=== PATIENT | male | born 1950 | race Caucasian/White ===

== ENCOUNTER → 2016-03-29 | Day surgery (SDC) | payer OTHER ==
[2016-03-24 12:11] VITALS: Ht 175.3 cm; Wt 102.3 kg
[~2016-03-29] VITALS: Ht 175.3 cm; Wt 102.3 kg
[~2016-03-29] MED LIST: 500ML BSS 0.3ML EPI 1:1000PF IRRIG ONE; ACETAMINOPHEN 325 MG TAB PO PRN; ALBU18002 PO; AMLO-114 PO; AMR2 PO; AMVISC PLUS 0.8ML SYRINGE INT OCU ONE; APIX1TAB3 PO; ASPCH81X PO; ATEN-175 PO; ATROPINE SULFATE 0.1 MG/ML 5ML SYR IV PRN; BSS FLUSH ONE; DXY100 PO; ENDOCOAT 0.85ML SYRINGE INT OCU ONE; EpHEDrine SULFATE INJ 50 MG/ML AMP IV PRN; EpINEphrine INJ 1MG/ML AMP 1 MG/ML AMP ONE; FURO-85 PO; HYDR-5688 PO; LACTATED RINGER'S 1000ML 500 ML IV SCH; LIDOCAINE 4% OP SOLN DROP CHARGE ONE; LIDOCAINE 4% OP SOLN DROP CHARGE OPL SCH; LIDOCAINE HCL 1% MPF 2 ML VIAL ONE; LISI40TA PO; LRS10 PO; MENTOIN EXT; METO25TA3 PO; MIDAZOLAM HCL 1 MG/ML 2ML VIAL ONE; MIX: 4ML BSS 1ML EPI 1:1000 PF TOP ONE; MOXIFLOXACIN OPH SOLN PER DROP CHARGE ONE; NRN300 PO; POTA10CA28 PO; POVIDONE-IODINE OP SOLN 30 ML BTL ONE; PRED20TA PO; PROPARACAINE 0.5% OP SOLN PER DROP CHARGE OPL SCH; TOBRAMYCIN/DEXAMETHASONE OPH OINT PER APPLN CHARGE ONE
--- NOTE | 2016-03-29 07:38 | History & Physical Bridge - [place] ---
H&P Re-Evaluation Bridge Note: I have examined the patient, reviewed the History & Physical and in the interval since the performance of the History & Physical I have noted the following changes of clinical significance: No changes noted
[2016-03-29] MEDS: PHENYLEPHRINE HCL 2.5% OP SOLN PER DROP CHARGE OPL SCH ×3 (07:39→07:49)
[2016-03-29] MEDS: TROPICAMIDE 1% OP SOLN PER DROP CHARGE OPL SCH ×3 (07:40→07:50)
[2016-03-29] MEDS: CYCLOPENTOLATE HCL 1% OP SOLN PER DROP CHARGE OPL SCH ×3 (07:41→07:51)
[2016-03-29] MEDS: MOXIFLOXACIN OPH SOLN PER DROP CHARGE OPL SCH ×3 (07:42→07:52)
[2016-03-29 08:57] VITALS: TEMP 37.3
--- NOTE | 2016-03-29 08:57 | [facility] Post Operative Brief Note ---
Immediate Operative Summary Operative Date Mar 29, 2016. Pre-Operative Diagnosis Left Eye Cataract Post-Operative Diagnosis same Procedure(s) Performed Left Cataract Phacoemulsification With Intraocular Lens Implant Surgeon Dr. Cristy Park Plate Gauger Surgeon(s) 0 Estimated Blood Loss 0 Findings left cataract Specimens none Complication(s) None Disposition
--- NOTE | 2016-03-29 08:57 | [facility] Operative Report ---
Operative Report Phaco with monofocal IOL DATE OF OPERATION: 03/29/16 PREOPERATIVE DIAGNOSIS: Senile nuclear cataract, left eye POSTOPERATIVE DIAGNOSIS: Senile nuclear cataract, left eye PROCEDURE PERFORMED: Phacoemulsification with intraocular lens implantation, left eye SURGEON: Dr. Larry Park ANESTHESIA: Topical with 1% intracameral lidocaine and monitored anesthesia care COMPLICATIONS: None DESCRIPTION OF PROCEDURE: After positively identifying the patient both verbally and by wristband in the preoperative area, the left eye was marked as the operative eye. The patient was then brought back to the operating room by the anesthesia and nursing staff where they were given a drop of Lidocaine and betadine into the operative eye. They were then sterilely prepped and draped in the standard fashion typical for ophthalmic surgery. Steri-strips were placed along the upper eyelids to keep the lashes back, and a lid speculum was placed into the operative eye. At this point, a documented time out was performed with members of the ophthalmology, nursing, and anesthesia staffs all agreeing upon the correct patient, correct location for surgery, correct procedure, and correct type and power of intraocular lens to be implanted. The microscope was then swung into position. First, a paracentesis wound was made using a sideport blade. Then, in sequence, 1% preservative-free lidocaine followed by Endocoat viscoelastic was injected into the anterior chamber. Next , the main incision was made with a keratome blade in triplanar fashion. A sharp cystotome was introduced into the eye and used to create a tear in the anterior capsule, which was directed into a continuous curvilinear capsulorrhexis using Utrata forceps. Hydrodissection was then performed with BSS on a flat-tip cannula. Next, the phacoemulsification handpiece was introduced into the eye and used to remove the nucleus in a texeub-dku-zyeyjpo fashion. This was done without complication and then the irrigation-aspiration handpiece was introduced into the eye and used to remove all remaining cortical and epinuclear material. Amvisc was then injected into the anterior chamber as well as into the capsular bag and using the lens injector system, an MX60 14.0 D lens, serial number [id number], and expiration date 02/2018 was injected into the capsular bag and rotated into the correct position. Next, the irrigation- aspiration handpiece was used to remove all remaining Amvisc. BSS was used to hydrate the main wound, and then BSS was injected into the paracentesis site to reach physiologic pressure and then the main wound was checked and found to be watertight. The patient was given drops of Vigamox and Tobradex ointment into the operative eye, and then the surrounding area was cleaned and dried. A clear plastic shield was placed over the eye and the patient was then sat up and taken from the operating room by the anesthesia staff having tolerated the procedure well and suffering no complications. DISPOSITION: The patient was returned to the recovery room in stable condition. I attest to the content of the Intraoperative Record and any orders documented therein. Any exceptions are noted below.
--- NOTE | 2016-03-29 08:58 | Discharge Instructions-SurgCtr ---
Discharge Instructions Visit Reason for Visit: Cataract Left Eye Discharge Discharge Diagnosis / Problem: left cataract Discharge Goals Goal(s): Decrease discomfort, Improve function Medications Stopped Medications Name(s): Told not to take Glimepiride this a.m.. Activity Recommendations Activity Limitations: as noted below Anesthesia . Post Anesthesia Instructions: If you have had General Anesthesia or IV Sedation: * Do not drive today. * Resume driving when surgeon permits. * Do not make important decisions or sign legal documents today. * Call surgeon for: 1. Temperature elevations greater than 101 degrees F. 2. Uncontrollable pain. 3. Excessive bleeding. 4. Persistent nausea and vomiting. 5. Medication intolerance (nausea, vomiting or rash). * For nausea and vomiting use only clear liquids such as: tea, soda, bouillon until nausea subsides, then gradually increase diet as tolerated. * If you have any concerns or questions, call your surgeon's office. If physician is unavailable and it is an emergency, call 911 or go to the nearest emergency room. . Instructions / Follow-Up Instructions / Follow-Up ACTIVITY RECOMMENDATIONS: * Light activities. * You may walk outside, read, watch television. * You may notice redness on the white part of the eye and some blurry vision - this is normal. MEDICATIONS: Resume previous medications unless instructed otherwise by your surgeon. Start all eye drops at 11 am today: * Eye drops (today): Prednisone - one drop in operative eye every 2 hours while awake Ofloxacin - one drop in operative eye every 2 hours while awake Bromfenac - one drop in operative eye daily SPECIAL CARE INSTRUCTIONS: * Tape plastic shield over eye to sleep at night. Call your doctor at with any concerns or problems. FOLLOW UP VISIT: Follow-up with Dr Park at [place] office as scheduled. Diet Recommendations Home Diet: no limitations Procedures Procedures Performed: Left Cataract Phacoemulsification With Intraocular Lens Implant Pending Studies Studies pending at discharge: no Medical Emergencies . Who to Call and When: Medical Emergencies: If at any time you feel your situation is an emergency, please call 911 immediately. . Non-Emergent Contact Non-Emergency issues call your: Surgeon . . "Provider Documentation" section prepared by Larry Park.
--- NOTE | 2016-03-29 09:11 | Anesthesia Progress Nt - [facility] ---
Anesthesia Post Op Note Date & Time Mar 29, 2016 at 09:11 Vital Signs Pain Intensity: 0 Vital Signs Past 12 Hours Date Time Temp Pulse Resp B/P Pulse Ox O2 Delivery O2 Flow Rate FiO2 03/29/16 07:32 36.6 72 20 136/90 96 Room Air Notes Mental Status: alert / awake / arousable, participated in evaluation Pt Amnestic to Procedure: Yes Nausea / Vomiting: adequately controlled Pain: adequately controlled Airway Patency, RR, SpO2: stable & adequate BP & HR: stable & adequate Hydration State: stable & adequate Anesthetic Complications: no major complications apparent
[2016-03-29 09:45] VITALS: BP 128/81; PULSE 72; O2SAT 97
== END | disposition home or self-care (01) ==
LOC: X.SURG 07:09
PROVIDERS: ATTEND Ophthalmology
DX: H25.12 Age-related nuclear cataract, left eye (principal); Z98.49 Cataract extraction status, unspecified eye; I10 Essential (primary) hypertension; J44.9 Chronic obstructive pulmonary disease, unspecified; E11.9 Type 2 diabetes mellitus without complications; Z88.1 Allergy status to other antibiotic agents; Z88.7 Allergy status to serum and vaccine

== ENCOUNTER → 2016-04-05 | Day surgery (SDC) | payer OTHER ==
[2016-04-04 07:51] VITALS: Ht 175.3 cm; Wt 102.3 kg
[~2016-04-05] VITALS: Ht 175.3 cm; Wt 102.3 kg
[~2016-04-05] MED LIST changes: -LIDOCAINE 4% OP SOLN DROP CHARGE OPL SCH; +LIDOCAINE 4% OP SOLN DROP CHARGE OPR SCH; -PROPARACAINE 0.5% OP SOLN PER DROP CHARGE OPL SCH; +PROPARACAINE 0.5% OP SOLN PER DROP CHARGE OPR SCH
[2016-04-05] MEDS: PHENYLEPHRINE HCL 2.5% OP SOLN PER DROP CHARGE OPR SCH ×3 (08:04→08:14)
[2016-04-05] MEDS: TROPICAMIDE 1% OP SOLN PER DROP CHARGE OPR SCH ×3 (08:05→08:15)
[2016-04-05] MEDS: CYCLOPENTOLATE HCL 1% OP SOLN PER DROP CHARGE OPR SCH ×3 (08:06→08:16)
[2016-04-05] MEDS: MOXIFLOXACIN OPH SOLN PER DROP CHARGE OPR SCH ×3 (08:07→08:17)
--- NOTE | 2016-04-05 09:27 | [facility] Post Operative Brief Note ---
Immediate Operative Summary Operative Date Apr 05, 2016. Pre-Operative Diagnosis Right Eye Cataract Post-Operative Diagnosis same Procedure(s) Performed Right Eye Cataract Phcoemulsification with Intra-Ocular Lens Implant Surgeon Dr. Cristy Park Braided Rug Maker Surgeon(s) 0 Estimated Blood Loss 0 Findings right cataract Specimens none Complication(s) None Disposition
--- NOTE | 2016-04-05 09:28 | [facility] Operative Report ---
Operative Report Phaco with monofocal IOL DATE OF OPERATION: 04/05/16 PREOPERATIVE DIAGNOSIS: Senile nuclear cataract, right eye POSTOPERATIVE DIAGNOSIS: Senile nuclear cataract, right eye PROCEDURE PERFORMED: Phacoemulsification with intraocular lens implantation, right eye SURGEON: Dr. Larry Park ANESTHESIA: Topical with 1% intracameral lidocaine and monitored anesthesia care COMPLICATIONS: None DESCRIPTION OF PROCEDURE: After positively identifying the patient both verbally and by wristband in the preoperative area, the right eye was marked as the operative eye. The patient was then brought back to the operating room by the anesthesia and nursing staff where they were given a drop of Lidocaine and betadine into the operative eye. They were then sterilely prepped and draped in the standard fashion typical for ophthalmic surgery. Steri-strips were placed along the upper eyelids to keep the lashes back, and a lid speculum was placed into the operative eye. At this point, a documented time out was performed with members of the ophthalmology, nursing, and anesthesia staffs all agreeing upon the correct patient, correct location for surgery, correct procedure, and correct type and power of intraocular lens to be implanted. The microscope was then swung into position. First, a paracentesis wound was made using a sideport blade. Then, in sequence, 1% preservative-free lidocaine followed by Endocoat viscoelastic was injected into the anterior chamber. Next , the main incision was made with a keratome blade in triplanar fashion. A sharp cystotome was introduced into the eye and used to create a tear in the anterior capsule, which was directed into a continuous curvilinear capsulorrhexis using Utrata forceps. Hydrodissection was then performed with BSS on a flat-tip cannula. Next, the phacoemulsification handpiece was introduced into the eye and used to remove the nucleus in a gztpee-cos-gdbkikh fashion. This was done without complication and then the irrigation-aspiration handpiece was introduced into the eye and used to remove all remaining cortical and epinuclear material. Amvisc was then injected into the anterior chamber as well as into the capsular bag and using the lens injector system, an MX60 14.5 D lens, serial number [id number], and expiration date 10/2016 was injected into the capsular bag and rotated into the correct position. Next, the irrigation- aspiration handpiece was used to remove all remaining Amvisc. BSS was used to hydrate the main wound, and then BSS was injected into the paracentesis site to reach physiologic pressure and then the main wound was checked and found to be watertight. The patient was given drops of Vigamox and Tobradex ointment into the operative eye, and then the surrounding area was cleaned and dried. A clear plastic shield was placed over the eye and the patient was then sat up and taken from the operating room by the anesthesia staff having tolerated the procedure well and suffering no complications. DISPOSITION: The patient was returned to the recovery room in stable condition. I attest to the content of the Intraoperative Record and any orders documented therein. Any exceptions are noted below.
--- NOTE | 2016-04-05 09:29 | Discharge Instructions-SurgCtr ---
Discharge Instructions Visit Reason for Visit: Cataract Right Eye Discharge Discharge Diagnosis / Problem: right cataract Discharge Goals Goal(s): Decrease discomfort, Improve function Medications Stopped Medications Name(s): Amaryl Activity Recommendations Activity Limitations: as noted below Anesthesia . Post Anesthesia Instructions: If you have had General Anesthesia or IV Sedation: * Do not drive today. * Resume driving when surgeon permits. * Do not make important decisions or sign legal documents today. * Call surgeon for: 1. Temperature elevations greater than 101 degrees F. 2. Uncontrollable pain. 3. Excessive bleeding. 4. Persistent nausea and vomiting. 5. Medication intolerance (nausea, vomiting or rash). * For nausea and vomiting use only clear liquids such as: tea, soda, bouillon until nausea subsides, then gradually increase diet as tolerated. * If you have any concerns or questions, call your surgeon's office. If physician is unavailable and it is an emergency, call 911 or go to the nearest emergency room. . Instructions / Follow-Up Instructions / Follow-Up ACTIVITY RECOMMENDATIONS: * Light activities. * You may walk outside, read, watch television. * You may notice redness on the white part of the eye and some blurry vision - this is normal. MEDICATIONS: Resume previous medications unless instructed otherwise by your surgeon. Start all eye drops at 11:30 am today: * Eye drops (today): Prednisone - one drop in operative eye every 2 hours while awake Ofloxacin - one drop in operative eye every 2 hours while awake Bromfenac - one drop in operative eye daily SPECIAL CARE INSTRUCTIONS: * Tape plastic shield over eye to sleep at night. Call your doctor at with any concerns or problems. FOLLOW UP VISIT: Follow-up with Dr Park at [facility] as scheduled. Diet Recommendations Home Diet: no limitations Procedures Procedures Performed: Right Eye Cataract Phcoemulsification with Intra-Ocular Lens Implant Pending Studies Studies pending at discharge: no Medical Emergencies . Who to Call and When: Medical Emergencies: If at any time you feel your situation is an emergency, please call 911 immediately. . Non-Emergent Contact Non-Emergency issues call your: Surgeon . . "Provider Documentation" section prepared by Larry Park.
[2016-04-05 09:30] VITALS: TEMP 36.8
--- NOTE | 2016-04-05 09:30 | [facility] Operative Report ---
Operative Report Addendum: A Malyugin ring was inserted due to poor pupil dilation. This step was done after making the main incision. The Malyugin ring was subsequently removed prior to final Amvisc aspiration. I attest to the content of the Intraoperative Record and any orders documented therein. Any exceptions are noted below.
--- NOTE | 2016-04-05 09:47 | Anesthesia Progress Nt - [facility] ---
Anesthesia Post Op Note Date & Time Apr 05, 2016 at 09:47 Vital Signs Pain Intensity: 0 Vital Signs Past 12 Hours Date Time Temp Pulse Resp B/P Pulse Ox O2 Delivery O2 Flow Rate FiO2 04/05/16 09:30 36.8 80 16 119/77 96 Room Air 04/05/16 07:56 36.2 95 16 127/83 95 Room Air Notes Mental Status: alert / awake / arousable, participated in evaluation Pt Amnestic to Procedure: Yes Nausea / Vomiting: adequately controlled Pain: adequately controlled Airway Patency, RR, SpO2: stable & adequate BP & HR: stable & adequate Hydration State: stable & adequate Anesthetic Complications: no major complications apparent
[2016-04-05 09:48] VITALS: BP 123/79; PULSE 69; O2SAT 98
== END | disposition home or self-care (01) ==
LOC: X.SURG 07:44
PROVIDERS: ATTEND Ophthalmology
DX: H25.11 Age-related nuclear cataract, right eye (principal); H57.8 Other specified disorders of eye and adnexa; Z98.42 Cataract extraction status, left eye; I10 Essential (primary) hypertension; J45.909 Unspecified asthma, uncomplicated; E11.9 Type 2 diabetes mellitus without complications; Z83.518 Family history of other specified eye disorder; Z88.1 Allergy status to other antibiotic agents; Z82.49 Family history of ischemic heart disease and other diseases of the circulatory system; Z79.82 Long term (current) use of aspirin

== ENCOUNTER 2016-11-03 06:52 | Inpatient (IN) | payer OTHER ==
[~2016-11-03] VITALS: Ht 172.7 cm; Wt 104.3 kg
[~2016-11-03 06:52] MED LIST changes: -500ML BSS 0.3ML EPI 1:1000PF IRRIG ONE; -ACETAMINOPHEN 325 MG TAB PO PRN; -ALBU18002 PO; -AMVISC PLUS 0.8ML SYRINGE INT OCU ONE; -APIX1TAB3 PO; -ATEN-175 PO; -ATROPINE SULFATE 0.1 MG/ML 5ML SYR IV PRN; -BSS FLUSH ONE; -DXY100 PO; -ENDOCOAT 0.85ML SYRINGE INT OCU ONE; -EpHEDrine SULFATE INJ 50 MG/ML AMP IV PRN; -EpINEphrine INJ 1MG/ML AMP 1 MG/ML AMP ONE; -HYDR-5688 PO; -LACTATED RINGER'S 1000ML 500 ML IV SCH; -LIDOCAINE 4% OP SOLN DROP CHARGE ONE; -LIDOCAINE 4% OP SOLN DROP CHARGE OPR SCH; -LIDOCAINE HCL 1% MPF 2 ML VIAL ONE; -LRS10 PO; -MENTOIN EXT; -METO25TA3 PO; -MIDAZOLAM HCL 1 MG/ML 2ML VIAL ONE; -MIX: 4ML BSS 1ML EPI 1:1000 PF TOP ONE; -MOXIFLOXACIN OPH SOLN PER DROP CHARGE ONE; -NRN300 PO; -POTA10CA28 PO; -POVIDONE-IODINE OP SOLN 30 ML BTL ONE; -PROPARACAINE 0.5% OP SOLN PER DROP CHARGE OPR SCH; -TOBRAMYCIN/DEXAMETHASONE OPH OINT PER APPLN CHARGE ONE
[2016-11-03] MEDS ORDERED: ONDANSETRON INJ 2 MG/ML 2 ML VIAL IV STA (07:01)
[2016-11-03] MEDS ORDERED: HYDROmorphone INJ 0.5 MG/0.5 ML SYR IV STA ×3 (07:01→12:01)
[2016-11-03] MEDS ORDERED: ALBUT/IPRATROP 3MG/0.5MG NEB 3 ML VIAL INH STA (07:30)
[2016-11-03 07:34] LABS: URINE APPEARANCE CLEAR (CLEAR); URINE BILIRUBIN NEG (NEG); URINE COLOR YELLOW; URINE NITRITE NEG (NEG); URINE SPECIFIC GRAVITY 1.028 (1.000-1.030); UROBILINOGEN NEG (NEG)
[2016-11-03 07:39] LABS: MANUAL MICROSCOPIC REQUIRED? NO; REVIEW REQ? NO
[2016-11-03] MEDS ORDERED: SODIUM CHLORIDE 0.9% 500ML 500 ML IV STA (07:43)
[2016-11-03 07:52] LABS: BASO % 0.3 %; BASO ABS # 0.03 K/uL (0-0.2); COMPLETE YES; EOS % 0.3 %; HEMATOCRIT 42.9 % (42-52); IG% 1.3 %; LYMPH % 4.5 %; MEAN CELL VOLUME 82.5 fL (80-100); MEAN CORPUSCULAR HEMOGLOBIN 29.4 pg (25-34); MEAN CORPUSCULAR HGB CONC 35.7 g/dl (32-36); MEAN PLATELET VOLUME 9.8 fL (7.4-10.4); MONO % 4.2 %; NEUT % 89.4 %; PLATELET COUNT 135 K/uL (130-400); WHITE BLOOD COUNT 11.21 K/uL (4.8-10.8)
[2016-11-03 08:10] VITALS: PULSE 92; O2SAT 96
[2016-11-03 08:22] LABS: BUN/CREATININE RATIO 19.7 (10-20); CALCIUM 9.6 mg/dl (8.5-10.1); CREATININE 1.2 mg/dl (0.60-1.40)
--- NOTE | 2016-11-03 08:24 | DIAGNOSTIC IMAGING REPORT ---
LUMBAR SPINE WITHOUT CT DOSE: 673.11 mGycm HISTORY: Pain Pt c/o severe low back pain TECHNIQUE: Multiaxial CT images of the lumbar spine were performed and reformatted in the sagittal and coronal plane without the use of contrast. A dose lowering technique was utilized adhering to the principles of ALARA. COMPARISON: None. FINDINGS: No evidence for acute compression deformity. Mild degenerative disc change throughout. Right pleural effusion. Moderate degenerative osteophytic change throughout the entire lumbar region. No major bony compromise of the spinal canal. Degenerative change of the posterior elements throughout. IMPRESSION: 1. Right pleural effusion. 2. Moderate degenerative change of the lumbar spine including posterior facets. 3. Osteopenia. 4. No acute bony abnormality. The above report was generated using voice recognition software. It may contain grammatical, syntax or spelling errors. Electronically signed by: Ray Villafuerte M.D. 11/03/2016 8:22 AM Dictated Date/Time: 11/03/2016 8:20 AM
--- NOTE | 2016-11-03 08:29 | DIAGNOSTIC IMAGING REPORT ---
CHEST ONE VIEW PORTABLE CLINICAL HISTORY: Pt c/o SOB dyspnea COMPARISON STUDY: 01/05/2016 FINDINGS: Moderate cardiomegaly. Areas of congestive failure. Diaphragms are smooth. Costophrenic angles are sharp. IMPRESSION: Congestive heart failure The above report was generated using voice recognition software. It may contain grammatical, syntax or spelling errors. Electronically signed by: Ray Villafuerte M.D. 11/03/2016 8:27 AM Dictated Date/Time: 11/03/2016 8:27 AM
[2016-11-03 08:32] LABS: BETA-HYDROXYBUTYRATE 7.72 mg/dL (0.2-2.81)
[2016-11-03] MEDS ORDERED: FUROSEMIDE 40 MG/4 ML VIAL IV STA (08:37)
[2016-11-03] MEDS ORDERED: INSULIN HUMAN REGULAR SC STA (08:39)
[2016-11-03] MEDS ORDERED: POTASSIUM CHLORIDE 10 MEQ TABCR PO STA (08:39)
[2016-11-03] MEDS ORDERED: ATEN-175 PO (08:41)
[2016-11-03] MEDS ORDERED: NovoLIN-R INSULIN PER UNIT CHARGE SQ ONE (09:00)
--- NOTE | 2016-11-03 11:36 | DIAGNOSTIC IMAGING REPORT ---
LUMBAR SPINE MRI HISTORY: Pt c/o severe back pain TECHNIQUE: Multiplanar multisequence MRI of the lumbar spine was performed without the use of contrast. COMPARISON: Lumbar spine CT 11/03/2016. FINDINGS: For the purpose of the report the L5-S1 disc space will be located on axial image 23 of 25. Subcutaneous edema within the lumbar region. There is also mild edema within the bilateral lumbar erector spinae muscles. No fracture or subluxation within the lumbar spine. Mild disc space narrowing at L5-S1. The conus terminates at the L2 level. Mild facet degenerative changes within the lumbar spine. The visualized retroperitoneal soft tissues are unremarkable. L1-L2: No significant central canal or neural foraminal narrowing. L2-L3: No significant central canal or neural foraminal narrowing. L3-L4: No disc herniations. No significant central canal narrowing. Mild bilateral neural foraminal narrowing due to the facet hypertrophy. L4-L5: No disc herniations. No central canal or neural foraminal narrowing. L5-S1: No central canal narrowing. Tiny broad-based posterior disc bulge with a small focal central annular tear. No disc herniations. Mild left neural foraminal narrowing due to the facet hypertrophy. IMPRESSION: 1. Mild degenerative disease at L5-S1. No significant central canal narrowing. No disc herniations. 2. Mild edema within the bilateral lumbar erector spinae muscles. This raises the possibility of a muscular strain. 3. No fracture or subluxation within the lumbar spine. Electronically signed by: Aman Sullivan M.D. 11/03/2016 11:35 AM Dictated Date/Time: 11/03/2016 11:24 AM
[2016-11-03] MEDS ORDERED: KETOROLAC TROMETHAMINE 30 MG/ML VIAL IV STA (12:01)
[2016-11-03] MEDS ORDERED: LIDODERM (LIDOCAINE) PATCH 5% TD STA (12:13)
--- NOTE | 2016-11-03 12:34 | EMERGENCY ROOM VISIT NOTE ---
History Report prepared by Fay: Clari Goode Under the Supervision of: Dr. Mendoza Cali M.D. First contact with patient: 06:55 Chief Complaint: BACK PAIN Stated Complaint: BACK PAIN History of Present Illness The patient is a 66 year old male who presents to the Emergency Room with complaints of persistent back pain starting last night. The patient presents to the ED by EMS. He was given fentanyl in route. He currently rates his discomfort as a 5/10 in severity. The back pain is located in his lower back. He was doing heavy lifting, twisting, and bending yesterday as he was moving furniture into his home. He sat down and was unable to get up because of the pain prompting him to call EMS. He is having spasms of back pain. He denies any numbness. He is on aspirin. He has a history of COPD. He is normally not on oxygen, but was placed on oxygen by EMS. He has had back pain in the past with jogging, but has not had severe pain in a while. He has not seen ortho for his back pain before. Source of History: patient, EMS Onset: last night Position: back (lower) Symptom Intensity: 5/10 Quality: other (pain) Timing: other (persistent) Associated Symptoms: No numbness Note: Pt reports spasms. Review of Systems See HPI for pertinent positives & negatives. A total of 10 systems reviewed and were otherwise negative. Past Medical & Surgical Medical Problems: (1) Atrial fibrillation (2) Coronary artery disease (3) Diabetes mellitus type II, uncontrolled (4) Essential hypertension (5) Gout (6) s/p cardiac cath Family History Diabetes mellitus Heart disease Hypertension Social History Smoking Status: Never Smoker Alcohol Use: none Marital Status: Occupation Status: employed Current/Historical Medications Scheduled Aspirin (Aspirin Chewable), 81 MG PO QAM Atenolol (Tenormin), 100 MG PO DAILY Furosemide (Lasix), 20 MG PO DIRECTED Glimepiride (Amaryl *), 4 MG PO QAM Lisinopril (Zestril), 40 MG PO QAM Scheduled PRN Albuterol Sulfate (Proair Respiclick), 2 PUFFS PO QID PRN for Shortness of Breath Prednisone (Prednisone), 1 TAB PO DIRECTED PRN for Shortness of Breath Allergies Coded Allergies: Cefazolin (Verified Allergy, Unknown, UNKNOWN, 11/03/16) INFORMATION FROM [employer]. Cephalexin (Verified Allergy, Unknown, HIVES, 11/03/16) Influenza Virus Vaccine H5N1 (Verified Allergy, Unknown, LABELED A CHILD, UNSURE, 11/03/16) Uncoded Allergies: GUT SUTURE (Allergy, Intermediate, Swelling, 03/29/16) Physical Exam Vital Signs Date Time Temp Pulse Resp B/P (MAP) Pulse Ox O2 Delivery O2 Flow Rate FiO2 11/03/16 13:00 91 17 102/70 96 Nasal Cannula 2.0 11/03/16 12:21 93 11/03/16 12:00 99 17 105/68 96 Nasal Cannula 2.0 11/03/16 11:27 90 11/03/16 11:19 90 16 98/68 90 Room Air 11/03/16 09:45 99 18 94/69 93 Room Air 11/03/16 08:25 89 20 110/67 100 Nebulizer 11/03/16 08:10 92 16 96 Room Air 11/03/16 07:24 95 Room Air 11/03/16 07:24 95 Room Air 11/03/16 06:59 36.6 98 22 118/79 95 Room Air 11/03/16 06:57 97 Physical Exam GENERAL: Patient is a healthy-appearing well-nourished male HEAD: Normocephalic atraumatic EYES: Ocular movements intact pupils equal and react to light OROPHARYNX mucous membranes are moist no exudates present no erythema or edema present NECK: Supple no nuchal rigidity CHEST: Good equal expansion LUNGS: Clear and equal to auscultation CARDIAC: Normal S1 and S2 ABDOMEN: Soft nontender no guarding BACK: Tender in the L3 L4 area on the left. EXTREMITIES: No pain upon palpation normal muscle strength in all groups no clubbing cyanosis or edema, arms have chronic ulcer changes. NEURO: Patient is following commands and answering questions appropriately. Alert and oriented x3 Cranial Nerves 2-12 grossly intact Medical Decision & Procedures ER Provider Diagnostic Interpretation: X-ray results as stated below per interpretation by me and the radiologist. Radiology results as stated below per my review and radiologist interpretation: CHEST ONE VIEW PORTABLE CLINICAL HISTORY: Pt c/o SOB dyspnea COMPARISON STUDY: 01/05/2016 FINDINGS: Moderate cardiomegaly. Areas of congestive failure. Diaphragms are smooth. Costophrenic angles are sharp. IMPRESSION: Congestive heart failure The above report was generated using voice recognition software. It may contain grammatical, syntax or spelling errors. Electronically signed by: Ray Villafuerte M.D. 11/03/2016 8:27 AM Dictated Date/Time: 11/03/2016 8:27 AM LUMBAR SPINE WITHOUT CT DOSE: 673.11 mGycm HISTORY: Pain Pt c/o severe low back pain TECHNIQUE: Multiaxial CT images of the lumbar spine were performed and reformatted in the sagittal and coronal plane without the use of contrast. A dose lowering technique was utilized adhering to the principles of ALARA. COMPARISON: None. FINDINGS: No evidence for acute compression deformity. Mild degenerative disc change throughout. Right pleural effusion. Moderate degenerative osteophytic change throughout the entire lumbar region. No major bony compromise of the spinal canal. Degenerative change of the posterior elements throughout. IMPRESSION: 1. Right pleural effusion. 2. Moderate degenerative change of the lumbar spine including posterior facets. 3. Osteopenia. 4. No acute bony abnormality. The above report was generated using voice recognition software. It may contain grammatical, syntax or spelling errors. Electronically signed by: Ray Villafuerte M.D. 11/03/2016 8:22 AM Dictated Date/Time: 11/03/2016 8:20 AM LUMBAR SPINE MRI HISTORY: Pt c/o severe back pain TECHNIQUE: Multiplanar multisequence MRI of the lumbar spine was performed without the use of contrast. COMPARISON: Lumbar spine CT 11/03/2016. FINDINGS: For the purpose of the report the L5-S1 disc space will be located on axial image 23 of 25. Subcutaneous edema within the lumbar region. There is also mild edema within the bilateral lumbar erector spinae muscles. No fracture or subluxation within the lumbar spine. Mild disc space narrowing at L5-S1. The conus terminates at the L2 level. Mild facet degenerative changes within the lumbar spine. The visualized retroperitoneal soft tissues are unremarkable. L1-L2: No significant central canal or neural foraminal narrowing. L2-L3: No significant central canal or neural foraminal narrowing. L3-L4: No disc herniations. No significant central canal narrowing. Mild bilateral neural foraminal narrowing due to the facet hypertrophy. L4-L5: No disc herniations. No central canal or neural foraminal narrowing. L5-S1: No central canal narrowing. Tiny broad-based posterior disc bulge with a small focal central annular tear. No disc herniations. Mild left neural foraminal narrowing due to the facet hypertrophy. IMPRESSION: 1. Mild degenerative disease at L5-S1. No significant central canal narrowing. No disc herniations. 2. Mild edema within the bilateral lumbar erector spinae muscles. This raises the possibility of a muscular strain. 3. No fracture or subluxation within the lumbar spine. Electronically signed by: Aman Sullivan M.D. 11/03/2016 11:35 AM Dictated Date/Time: 11/03/2016 11:24 AM Laboratory Results Test 11/03/16 07:40 Total Bilirubin 2.1 mg/dl (0.2-1) Aspartate Amino Transf (AST/SGOT) 24 U/L (15-37) Alanine Aminotransferase (ALT/SGPT) 59 U/L (12-78) Alkaline Phosphatase 172 U/L (45-117) Total Protein 7.3 gm/dl (6.4-8.2) Albumin 3.7 gm/dl (3.4-5.0) Globulin 3.6 gm/dl (2.5-4.0) Albumin/Globulin Ratio 1.0 (0.9-2) Beta-Hydroxybutyric Acid 7.72 mg/dL (0.2-2.81) Labs reviewed by ED physician. Medications Administered Medications (Trade) Dose Ordered Sig/Van Route Start Time Stop Time Status Last Admin Dose Admin Hydromorphone HCl (Dilaudid Inj) 0.5 mg NOW STAT IV 11/03/16 07:01 11/03/16 07:03 DC 11/03/16 07:43 0.5 MG Ondansetron HCl (Zofran Inj) 4 mg NOW STAT IV 11/03/16 07:01 11/03/16 07:03 DC 11/03/16 07:42 4 MG Albuterol/ Ipratropium (Duoneb) 12 ml ONE STAT INH 11/03/16 07:30 11/03/16 07:32 DC 11/03/16 07:30 12 ML Sodium Chloride 500 ml @ 999 mls/hr Q31M STAT IV 11/03/16 07:43 11/03/16 08:13 DC 11/03/16 08:18 999 MLS/HR Furosemide (Lasix Inj) 40 mg NOW STAT IV 11/03/16 08:37 11/03/16 08:38 DC 11/03/16 08:51 40 MG Hydromorphone HCl (Dilaudid Inj) 0.5 mg NOW STAT IV 11/03/16 08:39 11/03/16 08:42 DC 11/03/16 08:52 0.5 MG Potassium Chloride (Klor-Con M10) 80 meq NOW STAT PO 11/03/16 08:39 11/03/16 08:42 DC 11/03/16 08:52 80 MEQ Insulin Human Regular (novoLIN-R U-100 PER UNIT) 10 units NOW ONCE SQ 11/03/16 09:00 11/03/16 09:01 DC 11/03/16 09:02 10 UNITS Ketorolac Tromethamine (Toradol Inj) 30 mg NOW STAT IV 11/03/16 12:01 11/03/16 12:03 DC 11/03/16 12:10 30 MG Hydromorphone HCl (Dilaudid Inj) 0.5 mg NOW STAT IV 11/03/16 12:01 11/03/16 12:03 DC 11/03/16 12:11 0.5 MG Lidocaine (Lidoderm Patch 5%) 1 patch NOW STAT TD 11/03/16 12:13 11/03/16 12:14 DC 11/03/16 13:30 1 PATCH ECG Indication: back/shoulder pain Rate (beats per minute): 101 Rhythm: atrial fibrillation (with RVR) Findings: RBBB, T-wave inversion (Lateral) Comparison ECG Date: 18-Jun-2013 Change: no significant change ED Course 0657: Past medical records reviewed. The patient was evaluated in room A3. A complete history and physical examination was performed. 0701: Zofran Inj 4 mg IV, Dilaudid Inj 0.5 mg IV. 0730: Duoneb 12 ml INH. 0743: NSS 500 ml @ 999 mls/hr IV. 0837: Furosemide 40 mg IV. 0839: Potassium Chloride 80 meq PO, Dilaudid Inj 0.5 mg IV. 0900: Insulin Human Regular 10 units SQ. 1201: Dilaudid Inj 0.5 mg IV, Toradol Inj 30 mg IV. 1210: Upon reexamination the patient is stable. I discussed results and treatment plan with the patient. He verbalizes agreement and understanding. The patient will be evaluated for further management. 1212: I discussed the patient's case with BEATRIZ Petersen hospitalist service, she has agreed to evaluate the patient for further management and care. 1213: Lidocaine 1 patch TD. Medical Decision Differential diagnosis: Etiologies such as musculoskeletal, disc herniation, fracture, aortic disease, metastatic disease, cord compression, discitis, infection, renal colic, gastrointestinal, acute exacerbation of chronic back pain, sciatica, cauda equina, as well as others were entertained. This is a 66-year-old male who presents emergency department with acute back pain. His been incredibly difficult to get the patient's pain under control. He has been given Dilaudid in the emergency department but is still moaning and writhing around the bed in pain. Because of the nature the patient's complaint he was sent for CT of the spine. The patient was still complaining of pain and is hypoxic requiring oxygen. He was sent for an MRI the back which did not show any acute process. I did discuss the case with the hospitalist service who agreed to admit the patient. Patient family were in agreement with the treatment plan. Medication Reconcilliation Current Medication List: was personally reviewed by me Blood Pressure Screening Patient's blood pressure: Normal blood pressure Blood pressure disposition: Did not require urgent referral Consults Time Called: 1205 Consulting Physician[facility] Returned Call: 1212 I discussed the patient's case with [facility], she has agreed to evaluate the patient for further management and care. Impression Primary Impression: Hypoxia Additional Impressions: CHF exacerbation Back pain Scribe Attestation The scribe's documentation has been prepared under my direction and personally reviewed by me in its entirety. I confirm that the note above accurately reflects all work, treatment, procedures, and medical decision making performed by me. Departure Information Dispostion Being Evaluated By Hospitalist Prescriptions Albuterol Sulfate (Proair Respiclick) 108 Mcg/Act Aer 2 PUFFS PO QID Y for Shortness of Breath, #1 Prov: Theresa Lay .Connor 11/03/16 Referrals Ga Ferreira M.D.([facility]) (PCP) Patient Instructions My [facility] Problem Qualifiers Additional Impressions: CHF exacerbation Congestive heart failure type: unspecified congestive heart failure type Qualified Codes: I50.9 - Heart failure, unspecified Back pain Back pain location: low back pain Chronicity: unspecified Back pain laterality: unspecified Sciatica presence: unspecified whether sciatica present Qualified Codes: M54.5 - Low back pain
[2016-11-03] MEDS ORDERED: GLUCAGON FOR INJ 1 MG VIAL SQ PRN (13:15)
[2016-11-03] MEDS ORDERED: GLUCOSE 10 TABS/TUBE PO PRN (13:15)
[2016-11-03] MEDS ORDERED: GLUCOSE 40% GEL 15 GM TUBE PO PRN (13:15)
[2016-11-03] MEDS ORDERED: ONDANSETRON INJ 2 MG/ML 2 ML VIAL IV PRN (13:15)
[2016-11-03] MEDS ORDERED: DEXTROSE 50% 50 ML SYR IV PRN (13:15)
[2016-11-03] MEDS ORDERED: DC ALL PREVIOUSLY ORDERED DIABETES MEDS ONE (14:30)
[2016-11-03] MEDS ORDERED: INSULIN PROTOCOL GOAL RANGE ONE (14:30)
[2016-11-03] MEDS ORDERED: MODERATE STRESS LEVEL ONE (14:30)
[2016-11-03 14:35] VITALS: BP 120/79; PULSE 96; TEMP 36.6; Ht 172.7 cm; Wt 104.3 kg
[2016-11-03] MEDS ORDERED: INSULIN IV INFUSION PROTOCOL SCH (14:41)
[2016-11-03] MEDS ORDERED: NURSING VERBAL MED ORDER ONE (15:00)
[2016-11-03] MEDS ORDERED: ALBU18002 PO ×2 (15:13→15:16)
[2016-11-03 15:27] VITALS: BP 128/79; PULSE 94; TEMP 36.8; O2SAT 94
[2016-11-03] MEDS ORDERED: ALBUTEROL HFA 8 GM INHALER INH PRN (15:30)
[2016-11-03 15:57] LABS: INR 1.2 (0.9-1.1); PROTHROMBIN TIME (PATIENT) 12.9 SECONDS (9.0-12.0)
[2016-11-03] MEDS ORDERED: INSULIN ASPART 100 UNITS/ML 3 ML PEN SC SCH ×2 (16:00→17:30)
--- NOTE | 2016-11-03 16:40 | DIAGNOSTIC IMAGING REPORT ---
THORACIC SPINE 3 VIEWS CLINICAL HISTORY: Midthoracic back pain. FINDINGS: AP, lateral, and swimmer's views of the thoracic spine are correlated with chest CT dated 04/18/2013. The skeletal structures are osteopenic. There is no radiographic evidence of fracture or malalignment. Vertebral body height and alignment are maintained throughout the thoracic spine. Anterior osteophytes are seen throughout. The transverse processes and pedicles are grossly intact as seen on the frontal view. Mild multilevel degenerative disc space narrowing is noted. The partially imaged lung parenchyma is grossly clear. IMPRESSION: Osteopenia and degenerative change as above. No acute bony abnormality is seen in the thoracic spine. Electronically signed by: Hans Chaudhary M.D. 11/03/2016 4:39 PM Dictated Date/Time: 11/03/2016 4:38 PM
[2016-11-03] MEDS ORDERED: LANTUS PER UNIT CHARGE SQ ONE (17:00)
[2016-11-03] MEDS ORDERED: VANCOMYCIN CONSULT ACTIVE PRN (17:00)
[2016-11-03] MEDS ORDERED: POTASSIUM CHLORIDE 10 MEQ TABCR PO ONE (17:00)
[2016-11-03] MEDS: INSULIN ASPART 100 UNITS/ML 3 ML PEN SC SCH ×2 (17:01→20:33)
--- NOTE | 2016-11-03 17:01 | Pharmacy Progress Note ---
Pharmacy Antibiotic Consult Date of Service: Nov 03, 2016. Pharmacy Dosing Scope Pharmacy is consulted to initiate vancomycin IV dosing therapy, order appropriate labs and adjust drug dose/frequency. Subjective The patient is a 66 year old male admitted on Nov 03, 2016 at 13:03. Objective Height (Feet): 5 Height (Inches): 8.00 Weight (Kilograms): 100.000 Lab Results (24hrs): Test 11/03/16 07:25 11/03/16 07:40 11/03/16 15:30 Urine Color YELLOW Urine Appearance CLEAR (CLEAR) Urine pH 5.0 (4.5-7.5) Urine Specific [place] 1.028 (1.000-1.030) Urine Protein NEG (NEG) Urine Glucose (UA) 3+ (NEG) Urine Ketones TRACE (NEG) Urine Occult Blood NEG (NEG) Urine Nitrite NEG (NEG) Urine Bilirubin NEG (NEG) Urine Urobilinogen NEG (NEG) Urine Leukocyte Esterase NEG (NEG) White Blood Count 11.21 K/uL (4.8-10.8) Red Blood Count 5.20 M/uL (4.7-6.1) Hemoglobin 15.3 g/dL (14.0-18.0) Hematocrit 42.9 % (42-52) Mean Corpuscular Volume 82.5 fL (80-100) Mean Corpuscular Hemoglobin 29.4 pg (25-34) Mean Corpuscular Hemoglobin Concent 35.7 g/dl (32-36) Platelet Count 135 K/uL (130-400) Mean Platelet Volume 9.8 fL (7.4-10.4) Neutrophils (%) (Auto) 89.4 % Lymphocytes (%) (Auto) 4.5 % Monocytes (%) (Auto) 4.2 % Eosinophils (%) (Auto) 0.3 % Basophils (%) (Auto) 0.3 % Neutrophils # (Auto) 10.03 K/uL (1.4-6.5) Lymphocytes # (Auto) 0.50 K/uL (1.2-3.4) Monocytes # (Auto) 0.47 K/uL (0.11-0.59) Eosinophils # (Auto) 0.03 K/uL (0-0.5) Basophils # (Auto) 0.03 K/uL (0-0.2) RDW Standard Deviation 47.5 fL (36.4-46.3) RDW Coefficient of Variation 15.7 % (11.5-14.5) Immature Granulocyte % (Auto) 1.3 % Immature Granulocyte # (Auto) 0.15 K/uL (0.00-0.02) Sodium Level 140 mmol/L (136-145) Potassium Level 3.0 mmol/L (3.5-5.1) Chloride Level 106 mmol/L (98-107) Carbon Dioxide Level 24 mmol/L (21-32) Anion Gap 10.0 mmol/L (3-11) Blood Urea Nitrogen 24 mg/dl (7-18) Creatinine 1.20 mg/dl (0.60-1.40) Est Creatinine Clear Calc Drug Dose 70.1 ml/min Estimated GFR () 72.6 Estimated GFR (Non- 62.6 BUN/Creatinine Ratio 19.7 (10-20) Random Glucose 336 mg/dl (70-99) Calcium Level 9.6 mg/dl (8.5-10.1) Total Bilirubin 2.1 mg/dl (0.2-1) Aspartate Amino Transf (AST/SGOT) 24 U/L (15-37) Alanine Aminotransferase (ALT/SGPT) 59 U/L (12-78) Alkaline Phosphatase 172 U/L (45-117) Troponin I 0.039 ng/ml (0-0.045) Total Protein 7.3 gm/dl (6.4-8.2) Albumin 3.7 gm/dl (3.4-5.0) Globulin 3.6 gm/dl (2.5-4.0) Albumin/Globulin Ratio 1.0 (0.9-2) Beta-Hydroxybutyric Acid 7.72 mg/dL (0.2-2.81) Prothrombin Time 12.9 SECONDS (9.0-12.0) Prothromb Time International Ratio 1.2 (0.9-1.1) Assessment & Plan Assessment * 66 yo M admitted for back pain, now ordered vancomycin for skin/skin structure infection * SCr is at/near baseline with eCrCL ~ 70 mL/min equating to an estimated vancomycin t1/2 of 11 hr * Will start with 25 mg/kg x1 load then continue with 15 mg/kg IV q12h (dose was ordered specifically by provider, KAT to continue per pharmacy consult) * Trough prior to 4th overall dose Plan * Vancomycin 2500 mg IV x1 now then 1500 mg IV q12h * Trough 11/05 @ 0330 Pharmacy will continue to follow and will adjust dose/frequency as necessary. Thank you
--- NOTE | 2016-11-03 17:02 | History and Physical ---
History & Physical Date & Time of Service: Nov 03, 2016 at 16:50 Chief Complaint: Back Pain, Chf Exacerbation Primary Care Physician: Ga Ferreira M.D.([place]) History of Present Illness This is a 66yo male with a PMH of DM II, A fib, HTN, non-occlusive CAD, diastolic CHF, COPD who presents with complaints of persistent back pain that started a few days ago. In the past, patient has experienced muscle spasms in the lumbar spine region but they have resolved with rest. Pain started a few days ago after doing heavy lifting in the house and twisting/bending while mowing the lawn. Pain worsened last evening and by this morning, patient was unable to get up from a seated position. EMS was called and patient was brought to the ED. Currently, patient rates pain as a 9/10 in his mid-spine along the thoracic and lumbar regions. Denies ever having back pain of this severity in the past. Denies any loss of bladder/bowel control or numbness or tingling in lower extremities. Denies any lightheadedness, palpitations, CP, dyspnea, SOB, or weakness in extremities. Endorses swelling in bilateral lower extremities and "leaking sores" from both lower legs. Past Medical/Surgical History Medical Problems: (1) Atrial fibrillation Status: Chronic (2) Coronary artery disease Permanent Comment: nonocclusive disease by cath [facility] [place] Status: Chronic (3) Diabetes mellitus type II, uncontrolled Status: Chronic (4) Essential hypertension Status: Chronic (5) Gout Status: Chronic (6) s/p cardiac cath Permanent Comment: [facility] [place] very mild nonocclusive disease Status: Resolved Family History Diabetes mellitus Heart disease Hypertension Social History Smoking Status: Never Smoker Alcohol Use: socially Marital Status: Housing status: lives with family Occupational Status: employed Immunizations History of Influenza Vaccine: No History of Tetanus Vaccine?: Yes Tetanus Immunization Date: Dec 12, 2002 History of Pneumococcal: No History of Hepatitis B Vaccine: Unknown Multi-Drug Resistant Organisms History of MDRO: No Allergies Coded Allergies: Cefazolin (Verified Allergy, Unknown, UNKNOWN, 11/03/16) INFORMATION FROM [employer] [facility]. Cephalexin (Verified Allergy, Unknown, HIVES, 11/03/16) Influenza Virus Vaccine H5N1 (Verified Allergy, Unknown, LABELED A CHILD, UNSURE, 11/03/16) Uncoded Allergies: GUT SUTURE (Allergy, Intermediate, Swelling, 03/29/16) Home Medications Scheduled Aspirin (Aspirin Chewable), 81 MG PO QAM Atenolol (Tenormin), 100 MG PO DAILY Furosemide (Lasix), 20 MG PO DIRECTED Glimepiride (Amaryl *), 4 MG PO QAM Lisinopril (Zestril), 40 MG PO QAM Scheduled PRN Albuterol Sulfate (Proair Respiclick), 2 PUFFS PO QID PRN for Shortness of Breath Prednisone (Prednisone), 1 TAB PO DIRECTED PRN for Shortness of Breath Review of Systems Ten systems reviewed and negative except as noted in the HPI. Physical Exam Vital Signs Date Time Temp Pulse Resp B/P (MAP) Pulse Ox O2 Delivery O2 Flow Rate FiO2 11/03/16 15:27 36.8 94 20 128/79 (95) 94 Nasal Cannula 2.0 11/03/16 14:35 36.6 96 16 120/79 11/03/16 14:03 104 20 102/71 95 11/03/16 13:00 91 17 102/70 96 Nasal Cannula 2.0 11/03/16 12:21 93 11/03/16 12:00 99 17 105/68 96 Nasal Cannula 2.0 11/03/16 11:27 90 11/03/16 11:19 90 16 98/68 90 Room Air 11/03/16 09:45 99 18 94/69 93 Room Air 11/03/16 08:25 89 20 110/67 100 Nebulizer 11/03/16 08:10 92 16 96 Room Air 11/03/16 07:24 95 Room Air 11/03/16 07:24 95 Room Air 11/03/16 06:59 36.6 98 22 118/79 95 Room Air 11/03/16 06:57 97 General Appearance: WD/WN, + moderate distress (Grunting intermittently in pain when answering questions ) Head: normocephalic, atraumatic Eyes: normal inspection, sclerae normal ENT: hearing grossly normal Neck: supple, no adenopathy, trachea midline Respiratory/Chest: chest non-tender, lungs clear, normal breath sounds, no respiratory distress, no accessory muscle use Cardiovascular: regular rate, rhythm, no murmur Abdomen/GI: normal bowel sounds, non tender, soft, no organomegaly Back: normal inspection, + muscle spasm, + pertinent finding (TTP of midspine from thoracic to lumbar region. Increased pain with lateral movement. No paraspinal tenderness. ) Extremities/Musculoskelatal: no calf tenderness, + swelling (In BLE below knees ) Neurologic/Psych: no motor/sensory deficits, alert, normal mood/affect, oriented x 3 Skin: + pertinent finding (Bilateral lower legs with erythema, scaling and weeping from open wounds. Multiple wounds with macerated edges and sloughing. ) Diagnostics Laboratory Results Results Past 24 Hours Test 11/03/16 07:25 11/03/16 07:40 11/03/16 15:30 Range/Units Urine Color YELLOW Urine Appearance CLEAR CLEAR Urine pH 5.0 4.5-7.5 Urine Specific [place] 1.028 1.000-1.030 Urine Protein NEG NEG Urine Glucose (UA) 3+ NEG Urine Ketones TRACE NEG Urine Occult Blood NEG NEG Urine Nitrite NEG NEG Urine Bilirubin NEG NEG Urine Urobilinogen NEG NEG Urine Leukocyte Esterase NEG NEG White Blood Count 11.21 4.8-10.8 K/uL Red Blood Count 5.20 4.7-6.1 M/uL Hemoglobin 15.3 14.0-18.0 g/dL Hematocrit 42.9 42-52 % Mean Corpuscular Volume 82.5 80-100 fL Mean Corpuscular Hemoglobin 29.4 25-34 pg Mean Corpuscular Hemoglobin Concent 35.7 32-36 g/dl Platelet Count 135 130-400 K/uL Mean Platelet Volume 9.8 7.4-10.4 fL Neutrophils (%) (Auto) 89.4 % Lymphocytes (%) (Auto) 4.5 % Monocytes (%) (Auto) 4.2 % Eosinophils (%) (Auto) 0.3 % Basophils (%) (Auto) 0.3 % Neutrophils # (Auto) 10.03 1.4-6.5 K/uL Lymphocytes # (Auto) 0.50 1.2-3.4 K/uL Monocytes # (Auto) 0.47 0.11-0.59 K/uL Eosinophils # (Auto) 0.03 0-0.5 K/uL Basophils # (Auto) 0.03 0-0.2 K/uL RDW Standard Deviation 47.5 36.4-46.3 fL RDW Coefficient of Variation 15.7 11.5-14.5 % Immature Granulocyte % (Auto) 1.3 % Immature Granulocyte # (Auto) 0.15 0.00-0.02 K/uL Sodium Level 140 136-145 mmol/L Potassium Level 3.0 3.5-5.1 mmol/L Chloride Level 106 98-107 mmol/L Carbon Dioxide Level 24 21-32 mmol/L Anion Gap 10.0 3-11 mmol/L Blood Urea Nitrogen 24 7-18 mg/dl Creatinine 1.20 0.60-1.40 mg/dl Est Creatinine Clear Calc Drug Dose 70.1 ml/min Estimated GFR () 72.6 Estimated GFR (Non- 62.6 BUN/Creatinine Ratio 19.7 10-20 Random Glucose 336 70-99 mg/dl Calcium Level 9.6 8.5-10.1 mg/dl Total Bilirubin 2.1 0.2-1 mg/dl Aspartate Amino Transf (AST/SGOT) 24 15-37 U/L Alanine Aminotransferase (ALT/SGPT) 59 12-78 U/L Alkaline Phosphatase 172 45-117 U/L Troponin I 0.039 0-0.045 ng/ml Total Protein 7.3 6.4-8.2 gm/dl Albumin 3.7 3.4-5.0 gm/dl Globulin 3.6 2.5-4.0 gm/dl Albumin/Globulin Ratio 1.0 0.9-2 Beta-Hydroxybutyric Acid 7.72 0.2-2.81 mg/dL Prothrombin Time 12.9 9.0-12.0 SECONDS Prothromb Time International Ratio 1.2 0.9-1.1 Diagnostic Radiology Thoracic Spine XR: IMPRESSION: Osteopenia and degenerative change as above. No acute bony abnormality is seen in the thoracic spine. Lumbar spine MRI: IMPRESSION: 1. Mild degenerative disease at L5-S1. No significant central canal narrowing. No disc herniations. 2. Mild edema within the bilateral lumbar erector spinae muscles. This raises the possibility of a muscular strain. 3. No fracture or subluxation within the lumbar spine. Lumbar spine CT: IMPRESSION: 1. Right pleural effusion. 2. Moderate degenerative change of the lumbar spine including posterior facets. 3. Osteopenia. 4. No acute bony abnormality. CXR: FINDINGS: Moderate cardiomegaly. Areas of congestive failure. Diaphragms are smooth. Costophrenic angles are sharp. IMPRESSION: Congestive heart failure EKG Atrial fibrillation with rapid ventricular response Incomplete right bundle branch block Left posterior fascicular block T wave abnormality, consider lateral ischemia Impression Assessment and Plan This is a 66yo male with a PMH of DM II, A fib, HTN, CAD, diastolic CHF, COPD who presents with complaints of persistent back pain that started a few days ago. Thoracolumbar back pain: -Worsening pain in past few days, unable to stand this AM -Thoracic spine XR, Lumbar spine CT and MRI Lumbar spine all show some mild degenerative changes and possible muscle strain -Pain regimen includes Dilaudid, Toradol, Lidocaine patch -On home dose of baclofen for muscle spasm. Added diltiazem 5mg BID. Acute on chronic diastolic CHF: -Mild exacerbation with LE swelling and orthopnea -Denies CP, dyspnea, SOB -Last saw Dr. Cornelius in 2013 in cardio clinic -Last echo in 2012 with EF of 70% -On lasix 20mg daily at home. Currently holding d/t to SBP in 100s -Daily weights -Repeat Echo -Continue atenolol and lisinopril Bilateral LE Cellulitis: -Diagnosed by PCP on 11/01 -Has completed 2 days of PO Bactrim -BLE with multiple wounds with drainage. +odor -Started IV vanc for broad coverage -Wound care consulted DM II; uncontrolled: -BG of 336 on admission -+ ketones in serum and urine -Takes glimepiride at home -Does not check BG regularly -Ordered hgb a1c -BG down in 150s after 10U regular insulin in ED -Started on Lantus 15U x 1, SSI, per pharm Paroxysmal Atrial Fibrillation: -Follows with Dr. Cornelius in clinic. Last appt in 2013 -Not anticoagulated due to h/o hemoptysis -Admission ECG shows A fib with RVR. Rate controlled -Continue atenolol -Repeat ECG in AM CAD: -H/o non-occlusive ischemic heart disease on 2010 cath -EKG with new incomplete RBBB, old L posterior fascicular block -Denies CP, SOB -Echo ordered to assess for wall motion abnormalities -Trending cardiac enzymes -Repeat EKG in AM HTN: -Systolic BP in 100s-120s -Holding lasix -Continue atenolol and lisinopril in AM COPD: -Stable -Continue home inhalers DVT Ppx: Lovenox Code status: FULL PCP: Hanna Dispo: Plan to return home once medically stable ADDENDUM: Saw/examined the patient in room 231 +pain in the thoracic/lumbar region - began after mowing the lawn States his back tightened up and it became worse one day prior to arrival Imagining performed, no significant or acute findings Dilaudid PRN, Toradol PRN, Lidocaine patch for now, Valium 5mg BID and Baclofen for muscle relaxation He has significant lower extremity swelling and peripheral vascular disease lower extremities with weeping ulcerations wound care consulted Vancomycin initiated Possible diastolic CHF exacerbation? CXR noted to have congestion; patient denies shortness of breath, may actually be intravascularly depleted Will hold off on further diuresis and monitor fluid status Hx. of A. Fib - no anticoagulation due to significant hemoptysis in the past - continue b-selvin, rates in the 100s, monitor in tele trend enzymes and check echo, repeat EKG in AM Level of Care Telemetry Advanced Directives Existing Living Will: No Existing Power of Erp Project Manager: No Resuscitation Status FULL RESUSCITATION VTE Prophylaxis VTE Risk Assessment Done? Y/N: Yes Risk Level: Moderate Given or contraindicated: Enoxaparin (Lovenox)SQ
[2016-11-03] MEDS ORDERED: VANCOMYCIN INJ 2,500 MG in SODIUM CHLORIDE 0.9% 500ML 500 ML IV ONE (17:15)
[2016-11-03] MEDS: ENOXAPARIN 40 MG/0.4 ML SYR SC SCH (17:46)
[2016-11-03 20:05] VITALS: BP 113/72; PULSE 90; TEMP 37.3; O2SAT 97
[2016-11-03] MEDS: KETOROLAC TROMETHAMINE 15 MG/ML VIAL IV. PRN (20:05)
[2016-11-03] MEDS: BACLOFEN TAB 20 MG TAB PO SCH (20:09)
[2016-11-03] MEDS: MENTHOL-ZINC OXIDE 360 APPLN/120 GM TUBE EXT SCH ×2 (20:31→21:00)
[2016-11-03] MEDS ORDERED: VANCOMYCIN INJ 1,500 MG in SODIUM CHLORIDE 0.9% 250ML 250 ML IV SCH (21:00)
[2016-11-03] MEDS: DIAZEPAM 5MG TAB PO SCH (22:11)
[2016-11-03 23:47] VITALS: BP 130/85; PULSE 118; TEMP 37.4; O2SAT 97
[2016-11-04 00:28] LABS: CKMB/CK RATIO 5.1 (0-3.0)
[2016-11-04 03:20] LABS: HEMATOCRIT 37.2 % (42-52); MEAN CELL VOLUME 84.2 fL (80-100); MEAN CORPUSCULAR HEMOGLOBIN 28.7 pg (25-34); MEAN CORPUSCULAR HGB CONC 34.1 g/dl (32-36); RED BLOOD COUNT 4.42 M/uL (4.7-6.1)
[2016-11-04 03:43] VITALS: BP 109/77; PULSE 99; TEMP 37.1; O2SAT 97
[2016-11-04 03:44] LABS: BASO % 0.1 %; BASO ABS # 0.01 K/uL (0-0.2); COMPLETE YES; EOS % 1.9 %; IG% 0.7 %; LYMPH % 7.7 %; LYMPH ABS # 0.54 K/uL (1.2-3.4); MEAN PLATELET VOLUME 9.3 fL (7.4-10.4); MONO % 6.3 %; NEUT % 83.3 %; OVALOCYTES 1+; PLATELET COUNT 92 K/uL (130-400); PLT ESTIMATE DECREASED
[2016-11-04 03:54] LABS: BUN/CREATININE RATIO 23.3 (10-20); CALCIUM 8.3 mg/dl (8.5-10.1); CREATININE 0.94 mg/dl (0.60-1.40); MAGNESIUM 1.9 mg/dl (1.8-2.4)
[2016-11-04] MEDS: VANCOMYCIN INJ 1,500 MG in SODIUM CHLORIDE 0.9% 500ML 500 ML IV SCH ×2 (03:54→16:04)
[2016-11-04 06:45] LABS: ESTIMATED AVERAGE GLUCOSE 226 mg/dl; HA1C FLAG Normal (Normal)
[2016-11-04 07:35] VITALS: BP 121/81; TEMP 36.5; O2SAT 96
[2016-11-04] MEDS: INSULIN ASPART 100 UNITS/ML 3 ML PEN SC SCH ×4 (08:03→21:00)
[2016-11-04] MEDS: MENTHOL-ZINC OXIDE 360 APPLN/120 GM TUBE EXT SCH ×2 (08:05→19:59)
[2016-11-04] MEDS: BACLOFEN TAB 20 MG TAB PO SCH ×3 (08:06→19:55)
[2016-11-04] MEDS: LISINOPRIL 40 MG TAB PO SCH (08:06)
[2016-11-04] MEDS: ASPIRIN 81 MG ECTAB PO SCH (08:06)
[2016-11-04] MEDS: LIDODERM (LIDOCAINE) PATCH 5% TD SCH (08:06)
[2016-11-04] MEDS: DIAZEPAM 5MG TAB PO SCH ×2 (08:08→19:59)
[2016-11-04] MEDS: KETOROLAC TROMETHAMINE 15 MG/ML VIAL IV. PRN ×3 (08:13→23:45)
[2016-11-04] MEDS ORDERED: FUROSEMIDE 20 MG TAB PO SCH (09:00)
[2016-11-04] MEDS ORDERED: FUROSEMIDE INJ 40 MG in SYRINGE 0 ML IV SCH (09:00)
--- NOTE | 2016-11-04 11:12 | Progress Note ---
Subjective Date of Service: Nov 04, 2016. Subjective Pt evaluation today including: conversation w/ patient, conversation w/ family , physical exam, lab review, review of studies, review of inpatient medication list Saw/examined the patient in room 231 States his back pain is slightly improving Eager to try to ambulate to see how it feels No chest pain/shortness of breath Problem List Medical Problems: (1) Back pain Status: Acute (2) CHF exacerbation Status: Acute (3) Hypoxia Status: Acute Review of Systems Constitutional: No fever, No chills Respiratory: No cough, No sputum, No wheezing, No shortness of breath, No dyspnea on exertion, No dyspnea at rest, No hemoptysis Cardiac: + edema, No chest pain, No palpitations Abdomen: No pain, No nausea, No vomiting, No diarrhea Musculoskeletal: + joint pain (mid-back pain) Heme: No abnormal bleeding/bruising Medications Current Inpatient Medications Medications (Trade) Dose Ordered Sig/Van Route Start Time Stop Time Status Last Admin Dose Admin Enoxaparin Sodium (Lovenox Inj) 40 mg DAILY@1800 SC 11/03/16 18:00 12/03/16 17:59 11/03/16 17:46 40 MG Acetaminophen (Tylenol Tab) 650 mg Q4H PRN PO 11/03/16 13:15 12/03/16 13:14 Ondansetron HCl (Zofran Inj) 4 mg Q6H PRN IV 11/03/16 13:15 12/03/16 13:14 Glucose (Glucose 40% Gel) 15-30 GRAMS 15 GRAMS... UD PRN PO 11/03/16 13:15 12/03/16 13:14 Glucose (Glucose Chew Tab) 4-8 Tablets 4 Tabl... UD PRN PO 11/03/16 13:15 12/03/16 13:14 Dextrose (Dextrose 50% 50ML Syringe) 25-50ML OF 50% DW IV FOR... UD PRN IV 11/03/16 13:15 12/03/16 13:14 Glucagon (Glucagon Inj) 1 mg UD PRN SQ 11/03/16 13:15 12/03/16 13:14 Ketorolac Tromethamine (Toradol Inj) 15 mg Q6H PRN IV. 11/03/16 14:30 11/08/16 14:29 11/04/16 08:13 15 MG Lidocaine (Lidoderm Patch 5%) 1 patch QAM TD 11/04/16 09:00 12/04/16 08:59 11/04/16 08:06 1 PATCH Miscellaneous (Remove Lidoderm Patch) 1 ea DAILY@21 N/A 11/04/16 21:00 12/04/16 20:59 Aspirin (Ecotrin Tab) 81 mg QAM PO 11/04/16 09:00 12/04/16 08:59 11/04/16 08:06 81 MG Lisinopril (Zestril Tab) 40 mg QAM PO 11/04/16 09:00 12/04/16 08:59 11/04/16 08:06 40 MG Baclofen (Lioresal Tab) 20 mg TID PO 11/03/16 21:00 12/03/16 20:59 11/04/16 08:06 20 MG Hydromorphone HCl (Dilaudid Inj) 0.5 mg Q4 PRN IV 11/03/16 14:30 11/17/16 14:29 Menthol/Zinc Oxide (Calmoseptine Oint) 1 appln BID EXT 11/03/16 21:00 12/03/16 20:59 11/04/16 08:05 1 APPLN Albuterol (Ventolin Hfa Inhaler) 2 puffs QID PRN INH 11/03/16 15:30 12/03/16 15:29 Insulin Aspart (novoLOG ASPART) SLIDING SCALE ACHS SC 11/03/16 17:00 12/03/16 16:59 11/04/16 08:03 4 UNITS Vancomycin HCl (Consult) 1 ea UD PRN N/A 11/03/16 17:00 12/03/16 16:59 Vancomycin HCl 1500 mg/Sodium Chloride 530 ml @ 200 mls/hr Q12@0400,1600 IV 11/04/16 04:00 11/14/16 03:59 11/04/16 03:54 200 MLS/HR Diazepam (Valium Tab) 5 mg BID PO 11/03/16 21:00 12/03/16 20:59 11/04/16 08:08 5 MG Atenolol (Tenormin Tab) 100 mg DAILY PO 11/05/16 09:00 12/04/16 08:59 Objective Vital Signs Date Time Temp Pulse Resp B/P (MAP) Pulse Ox O2 Delivery O2 Flow Rate FiO2 11/04/16 08:00 Nasal Cannula 2.0 11/04/16 07:35 36.5 18 121/81 (94) 96 11/04/16 04:00 Nasal Cannula 2.0 11/04/16 03:43 37.1 99 20 109/77 (88) 97 Nasal Cannula 2.0 11/03/16 23:59 Nasal Cannula 2.0 11/03/16 23:47 37.4 118 20 130/85 (100) 97 Nasal Cannula 2.0 11/03/16 20:05 37.3 90 20 113/72 (86) 97 Nasal Cannula 1.5 11/03/16 20:00 Nasal Cannula 2.0 11/03/16 16:00 Nasal Cannula 2.0 11/03/16 15:27 36.8 94 20 128/79 (95) 94 Nasal Cannula 2.0 11/03/16 14:35 36.6 96 16 120/79 11/03/16 14:03 104 20 102/71 95 11/03/16 13:00 91 17 102/70 96 Nasal Cannula 2.0 11/03/16 12:21 93 11/03/16 12:00 99 17 105/68 96 Nasal Cannula 2.0 11/03/16 11:27 90 11/03/16 11:19 90 16 98/68 90 Room Air Physical Exam General Appearance: no apparent distress Respiratory/Chest: lungs clear, normal breath sounds, no respiratory distress, no accessory muscle use Cardiovascular: + irregularly irregular Abdomen: normal bowel sounds, non tender, soft Extremities: + pertinent finding (+edematous, venous stasis dermatitis, wounds ; draining) Laboratory Results Last 24 Hours Test 11/03/16 15:30 11/03/16 15:50 11/03/16 20:24 11/03/16 23:33 Prothrombin Time 12.9 SECONDS Prothromb Time International Ratio 1.2 Bedside Glucose 151 mg/dl 120 mg/dl Total Creatine Kinase 35 U/L Creatine Kinase MB 1.8 ng/ml Creatine Kinase MB Ratio 5.1 Troponin I 0.063 ng/ml Test 11/04/16 03:04 11/04/16 04:10 11/04/16 04:30 11/04/16 04:45 White Blood Count 7.00 K/uL Red Blood Count 4.42 M/uL Hemoglobin 12.7 g/dL Hematocrit 37.2 % Mean Corpuscular Volume 84.2 fL Mean Corpuscular Hemoglobin 28.7 pg Mean Corpuscular Hemoglobin Concent 34.1 g/dl Platelet Count 92 K/uL Mean Platelet Volume 9.3 fL Neutrophils (%) (Auto) 83.3 % Lymphocytes (%) (Auto) 7.7 % Monocytes (%) (Auto) 6.3 % Eosinophils (%) (Auto) 1.9 % Basophils (%) (Auto) 0.1 % Neutrophils # (Auto) 5.83 K/uL Lymphocytes # (Auto) 0.54 K/uL Monocytes # (Auto) 0.44 K/uL Eosinophils # (Auto) 0.13 K/uL Basophils # (Auto) 0.01 K/uL RDW Standard Deviation 49.3 fL RDW Coefficient of Variation 16.1 % Immature Granulocyte % (Auto) 0.7 % Immature Granulocyte # (Auto) 0.05 K/uL Platelet Estimate DECREASED Ovalocytes 1+ Activated Partial Thromboplast Time 26.2 SECONDS Partial Thromboplastin Ratio 1.0 Sodium Level 144 mmol/L Potassium Level 4.0 mmol/L Chloride Level 114 mmol/L Carbon Dioxide Level 24 mmol/L Anion Gap 6.0 mmol/L Blood Urea Nitrogen 22 mg/dl Creatinine 0.94 mg/dl Est Creatinine Clear Calc Drug Dose 88.6 ml/min Estimated GFR () 97.5 Estimated GFR (Non- 84.2 BUN/Creatinine Ratio 23.3 Random Glucose 65 mg/dl Estimated Average Glucose 226 mg/dl Hemoglobin A1c 9.5 % Calcium Level 8.3 mg/dl Magnesium Level 1.9 mg/dl Troponin I 0.059 ng/ml Bedside Glucose 56 mg/dl 59 mg/dl 62 mg/dl Test 11/04/16 04:59 11/04/16 06:18 Bedside Glucose 80 mg/dl 101 mg/dl Assessment and Plan This is a 66yo male with a PMH of DM II, A fib, HTN, CAD, diastolic CHF, COPD who presents with complaints of persistent back pain that started a few days ago. Thoracolumbar back pain 11/04 pain is likely related to muscle spasms continue baclofen and Valium Dilaudid, Toradol PRN, lidocaine patch PT/OT ordered Paroxysmal Atrial Fibrillation 11/04 no anticoagulation due to significant hemoptysis in the past continue Atenolol HRs improved to the 80s, monitor in tele continue aspirin Bilateral LE Cellulitis 11/04 significant peripheral vascular disease, venous stasis cellulitic changes with ulcerations, pus wound care consult ordered and pending Vancomycin started Acute on chronic diastolic CHF 11/04 echo pending hold Lasix, hold IVFs monitor; patient may be intravascularly depleted, though has some edema in the LE DM2, uncontrolled 11/04 Ha1c = 9.5% takes glimepiride at home BSGs on admission >300 started on sliding scale; hypoglycemic overnight and this AM loosened the sliding scale CAD 11/04 minimal bump on cardiac enzymes, likely due to tachycardia echo pending, EKG similar to previous continue current medications HTN hold Lasix continue b-selvin and Lisinopril COPD continue home inhalers DVT ppx Lovenox FULL CODE
[2016-11-04 11:38] VITALS: BP 132/64; PULSE 76; TEMP 36.8; O2SAT 99
[2016-11-04] MEDS ORDERED: PHARMACY GLYCEMIC MGMT CONSULT PRN (13:04)
--- NOTE | 2016-11-04 13:25 | Pharmacy Progress Note ---
Glycemic Control Intl Consult Date of Service Nov 04, 2016. Scope Glycemic Pharmacist consulted by Dr Mccord on 10/25/16 for glycemic control and to write orders per [facility] inpatient glycemic control protocol Objective Weight (Kilograms): 100.300 Accuchecks BSG (last 24hrs): Test 11/03/16 15:50 11/03/16 20:24 11/04/16 03:04 11/04/16 04:10 Bedside Glucose 151 mg/dl (70-99) 120 mg/dl (70-99) 56 mg/dl (70-99) Random Glucose 65 mg/dl (70-99) Test 11/04/16 04:30 11/04/16 04:45 11/04/16 04:59 11/04/16 06:18 Bedside Glucose 59 mg/dl (70-99) 62 mg/dl (70-99) 80 mg/dl (70-99) 101 mg/dl (70-99) Test 11/04/16 11:18 11/04/16 11:36 11/04/16 11:53 11/04/16 12:14 Bedside Glucose 55 mg/dl (70-99) 53 mg/dl (70-99) 60 mg/dl (70-99) 49 mg/dl (70-99) Test 11/04/16 12:42 Laboratory Data (last 24hrs) Test 11/04/16 03:04 Anion Gap 6.0 mmol/L BUN/Creatinine Ratio 23.3 Blood Urea Nitrogen 22 mg/dl Creatinine 0.94 mg/dl Hemoglobin A1c 9.5 % Potassium Level 4.0 mmol/L Sodium Level 144 mmol/L White Blood Count 7.00 K/uL Red Blood Count 4.42 M/uL Hemoglobin 12.7 g/dL Hematocrit 37.2 % Mean Corpuscular Volume 84.2 fL Mean Corpuscular Hemoglobin 28.7 pg Mean Corpuscular Hemoglobin Concent 34.1 g/dl Platelet Count 92 K/uL Mean Platelet Volume 9.3 fL Neutrophils (%) (Auto) 83.3 % Lymphocytes (%) (Auto) 7.7 % Monocytes (%) (Auto) 6.3 % Eosinophils (%) (Auto) 1.9 % Basophils (%) (Auto) 0.1 % Neutrophils # (Auto) 5.83 K/uL Lymphocytes # (Auto) 0.54 K/uL Monocytes # (Auto) 0.44 K/uL Eosinophils # (Auto) 0.13 K/uL Basophils # (Auto) 0.01 K/uL HbA1c Test 11/04/16 03:04 Hemoglobin A1c 9.5 % (4.5-5.6) H Recent Pertinent Medications Outpatient Anti-diabetic Regimen: * Amaryl 4 mg PO daily The patient is currently receiving: * Basal insulin: Lantus 15 units x 1 dose yesterday around 1500 * Correctional Insulin: Novolog Correction per scale ACHS Goal Range: Low 110 mg/dL - High 140 mg/dL Correction Factor: 30 mg/dL/unit * Prandial insulin: Per carb ratio of 1 unit per 10 grams CHO consumed Risk Factors for Insulin Resistance: * Infection: vancomycin for cellulitis * Diet: type 2 diabetic diet Assessment & Plan ASSESSMENT: * ADA & AACE recommend a goal blood sugar range 140-180 mg/dl for the majority of critically ill & non-critically ill patients. However, more stringent targets may be selected in individual cases. * Mr Ugarte is a 66 y/o M admitted with back pain and cellulitis on 11/03/16. His blood sugar was initially elevated at 336 mg/dL on admission. He was given 10 units of Regular insulin and later 15 units of Lantus. He was also started on less than weight based stress of 2 correctional insulin. The patient's blood sugars fell throughout the night until fasting was 101 mg/dL. Before lunch patient was hypoglycemic but not symptomatic. * The falling blood sugars most likely represent the patient's sensitivity to insulin and the dose of Lantus. It is difficult to tell if the correctional insulin was too aggressive at this point. * Changed goal range to 140-180 mg/dL - this will insure that correctional insulin works to elevate patient's blood sugar. Changed correctional insulin to weight-based stress of 1. * In order to prevent rebound hyperglycemia, Lantus 5 units was added tonight if blood sugar greater than 180 mg/dL. * Pt is maintained on oral antidiabetic agents as an outpatient * Oral agents are not recommended for inpatient use d/t drug interactions, changing PO intake, and difficulty titrating for acute hyper/hypoglycemia. ADA recommends re-initiating outpatient oral agents 1-2 days prior to discharge if/ when appropriate if they were held on admission. * Will hold oral agents for admission and utilize SQ basal bolus insulin regimen which is the recommended regimen for inpatient glycemic control. * Will initiate weight based insulin dosing for insulin chuyita patient and titrate based on BSG trends. PLAN FOR INPATIENT GLYCEMIC CONTROL: * Holding outpatient oral diabetes medications * Basal insulin with LANTUS 5 units SQ x 1 tonight if blood sugar greater than 180 mg/dL * Correctional Insulin with NOVOLOG / REGULAR per scale ACHS * Goal Range: Low 140 mg/dL - High 180 mg/dL * Correction Factor: 45 mg/dL/unit * Nutritional / Prandial insulin per carb ratio of 1 unit per 15 grams CHO consumed * Please note that the plan above was derived based on current level of insulin resistance and hospital stress. These recommendations are appropriate for inpatient admission only. Plan of care upon discharge will need to be reassessed to avoid potential outpatient hypo/hyperglycemia. Thank you.
[2016-11-04 15:28] VITALS: BP 105/69; PULSE 91; TEMP 37; O2SAT 97
[2016-11-04] MEDS: ENOXAPARIN 40 MG/0.4 ML SYR SC SCH (17:14)
--- NOTE | 2016-11-04 17:15 | ECHOCARDIOGRAM REPORT ---
*NOTICE TO RECEIVING LIBERTARIAN AGENCY This information is strictly Confidential and protected under [place] law. [place] law prohibits you from making any further disclosure of this information unless further disclosure is expressly permitted by the written consent of the person to whom it pertains or is authorized by law. A general authorization for the release of medical or other information is not sufficient for this purpose. Hospital accepts no responsibility if the information is made available to any other person, INCLUDING THE PATIENT. Interpretation Summary * Name: TINY SHAH Study Date: 11/04/2016 06:37 AM BP: 109/77 mmHg * Patient Location: .2T\S\S231\S\1 HR: 99 * : 1950 (M/d/yyyy) Gender: Male Height: 68 in * Age: 66 yrs Ethnicity: [place] Weight: 220 lb * Ordering Physician: Theresa Lay * Performed By: Catalina Chow * * Reason For Study: CHF * BSA: 2.1 m2 * The study was technically limited. * -- Conclusions -- * Ejection Fraction = 60-65%. * There is moderate concentric left ventricular hypertrophy. * Mild valvular aortic stenosis. * There is mild mitral regurgitation. Procedure Details * A complete two-dimensional transthoracic echocardiogram was performed (2D, M-mode, Doppler and color flow Doppler). * A contrast injection of Definity was performed to improve assessment of LV function. * Contrast was injected into an intravenous site in the right arm. * One vial of Definity ultrasound contrast was diluted in normal saline to a total volume of 10 ml. A total of '2' ml of solution was administered during imaging. * Lot # [id number] of Definity utilized for procedure. * Expiration date 11/03. * The attending nurse who injected the contrast agent was ANTHONY VILLALPANDO RN. Left Ventricle * The left ventricle is normal in size. * There is no thrombus. * There is moderate concentric left ventricular hypertrophy. * Ejection Fraction = 60-65%. * Left ventricular systolic function is normal. * The left ventricular wall motion is normal. Right Ventricle * The right ventricle is normal size. * The right ventricular systolic function is normal as assessed by tricuspid annular plane systolic excursion (TAPSE) (normal >1.5 cm). Atria * The left atrial size is normal. * Right atrial size is normal. * There is no evidence of atrial septal defect, but resolution does not allow assessment for a patent foramen ovale. Mitral Valve * There is mild mitral annular calcification. * There is no mitral valve stenosis. * There is mild mitral regurgitation. Tricuspid Valve * The tricuspid valve is normal. * There is no tricuspid stenosis. * Significant tricuspid regurgitation is absent. Aortic Valve * The aortic valve is not well visualized. * Mild valvular aortic stenosis. * There is no significant aortic regurgitation. Pulmonic Valve * The pulmonary valve is not well seen, but the Doppler examination is normal without significant regurgitation or stenosis. Great Vessels * The aortic root is normal size. Pericardium/Pleural * There is no pericardial effusion. Great Vessels * Normal inferior vena cava diameter and respiratory variation suggests normal central venous pressure. Left Ventricular Diastolic Function * Pulse wave TDI of the anterior and posterior mitral annulas demonstrates abnormal LV relaxation MMode 2D Measurements and Calculations IVSd 1.5 cm IVSs 2.1 cm LVIDd 4.3 cm LVIDs 2.7 cm LVPWd 1.4 cm LVPWs 2.0 cm IVS/LVPW 1.1 FS 37.4 % EDV(Teich) 81.9 ml ESV(Teich) 26.4 ml EF(Teich) 67.8 % EDV(cubed) 78.0 ml ESV(cubed) 19.1 ml EF(cubed) 75.5 % % IVS thick 39.1 % % LVPW thick 45.1 % LV mass(C)d 242.3 grams LV mass(C)dI 113.9 grams/m\S\2 LV mass(C)s 244.5 grams LV mass(C)sI 114.9 grams/m\S\2 SV(Teich) 55.5 ml SI(Teich) 26.1 ml/m\S\2 SV(cubed) 58.9 ml SI(cubed) 27.7 ml/m\S\2 asc Aorta Diam 2.6 cm LVOT diam 1.9 cm LVOT area 2.9 cm\S\2 LVAd ap4 23.5 cm\S\2 LVLd ap4 8.4 cm EDV(MOD-sp4) 54.8 ml EDV(sp4-el) 56.0 ml LVAs ap4 13.1 cm\S\2 LVLs ap4 7.0 cm ESV(MOD-sp4) 20.1 ml ESV(sp4-el) 20.8 ml EF(MOD-sp4) 63.3 % EF(sp4-el) 62.9 % LVAd ap2 26.8 cm\S\2 LVLd ap2 8.4 cm EDV(MOD-sp2) 70.2 ml EDV(sp2-el) 72.3 ml LVAs ap2 15.0 cm\S\2 LVLs ap2 7.4 cm ESV(MOD-sp2) 26.3 ml ESV(sp2-el) 25.9 ml EF(MOD-sp2) 62.5 % EF(sp2-el) 64.1 % LVLd %diff 0.44 % EDV(MOD-bp) 62.1 ml LVLs %diff 5.6 % ESV(MOD-bp) 22.8 ml EF(MOD-bp) 63.2 % SV(MOD-sp4) 34.7 ml SI(MOD-sp4) 16.3 ml/m\S\2 SV(MOD-sp2) 43.8 ml SI(MOD-sp2) 20.6 ml/m\S\2 SV(MOD-bp) 39.3 ml SI(MOD-bp) 18.5 ml/m\S\2 SV(sp4-el) 35.2 ml SI(sp4-el) 16.5 ml/m\S\2 SV(sp2-el) 46.4 ml SI(sp2-el) 21.8 ml/m\S\2 Doppler Measurements and Calculations MV E max juhi 88.2 cm/sec MV dec time 0.22 sec Ao V2 max 244.8 cm/sec Ao max PG 24.0 mmHg Ao max PG (full) 18.3 mmHg Ao V2 mean 173.0 cm/sec Ao mean PG 13.3 mmHg Ao V2 VTI 38.4 cm MAMI(V,A) 1.4 cm\S\2 MAMI(V,D) 1.4 cm\S\2 LV V1 max PG 5.6 mmHg LV V1 max 118.8 cm/sec MR max juhi 316.6 cm/sec MR max PG 40.1 mmHg PA V2 max 86.8 cm/sec PA max PG 3.0 mmHg
[2016-11-04 19:22] VITALS: BP 103/67; PULSE 84; TEMP 36.8; O2SAT 92
[2016-11-04] MEDS ORDERED: LANTUS PER UNIT CHARGE SQ PRN (21:00)
[2016-11-04 23:49] VITALS: BP 108/73; PULSE 91; TEMP 37.1; O2SAT 93
[2016-11-05] MEDS ORDERED: INSULIN ASPART 100 UNITS/ML 3 ML PEN SC SCH (02:00)
[2016-11-05] MEDS ORDERED: VANCOMYCIN TROUGH ONE (03:30)
[2016-11-05 03:55] LABS: HEMATOCRIT 36.8 % (42-52); MEAN CELL VOLUME 85.8 fL (80-100); MEAN CORPUSCULAR HEMOGLOBIN 28.9 pg (25-34); MEAN CORPUSCULAR HGB CONC 33.7 g/dl (32-36); RED BLOOD COUNT 4.29 M/uL (4.7-6.1); WHITE BLOOD COUNT 5.81 K/uL (4.8-10.8)
[2016-11-05 03:57] LABS: PLATELET COUNT 79 K/uL (130-400)
[2016-11-05 04:00] VITALS: BP 111/71; PULSE 100; TEMP 36.8; O2SAT 95
[2016-11-05] MEDS: HYDROmorphone INJ 0.5 MG/0.5 ML SYR IV PRN ×2 (04:00→11:22)
[2016-11-05] MEDS: VANCOMYCIN INJ 1,500 MG in SODIUM CHLORIDE 0.9% 500ML 500 ML IV SCH (04:03)
[2016-11-05 04:13] LABS: BUN/CREATININE RATIO 29.4 (10-20); CALCIUM 8.4 mg/dl (8.5-10.1); CREATININE 0.86 mg/dl (0.60-1.40); POTASSIUM 4.1 mmol/L (3.5-5.1)
[2016-11-05] MEDS: KETOROLAC TROMETHAMINE 15 MG/ML VIAL IV. PRN ×2 (07:45→15:38)
[2016-11-05] MEDS: ASPIRIN 81 MG ECTAB PO SCH (07:48)
[2016-11-05] MEDS: MENTHOL-ZINC OXIDE 360 APPLN/120 GM TUBE EXT SCH ×2 (07:48→19:59)
[2016-11-05] MEDS: DIAZEPAM 5MG TAB PO SCH (07:48)
[2016-11-05] MEDS: BACLOFEN TAB 20 MG TAB PO SCH ×3 (07:48→19:59)
[2016-11-05] MEDS: LISINOPRIL 40 MG TAB PO SCH (07:49)
[2016-11-05] MEDS: LIDODERM (LIDOCAINE) PATCH 5% TD SCH (07:49)
[2016-11-05] MEDS: INSULIN ASPART 100 UNITS/ML 3 ML PEN SC SCH ×4 (07:53→20:02)
[2016-11-05 08:00] VITALS: BP 102/63; PULSE 96; TEMP 36.7; O2SAT 92
--- NOTE | 2016-11-05 10:27 | Pharmacy Progress Note ---
Pharmacy Antibiotic Prog Note Date of Service Nov 05, 2016. Subjective The patient is currently receiving vancomycin 1500 mg IV every 12 hours. The patient is currently on day # 3 of vancomycin IV therapy. Objective Height (Feet): 5 Height (Inches): 8.00 Weight (Kilograms): 105.500 Lab Results (24hrs): Test 11/04/16 12:42 11/05/16 02:00 11/05/16 03:45 11/05/16 06:46 Random Glucose 67 mg/dl (70-99) 74 mg/dl (70-99) Bedside Glucose 72 mg/dl (70-99) 86 mg/dl (70-99) White Blood Count 5.81 K/uL (4.8-10.8) Red Blood Count 4.29 M/uL (4.7-6.1) Hemoglobin 12.4 g/dL (14.0-18.0) Hematocrit 36.8 % (42-52) Mean Corpuscular Volume 85.8 fL (80-100) Mean Corpuscular Hemoglobin 28.9 pg (25-34) Mean Corpuscular Hemoglobin Concent 33.7 g/dl (32-36) RDW Standard Deviation 50.5 fL (36.4-46.3) RDW Coefficient of Variation 16.1 % (11.5-14.5) Platelet Count 79 K/uL (130-400) Mean Platelet Volume 9.0 fL (7.4-10.4) Sodium Level 141 mmol/L (136-145) Potassium Level 4.1 mmol/L (3.5-5.1) Chloride Level 114 mmol/L (98-107) Carbon Dioxide Level 23 mmol/L (21-32) Anion Gap 4.0 mmol/L (3-11) Blood Urea Nitrogen 25 mg/dl (7-18) Creatinine 0.86 mg/dl (0.60-1.40) Est Creatinine Clear Calc Drug Dose 97.0 ml/min Estimated GFR () 104.7 Estimated GFR (Non- 90.4 BUN/Creatinine Ratio 29.4 (10-20) Calcium Level 8.4 mg/dl (8.5-10.1) Vancomycin Level Trough 19.1 mcg/ml (SEE COMMENT) Assessment & Plan Assessment * 66 yo M admitted for back pain, now ordered vancomycin for b/l LE cellulitis with ulcerations/pus. No cultures. Patient is afebrile with normal WBC * SCr stable and at/near baseline * Goal vancomycin trough 15-20 mcg/mL. * Would normally decrease to 10-15 mcg/mL for cellulitis but as the patient has significant peripheral vascular disease and venous stasis, penetration of vancomycin to target tissue may be impaired * Trough of 19.1 mcg/mL is therapeutic, but is at the upper end of the goal range. Patient may accumulate a little more 2nd BMI of 34 kg/m2. Will therefore decrease dose slightly * Repeat trough in 72 hours Plan * Decrease vancomycin 1250 mg IV q12h * Trough 11/08 @ 0330 Pharmacy will continue to follow and will adjust dose/frequency as necessary. Thank you
[2016-11-05 12:00] VITALS: BP 99/66; PULSE 75; TEMP 36.8; O2SAT 93
--- NOTE | 2016-11-05 12:14 | Progress Note ---
Subjective Date of Service: Nov 05, 2016. Subjective Pt evaluation today including: conversation w/ patient, physical exam, lab review, review of studies, review of inpatient medication list Saw/examined the patient in room 231 +pain in the mid to lower back - worked with PT/OT earlier today denies chest pain/palpitations/shortness of breath lower extremities are wrapped Problem List Medical Problems: (1) Back pain Status: Acute (2) CHF exacerbation Status: Acute (3) Hypoxia Status: Acute Review of Systems Constitutional: No fever, No chills Respiratory: No shortness of breath Cardiac: No chest pain Abdomen: No pain, No nausea, No vomiting, No diarrhea Musculoskeletal: + joint pain (mid-low back pain) Medications Current Inpatient Medications Medications (Trade) Dose Ordered Sig/Van Route Start Time Stop Time Status Last Admin Dose Admin Enoxaparin Sodium (Lovenox Inj) 40 mg DAILY@1800 SC 11/03/16 18:00 12/03/16 17:59 11/04/16 17:14 40 MG Acetaminophen (Tylenol Tab) 650 mg Q4H PRN PO 11/03/16 13:15 12/03/16 13:14 Ondansetron HCl (Zofran Inj) 4 mg Q6H PRN IV 11/03/16 13:15 12/03/16 13:14 Glucose (Glucose 40% Gel) 15-30 GRAMS 15 GRAMS... UD PRN PO 11/03/16 13:15 12/03/16 13:14 Glucose (Glucose Chew Tab) 4-8 Tablets 4 Tabl... UD PRN PO 11/03/16 13:15 12/03/16 13:14 Dextrose (Dextrose 50% 50ML Syringe) 25-50ML OF 50% DW IV FOR... UD PRN IV 11/03/16 13:15 12/03/16 13:14 Glucagon (Glucagon Inj) 1 mg UD PRN SQ 11/03/16 13:15 12/03/16 13:14 Ketorolac Tromethamine (Toradol Inj) 15 mg Q6H PRN IV. 11/03/16 14:30 11/08/16 14:29 11/05/16 07:45 15 MG Lidocaine (Lidoderm Patch 5%) 1 patch QAM TD 11/04/16 09:00 12/04/16 08:59 11/05/16 07:49 1 PATCH Miscellaneous (Remove Lidoderm Patch) 1 ea DAILY@21 N/A 11/04/16 21:00 12/04/16 20:59 11/04/16 19:59 1 EA Aspirin (Ecotrin Tab) 81 mg QAM PO 11/04/16 09:00 12/04/16 08:59 11/05/16 07:48 81 MG Lisinopril (Zestril Tab) 40 mg QAM PO 11/04/16 09:00 12/04/16 08:59 11/05/16 07:49 40 MG Baclofen (Lioresal Tab) 20 mg TID PO 11/03/16 21:00 12/03/16 20:59 11/05/16 07:48 20 MG Hydromorphone HCl (Dilaudid Inj) 0.5 mg Q4 PRN IV 11/03/16 14:30 11/17/16 14:29 11/05/16 11:22 0.5 MG Menthol/Zinc Oxide (Calmoseptine Oint) 1 appln BID EXT 11/03/16 21:00 12/03/16 20:59 11/05/16 07:48 1 APPLN Albuterol (Ventolin Hfa Inhaler) 2 puffs QID PRN INH 11/03/16 15:30 12/03/16 15:29 Vancomycin HCl (Consult) 1 ea UD PRN N/A 11/03/16 17:00 12/03/16 16:59 Diazepam (Valium Tab) 5 mg BID PO 11/03/16 21:00 12/03/16 20:59 11/05/16 07:48 5 MG Atenolol (Tenormin Tab) 100 mg DAILY PO 11/05/16 09:00 12/04/16 08:59 11/05/16 07:49 100 MG Miscellaneous Information (Consult Glycemic Management Pharmacy) 1 ea UD PRN N/A 11/04/16 13:04 12/04/16 13:03 Insulin Aspart (novoLOG ASPART) SLIDING SCALE ACHS SC 11/04/16 16:15 12/04/16 16:14 11/05/16 07:53 3 UNITS Vancomycin HCl 1250 mg/Sodium Chloride 275 ml @ 125 mls/hr Q12@0400,1600 IV 11/05/16 16:00 11/13/16 15:59 Miscellaneous Information (Pending Order) 1 ea TODAY@2100 N/A 11/05/16 21:00 11/05/16 21:01 Insulin Glargine (Lantus Per Unit) 5 units HS PRN SQ 11/05/16 21:00 11/05/16 23:59 Objective Vital Signs Date Time Temp Pulse Resp B/P (MAP) Pulse Ox O2 Delivery O2 Flow Rate FiO2 11/05/16 08:00 Room Air 11/05/16 08:00 36.7 96 18 102/63 (76) 92 Room Air 11/05/16 04:00 36.8 100 20 111/71 (84) 95 Room Air 11/05/16 04:00 Room Air 11/04/16 23:59 Room Air 11/04/16 23:49 37.1 91 18 108/73 (85) 93 Room Air 11/04/16 20:00 Room Air 11/04/16 19:22 36.8 84 20 103/67 (79) 92 Room Air 11/04/16 16:00 Room Air 11/04/16 15:28 37.0 91 20 105/69 (81) 97 Room Air 11/04/16 12:00 Room Air Physical Exam General Appearance: + mild distress (secondary to pain), + obese Respiratory/Chest: chest non-tender, lungs clear, normal breath sounds, no respiratory distress, no accessory muscle use Cardiovascular: no murmur, + irregularly irregular Extremities: + pertinent finding (edema; b/l LE are dressed and wrapped) Neurologic/Psychiatric: no motor/sensory deficits, alert, normal mood/affect Laboratory Results Last 24 Hours Test 11/04/16 11:53 11/04/16 12:14 11/04/16 12:42 11/04/16 13:09 Bedside Glucose 60 mg/dl 49 mg/dl 123 mg/dl Random Glucose 67 mg/dl Test 11/04/16 16:27 11/04/16 20:59 11/05/16 02:00 11/05/16 03:45 Bedside Glucose 132 mg/dl 86 mg/dl 72 mg/dl White Blood Count 5.81 K/uL Red Blood Count 4.29 M/uL Hemoglobin 12.4 g/dL Hematocrit 36.8 % Mean Corpuscular Volume 85.8 fL Mean Corpuscular Hemoglobin 28.9 pg Mean Corpuscular Hemoglobin Concent 33.7 g/dl RDW Standard Deviation 50.5 fL RDW Coefficient of Variation 16.1 % Platelet Count 79 K/uL Mean Platelet Volume 9.0 fL Sodium Level 141 mmol/L Potassium Level 4.1 mmol/L Chloride Level 114 mmol/L Carbon Dioxide Level 23 mmol/L Anion Gap 4.0 mmol/L Blood Urea Nitrogen 25 mg/dl Creatinine 0.86 mg/dl Est Creatinine Clear Calc Drug Dose 97.0 ml/min Estimated GFR () 104.7 Estimated GFR (Non- 90.4 BUN/Creatinine Ratio 29.4 Random Glucose 74 mg/dl Calcium Level 8.4 mg/dl Vancomycin Level Trough 19.1 mcg/ml Test 11/05/16 06:46 11/05/16 11:12 Bedside Glucose 86 mg/dl 193 mg/dl Assessment and Plan This is a 66yo male with a PMH of DM II, A fib, HTN, CAD, diastolic CHF, COPD who presents with complaints of persistent back pain that started a few days ago. Thoracolumbar back pain 11/05 Valium increased to 10mg BID continue Baclofen 20mg TID for muscle spasms continue PT/OT Lidocaine patch Toradol and Dilaudid PRN 11/04 pain is likely related to muscle spasms continue baclofen and Valium Dilaudid, Toradol PRN, lidocaine patch PT/OT ordered Paroxysmal Atrial Fibrillation 11/05 HRs are fluctuating, mostly controlled, though pain and activity increase this rate for now, keep Atenolol at current dose, monitor in tele 11/04 no anticoagulation due to significant hemoptysis in the past continue Atenolol HRs improved to the 80s, monitor in tele continue aspirin Bilateral LE Cellulitis 11/05 continue Vancomycin for now wound care for further input 11/04 significant peripheral vascular disease, venous stasis cellulitic changes with ulcerations, pus wound care consult ordered and pending Vancomycin started Acute on chronic diastolic CHF - resolved 11/05 echo - normal LVEF, no valvular pathology holding Lasix for now, can restart if there is any shortness of breath 11/04 echo pending hold Lasix, hold IVFs monitor; patient may be intravascularly depleted, though has some edema in the LE DM2, uncontrolled 11/04 Ha1c = 9.5% takes glimepiride at home BSGs on admission >300 started on sliding scale; hypoglycemic overnight and this AM loosened the sliding scale CAD 11/04 minimal bump on cardiac enzymes, likely due to tachycardia echo pending, EKG similar to previous continue current medications HTN hold Lasix continue b-selvin and Lisinopril COPD continue home inhalers DVT ppx Lovenox FULL CODE
[2016-11-05 15:12] VITALS: BP 122/83; PULSE 84; TEMP 36.8; O2SAT 94
[2016-11-05] MEDS: VANCOMYCIN INJ 1,250 MG in SODIUM CHLORIDE 0.9% 250ML 250 ML IV SCH (15:39)
[2016-11-05] MEDS: ENOXAPARIN 40 MG/0.4 ML SYR SC SCH (17:07)
[2016-11-05 18:50] VITALS: BP 112/74; PULSE 74; TEMP 36.9; O2SAT 91
[2016-11-05] MEDS ORDERED: DIAZEPAM 5MG TAB PO SCH (21:00)
[2016-11-05] MEDS ORDERED: LANTUS PER UNIT CHARGE SQ PRN (21:00)
[2016-11-06] VITALS (11 sets, daily range): BP systolic 107–140; BP diastolic 62–81; PULSE 84–113; TEMP 36.8–37.7; O2SAT 91–98
[2016-11-06] MEDS: VANCOMYCIN INJ 1,250 MG in SODIUM CHLORIDE 0.9% 250ML 250 ML IV SCH ×2 (03:57→15:51)
--- NOTE | 2016-11-06 04:17 | Progress Note ---
Internal Med Progress Note Date of Service: Nov 06, 2016. Provider Documentation: Made aware by RN of increased disorientation. Episodes of incontinence as per RN. AP Delirium ? Medication related Rule out UTI Hold diazepam for now Hold baclofen for sedation confusion Haldol when necessary agitation Check UA Vital Signs: Date Time Temp Pulse Resp B/P (MAP) Pulse Ox O2 Delivery O2 Flow Rate FiO2 11/06/16 04:00 Room Air 11/06/16 03:53 37.4 113 22 128/81 (97) 94 Room Air 11/06/16 00:00 36.9 104 20 140/79 (99) 94 Room Air 11/05/16 23:59 Room Air 11/05/16 20:00 Room Air 11/05/16 18:50 36.9 74 20 112/74 (87) 91 Room Air 11/05/16 16:00 Room Air 11/05/16 15:12 36.8 84 20 122/83 (96) 94 Room Air 11/05/16 12:00 Room Air 11/05/16 12:00 36.8 75 18 99/66 (77) 93 Room Air 11/05/16 08:00 Room Air 11/05/16 08:00 36.7 96 18 102/63 (76) 92 Room Air Lab Results: Results Past 24 Hours Test 11/05/16 11:12 11/05/16 16:02 11/05/16 20:01 11/06/16 04:00 Range/Units Bedside Glucose 193 110 83 70-99 mg/dl Urine Color YELLOW Urine Appearance CLEAR CLEAR Urine pH 5.0 4.5-7.5 Urine Specific [place] 1.020 1.000-1.030 Urine Protein NEG NEG Urine Glucose (UA) NEG NEG Urine Ketones 1+ NEG Urine Occult Blood NEG NEG Urine Nitrite NEG NEG Urine Bilirubin NEG NEG Urine Urobilinogen NEG NEG Urine Leukocyte Esterase NEG NEG Test 11/06/16 04:06 11/06/16 05:03 Range/Units Bedside Glucose 92 70-99 mg/dl White Blood Count 7.33 4.8-10.8 K/uL Red Blood Count 4.50 4.7-6.1 M/uL Hemoglobin 12.4 14.0-18.0 g/dL Hematocrit 38.5 42-52 % Mean Corpuscular Volume 85.6 80-100 fL Mean Corpuscular Hemoglobin 27.6 25-34 pg Mean Corpuscular Hemoglobin Concent 32.2 32-36 g/dl Platelet Count 87 130-400 K/uL Mean Platelet Volume 9.8 7.4-10.4 fL Neutrophils (%) (Auto) 82.4 % Lymphocytes (%) (Auto) 11.7 % Monocytes (%) (Auto) 4.6 % Eosinophils (%) (Auto) 0.8 % Basophils (%) (Auto) 0.1 % Neutrophils # (Auto) 6.03 1.4-6.5 K/uL Lymphocytes # (Auto) 0.86 1.2-3.4 K/uL Monocytes # (Auto) 0.34 0.11-0.59 K/uL Eosinophils # (Auto) 0.06 0-0.5 K/uL Basophils # (Auto) 0.01 0-0.2 K/uL RDW Standard Deviation 49.6 36.4-46.3 fL RDW Coefficient of Variation 15.8 11.5-14.5 % Immature Granulocyte % (Auto) 0.4 % Immature Granulocyte # (Auto) 0.03 0.00-0.02 K/uL Ovalocytes 1+ Echinocytes 1+ Sodium Level 140 136-145 mmol/L Potassium Level 3.8 3.5-5.1 mmol/L Chloride Level 111 98-107 mmol/L Carbon Dioxide Level 21 21-32 mmol/L Anion Gap 8.0 3-11 mmol/L Blood Urea Nitrogen 21 7-18 mg/dl Creatinine 0.70 0.60-1.40 mg/dl Est Creatinine Clear Calc Drug Dose 122.2 ml/min Estimated GFR () 114.0 Estimated GFR (Non- 98.3 BUN/Creatinine Ratio 30.0 10-20 Random Glucose 94 70-99 mg/dl Calcium Level 8.3 8.5-10.1 mg/dl Magnesium Level 1.9 1.8-2.4 mg/dl Thyroid Stimulating Hormone (TSH) 1.460 0.300-4.500 uIu/ml
[2016-11-06] MEDS ORDERED: HALOPERIDOL LACTATE 5 MG/ML 1 ML VIAL IM PRN (04:30)
[2016-11-06] MEDS ORDERED: HALOPERIDOL 1 MG TAB PO PRN (04:30)
[2016-11-06 04:56] LABS: URINE APPEARANCE CLEAR (CLEAR); URINE BILIRUBIN NEG (NEG); URINE COLOR YELLOW; URINE NITRITE NEG (NEG); UROBILINOGEN NEG (NEG); ZZUR CULT IF INDIC CLEAN CATCH NO
[2016-11-06] MEDS: ACETAMINOPHEN 325 MG TAB PO PRN ×2 (05:01→20:09)
[2016-11-06 05:02] LABS: MANUAL MICROSCOPIC REQUIRED? NO; REVIEW REQ? NO
[2016-11-06 05:24] LABS: HEMATOCRIT 38.5 % (42-52); MEAN CELL VOLUME 85.6 fL (80-100); MEAN CORPUSCULAR HEMOGLOBIN 27.6 pg (25-34); MEAN CORPUSCULAR HGB CONC 32.2 g/dl (32-36); WHITE BLOOD COUNT 7.33 K/uL (4.8-10.8)
[2016-11-06 05:27] LABS: MEAN PLATELET VOLUME 9.8 fL (7.4-10.4); PLATELET COUNT 87 K/uL (130-400)
[2016-11-06 05:51] LABS: CALCIUM 8.3 mg/dl (8.5-10.1); CREATININE 0.7 mg/dl (0.60-1.40); MAGNESIUM 1.9 mg/dl (1.8-2.4); POTASSIUM 3.8 mmol/L (3.5-5.1)
[2016-11-06] MEDS ORDERED: POTASSIUM CHLORIDE 10 MEQ TABCR PO STA (05:55)
[2016-11-06 06:02] LABS: THYROID STIMULATING HORMONE 1.46 uIu/ml (0.300-4.500)
[2016-11-06] MEDS ORDERED: MAGNESIUM SULFATE 1GM / D5W 1 GM in PREMIXED IN D5W 100 ML IV STA (06:02)
[2016-11-06 06:19] LABS: BASO % 0.1 %; BASO ABS # 0.01 K/uL (0-0.2); COMPLETE YES; ECHINOCYTES 1+; EOS % 0.8 %; IG% 0.4 %; LYMPH % 11.7 %; LYMPH ABS # 0.86 K/uL (1.2-3.4); MONO % 4.6 %; NEUT % 82.4 %; OVALOCYTES 1+
[2016-11-06] MEDS: INSULIN ASPART 100 UNITS/ML 3 ML PEN SC SCH ×4 (07:00→21:00)
[2016-11-06] MEDS: BACLOFEN TAB 20 MG TAB PO SCH ×3 (08:30→20:15)
[2016-11-06] MEDS: LIDODERM (LIDOCAINE) PATCH 5% TD SCH (08:31)
[2016-11-06] MEDS: ASPIRIN 81 MG ECTAB PO SCH (08:31)
[2016-11-06] MEDS: LISINOPRIL 40 MG TAB PO SCH (08:31)
[2016-11-06] MEDS: MENTHOL-ZINC OXIDE 360 APPLN/120 GM TUBE EXT SCH ×2 (08:32→20:14)
--- NOTE | 2016-11-06 10:36 | Pharmacy Progress Note ---
Glycemic Control Progress Note Date of Service Nov 06, 2016. Scope Glycemic Pharmacist consulted for glycemic control to write orders per [facility] inpatient glycemic control protocol. Objective Accuchecks BSG (last 24hrs): Test 11/05/16 11:12 11/05/16 16:02 11/05/16 20:01 11/06/16 04:06 Bedside Glucose 193 mg/dl (70-99) 110 mg/dl (70-99) 83 mg/dl (70-99) 92 mg/dl (70-99) Test 11/06/16 05:03 11/06/16 06:54 Random Glucose 94 mg/dl (70-99) Bedside Glucose 99 mg/dl (70-99) HbA1c: Test 11/04/16 03:04 Hemoglobin A1c 9.5 % (4.5-5.6) H Recent Pertinent Medications The patient is currently receiving: * Correctional Insulin: Novolog Correction per scale ACHS Goal Range: Low 110 mg/dL - High 140 mg/dL Correction Factor: 30 mg/dL/unit * Prandial insulin: Per carb ratio of 1 unit per 10 grams CHO consumed Outpatient Anti-Diabetic Meds Oral Agents Assessment & Plan ASSESSMENT: * See progress note from 11/04/16 for more background info, in short: 66 yo M with uncontrolled diabetes as outpatient as evidence by A1c of 9.5%, admitted with back pain requiring bolus insulin only for BSG management * BSGs elevated due to baseline DM, stress of infection/pain * Patient is currently receiving an average of 15 units of insulin per day * 0 units of basal insulin * 15 units of prandial/correctional insulin * BSGs ranging 72 -193 mg/dl over the past 24hrs * Changes needed to insulin regimen: * AM Fasting BSG = 99 mg/dl. Continue to hold basal insulin. * Post-prandial BSGs are in range therefore no changes needed to CF/CR. PLAN FOR INPATIENT GLYCEMIC CONTROL: * Oral Agents * Continue to hold outpatient oral diabetes medications. * Bolus insulin * NovoLog per scale ACHS or Q6hrs while NPO * Goal Range: Low 140 mg/dL - High 180 mg/dL * Correction Factor: 30 mg/dL/unit * Nutritional / Prandial insulin per carb ratio of 1 unit per 10 grams CHO consumed RECOMMENDATIONS FOR DISCHARGE: * Amaryl alone is not providing adequate coverage as outpatient * Will require change that needs to be discussed with patient/provider closer to discharge * Recommend CDE to see patient * Please note that the plan above was derived based on current level of insulin resistance and hospital stress. These recommendations are appropriate for inpatient admission only. Plan of care upon discharge will need to be reassessed to avoid potential outpatient hypo/hyperglycemia. Thank you.
[2016-11-06] MEDS: HYDROmorphone INJ 0.5 MG/0.5 ML SYR IV PRN (10:40)
--- NOTE | 2016-11-06 11:33 | Progress Note ---
Subjective Date of Service: Nov 06, 2016. Subjective Pt evaluation today including: conversation w/ patient, physical exam, lab review, review of studies, review of inpatient medication list Saw/examined the patient in room 233 +lethargic, tired back pain persists, around 710 today no chest pain/palpitations Problem List Medical Problems: (1) Back pain Status: Acute (2) CHF exacerbation Status: Acute (3) Hypoxia Status: Acute Review of Systems Constitutional: No fever, No chills Respiratory: No shortness of breath Cardiac: No chest pain, No palpitations Musculoskeletal: + joint pain (mid to low back pain persists) Medications Current Inpatient Medications Medications (Trade) Dose Ordered Sig/Van Route Start Time Stop Time Status Last Admin Dose Admin Enoxaparin Sodium (Lovenox Inj) 40 mg DAILY@1800 SC 11/03/16 18:00 12/03/16 17:59 11/05/16 17:07 40 MG Acetaminophen (Tylenol Tab) 650 mg Q4H PRN PO 11/03/16 13:15 12/03/16 13:14 11/06/16 05:01 650 MG Ondansetron HCl (Zofran Inj) 4 mg Q6H PRN IV 11/03/16 13:15 12/03/16 13:14 Glucose (Glucose 40% Gel) 15-30 GRAMS 15 GRAMS... UD PRN PO 11/03/16 13:15 12/03/16 13:14 Glucose (Glucose Chew Tab) 4-8 Tablets 4 Tabl... UD PRN PO 11/03/16 13:15 12/03/16 13:14 Dextrose (Dextrose 50% 50ML Syringe) 25-50ML OF 50% DW IV FOR... UD PRN IV 11/03/16 13:15 12/03/16 13:14 Glucagon (Glucagon Inj) 1 mg UD PRN SQ 11/03/16 13:15 12/03/16 13:14 Ketorolac Tromethamine (Toradol Inj) 15 mg Q6H PRN IV. 11/03/16 14:30 11/08/16 14:29 11/05/16 15:38 15 MG Lidocaine (Lidoderm Patch 5%) 1 patch QAM TD 11/04/16 09:00 12/04/16 08:59 11/06/16 08:31 1 PATCH Miscellaneous (Remove Lidoderm Patch) 1 ea DAILY@21 N/A 11/04/16 21:00 12/04/16 20:59 11/05/16 21:00 1 EA Aspirin (Ecotrin Tab) 81 mg QAM PO 11/04/16 09:00 12/04/16 08:59 11/06/16 08:31 81 MG Lisinopril (Zestril Tab) 40 mg QAM PO 11/04/16 09:00 12/04/16 08:59 11/06/16 08:31 40 MG Baclofen (Lioresal Tab) 20 mg TID PO 11/03/16 21:00 12/03/16 20:59 11/06/16 08:30 20 MG Hydromorphone HCl (Dilaudid Inj) 0.5 mg Q4 PRN IV 11/03/16 14:30 11/17/16 14:29 11/06/16 10:40 0.5 MG Menthol/Zinc Oxide (Calmoseptine Oint) 1 appln BID EXT 11/03/16 21:00 12/03/16 20:59 11/05/16 19:59 1 APPLN Albuterol (Ventolin Hfa Inhaler) 2 puffs QID PRN INH 11/03/16 15:30 12/03/16 15:29 Vancomycin HCl (Consult) 1 ea UD PRN N/A 11/03/16 17:00 12/03/16 16:59 Miscellaneous Information (Consult Glycemic Management Pharmacy) 1 ea UD PRN N/A 11/04/16 13:04 12/04/16 13:03 Insulin Aspart (novoLOG ASPART) SLIDING SCALE ACHS SC 11/04/16 16:15 12/04/16 16:14 11/05/16 17:06 7 UNITS Vancomycin HCl 1250 mg/Sodium Chloride 275 ml @ 125 mls/hr Q12@0400,1600 IV 11/05/16 16:00 11/13/16 15:59 11/06/16 03:57 125 MLS/HR Diazepam (Valium Tab) 10 mg BID PO 11/05/16 21:00 12/03/16 20:59 Future Hold 11/05/16 20:01 10 MG Atenolol (Tenormin Tab) 100 mg DAILY PO 11/07/16 09:00 12/04/16 08:59 Haloperidol Lactate (Haldol Inj) 2 mg Q2H PRN IM 11/06/16 04:30 12/06/16 04:29 Haloperidol (Haldol Tab) 2 mg Q4H PRN PO 11/06/16 04:30 12/06/16 04:29 Objective Vital Signs Date Time Temp Pulse Resp B/P (MAP) Pulse Ox O2 Delivery O2 Flow Rate FiO2 11/06/16 08:03 36.8 90 18 107/69 (82) 96 11/06/16 08:00 96 Room Air 11/06/16 04:00 Room Air 11/06/16 03:53 37.4 113 22 128/81 (97) 94 Room Air 11/06/16 00:00 36.9 104 20 140/79 (99) 94 Room Air 11/05/16 23:59 Room Air 11/05/16 20:00 Room Air 11/05/16 18:50 36.9 74 20 112/74 (87) 91 Room Air 11/05/16 16:00 Room Air 11/05/16 15:12 36.8 84 20 122/83 (96) 94 Room Air 11/05/16 12:00 Room Air 11/05/16 12:00 36.8 75 18 99/66 (77) 93 Room Air Physical Exam General Appearance: + mild distress (secondary to back pain), + pertinent finding (+lethargic, tired) Respiratory/Chest: lungs clear, normal breath sounds, no respiratory distress, no accessory muscle use Cardiovascular: + irregularly irregular Abdomen: normal bowel sounds, non tender, soft Extremities: normal inspection, no pedal edema Laboratory Results Last 24 Hours Test 11/05/16 16:02 11/05/16 20:01 11/06/16 04:00 11/06/16 04:06 Bedside Glucose 110 mg/dl 83 mg/dl 92 mg/dl Urine Color YELLOW Urine Appearance CLEAR Urine pH 5.0 Urine Specific [place] 1.020 Urine Protein NEG Urine Glucose (UA) NEG Urine Ketones 1+ Urine Occult Blood NEG Urine Nitrite NEG Urine Bilirubin NEG Urine Urobilinogen NEG Urine Leukocyte Esterase NEG Test 11/06/16 05:03 11/06/16 06:54 White Blood Count 7.33 K/uL Red Blood Count 4.50 M/uL Hemoglobin 12.4 g/dL Hematocrit 38.5 % Mean Corpuscular Volume 85.6 fL Mean Corpuscular Hemoglobin 27.6 pg Mean Corpuscular Hemoglobin Concent 32.2 g/dl Platelet Count 87 K/uL Mean Platelet Volume 9.8 fL Neutrophils (%) (Auto) 82.4 % Lymphocytes (%) (Auto) 11.7 % Monocytes (%) (Auto) 4.6 % Eosinophils (%) (Auto) 0.8 % Basophils (%) (Auto) 0.1 % Neutrophils # (Auto) 6.03 K/uL Lymphocytes # (Auto) 0.86 K/uL Monocytes # (Auto) 0.34 K/uL Eosinophils # (Auto) 0.06 K/uL Basophils # (Auto) 0.01 K/uL RDW Standard Deviation 49.6 fL RDW Coefficient of Variation 15.8 % Immature Granulocyte % (Auto) 0.4 % Immature Granulocyte # (Auto) 0.03 K/uL Ovalocytes 1+ Echinocytes 1+ Sodium Level 140 mmol/L Potassium Level 3.8 mmol/L Chloride Level 111 mmol/L Carbon Dioxide Level 21 mmol/L Anion Gap 8.0 mmol/L Blood Urea Nitrogen 21 mg/dl Creatinine 0.70 mg/dl Est Creatinine Clear Calc Drug Dose 122.2 ml/min Estimated GFR () 114.0 Estimated GFR (Non- 98.3 BUN/Creatinine Ratio 30.0 Random Glucose 94 mg/dl Calcium Level 8.3 mg/dl Magnesium Level 1.9 mg/dl Thyroid Stimulating Hormone (TSH) 1.460 uIu/ml Bedside Glucose 99 mg/dl Assessment and Plan This is a 66yo male with a PMH of DM II, A fib, HTN, CAD, diastolic CHF, COPD who presents with complaints of persistent back pain that started a few days ago. Thoracolumbar back pain 11/06 Valium causing lethargy, altered mental status we will d/c Valium continue baclofen PT/OT Lidoderm patch Toradol PRN consult spine ortho for further evaluation 11/05 Valium increased to 10mg BID continue Baclofen 20mg TID for muscle spasms continue PT/OT Lidocaine patch Toradol and Dilaudid PRN 11/04 pain is likely related to muscle spasms continue baclofen and Valium Dilaudid, Toradol PRN, lidocaine patch PT/OT ordered Paroxysmal Atrial Fibrillation 11/06 no anticoagulation due to hemoptysis Atenolol for rate control 11/05 HRs are fluctuating, mostly controlled, though pain and activity increase this rate for now, keep Atenolol at current dose, monitor in tele 11/04 no anticoagulation due to significant hemoptysis in the past continue Atenolol HRs improved to the 80s, monitor in tele continue aspirin Bilateral LE Cellulitis 11/06 will need to continue Vanco wound care consultation for further input 11/05 continue Vancomycin for now wound care for further input 11/04 significant peripheral vascular disease, venous stasis cellulitic changes with ulcerations, pus wound care consult ordered and pending Vancomycin started Acute on chronic diastolic CHF - resolved 11/05 echo - normal LVEF, no valvular pathology holding Lasix for now, can restart if there is any shortness of breath 11/04 echo pending hold Lasix, hold IVFs monitor; patient may be intravascularly depleted, though has some edema in the LE DM2, uncontrolled 11/06 appreciate glycemic control consultation sliding scale insulin for now will need a change in his outpatient regimen 11/04 Ha1c = 9.5% takes glimepiride at home BSGs on admission >300 started on sliding scale; hypoglycemic overnight and this AM loosened the sliding scale CAD 11/04 minimal bump on cardiac enzymes, likely due to tachycardia echo pending, EKG similar to previous continue current medications HTN hold Lasix continue b-selvin and Lisinopril COPD continue home inhalers DVT ppx Lovenox FULL CODE
[2016-11-06] MEDS: ENOXAPARIN 40 MG/0.4 ML SYR SC SCH (17:00)
[2016-11-06] MEDS: KETOROLAC TROMETHAMINE 15 MG/ML VIAL IV. PRN (20:10)
[2016-11-07] VITALS (10 sets, daily range): BP systolic 102–134; BP diastolic 69–87; PULSE 75–115; TEMP 36.5–36.9; O2SAT 92–98
[2016-11-07] MEDS: VANCOMYCIN INJ 1,250 MG in SODIUM CHLORIDE 0.9% 250ML 250 ML IV SCH ×2 (04:06→16:28)
[2016-11-07] MEDS: ACETAMINOPHEN 325 MG TAB PO PRN (04:08)
[2016-11-07] MEDS: KETOROLAC TROMETHAMINE 15 MG/ML VIAL IV. PRN ×3 (04:08→19:15)
[2016-11-07] MEDS: HYDROmorphone INJ 0.5 MG/0.5 ML SYR IV PRN ×3 (06:07→23:44)
[2016-11-07 06:10] LABS: HEMATOCRIT 36.4 % (42-52); MEAN CELL VOLUME 85.2 fL (80-100); MEAN CORPUSCULAR HEMOGLOBIN 28.3 pg (25-34); MEAN CORPUSCULAR HGB CONC 33.2 g/dl (32-36); RED BLOOD COUNT 4.27 M/uL (4.7-6.1)
[2016-11-07 06:34] LABS: MEAN PLATELET VOLUME 9.5 fL (7.4-10.4); PLATELET COUNT 74 K/uL (130-400)
[2016-11-07] MEDS: INSULIN ASPART 100 UNITS/ML 3 ML PEN SC SCH ×4 (07:00→20:24)
[2016-11-07 07:07] LABS: BUN/CREATININE RATIO 24.4 (10-20); CALCIUM 8.1 mg/dl (8.5-10.1); CREATININE 0.63 mg/dl (0.60-1.40); POTASSIUM 3.9 mmol/L (3.5-5.1)
--- NOTE | 2016-11-07 07:24 | Orthopedic Consultation ---
Orthopedic Consultation Date of Consultation: Nov 07, 2016. Attending Physician: Martin Mccord DO Reason for Consultation: THORACOLUMBAR PAIN S/P FALL History of Present Illness Michael is a pleasant 66-year-old gentleman seen in consultation for his thoracolumbar pain. Patient states this pain started on , 11/02/2016. He reports he is sitting on a bucket when he fell backwards landing on his back. Denies hitting his head or loss of consciousness. He had difficulty getting up on his own and did require the assistance of his . He then reports he spent several hours on the toilet in the restroom due to his back pain. He then came to [facility] emergency room for further treatment. Over the past several days he states his back pain is slowly improving. Any type of movement reproduces his pain. Pain medicine alleviated. He has no radicular leg pain, paresthesia, numbness or weakness. He reports he is up and mandatory to the restroom in the hospital. He denies any prior history of lower back issues. He does describe his pain is on the midline thoracolumbar spine. Past Medical/Surgical History Medical Problems: (1) Back pain Status: Acute (2) CHF exacerbation Status: Acute (3) Hypoxia Status: Acute Family History Diabetes mellitus Heart disease Hypertension Social History Smoking Status: Never Smoker Alcohol Use: socially Marital Status: Occupation Status: employed Allergies Coded Allergies: Cefazolin (Verified Allergy, Unknown, UNKNOWN, 11/03/16) INFORMATION FROM [employer]. Cephalexin (Verified Allergy, Unknown, HIVES, 11/03/16) Influenza Virus Vaccine H5N1 (Verified Allergy, Unknown, LABELED A CHILD, UNSURE, 11/03/16) Uncoded Allergies: GUT SUTURE (Allergy, Intermediate, Swelling, 03/29/16) Home Medications Scheduled Aspirin (Aspirin Chewable), 81 MG PO QAM Atenolol (Tenormin), 100 MG PO DAILY Furosemide (Lasix), 20 MG PO DIRECTED Glimepiride (Amaryl *), 4 MG PO QAM Lisinopril (Zestril), 40 MG PO QAM Scheduled PRN Albuterol Sulfate (Proair Respiclick), 2 PUFFS PO QID PRN for Shortness of Breath Prednisone (Prednisone), 1 TAB PO DIRECTED PRN for Shortness of Breath Current Inpatient Medications Current Inpatient Medications Medications (Trade) Dose Ordered Sig/Van Route Start Time Stop Time Status Last Admin Dose Admin Enoxaparin Sodium (Lovenox Inj) 40 mg DAILY@1800 SC 11/03/16 18:00 12/03/16 17:59 11/06/16 17:00 40 MG Acetaminophen (Tylenol Tab) 650 mg Q4H PRN PO 11/03/16 13:15 12/03/16 13:14 11/07/16 04:08 650 MG Ondansetron HCl (Zofran Inj) 4 mg Q6H PRN IV 11/03/16 13:15 12/03/16 13:14 Glucose (Glucose 40% Gel) 15-30 GRAMS 15 GRAMS... UD PRN PO 11/03/16 13:15 12/03/16 13:14 Glucose (Glucose Chew Tab) 4-8 Tablets 4 Tabl... UD PRN PO 11/03/16 13:15 12/03/16 13:14 Dextrose (Dextrose 50% 50ML Syringe) 25-50ML OF 50% DW IV FOR... UD PRN IV 11/03/16 13:15 12/03/16 13:14 Glucagon (Glucagon Inj) 1 mg UD PRN SQ 11/03/16 13:15 12/03/16 13:14 Ketorolac Tromethamine (Toradol Inj) 15 mg Q6H PRN IV. 11/03/16 14:30 11/08/16 14:29 11/07/16 04:08 15 MG Lidocaine (Lidoderm Patch 5%) 1 patch QAM TD 11/04/16 09:00 12/04/16 08:59 11/06/16 08:31 1 PATCH Miscellaneous (Remove Lidoderm Patch) 1 ea DAILY@21 N/A 11/04/16 21:00 12/04/16 20:59 11/06/16 20:15 1 EA Aspirin (Ecotrin Tab) 81 mg QAM PO 11/04/16 09:00 12/04/16 08:59 11/06/16 08:31 81 MG Lisinopril (Zestril Tab) 40 mg QAM PO 11/04/16 09:00 12/04/16 08:59 11/06/16 08:31 40 MG Baclofen (Lioresal Tab) 20 mg TID PO 11/03/16 21:00 12/03/16 20:59 11/06/16 20:15 20 MG Hydromorphone HCl (Dilaudid Inj) 0.5 mg Q4 PRN IV 11/03/16 14:30 11/17/16 14:29 11/07/16 06:07 0.5 MG Menthol/Zinc Oxide (Calmoseptine Oint) 1 appln BID EXT 11/03/16 21:00 12/03/16 20:59 11/06/16 20:14 1 APPLN Albuterol (Ventolin Hfa Inhaler) 2 puffs QID PRN INH 11/03/16 15:30 12/03/16 15:29 Vancomycin HCl (Consult) 1 ea UD PRN N/A 11/03/16 17:00 12/03/16 16:59 Miscellaneous Information (Consult Glycemic Management Pharmacy) 1 ea UD PRN N/A 11/04/16 13:04 12/04/16 13:03 Insulin Aspart (novoLOG ASPART) SLIDING SCALE ACHS SC 11/04/16 16:15 12/04/16 16:14 11/05/16 17:06 7 UNITS Vancomycin HCl 1250 mg/Sodium Chloride 275 ml @ 125 mls/hr Q12@0400,1600 IV 11/05/16 16:00 11/13/16 15:59 11/07/16 04:06 125 MLS/HR Diazepam (Valium Tab) 10 mg BID PO 11/05/16 21:00 12/03/16 20:59 Future Hold 11/05/16 20:01 10 MG Atenolol (Tenormin Tab) 100 mg DAILY PO 11/07/16 09:00 12/04/16 08:59 Haloperidol Lactate (Haldol Inj) 2 mg Q2H PRN IM 11/06/16 04:30 12/06/16 04:29 Haloperidol (Haldol Tab) 2 mg Q4H PRN PO 11/06/16 04:30 12/06/16 04:29 Review of Systems BACK PAIN Physical Exam Date Time Temp Pulse Resp B/P (MAP) Pulse Ox O2 Delivery O2 Flow Rate FiO2 11/07/16 04:03 36.9 75 24 122/87 (99) 94 Room Air 11/07/16 04:00 94 Room Air 11/07/16 00:01 94 Room Air 11/06/16 23:55 36.9 93 20 107/72 (84) 94 Room Air 11/06/16 21:40 37.2 11/06/16 20:00 91 Room Air 11/06/16 19:23 37.7 103 22 111/73 (86) 91 Room Air 11/06/16 16:00 Room Air 11/06/16 15:55 37.0 86 22 114/79 (91) 98 Room Air 11/06/16 12:14 37.0 84 16 129/62 (84) 96 11/06/16 12:00 96 Room Air 11/06/16 08:03 36.8 90 18 107/69 (82) 96 11/06/16 08:00 96 Room Air Patient's lower extremities are neurovascularly intact. He is 55/5 strength bilateral EHL, dorsiflexion, plantar flexion, inversion eversion, quadriceps, hamstrings. He has +1 dorsalis space pulse bilaterally. Negative tension signs. Negative Harshal bilaterally. No evidence of ankle clonus. He is able to sit up in bed out with my assistance so I may examine his lumbar spine. This is with a great deal of pain. There is no abnormal skin markings. He is tender to lesion over the thoracolumbar spine midline as well as paravertebral musculature. 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, no motor/sensory deficits Skin: no rash Lymphatic: no adenopathy Laboratory Results Last 24 Hours Test 11/06/16 11:30 11/06/16 16:17 11/06/16 20:28 11/07/16 05:55 Bedside Glucose 94 mg/dl 80 mg/dl 80 mg/dl White Blood Count 7.30 K/uL Red Blood Count 4.27 M/uL Hemoglobin 12.1 g/dL Hematocrit 36.4 % Mean Corpuscular Volume 85.2 fL Mean Corpuscular Hemoglobin 28.3 pg Mean Corpuscular Hemoglobin Concent 33.2 g/dl RDW Standard Deviation 49.3 fL RDW Coefficient of Variation 15.8 % Platelet Count 74 K/uL Mean Platelet Volume 9.5 fL Sodium Level 145 mmol/L Potassium Level 3.9 mmol/L Chloride Level 113 mmol/L Carbon Dioxide Level 22 mmol/L Anion Gap 10.0 mmol/L Blood Urea Nitrogen 15 mg/dl Creatinine 0.63 mg/dl Est Creatinine Clear Calc Drug Dose 136.7 ml/min Estimated GFR () 119.0 Estimated GFR (Non- 102.7 BUN/Creatinine Ratio 24.4 Random Glucose 76 mg/dl Calcium Level 8.1 mg/dl Patient Name: MICHAEL SHAH Unit Number: [id number] Dictated: 11/03/161637 Transcribed: 11/03/161637 EV Printed Date/Time: [~ rep prt dt]/[~ rep prt tm] [~ rep ct labl] - [~ rep ct ivnm] [facility] [place] [address] Dictated: 11/03/161637 Transcribed: 11/03/161637 EV Printed Date/Time: [~ rep prt dt]/[~ rep prt tm] [~ rep ct labl] - [~ rep ct ivnm] Patient: MICHAEL SHAH Address1: [address] [place] [address] Rec: [id number] Address2: Acct ID: [id number] [facility] Zip: [place] [address] Date: 1950 Sex: M Room/Bed: [facility] Ref Phy: Ga Ferreira M.D.(HUGH) SC: [place]2T Att Phy: Martin Mccord DO Report #: [id number] Marina Phy: Ga Ferreira M.D.(KILEY) Test: TS3 Admit Phy: Martin Mccord DO Facilities Maintenance Engineer: BIANKA Interpreting Phy: Hans Chaudhary M.D. Diagnosis: BACK PAIN, CHF EXACERBATION Ordering Phy: Martin Mccord DO Service Date: 11/03/16 Admit Date: 11/04/1707/18/17 MNE: [id number] CONF: DICTATED BY: Hans Chaudhary M.D.]] CC: Martin Mccord DO Taylor, William F.JR, M.D.(KILEY) Endcc: [~ rep ct add3]] THORACIC SPINE 3 VIEWS CLINICAL HISTORY: Midthoracic back pain. FINDINGS: AP, lateral, and swimmer's views of the thoracic spine are correlated with chest CT dated 04/18/2013. The skeletal structures are osteopenic. There is no radiographic evidence of fracture or malalignment. Vertebral body height and alignment are maintained throughout the thoracic spine. Anterior osteophytes are seen throughout. The transverse processes and pedicles are grossly intact as seen on the frontal view. Mild multilevel degenerative disc space narrowing is noted. The partially imaged lung parenchyma is grossly clear. IMPRESSION: Osteopenia and degenerative change as above. No acute bony abnormality is seen in the thoracic spine. Electronically signed by: Hans Chaudhary M.D. 11/03/2016 4:39 PM Dictated Date/Time: 11/03/2016 4:38 PM The status of this report is Signed. Draft = Not yet reviewed or approved by Radiologist. Signed = Reviewed and approved by Radiologist. <AttendingPhy>Martin Mccord, </AttendingPhy> <FamilyPhy>Ga Ferreira M.D.(KILEY)</FamilyPhy> <PrimaryPhy>Ga Ferreira M.D.(KILEY)</ PrimaryPhy> <UnitNumber>[id number]</UnitNumber> <VisitNumber>[id number]</ VisitNumber> <PatientName>MICHAEL SHAH</PatientName> <DateOfBirth>1950</ DateOfBirth> <Location>C.2T</Location> <ServiceDate>11/03/16</ServiceDate> <MNE> ESINDI</MNE> <OrderingPhy>Martin Mccord DO</OrderingPhy> <OrderingPhyMNE>f rep ord mne</OrderingPhyMNE> <DictatingPhyMNE>f rep dict mne</ DictatingPhyMNE> <CCListMNE>f rep ct mne</CCListMNE> <AdmittingPhyMNE>f pt admit dr osei</AdmittingPhyMNE> <AttendingPhyMNE>f pt attend dr osei</ AttendingPhyMNE> <ConsultingPhyMNE>f pt consult dr osei</ConsultingPhyMNE> <FamilyPhyMNE>f pt fam dr osei</FamilyPhyMNE> <OtherPhyMNE>f pt other dr osei</OtherPhyMNE> < PrimaryPhyMNE>f pt prim care dr osei</PrimaryPhyMNE> <ReferringPhyMNE>f pt referring dr osei</ReferringPhyMNE> Patient Name: MICHAEL SHAH Unit Number: [id number] Dictated: 11/03/161123 Transcribed: 11/03/161123 [facility] Printed Date/Time: [~ rep prt dt]/[~ rep prt tm] [~ rep ct labl] - [~ rep ct ivnm] [facility] [place] [address] Dictated: 11/03/161123 Transcribed: 11/03/161123 PA Printed Date/Time: [~ rep prt dt]/[~ rep prt tm] [~ rep ct labl] - [~ rep ct ivnm] Patient: MICHAEL SHAH Address1: [address] [place] [address] Rec: [id number] Address2: Acct ID: [id number] [facility] Zip: [place] [address] Date: 1950 Sex: M Room/Bed: Ref Phy: Ga Ferreira M.D.(KILEY) SC: MARIA T Att Phy: Report #: [id number] Marina Phy: Michael Stevenson PA-C Test: LSWOC Admit Phy: Facilities Maintenance Engineer: MARION Interpreting Phy: Aman Sullivan MD Diagnosis: BACK PAIN Ordering Phy: Mendoza Cali MD Service Date: 11/03/16 Admit Date: 11/03/16 MNE: [id number] CONF: DICTATED BY: Aman Sullivan M.D.]] CC: VirajMendoza cagle MD Smith, Steve M., Ga Li M.D.(KILEY) Endcc: [~ rep ct add3]] LUMBAR SPINE MRI HISTORY: Pt c/o severe back pain TECHNIQUE: Multiplanar multisequence MRI of the lumbar spine was performed without the use of contrast. COMPARISON: Lumbar spine CT 11/03/2016. FINDINGS: For the purpose of the report the L5-S1 disc space will be located on axial image 23 of 25. Subcutaneous edema within the lumbar region. There is also mild edema within the bilateral lumbar erector spinae muscles. No fracture or subluxation within the lumbar spine. Mild disc space narrowing at L5-S1. The conus terminates at the L2 level. Mild facet degenerative changes within the lumbar spine. The visualized retroperitoneal soft tissues are unremarkable. L1-L2: No significant central canal or neural foraminal narrowing. L2-L3: No significant central canal or neural foraminal narrowing. L3-L4: No disc herniations. No significant central canal narrowing. Mild bilateral neural foraminal narrowing due to the facet hypertrophy. L4-L5: No disc herniations. No central canal or neural foraminal narrowing. L5-S1: No central canal narrowing. Tiny broad-based posterior disc bulge with a small focal central annular tear. No disc herniations. Mild left neural foraminal narrowing due to the facet hypertrophy. IMPRESSION: 1. Mild degenerative disease at L5-S1. No significant central canal narrowing. No disc herniations. 2. Mild edema within the bilateral lumbar erector spinae muscles. This raises the possibility of a muscular strain. 3. No fracture or subluxation within the lumbar spine. Electronically signed by: Aman Sullivan M.D. 11/03/2016 11:35 AM Dictated Date/Time: 11/03/2016 11:24 AM The status of this report is Signed. Draft = Not yet reviewed or approved by Radiologist. Signed = Reviewed and approved by Radiologist. <AttendingPhy></AttendingPhy> <FamilyPhy>Ga Ferreira M.D.(KILEY)</ FamilyPhy> <PrimaryPhy>Michael Stevenson, BEATRIZ</PrimaryPhy> <UnitNumber>[id number] </UnitNumber> <VisitNumber>[id number]</VisitNumber> <PatientName>MICHAEL SHAH< /PatientName> <DateOfBirth>1950</DateOfBirth> <Location>MARIA T</Location> < ServiceDate>11/03/16</ServiceDate> <MNE>ESINDI</MNE> <OrderingPhy>Mendoza Cali MD</OrderingPhy> <OrderingPhyMNE>f rep ord dr osei</OrderingPhyMNE> < DictatingPhyMNE>f rep dict dr osei</DictatingPhyMNE> <CCListMNE>f rep ct mne</ CCListMNE> <AdmittingPhyMNE>f pt admit dr osei</AdmittingPhyMNE> <AttendingPhyMNE >f pt attend dr osei</AttendingPhyMNE> <ConsultingPhyMNE>f pt consult dr osei</ConsultingPhyMNE> <FamilyPhyMNE>f pt fam dr osei</FamilyPhyMNE> <OtherPhyMNE>f pt other dr osei</OtherPhyMNE> < PrimaryPhyMNE>f pt prim care dr osei</PrimaryPhyMNE> <ReferringPhyMNE>f pt referring dr osei</ReferringPhyMNE> Patient: MICHAEL SHAH Address1: [address] [facility] Rec: [id number] Address2: Acct ID: [id number] [facility] Zip: [place] [address] Date: 1950 Sex: M Room/Bed: Ref Phy: Ga Ferreira M.D.(KILEY) SC: MARIA T Att Phy: Report #: [id number] Marina Phy: Michael Stevenson PA-C Test: LSWO Admit Phy: Facilities Maintenance Engineer: JORGE LUIS Interpreting Phy: Ray Villafuerte M.D. Diagnosis: BACK PAIN Ordering Phy: Mendoza Cali MD Service Date: 11/03/16 Admit Date: 11/03/16 MNE: PWRSCRIBE CONF: DICTATED BY: Ray Villafuerte M.D.]] CC: Viraj, Mendoza M.MD Graham Steve M., PA-C Taylor, William F.JR, M.D.(KILEY) Endcc: [~ rep ct add3]] LUMBAR SPINE WITHOUT CT DOSE: 673.11 mGycm HISTORY: Pain Pt c/o severe low back pain TECHNIQUE: Multiaxial CT images of the lumbar spine were performed and reformatted in the sagittal and coronal plane without the use of contrast. A dose lowering technique was utilized adhering to the principles of ALARA. COMPARISON: None. FINDINGS: No evidence for acute compression deformity. Mild degenerative disc change throughout. Right pleural effusion. Moderate degenerative osteophytic change throughout the entire lumbar region. No major bony compromise of the spinal canal. Degenerative change of the posterior elements throughout. IMPRESSION: 1. Right pleural effusion. 2. Moderate degenerative change of the lumbar spine including posterior facets. 3. Osteopenia. 4. No acute bony abnormality. The above report was generated using voice recognition software. It may contain grammatical, syntax or spelling errors. Electronically signed by: Ray Villafuerte M.D. 11/03/2016 8:22 AM Dictated Date/Time: 11/03/2016 8:20 AM The status of this report is Signed. Draft = Not yet reviewed or approved by Radiologist. Signed = Reviewed and approved by Radiologist. <AttendingPhy></AttendingPhy> <FamilyPhy>Ga Ferreira M.D.(KILEY)</ FamilyPhy> <PrimaryPhy>Michael Stevenson PA-C</PrimaryPhy> <UnitNumber>[id number] </UnitNumber> <VisitNumber>[id number]</VisitNumber> <PatientName>MICHAEL SHAH< /PatientName> <DateOfBirth>1950</DateOfBirth> <Location>C.HERMAN</Location> < ServiceDate>11/03/16</ServiceDate> <MNE>ESINDI</MNE> <OrderingPhy>Mendoza Cali MD</OrderingPhy> <OrderingPhyMNE>f rep ord dr osei</OrderingPhyMNE> < DictatingPhyMNE>f rep dict mne</DictatingPhyMNE> <CCListMNE>f rep ct mne</ CCListMNE> <AdmittingPhyMNE>f pt admit dr osei</AdmittingPhyMNE> <AttendingPhyMNE >f pt attend dr osei</AttendingPhyMNE> <ConsultingPhyMNE>f pt consult dr osei</ConsultingPhyMNE> <FamilyPhyMNE>f pt fam dr osei</FamilyPhyMNE> <OtherPhyMNE>f pt other dr osei</OtherPhyMNE> < PrimaryPhyMNE>f pt prim care dr osei</PrimaryPhyMNE> <ReferringPhyMNE>f pt referring dr osei</ReferringPhyMNE> Assessment & Plan Assessment is lumbar sprain strain with spasms. Diffuse spondylosis. No acute fractures noted. Plan at this point in time is conservative measures to control his pain. Continue with PT/OT. Continuous pain control measures. There are no acute surgical indications at this point in time. I do suspect over the next week and half to 2 weeks pain will greatly be improved. May use ice or heat as needed. If pain is still uncontrolled may ultimately consider pain management consultation in regards to medication recommendations.
[2016-11-07] MEDS: BACLOFEN TAB 20 MG TAB PO SCH (08:12)
[2016-11-07] MEDS: ASPIRIN 81 MG ECTAB PO SCH (08:12)
[2016-11-07] MEDS: LISINOPRIL 40 MG TAB PO SCH (08:12)
[2016-11-07] MEDS: LIDODERM (LIDOCAINE) PATCH 5% TD SCH (08:13)
[2016-11-07] MEDS: MENTHOL-ZINC OXIDE 360 APPLN/120 GM TUBE EXT SCH ×2 (08:14→21:06)
[2016-11-07] MEDS: FUROSEMIDE 20 MG TAB PO SCH (11:29)
--- NOTE | 2016-11-07 12:40 | Progress Note ---
Subjective Date of Service: Nov 07, 2016. Subjective Pt evaluation today including: conversation w/ patient, physical exam, lab review, review of studies, review of inpatient medication list Saw/examined the patient in room 233 Back pain persists/spasms, in moderate distress due to pain denies chest pain/shortness of breath still tired/lethargic Problem List Medical Problems: (1) Back pain Status: Acute (2) CHF exacerbation Status: Acute (3) Hypoxia Status: Acute Review of Systems Respiratory: No shortness of breath Cardiac: No chest pain, No palpitations Abdomen: No pain, No nausea, No vomiting, No diarrhea Musculoskeletal: + joint pain (mid-low back pain) Medications Current Inpatient Medications Medications (Trade) Dose Ordered Sig/Van Route Start Time Stop Time Status Last Admin Dose Admin Enoxaparin Sodium (Lovenox Inj) 40 mg DAILY@1800 SC 11/03/16 18:00 12/03/16 17:59 11/06/16 17:00 40 MG Acetaminophen (Tylenol Tab) 650 mg Q4H PRN PO 11/03/16 13:15 12/03/16 13:14 11/07/16 04:08 650 MG Ondansetron HCl (Zofran Inj) 4 mg Q6H PRN IV 11/03/16 13:15 12/03/16 13:14 Glucose (Glucose 40% Gel) 15-30 GRAMS 15 GRAMS... UD PRN PO 11/03/16 13:15 12/03/16 13:14 Glucose (Glucose Chew Tab) 4-8 Tablets 4 Tabl... UD PRN PO 11/03/16 13:15 12/03/16 13:14 Dextrose (Dextrose 50% 50ML Syringe) 25-50ML OF 50% DW IV FOR... UD PRN IV 11/03/16 13:15 12/03/16 13:14 Glucagon (Glucagon Inj) 1 mg UD PRN SQ 11/03/16 13:15 12/03/16 13:14 Ketorolac Tromethamine (Toradol Inj) 15 mg Q6H PRN IV. 11/03/16 14:30 11/08/16 14:29 11/07/16 10:29 15 MG Lidocaine (Lidoderm Patch 5%) 1 patch QAM TD 11/04/16 09:00 12/04/16 08:59 11/07/16 08:13 1 PATCH Miscellaneous (Remove Lidoderm Patch) 1 ea DAILY@21 N/A 11/04/16 21:00 12/04/16 20:59 11/06/16 20:15 1 EA Aspirin (Ecotrin Tab) 81 mg QAM PO 11/04/16 09:00 12/04/16 08:59 11/07/16 08:12 81 MG Lisinopril (Zestril Tab) 40 mg QAM PO 11/04/16 09:00 12/04/16 08:59 11/07/16 08:12 40 MG Baclofen (Lioresal Tab) 20 mg TID PO 11/03/16 21:00 12/03/16 20:59 11/07/16 08:12 20 MG Hydromorphone HCl (Dilaudid Inj) 0.5 mg Q4 PRN IV 11/03/16 14:30 11/17/16 14:29 11/07/16 06:07 0.5 MG Menthol/Zinc Oxide (Calmoseptine Oint) 1 appln BID EXT 11/03/16 21:00 12/03/16 20:59 11/07/16 08:14 1 APPLN Albuterol (Ventolin Hfa Inhaler) 2 puffs QID PRN INH 11/03/16 15:30 12/03/16 15:29 Vancomycin HCl (Consult) 1 ea UD PRN N/A 11/03/16 17:00 12/03/16 16:59 Miscellaneous Information (Consult Glycemic Management Pharmacy) 1 ea UD PRN N/A 11/04/16 13:04 12/04/16 13:03 Insulin Aspart (novoLOG ASPART) SLIDING SCALE ACHS SC 11/04/16 16:15 12/04/16 16:14 11/05/16 17:06 7 UNITS Vancomycin HCl 1250 mg/Sodium Chloride 275 ml @ 125 mls/hr Q12@0400,1600 IV 11/05/16 16:00 11/13/16 15:59 11/07/16 04:06 125 MLS/HR Diazepam (Valium Tab) 10 mg BID PO 11/05/16 21:00 12/03/16 20:59 Future Hold 11/05/16 20:01 10 MG Atenolol (Tenormin Tab) 100 mg DAILY PO 11/07/16 09:00 12/04/16 08:59 11/07/16 08:12 100 MG Haloperidol Lactate (Haldol Inj) 2 mg Q2H PRN IM 11/06/16 04:30 12/06/16 04:29 Haloperidol (Haldol Tab) 2 mg Q4H PRN PO 11/06/16 04:30 12/06/16 04:29 Furosemide (Lasix Tab) 20 mg QAM PO 11/07/16 09:00 12/07/16 08:59 11/07/16 11:29 20 MG Objective Vital Signs Date Time Temp Pulse Resp B/P (MAP) Pulse Ox O2 Delivery O2 Flow Rate FiO2 11/07/16 11:45 36.5 88 18 118/69 (85) 96 11/07/16 07:45 36.8 99 18 102/72 (82) 98 11/07/16 04:03 36.9 75 24 122/87 (99) 94 Room Air 11/07/16 04:00 94 Room Air 11/07/16 00:01 94 Room Air 11/06/16 23:55 36.9 93 20 107/72 (84) 94 Room Air 11/06/16 21:40 37.2 11/06/16 20:00 91 Room Air 11/06/16 19:23 37.7 103 22 111/73 (86) 91 Room Air 11/06/16 16:00 Room Air 11/06/16 15:55 37.0 86 22 114/79 (91) 98 Room Air Physical Exam General Appearance: + moderate distress (secondary to pain), + pertinent finding (lethargic and weak) Respiratory/Chest: lungs clear, normal breath sounds, no respiratory distress, no accessory muscle use Cardiovascular: no murmur, + irregularly irregular Extremities: + pertinent finding (muscle spasm of the mid back on R paravertebral region; b/l LE and dressed) Laboratory Results Last 24 Hours Test 11/06/16 16:17 11/06/16 20:28 11/07/16 05:55 11/07/16 06:42 Bedside Glucose 80 mg/dl 80 mg/dl 73 mg/dl White Blood Count 7.30 K/uL Red Blood Count 4.27 M/uL Hemoglobin 12.1 g/dL Hematocrit 36.4 % Mean Corpuscular Volume 85.2 fL Mean Corpuscular Hemoglobin 28.3 pg Mean Corpuscular Hemoglobin Concent 33.2 g/dl RDW Standard Deviation 49.3 fL RDW Coefficient of Variation 15.8 % Platelet Count 74 K/uL Mean Platelet Volume 9.5 fL Sodium Level 145 mmol/L Potassium Level 3.9 mmol/L Chloride Level 113 mmol/L Carbon Dioxide Level 22 mmol/L Anion Gap 10.0 mmol/L Blood Urea Nitrogen 15 mg/dl Creatinine 0.63 mg/dl Est Creatinine Clear Calc Drug Dose 136.7 ml/min Estimated GFR () 119.0 Estimated GFR (Non- 102.7 BUN/Creatinine Ratio 24.4 Random Glucose 76 mg/dl Calcium Level 8.1 mg/dl Test 11/07/16 11:19 Bedside Glucose 157 mg/dl Assessment and Plan This is a 66yo male with a PMH of DM II, A fib, HTN, CAD, diastolic CHF, COPD who presents with complaints of persistent back pain that started a few days ago. Thoracolumbar back pain 11/07 stopped Valium yesterday continued Baclofen, Dilaudid and Toradol PRN Lidoderm patch appreciate ortho input will consult pain management transfer out of tele to med/surg 11/06 Valium causing lethargy, altered mental status we will d/c Valium continue baclofen PT/OT Lidoderm patch Toradol PRN consult spine ortho for further evaluation 11/05 Valium increased to 10mg BID continue Baclofen 20mg TID for muscle spasms continue PT/OT Lidocaine patch Toradol and Dilaudid PRN 11/04 pain is likely related to muscle spasms continue baclofen and Valium Dilaudid, Toradol PRN, lidocaine patch PT/OT ordered Paroxysmal Atrial Fibrillation 11/07 A. fib, rate controlled no anticoagulation, continue Atenolol 11/06 no anticoagulation due to hemoptysis Atenolol for rate control 11/05 HRs are fluctuating, mostly controlled, though pain and activity increase this rate for now, keep Atenolol at current dose, monitor in tele 11/04 no anticoagulation due to significant hemoptysis in the past continue Atenolol HRs improved to the 80s, monitor in tele continue aspirin Bilateral LE Cellulitis 11/06 will need to continue Vanco wound care consultation for further input 11/05 continue Vancomycin for now wound care for further input 11/04 significant peripheral vascular disease, venous stasis cellulitic changes with ulcerations, pus wound care consult ordered and pending Vancomycin started Acute on chronic diastolic CHF - resolved 11/05 echo - normal LVEF, no valvular pathology holding Lasix for now, can restart if there is any shortness of breath 11/04 echo pending hold Lasix, hold IVFs monitor; patient may be intravascularly depleted, though has some edema in the LE DM2, uncontrolled 11/06 appreciate glycemic control consultation sliding scale insulin for now will need a change in his outpatient regimen 11/04 Ha1c = 9.5% takes glimepiride at home BSGs on admission >300 started on sliding scale; hypoglycemic overnight and this AM loosened the sliding scale CAD 11/04 minimal bump on cardiac enzymes, likely due to tachycardia echo pending, EKG similar to previous continue current medications HTN hold Lasix continue b-selvin and Lisinopril COPD continue home inhalers DVT ppx Lovenox FULL CODE
[2016-11-07] MEDS: BACLOFEN 10 MG TAB PO SCH ×2 (15:00→21:00)
[2016-11-07] MEDS: ENOXAPARIN 40 MG/0.4 ML SYR SC SCH (17:54)
[2016-11-08] MEDS ORDERED: VANCOMYCIN TROUGH ONE (03:30)
[2016-11-08 04:22] LABS: BUN/CREATININE RATIO 19.7 (10-20); CALCIUM 8.1 mg/dl (8.5-10.1); CREATININE 0.78 mg/dl (0.60-1.40)
[2016-11-08] MEDS: VANCOMYCIN INJ 1,250 MG in SODIUM CHLORIDE 0.9% 250ML 250 ML IV SCH ×2 (04:36→16:18)
[2016-11-08 06:58] LABS: RED BLOOD COUNT 3.99 M/uL (4.7-6.1); WHITE BLOOD COUNT 7.43 K/uL (4.8-10.8)
[2016-11-08 06:59] LABS: HEMATOCRIT 34.5 % (42-52); MEAN CELL VOLUME 86.5 fL (80-100); MEAN CORPUSCULAR HEMOGLOBIN 29.6 pg (25-34); MEAN CORPUSCULAR HGB CONC 34.2 g/dl (32-36); MEAN PLATELET VOLUME 10.3 fL (7.4-10.4); PLATELET COUNT 90 K/uL (130-400)
[2016-11-08 07:14] VITALS: BP 128/81; PULSE 102; TEMP 37.2; O2SAT 91
[2016-11-08] MEDS: MENTHOL-ZINC OXIDE 360 APPLN/120 GM TUBE EXT SCH ×2 (07:53→20:36)
[2016-11-08] MEDS: FUROSEMIDE 20 MG TAB PO SCH (07:54)
[2016-11-08] MEDS: BACLOFEN 10 MG TAB PO SCH (07:55)
[2016-11-08] MEDS: KETOROLAC TROMETHAMINE 15 MG/ML VIAL IV. PRN (07:58)
[2016-11-08 08:00] VITALS: O2SAT 92
[2016-11-08] MEDS: INSULIN ASPART 100 UNITS/ML 3 ML PEN SC SCH ×4 (08:01→20:54)
[2016-11-08] MEDS: ASPIRIN 81 MG ECTAB PO SCH (08:47)
[2016-11-08] MEDS: LISINOPRIL 40 MG TAB PO SCH (08:48)
[2016-11-08] MEDS: LIDODERM (LIDOCAINE) PATCH 5% TD SCH (08:48)
--- NOTE | 2016-11-08 09:54 | DIAGNOSTIC IMAGING REPORT ---
HEAD WITHOUT CONTRAST (CT) CLINICAL HISTORY: 66 years-old Male with r/o cva; confusion. Acute confusion. TECHNIQUE: Multiple axial CT images of the head were obtained without contrast. A dose lowering technique was utilized adhering to the principles of ALARA. CT DOSE: 712.55 mGy.cm COMPARISON: None. FINDINGS: No acute intracranial hemorrhage, midline shift, mass, large territorial ischemia or abnormal extra-axial collection. There is mild cerebral atrophy. There is mild atherosclerotic plaquing of the cerebral vasculature at the level of the skull base. Minimal low attenuation within the periventricular white matter is noted. The calvarium is intact. The mastoid air cells, and middle ear cavities are clear. Minimal polypoid mucosal thickening involves left maxillary sinus. There is evidence of prior bilateral cataract repair. IMPRESSION: 1. No acute intracranial abnormality. 2. Mild atrophy with chronic microvascular ischemic changes. 3. Minimal left maxillary sinus disease. The above report was generated using voice recognition software. It may contain grammatical, syntax or spelling errors. Electronically signed by: Aldo Salinas M.D. 11/08/2016 9:53 AM Dictated Date/Time: 11/08/2016 9:49 AM
--- NOTE | 2016-11-08 10:13 | Pain Management Consultation ---
Pain Management Consultation Date of Consultation Nov 08, 2016. Reason for Consultation Low back pain Pain Location 1 - 2 - 3 - History Mr. Ugarte is a 66 year old white male that has been seen in consultation for back pain after the patient fell several days ago. Patient states that the pain is located in the low back but has been improving over the last several days. The low back pain is described as an aching sensation which is worsened with positional changes. He states that his predominant pain complaint is his bilateral legs. He has developed cellulitis of the legs and receiving IV Vancomycin. The pain is described as a sharp and burning sensation. He states that movement is making the pain worse. He was reportedly confused and lethargic yesterday, Valium was discontinued and baclofen dose was decreased. As per family, he is acting like himself again today. Patient states that Lidocaine patch, Toradol, and Dilaudid is helping to control the low back pain but not controlling the leg pain. Patient denies nay radicular symptoms, leg weakness, foot drop, saddle anesthesia, bowel/bladder incontinence. Case discussed with Dr. Madison Past Medical/Surgical History (1) s/p cardiac cath (2) Coronary artery disease (3) Gout (4) Atrial fibrillation (5) Essential hypertension (6) Diabetes mellitus type II, uncontrolled Family History Diabetes mellitus Heart disease Hypertension Social / Work History Smoking Status: Unknown if ever smoked Smokeless Tobacco Use: No Alcohol Use: socially (Son states that he does drink heavily on most days) Marital Status: Housing Status: lives with family Occupation: employed Allergies Coded Allergies: Cefazolin (Verified Allergy, Unknown, UNKNOWN, 11/03/16) INFORMATION FROM [employer]. Cephalexin (Verified Allergy, Unknown, HIVES, 11/03/16) Influenza Virus Vaccine H5N1 (Verified Allergy, Unknown, LABELED A CHILD, UNSURE, 11/03/16) Uncoded Allergies: GUT SUTURE (Allergy, Intermediate, Swelling, 03/29/16) Medications Current Inpatient Medications Medications (Trade) Dose Ordered Sig/Van Route Start Time Stop Time Status Last Admin Dose Admin Enoxaparin Sodium (Lovenox Inj) 40 mg DAILY@1800 SC 11/03/16 18:00 12/03/16 17:59 11/07/16 17:54 40 MG Acetaminophen (Tylenol Tab) 650 mg Q4H PRN PO 11/03/16 13:15 9/17/17 13:14 11/07/16 04:08 650 MG Ondansetron HCl (Zofran Inj) 4 mg Q6H PRN IV 11/03/16 13:15 12/03/16 13:14 Glucose (Glucose 40% Gel) 15-30 GRAMS 15 GRAMS... UD PRN PO 11/03/16 13:15 12/03/16 13:14 Glucose (Glucose Chew Tab) 4-8 Tablets 4 Tabl... UD PRN PO 11/03/16 13:15 12/03/16 13:14 Dextrose (Dextrose 50% 50ML Syringe) 25-50ML OF 50% DW IV FOR... UD PRN IV 11/03/16 13:15 12/03/16 13:14 Glucagon (Glucagon Inj) 1 mg UD PRN SQ 11/03/16 13:15 12/03/16 13:14 Ketorolac Tromethamine (Toradol Inj) 15 mg Q6H PRN IV. 11/03/16 14:30 11/08/16 14:29 11/08/16 07:58 15 MG Lidocaine (Lidoderm Patch 5%) 1 patch QAM TD 11/04/16 09:00 12/04/16 08:59 11/08/16 08:48 1 PATCH Miscellaneous (Remove Lidoderm Patch) 1 ea DAILY@21 N/A 11/04/16 21:00 12/04/16 20:59 11/07/16 21:06 1 EA Aspirin (Ecotrin Tab) 81 mg QAM PO 11/04/16 09:00 12/04/16 08:59 11/08/16 08:47 81 MG Lisinopril (Zestril Tab) 40 mg QAM PO 11/04/16 09:00 12/04/16 08:59 11/08/16 08:48 40 MG Hydromorphone HCl (Dilaudid Inj) 0.5 mg Q4 PRN IV 11/03/16 14:30 11/17/16 14:29 11/07/16 23:44 0.5 MG Menthol/Zinc Oxide (Calmoseptine Oint) 1 appln BID EXT 11/03/16 21:00 12/03/16 20:59 11/08/16 07:53 1 APPLN Albuterol (Ventolin Hfa Inhaler) 2 puffs QID PRN INH 11/03/16 15:30 12/03/16 15:29 Vancomycin HCl (Consult) 1 ea UD PRN N/A 11/03/16 17:00 12/03/16 16:59 Miscellaneous Information (Consult Glycemic Management Pharmacy) 1 ea UD PRN N/A 11/04/16 13:04 12/04/16 13:03 Insulin Aspart (novoLOG ASPART) SLIDING SCALE ACHS SC 11/04/16 16:15 12/04/16 16:14 11/05/16 17:06 7 UNITS Vancomycin HCl 1250 mg/Sodium Chloride 275 ml @ 125 mls/hr Q12@0400,1600 IV 11/05/16 16:00 11/13/16 15:59 11/08/16 04:36 125 MLS/HR Atenolol (Tenormin Tab) 100 mg DAILY PO 11/07/16 09:00 12/04/16 08:59 11/08/16 07:54 100 MG Furosemide (Lasix Tab) 20 mg QAM PO 11/07/16 09:00 12/07/16 08:59 11/08/16 07:54 20 MG Gabapentin (Neurontin Cap) 300 mg HS PO 11/08/16 21:00 12/08/16 20:59 UNV Review of Systems Denies any constitutional, cardiac, pulmonary, neurological, GI, , extremity, endocrine, neuro, ENT, dermatological, or musculoskeletal complaints other than stated in HPI Physical Exam Height & Weight: Height 5 feet, 8.00 inches. Weight 99.400 (Kilograms) 219 (Pounds) Last Vital Signs Documentation Date Time Temp Pulse Resp B/P (MAP) Pulse Ox O2 Delivery O2 Flow Rate FiO2 11/08/16 07:14 37.2 102 18 128/81 (97) 91 Room Air 11/07/16 14:20 2.0 Exam: GENERAL: Mr. Nguyen is a 66 y/o white male that appears his stated age. Speech and cognition is intact. Patient is moaning in the room, appears moderately uncomfortable. HEAD: Normocephalic; atraumatic. EYES: Pupils are round, equal, and reactive to light; EOM intact. ENT: No external ear discharge or lesions. No rhinorrhea or epistaxis. No mucosal lesions. + dry buccal mucosa. CHEST: Regular chest respiration and excursion. EXTREMITIES: There is 5/5 strength of the bilateral lower legs. There is allodynia of the lower extremities. +3 pitting edema of the lower legs with several wounds. Wounds are draining serous fluid. There is marked erythema and mild warmth to the touch. There is bilateral olecranon bursitis noted. BACK: Normal lumbar lordosis. Full ROM. Mild diffuse lumbosacral tenderness. No paravertebral, quadratus lumborum spasm or trigger points noted. NEURO: CN II-XII grossly intact with no focal deficits noted. AAO x 3. SKIN: There are areas of erythema and abrasions on the upper arms. Laboratory Laboratory Results (Last CBC): 11/08/16 03:31 Imaging MRI Findings Lumbar spine MRI 11/03/16: IMPRESSION: 1. Mild degenerative disease at L5-S1. No significant central canal narrowing. No disc herniations. 2. Mild edema within the bilateral lumbar erector spinae muscles. This raises the possibility of a muscular strain. 3. No fracture or subluxation within the lumbar spine. Radiology Findings Thoracic spine x-ray 11/03/16: IMPRESSION: Osteopenia and degenerative change as above. No acute bony abnormality is seen in the thoracic spine. Assessment 1. Acute low back strain secondary to fall 2. Pain of the bilateral lower extremities 3. Bilateral lower extremity cellulitis 4. Diabetes mellitus 5. Olecranon bursitis Recommendations 1. Baclofen was discontinued. 2. Continue lidocaine patch, IV Toradol, IV Dilaudid. 3. Will initiate the patient on gabapentin 300 mg at bedtime to help decrease pain in the bilateral lower extremities. 4. Patient is not able to tell me oral pain medications that he has previously tolerated, consider initiating an oral pain medication in a day or two such as Oxycodone. Would not initiate today given the patient's recent confusion.
--- NOTE | 2016-11-08 10:13 | Pharmacy Progress Note ---
Pharmacy Antibiotic Prog Note Date of Service Nov 08, 2016. Subjective The patient is currently receiving Vancomycin 1250 mg IV every 12 hours. The patient is currently on day # 6 of IV therapy. Objective Height (Feet): 5 Height (Inches): 8.00 Weight (Kilograms): 99.400 Levels: Item Value Date Time Vancomycin Level Trough 17.5 mcg/ml 11/08/16 0331 Lab Results (24hrs): Test 11/07/16 20:17 11/08/16 03:31 11/08/16 07:24 Bedside Glucose 141 mg/dl (70-99) 106 mg/dl (70-99) White Blood Count 7.43 K/uL (4.8-10.8) Red Blood Count 3.99 M/uL (4.7-6.1) Hemoglobin 11.8 g/dL (14.0-18.0) Hematocrit 34.5 % (42-52) Mean Corpuscular Volume 86.5 fL (80-100) Mean Corpuscular Hemoglobin 29.6 pg (25-34) Mean Corpuscular Hemoglobin Concent 34.2 g/dl (32-36) RDW Standard Deviation 50.3 fL (36.4-46.3) RDW Coefficient of Variation 15.8 % (11.5-14.5) Platelet Count 90 K/uL (130-400) Mean Platelet Volume 10.3 fL (7.4-10.4) Nucleated RBC Absolute Count (auto) K/uL (0-0) Platelet Estimate Sodium Level 142 mmol/L (136-145) Potassium Level 4.0 mmol/L (3.5-5.1) Chloride Level 113 mmol/L (98-107) Carbon Dioxide Level 22 mmol/L (21-32) Anion Gap 7.0 mmol/L (3-11) Blood Urea Nitrogen 15 mg/dl (7-18) Creatinine 0.78 mg/dl (0.60-1.40) Est Creatinine Clear Calc Drug Dose 110.4 ml/min Estimated GFR () 109.0 Estimated GFR (Non- 94.1 BUN/Creatinine Ratio 19.7 (10-20) Random Glucose 123 mg/dl (70-99) Calcium Level 8.1 mg/dl (8.5-10.1) Chemistry Specimen Hemolysis Vancomycin Level Trough 17.5 mcg/ml (SEE COMMENT) Micro Results: See EMR Assessment & Plan 66 year old male with LE cellulitis. This drug level(s) are: Therapeutic Continue 1250 mg IV every 12 hours. Goal trough level estimate: between 10 - 15 mcg/mL. Peak and trough or random level has been ordered for: As clinically indicated. Pharmacy will continue to follow and will adjust dose/frequency as necessary. Thank you
--- NOTE | 2016-11-08 11:03 | Pharmacy Progress Note ---
Pharmacy Glycemic Sign Off Nt Date of Service Nov 08, 2016. Assessment & Plan ASSESSMENT: * Pharmacy was consulted by Dr Mccord on 11/04/16 for glycemic control and to write orders per [facility] inpatient glycemic control protocol. * Patient has been receiving/requiring 0 units of insulin per day for adequate glycemic control * BSGs ranging 73 - 141 mg/dl * Patient has had poor oral intake X 48 hours PLAN FOR INPATIENT GLYCEMIC CONTROL: No changes needed to current regimen. * Continue NovoLog per scale ACHS/Q6hrs while NPO * Goal range = 140 - 180 mg/dl * CF = 30 mg/dl/unit * CR = 1 unit for ever 10 g CHO consumed * A1c added to discharge instructions to be communicated to PCP. * Pharmacy is signing off of glycemic consult and will no longer be making adjustments to inpatient regimen. Please feel free to re-consult if needed. Thank you.
[2016-11-08] MEDS ORDERED: SODIUM CHLORIDE 0.9% 1000ML 1,000 ML IV SCH (12:30)
[2016-11-08] MEDS ORDERED: MAGIC MOUTHWASH PO SCH (13:00)
[2016-11-08] MEDS: DEXAMETHASONE CONC SOLN 3.75 MG, NYSTATIN SUSP 30 ML, DiphenhydrAMINE HCL SYRUP 300 MG,... PO SCH ×15 (13:00→20:43)
[2016-11-08 15:29] VITALS: BP 102/70; PULSE 97; TEMP 37; O2SAT 92
[2016-11-08 16:00] VITALS: O2SAT 92
--- NOTE | 2016-11-08 16:45 | Progress Note ---
Subjective Date of Service: Nov 08, 2016. Subjective Pt evaluation today including: conversation w/ patient, physical exam, lab review, review of studies, review of inpatient medication list Saw/examined the patient in room 260 Confused this morning, but later in the afternoon was more awake/alert Back pain persists No chest pain or shortness of breath b/l LE are dressed Problem List Medical Problems: (1) Back pain Status: Acute (2) CHF exacerbation Status: Acute (3) Hypoxia Status: Acute Review of Systems Constitutional: No fever, No chills Respiratory: No shortness of breath Cardiac: No chest pain Abdomen: No pain, No nausea, No vomiting, No diarrhea Heme: No abnormal bleeding/bruising Medications Current Inpatient Medications Medications (Trade) Dose Ordered Sig/Van Route Start Time Stop Time Status Last Admin Dose Admin Enoxaparin Sodium (Lovenox Inj) 40 mg DAILY@1800 SC 11/03/16 18:00 12/03/16 17:59 11/07/16 17:54 40 MG Acetaminophen (Tylenol Tab) 650 mg Q4H PRN PO 11/03/16 13:15 12/03/16 13:14 11/07/16 04:08 650 MG Ondansetron HCl (Zofran Inj) 4 mg Q6H PRN IV 11/03/16 13:15 12/03/16 13:14 Glucose (Glucose 40% Gel) 15-30 GRAMS 15 GRAMS... UD PRN PO 11/03/16 13:15 12/03/16 13:14 Glucose (Glucose Chew Tab) 4-8 Tablets 4 Tabl... UD PRN PO 11/03/16 13:15 12/03/16 13:14 Dextrose (Dextrose 50% 50ML Syringe) 25-50ML OF 50% DW IV FOR... UD PRN IV 11/03/16 13:15 12/03/16 13:14 Glucagon (Glucagon Inj) 1 mg UD PRN SQ 11/03/16 13:15 12/03/16 13:14 Lidocaine (Lidoderm Patch 5%) 1 patch QAM TD 11/04/16 09:00 12/04/16 08:59 11/08/16 08:48 1 PATCH Miscellaneous (Remove Lidoderm Patch) 1 ea DAILY@21 N/A 11/04/16 21:00 12/04/16 20:59 11/07/16 21:06 1 EA Aspirin (Ecotrin Tab) 81 mg QAM PO 11/04/16 09:00 12/04/16 08:59 11/08/16 08:47 81 MG Lisinopril (Zestril Tab) 40 mg QAM PO 11/04/16 09:00 12/04/16 08:59 11/08/16 08:48 40 MG Hydromorphone HCl (Dilaudid Inj) 0.5 mg Q4 PRN IV 11/03/16 14:30 11/17/16 14:29 11/07/16 23:44 0.5 MG Menthol/Zinc Oxide (Calmoseptine Oint) 1 appln BID EXT 11/03/16 21:00 12/03/16 20:59 11/08/16 07:53 1 APPLN Albuterol (Ventolin Hfa Inhaler) 2 puffs QID PRN INH 11/03/16 15:30 12/03/16 15:29 Vancomycin HCl (Consult) 1 ea UD PRN N/A 11/03/16 17:00 12/03/16 16:59 Insulin Aspart (novoLOG ASPART) SLIDING SCALE ACHS SC 11/04/16 16:15 12/04/16 16:14 11/08/16 12:18 2 UNITS Vancomycin HCl 1250 mg/Sodium Chloride 275 ml @ 125 mls/hr Q12@0400,1600 IV 11/05/16 16:00 11/13/16 15:59 11/08/16 04:36 125 MLS/HR Atenolol (Tenormin Tab) 100 mg DAILY PO 11/07/16 09:00 12/04/16 08:59 11/08/16 07:54 100 MG Furosemide (Lasix Tab) 20 mg QAM PO 11/07/16 09:00 12/07/16 08:59 Future Hold 11/08/16 07:54 20 MG Gabapentin (Neurontin Cap) 300 mg HS PO 11/08/16 21:00 12/08/16 20:59 Dexamethasone/ Nystatin/ Diphenhydramine HCl/Sucrose/ Microcrystalline Cellulose/Barcode QID PO 11/08/16 13:00 12/08/16 12:59 11/08/16 13:00 5 ML Sodium Chloride 1,000 ml @ 75 mls/hr [id number] IV 11/08/16 12:30 11/09/16 01:49 11/08/16 12:35 75 MLS/HR Objective Vital Signs Date Time Temp Pulse Resp B/P (MAP) Pulse Ox O2 Delivery O2 Flow Rate FiO2 11/08/16 15:29 37.0 97 20 102/70 (81) 92 11/08/16 08:00 92 Room Air 11/08/16 07:14 37.2 102 18 128/81 (97) 91 Room Air 11/08/16 00:00 Room Air 11/07/16 23:35 36.9 115 16 134/79 (97) 92 Room Air Physical Exam General Appearance: no apparent distress, + pertinent finding (slightly disoriented, slowed motor function) Respiratory/Chest: lungs clear, normal breath sounds, no respiratory distress, no accessory muscle use Cardiovascular: no edema, no murmur, + irregularly irregular Abdomen: normal bowel sounds, non tender, soft Extremities: + pertinent finding (b/l LE ) Laboratory Results Last 24 Hours Test 11/07/16 16:34 11/07/16 20:17 11/08/16 03:31 11/08/16 07:24 Bedside Glucose 127 mg/dl 141 mg/dl 106 mg/dl White Blood Count 7.43 K/uL Red Blood Count 3.99 M/uL Hemoglobin 11.8 g/dL Hematocrit 34.5 % Mean Corpuscular Volume 86.5 fL Mean Corpuscular Hemoglobin 29.6 pg Mean Corpuscular Hemoglobin Concent 34.2 g/dl RDW Standard Deviation 50.3 fL RDW Coefficient of Variation 15.8 % Platelet Count 90 K/uL Mean Platelet Volume 10.3 fL Nucleated RBC Absolute Count (auto) K/uL Platelet Estimate Sodium Level 142 mmol/L Potassium Level 4.0 mmol/L Chloride Level 113 mmol/L Carbon Dioxide Level 22 mmol/L Anion Gap 7.0 mmol/L Blood Urea Nitrogen 15 mg/dl Creatinine 0.78 mg/dl Est Creatinine Clear Calc Drug Dose 110.4 ml/min Estimated GFR () 109.0 Estimated GFR (Non- 94.1 BUN/Creatinine Ratio 19.7 Random Glucose 123 mg/dl Calcium Level 8.1 mg/dl Chemistry Specimen Hemolysis Vancomycin Level Trough 17.5 mcg/ml Test 11/08/16 10:44 8/23/17 11:27 11/08/16 16:06 Lactic Acid Level 2.1 mmol/L Bedside Glucose 116 mg/dl Assessment and Plan This is a 66yo male with a PMH of DM II, A fib, HTN, CAD, diastolic CHF, COPD who presents with complaints of persistent back pain that started a few days ago. Thoracolumbar back pain 11/08 appreciate pain management input Baclofen stopped - patient had altered mental status with this Lidocaine patch, Toradol/Dilaudid PRN Gabapentin added PT/OT if able mild elevation in lactic acid, possibly wound ulceration related? held Lasix, added fluids, recheck lactic 11/07 stopped Valium yesterday continued Baclofen, Dilaudid and Toradol PRN Lidoderm patch appreciate ortho input will consult pain management transfer out of tele to med/surg 11/06 Valium causing lethargy, altered mental status we will d/c Valium continue baclofen PT/OT Lidoderm patch Toradol PRN consult spine ortho for further evaluation 11/05 Valium increased to 10mg BID continue Baclofen 20mg TID for muscle spasms continue PT/OT Lidocaine patch Toradol and Dilaudid PRN 11/04 pain is likely related to muscle spasms continue baclofen and Valium Dilaudid, Toradol PRN, lidocaine patch PT/OT ordered Paroxysmal Atrial Fibrillation 11/07 A. fib, rate controlled no anticoagulation, continue Atenolol 11/06 no anticoagulation due to hemoptysis Atenolol for rate control 11/05 HRs are fluctuating, mostly controlled, though pain and activity increase this rate for now, keep Atenolol at current dose, monitor in tele 11/04 no anticoagulation due to significant hemoptysis in the past continue Atenolol HRs improved to the 80s, monitor in tele continue aspirin Bilateral LE Cellulitis 11/06 will need to continue Vanco wound care consultation for further input 11/05 continue Vancomycin for now wound care for further input 11/04 significant peripheral vascular disease, venous stasis cellulitic changes with ulcerations, pus wound care consult ordered and pending Vancomycin started Acute on chronic diastolic CHF - resolved 11/05 echo - normal LVEF, no valvular pathology holding Lasix for now, can restart if there is any shortness of breath 11/04 echo pending hold Lasix, hold IVFs monitor; patient may be intravascularly depleted, though has some edema in the LE DM2, uncontrolled 11/06 appreciate glycemic control consultation sliding scale insulin for now will need a change in his outpatient regimen 11/04 Ha1c = 9.5% takes glimepiride at home BSGs on admission >300 started on sliding scale; hypoglycemic overnight and this AM loosened the sliding scale CAD 11/04 minimal bump on cardiac enzymes, likely due to tachycardia echo pending, EKG similar to previous continue current medications HTN hold Lasix continue b-selvin and Lisinopril COPD continue home inhalers DVT ppx Lovenox FULL CODE
[2016-11-08] MEDS: ENOXAPARIN 40 MG/0.4 ML SYR SC SCH (18:07)
[2016-11-08] MEDS: HYDROmorphone INJ 0.5 MG/0.5 ML SYR IV PRN (18:30)
[2016-11-08] MEDS: GABAPENTIN 300 MG CAP PO SCH (20:35)
[2016-11-09 00:30] VITALS: BP 108/63; PULSE 117; TEMP 37.4; O2SAT 92
[2016-11-09] MEDS: VANCOMYCIN INJ 1,250 MG in SODIUM CHLORIDE 0.9% 250ML 250 ML IV SCH ×2 (03:29→15:42)
[2016-11-09 07:20] LABS: HEMATOCRIT 34.7 % (42-52); MEAN CELL VOLUME 86.8 fL (80-100); MEAN CORPUSCULAR HEMOGLOBIN 27.5 pg (25-34); MEAN CORPUSCULAR HGB CONC 31.7 g/dl (32-36); WHITE BLOOD COUNT 6.69 K/uL (4.8-10.8)
[2016-11-09 07:39] LABS: MEAN PLATELET VOLUME 9.9 fL (7.4-10.4); PLATELET COUNT 80 K/uL (130-400)
[2016-11-09 07:45] VITALS: BP 111/68; PULSE 115; TEMP 37; O2SAT 94
[2016-11-09 07:55] LABS: BUN/CREATININE RATIO 21.3 (10-20); CALCIUM 7.9 mg/dl (8.5-10.1); CREATININE 0.77 mg/dl (0.60-1.40); POTASSIUM 3.9 mmol/L (3.5-5.1)
[2016-11-09 08:00] VITALS: O2SAT 94
[2016-11-09] MEDS: ASPIRIN 81 MG ECTAB PO SCH (09:01)
[2016-11-09] MEDS: LISINOPRIL 40 MG TAB PO SCH (09:02)
[2016-11-09] MEDS: LIDODERM (LIDOCAINE) PATCH 5% TD SCH (09:03)
--- NOTE | 2016-11-09 09:03 | Pain Management Progress Note ---
Pain Management Progress Note Date of Service Nov 09, 2016. Subjective Patient continues to complain of axial back pain which has improved over the past 24-48 hours. He is reported onset of pain after falling backwards off of a stool while at home prior to this admission. He reports the pain is constant at a low level and aching and occasionally episodic and spasming with movement. Diazepam and baclofen were discontinued due to confusion and lethargy which has improved. Patient is reporting less paresthetic/dysesthetic-type discomfort in his extremities. Patient was initiated on gabapentin 300 mg at bedtime last evening which she appears to be tolerating at this time without notable side effects. Patient was out of bed 3 times yesterday with moderate discomfort with positional change. He indicated that once he was standing his symptoms were less significant. Patient rates his pain at a 0-6/10. He continues to deny radicular component to her symptoms, weaknesses in his lower extremities or bowel/bladder incontinence. Patient has used IV hydromorphone 1 time in the past 24 hours only. Patient has no further constitutional complaints at this time. Objective Vital Signs: Last Vital Signs Documentation Date Time Temp Pulse Resp B/P (MAP) Pulse Ox O2 Delivery O2 Flow Rate FiO2 11/09/16 07:45 37.0 115 18 111/68 (82) 94 Room Air 11/09/16 00:30 2.0 Physical Exam: Gen.: Patient sitting up upon in the room in no acute distress. Speech and thought process was appropriate. Mood and affect was appropriate. Cognition was intact. Alert and oriented to time, person and place. Back/spine: Loss of lumbar lordosis. Patient nontender over the midline. No focal facet joint tenderness to provocative testing. Nontender over the left paravertebral musculature. Patient is tender over the right paravertebral musculature to mid and lower lumbar spine with spasm appreciated. Range of motion is limited in all planes. Lower extremities: Compression dressings in place of the bilateral lower extremities from the ankle to the knees which were not removed for visual inspection. Neurologic: Cranial nerves grossly intact. Ambulatory function not witnessed. Laboratory Laboratory Findings 11/09/16 07:10 Assessment 1. Acute low back pain-likely musculoskeletal etiology with spasm 2. Bilateral lower extremity pain with history of cellulitis 3. Diabetes mellitus-poorly controlled Recommendations 1. Will attempt to resume baclofen at 10 mg twice a day due to persisting low back pain complaint with muscular spasm which is predominantly right-sided. Assess response with dosing. 2. Will DC IV hydromorphone and initiate a trial of hydrocodone for when necessary breakthrough pain 3. Encouraged PT/OT participation as able 4. Continue with gabapentin 300 mg daily at bedtime consider dose progression in the outpatient setting
[2016-11-09] MEDS: INSULIN ASPART 100 UNITS/ML 3 ML PEN SC SCH ×4 (09:10→21:15)
[2016-11-09] MEDS: DEXAMETHASONE CONC SOLN 3.75 MG, NYSTATIN SUSP 30 ML, DiphenhydrAMINE HCL SYRUP 300 MG,... PO SCH ×20 (09:11→21:15)
[2016-11-09] MEDS: MENTHOL-ZINC OXIDE 360 APPLN/120 GM TUBE EXT SCH ×2 (09:11→21:16)
[2016-11-09] MEDS ORDERED: HYDROCODONE/ACETAMOPHEN 5/325MG TAB PO PRN (09:15)
[2016-11-09] MEDS: BACLOFEN 10 MG TAB PO SCH ×2 (13:09→21:05)
[2016-11-09 15:55] VITALS: BP 109/75; PULSE 88; TEMP 36.7; O2SAT 97
[2016-11-09 16:00] VITALS: O2SAT 97
[2016-11-09] MEDS: ENOXAPARIN 40 MG/0.4 ML SYR SC SCH (17:52)
[2016-11-09] MEDS: GABAPENTIN 300 MG CAP PO SCH (21:05)
[2016-11-09 23:07] VITALS: BP 127/81; PULSE 103; TEMP 36.7; O2SAT 91
[2016-11-10] MEDS: VANCOMYCIN INJ 1,250 MG in SODIUM CHLORIDE 0.9% 250ML 250 ML IV SCH ×2 (03:49→16:54)
[2016-11-10 07:18] VITALS: BP 123/84; PULSE 103; TEMP 36.7; O2SAT 91
[2016-11-10 08:00] VITALS: O2SAT 91
[2016-11-10] MEDS: INSULIN ASPART 100 UNITS/ML 3 ML PEN SC SCH ×4 (08:43→21:48)
[2016-11-10] MEDS: ASPIRIN 81 MG ECTAB PO SCH (08:44)
[2016-11-10] MEDS: LISINOPRIL 40 MG TAB PO SCH (08:45)
[2016-11-10] MEDS: DEXAMETHASONE CONC SOLN 3.75 MG, NYSTATIN SUSP 30 ML, DiphenhydrAMINE HCL SYRUP 300 MG,... PO SCH ×20 (08:45→21:00)
[2016-11-10] MEDS: LIDODERM (LIDOCAINE) PATCH 5% TD SCH (08:45)
[2016-11-10] MEDS: BACLOFEN 10 MG TAB PO SCH ×2 (08:45→21:45)
[2016-11-10] MEDS: MENTHOL-ZINC OXIDE 360 APPLN/120 GM TUBE EXT SCH ×2 (08:45→21:00)
--- NOTE | 2016-11-10 08:45 | Pain Management Progress Note ---
Pain Management Progress Note Date of Service Nov 10, 2016. Subjective Mr. Ugarte is a 66 year old white male with low back pain and bilateral leg pain. Patient states that his pain is well controlled. He was pulling himself up in bed and felt a sudden pop and the low back pain resolved. Patient states that he has not had any spasms in the back for several hours now. He states that the bilateral leg burning is improving since he was started on Gabapentin. IV Dilaudid was discontinued and he was ordered Hydrocodone for PRN pain which he has not used. Patient denies any constitutional complaints, neurological symptoms, radiculopathy. Case discussed with Dr. Madison Objective Vital Signs: Last Vital Signs Documentation Date Time Temp Pulse Resp B/P (MAP) Pulse Ox O2 Delivery O2 Flow Rate FiO2 11/10/16 07:18 36.7 103 18 123/84 (97) 91 Room Air 11/09/16 15:55 1.0 Physical Exam: GENERAL: Mr. Nguyen is a 66 y/o white male that appears his stated age. Speech and cognition is intact. He is sitting in the hospital bed, in no acute distress. EXTREMITIES: There is 5/5 strength of the bilateral lower legs. There is mild allodynia of the lower extremities. +3 pitting edema of the lower legs with several wounds. Wounds are draining serous fluid. There is marked erythema and mild warmth to the touch. BACK: Normal lumbar lordosis. Full ROM. No tenderness of the thoracic or lumbar region. No paravertebral, quadratus lumborum spasm or trigger points noted. NEURO: CN II-XII grossly intact with no focal deficits noted. AAO x 3. Laboratory Laboratory Findings 11/09/16 07:10 Assessment 1. Acute low back pain - resolving 2. Bilateral lower extremity pain secondary to cellulitis 3. Diabetes mellitus-poorly controlled Recommendations 1. Continue Baclofen 10mg BID PRN 2. Continue Gabapentin 300mg QHS 3. Continue Hydrocodone 5/325mg PRN pain 4. Continue PT/OT 5. Patient's pain is controlled, will sign off on the patient.
[2016-11-10] MEDS ORDERED: LEVALBUTEROL 0.63MG/3 ML NEB INH STA (10:59)
[2016-11-10] MEDS ORDERED: LEVALBUTEROL 0.63MG/3 ML NEB INH PRN (11:00)
[2016-11-10 11:18] VITALS: PULSE 92; O2SAT 94
[2016-11-10 16:00] VITALS: O2SAT 94
[2016-11-10 16:22] VITALS: BP 120/77; PULSE 79; TEMP 36.6; O2SAT 97
--- NOTE | 2016-11-10 16:23 | Progress Note ---
Subjective Date of Service: Nov 10, 2016. Subjective Pt evaluation today including: conversation w/ patient, physical exam, lab review, review of studies, review of inpatient medication list Saw/examined the patient in room 260 states he "popped" something on his back earlier today and he has felt much better since has been ambulating the hallways Pain is at a 2/10 No fevers/chills, no other issues to note currently Problem List Medical Problems: (1) Back pain Status: Acute (2) CHF exacerbation Status: Acute (3) Hypoxia Status: Acute Review of Systems Constitutional: No fever, No chills, No weakness Respiratory: No cough, No sputum, No shortness of breath Cardiac: No chest pain Abdomen: No pain, No nausea, No vomiting, No diarrhea Medications Current Inpatient Medications Medications (Trade) Dose Ordered Sig/Van Route Start Time Stop Time Status Last Admin Dose Admin Enoxaparin Sodium (Lovenox Inj) 40 mg DAILY@1800 SC 11/03/16 18:00 12/03/16 17:59 11/09/16 17:52 40 MG Acetaminophen (Tylenol Tab) 650 mg Q4H PRN PO 11/03/16 13:15 12/03/16 13:14 11/07/16 04:08 650 MG Ondansetron HCl (Zofran Inj) 4 mg Q6H PRN IV 11/03/16 13:15 12/03/16 13:14 Glucose (Glucose 40% Gel) 15-30 GRAMS 15 GRAMS... UD PRN PO 11/03/16 13:15 12/03/16 13:14 Glucose (Glucose Chew Tab) 4-8 Tablets 4 Tabl... UD PRN PO 11/03/16 13:15 12/03/16 13:14 Dextrose (Dextrose 50% 50ML Syringe) 25-50ML OF 50% DW IV FOR... UD PRN IV 11/03/16 13:15 12/03/16 13:14 Glucagon (Glucagon Inj) 1 mg UD PRN SQ 11/03/16 13:15 12/03/16 13:14 Lidocaine (Lidoderm Patch 5%) 1 patch QAM TD 11/04/16 09:00 12/04/16 08:59 11/10/16 08:45 1 PATCH Miscellaneous (Remove Lidoderm Patch) 1 ea DAILY@21 N/A 11/04/16 21:00 12/04/16 20:59 11/09/16 21:04 1 EA Aspirin (Ecotrin Tab) 81 mg QAM PO 11/04/16 09:00 12/04/16 08:59 11/10/16 08:44 81 MG Lisinopril (Zestril Tab) 40 mg QAM PO 11/04/16 09:00 12/04/16 08:59 11/10/16 08:45 40 MG Menthol/Zinc Oxide (Calmoseptine Oint) 1 appln BID EXT 11/03/16 21:00 12/03/16 20:59 11/09/16 21:16 1 APPLN Albuterol (Ventolin Hfa Inhaler) 2 puffs QID PRN INH 11/03/16 15:30 12/03/16 15:29 Vancomycin HCl (Consult) 1 ea UD PRN N/A 11/03/16 17:00 12/03/16 16:59 Insulin Aspart (novoLOG ASPART) SLIDING SCALE ACHS SC 11/04/16 16:15 12/04/16 16:14 11/10/16 13:49 6 UNITS Vancomycin HCl 1250 mg/Sodium Chloride 275 ml @ 125 mls/hr Q12@0400,1600 IV 11/05/16 16:00 11/13/16 15:59 11/10/16 03:49 125 MLS/HR Atenolol (Tenormin Tab) 100 mg DAILY PO 11/07/16 09:00 12/04/16 08:59 11/10/16 08:44 100 MG Furosemide (Lasix Tab) 20 mg QAM PO 11/07/16 09:00 12/07/16 08:59 Future Hold 11/08/16 07:54 20 MG Gabapentin (Neurontin Cap) 300 mg HS PO 11/08/16 21:00 12/08/16 20:59 11/09/16 21:05 300 MG Dexamethasone/ Nystatin/ Diphenhydramine HCl/Sucrose/ Microcrystalline Cellulose/Barcode QID PO 11/08/16 13:00 12/08/16 12:59 11/09/16 21:15 5 ML Baclofen (Lioresal Tab) 10 mg BID PO 11/09/16 09:00 12/09/16 08:59 11/10/16 08:45 10 MG Acetaminophen/ Hydrocodone Bitart (Spencer 5/325 Tab) 1 tab Q6H PRN PO 11/09/16 09:15 11/23/16 09:14 Levalbuterol (Xopenex 0.63 Mg/ 3 Ml Neb) 0.63 mg Q6R PRN INH 11/10/16 11:00 12/10/16 10:59 Objective Vital Signs Date Time Temp Pulse Resp B/P (MAP) Pulse Ox O2 Delivery O2 Flow Rate FiO2 11/10/16 11:18 92 17 94 Room Air 11/10/16 08:00 91 Room Air 11/10/16 07:18 36.7 103 18 123/84 (97) 91 Room Air 11/10/16 00:00 Room Air 11/09/16 23:07 36.7 103 18 127/81 (96) 91 Room Air Physical Exam General Appearance: no apparent distress Respiratory/Chest: chest non-tender, lungs clear, normal breath sounds, no respiratory distress, no accessory muscle use Cardiovascular: no murmur, + irregularly irregular Abdomen: normal bowel sounds, non tender, soft Extremities: + pertinent finding (weeping wounds on b/l LE, currently dressed) Laboratory Results Last 24 Hours Test 11/09/16 19:52 11/10/16 07:46 11/10/16 11:30 Bedside Glucose 204 mg/dl 188 mg/dl 202 mg/dl Assessment and Plan This is a 66yo male with a PMH of DM II, A fib, HTN, CAD, diastolic CHF, COPD who presents with complaints of persistent back pain that started a few days ago. Thoracolumbar back pain 11/10 patient is doing much better continue current regimen continue PT/OT will d/c home with home health on 11/11 11/08 appreciate pain management input Baclofen stopped - patient had altered mental status with this Lidocaine patch, Toradol/Dilaudid PRN Gabapentin added PT/OT if able mild elevation in lactic acid, possibly wound ulceration related? held Lasix, added fluids, recheck lactic 11/07 stopped Valium yesterday continued Baclofen, Dilaudid and Toradol PRN Lidoderm patch appreciate ortho input will consult pain management transfer out of tele to med/surg 11/06 Valium causing lethargy, altered mental status we will d/c Valium continue baclofen PT/OT Lidoderm patch Toradol PRN consult spine ortho for further evaluation 11/05 Valium increased to 10mg BID continue Baclofen 20mg TID for muscle spasms continue PT/OT Lidocaine patch Toradol and Dilaudid PRN 11/04 pain is likely related to muscle spasms continue baclofen and Valium Dilaudid, Toradol PRN, lidocaine patch PT/OT ordered Paroxysmal Atrial Fibrillation 11/07 A. fib, rate controlled no anticoagulation, continue Atenolol 11/06 no anticoagulation due to hemoptysis Atenolol for rate control 11/05 HRs are fluctuating, mostly controlled, though pain and activity increase this rate for now, keep Atenolol at current dose, monitor in tele 11/04 no anticoagulation due to significant hemoptysis in the past continue Atenolol HRs improved to the 80s, monitor in tele continue aspirin Bilateral LE Cellulitis 11/06 will need to continue Vanco wound care consultation for further input 11/05 continue Vancomycin for now wound care for further input 11/04 significant peripheral vascular disease, venous stasis cellulitic changes with ulcerations, pus wound care consult ordered and pending Vancomycin started Acute on chronic diastolic CHF - resolved 11/05 echo - normal LVEF, no valvular pathology holding Lasix for now, can restart if there is any shortness of breath 11/04 echo pending hold Lasix, hold IVFs monitor; patient may be intravascularly depleted, though has some edema in the LE DM2, uncontrolled 11/06 appreciate glycemic control consultation sliding scale insulin for now will need a change in his outpatient regimen 11/04 Ha1c = 9.5% takes glimepiride at home BSGs on admission >300 started on sliding scale; hypoglycemic overnight and this AM loosened the sliding scale CAD 11/04 minimal bump on cardiac enzymes, likely due to tachycardia echo pending, EKG similar to previous continue current medications HTN hold Lasix continue b-selvin and Lisinopril COPD continue home inhalers DVT ppx Lovenox FULL CODE
--- NOTE | 2016-11-10 16:25 | Progress Note ---
Progress Note Date of Service Nov 09, 2016. Progress Note 11/09 I saw the patient today; exam reveals an irregularly irregular HR; weeping wounds on b/l LE, [id number] distress secondary to back pain Plan is to continue pain medications as per pain management Continue Vancomycin continue PT/OT This is a 66yo male with a PMH of DM II, A fib, HTN, CAD, diastolic CHF, COPD who presents with complaints of persistent back pain that started a few days ago. Thoracolumbar back pain 11/08 appreciate pain management input Baclofen stopped - patient had altered mental status with this Lidocaine patch, Toradol/Dilaudid PRN Gabapentin added PT/OT if able mild elevation in lactic acid, possibly wound ulceration related? held Lasix, added fluids, recheck lactic 11/07 stopped Valium yesterday continued Baclofen, Dilaudid and Toradol PRN Lidoderm patch appreciate ortho input will consult pain management transfer out of tele to med/surg 11/06 Valium causing lethargy, altered mental status we will d/c Valium continue baclofen PT/OT Lidoderm patch Toradol PRN consult spine ortho for further evaluation 11/05 Valium increased to 10mg BID continue Baclofen 20mg TID for muscle spasms continue PT/OT Lidocaine patch Toradol and Dilaudid PRN 11/04 pain is likely related to muscle spasms continue baclofen and Valium Dilaudid, Toradol PRN, lidocaine patch PT/OT ordered Paroxysmal Atrial Fibrillation 11/07 A. fib, rate controlled no anticoagulation, continue Atenolol 11/06 no anticoagulation due to hemoptysis Atenolol for rate control 11/05 HRs are fluctuating, mostly controlled, though pain and activity increase this rate for now, keep Atenolol at current dose, monitor in tele 11/04 no anticoagulation due to significant hemoptysis in the past continue Atenolol HRs improved to the 80s, monitor in tele continue aspirin Bilateral LE Cellulitis 11/06 will need to continue Vanco wound care consultation for further input 11/05 continue Vancomycin for now wound care for further input 11/04 significant peripheral vascular disease, venous stasis cellulitic changes with ulcerations, pus wound care consult ordered and pending Vancomycin started Acute on chronic diastolic CHF - resolved 11/05 echo - normal LVEF, no valvular pathology holding Lasix for now, can restart if there is any shortness of breath 11/04 echo pending hold Lasix, hold IVFs monitor; patient may be intravascularly depleted, though has some edema in the LE DM2, uncontrolled 11/06 appreciate glycemic control consultation sliding scale insulin for now will need a change in his outpatient regimen 11/04 Ha1c = 9.5% takes glimepiride at home BSGs on admission >300 started on sliding scale; hypoglycemic overnight and this AM loosened the sliding scale CAD 11/04 minimal bump on cardiac enzymes, likely due to tachycardia echo pending, EKG similar to previous continue current medications HTN hold Lasix continue b-selvin and Lisinopril COPD continue home inhalers DVT ppx Lovenox FULL CODE
[2016-11-10] MEDS: ENOXAPARIN 40 MG/0.4 ML SYR SC SCH (17:58)
[2016-11-10] MEDS: GABAPENTIN 300 MG CAP PO SCH (21:45)
[2016-11-10 23:36] VITALS: BP 125/85; PULSE 101; TEMP 36.6; O2SAT 94
[2016-11-11] MEDS: VANCOMYCIN INJ 1,250 MG in SODIUM CHLORIDE 0.9% 250ML 250 ML IV SCH (04:00)
[2016-11-11 07:06] VITALS: BP 111/71; PULSE 88; TEMP 36.5; O2SAT 92
[2016-11-11 07:38] LABS: HEMATOCRIT 35.7 % (42-52); MEAN CELL VOLUME 86.2 fL (80-100); MEAN CORPUSCULAR HGB CONC 32.5 g/dl (32-36); MEAN PLATELET VOLUME 9.6 fL (7.4-10.4); PLATELET COUNT 102 K/uL (130-400); RED BLOOD COUNT 4.14 M/uL (4.7-6.1); WHITE BLOOD COUNT 5.04 K/uL (4.8-10.8)
[2016-11-11 08:21] LABS: BUN/CREATININE RATIO 21.2 (10-20); CALCIUM 8.1 mg/dl (8.5-10.1); CREATININE 0.81 mg/dl (0.60-1.40); MAGNESIUM 1.7 mg/dl (1.8-2.4); POTASSIUM 3.7 mmol/L (3.5-5.1)
[2016-11-11] MEDS: MENTHOL-ZINC OXIDE 360 APPLN/120 GM TUBE EXT SCH (08:58)
[2016-11-11] MEDS: BACLOFEN 10 MG TAB PO SCH (09:00)
[2016-11-11] MEDS: LIDODERM (LIDOCAINE) PATCH 5% TD SCH (09:00)
[2016-11-11] MEDS: ASPIRIN 81 MG ECTAB PO SCH (09:00)
[2016-11-11] MEDS: LISINOPRIL 40 MG TAB PO SCH (09:00)
[2016-11-11] MEDS: DEXAMETHASONE CONC SOLN 3.75 MG, NYSTATIN SUSP 30 ML, DiphenhydrAMINE HCL SYRUP 300 MG,... PO SCH ×5 (09:00)
[2016-11-11] MEDS: INSULIN ASPART 100 UNITS/ML 3 ML PEN SC SCH ×2 (09:03→11:00)
[2016-11-11] MEDS ORDERED: MAGNESIUM SULFATE 1GM / D5W 1 GM in PREMIXED IN D5W 100 ML IV ONE (10:30)
--- NOTE | 2016-11-11 11:24 | Progress Note ---
Subjective Date of Service: Nov 11, 2016. Subjective Pt evaluation today including: conversation w/ patient, physical exam, lab review, review of studies, review of inpatient medication list Saw/examined the patient in room 260 He's doing much better, pain much better controlled No chest pain/shortness of breath Lower extremity wounds are dressed Problem List Medical Problems: (1) Back pain Status: Acute (2) CHF exacerbation Status: Acute (3) Hypoxia Status: Acute Review of Systems Constitutional: No fever, No chills, No weakness Respiratory: No cough, No sputum, No shortness of breath Cardiac: No chest pain Abdomen: No pain, No nausea, No vomiting, No diarrhea Musculoskeletal: + joint pain (improved back pain) Heme: No abnormal bleeding/bruising Medications Current Inpatient Medications Medications (Trade) Dose Ordered Sig/Van Route Start Time Stop Time Status Last Admin Dose Admin Enoxaparin Sodium (Lovenox Inj) 40 mg DAILY@1800 SC 11/03/16 18:00 12/03/16 17:59 11/10/16 17:58 40 MG Acetaminophen (Tylenol Tab) 650 mg Q4H PRN PO 11/03/16 13:15 12/03/16 13:14 11/07/16 04:08 650 MG Ondansetron HCl (Zofran Inj) 4 mg Q6H PRN IV 11/03/16 13:15 12/03/16 13:14 Glucose (Glucose 40% Gel) 15-30 GRAMS 15 GRAMS... UD PRN PO 11/03/16 13:15 12/03/16 13:14 Glucose (Glucose Chew Tab) 4-8 Tablets 4 Tabl... UD PRN PO 11/03/16 13:15 12/03/16 13:14 Dextrose (Dextrose 50% 50ML Syringe) 25-50ML OF 50% DW IV FOR... UD PRN IV 11/03/16 13:15 12/03/16 13:14 Glucagon (Glucagon Inj) 1 mg UD PRN SQ 11/03/16 13:15 12/03/16 13:14 Lidocaine (Lidoderm Patch 5%) 1 patch QAM TD 11/04/16 09:00 12/04/16 08:59 11/11/16 09:00 1 PATCH Miscellaneous (Remove Lidoderm Patch) 1 ea DAILY@21 N/A 11/04/16 21:00 12/04/16 20:59 11/10/16 21:45 1 EA Aspirin (Ecotrin Tab) 81 mg QAM PO 11/04/16 09:00 12/04/16 08:59 11/11/16 09:00 81 MG Lisinopril (Zestril Tab) 40 mg QAM PO 11/04/16 09:00 12/04/16 08:59 11/11/16 09:00 40 MG Menthol/Zinc Oxide (Calmoseptine Oint) 1 appln BID EXT 11/03/16 21:00 12/03/16 20:59 11/11/16 08:58 1 APPLN Albuterol (Ventolin Hfa Inhaler) 2 puffs QID PRN INH 11/03/16 15:30 12/03/16 15:29 Vancomycin HCl (Consult) 1 ea UD PRN N/A 11/03/16 17:00 12/03/16 16:59 Insulin Aspart (novoLOG ASPART) SLIDING SCALE ACHS SC 11/04/16 16:15 12/04/16 16:14 11/11/16 09:03 3 UNITS Vancomycin HCl 1250 mg/Sodium Chloride 275 ml @ 125 mls/hr Q12@0400,1600 IV 11/05/16 16:00 11/13/16 15:59 11/11/16 04:00 125 MLS/HR Atenolol (Tenormin Tab) 100 mg DAILY PO 11/07/16 09:00 12/04/16 08:59 11/11/16 09:00 100 MG Furosemide (Lasix Tab) 20 mg QAM PO 11/07/16 09:00 12/07/16 08:59 Future Hold 11/08/16 07:54 20 MG Gabapentin (Neurontin Cap) 300 mg HS PO 11/08/16 21:00 12/08/16 20:59 11/10/16 21:45 300 MG Dexamethasone/ Nystatin/ Diphenhydramine HCl/Sucrose/ Microcrystalline Cellulose/Barcode QID PO 11/08/16 13:00 12/08/16 12:59 11/11/16 09:00 5 ML Baclofen (Lioresal Tab) 10 mg BID PO 11/09/16 09:00 12/09/16 08:59 11/11/16 09:00 10 MG Acetaminophen/ Hydrocodone Bitart ([place] 5/325 Tab) 1 tab Q6H PRN PO 11/09/16 09:15 11/23/16 09:14 11/11/16 07:58 1 TAB Levalbuterol (Xopenex 0.63 Mg/ 3 Ml Neb) 0.63 mg Q6R PRN INH 11/10/16 11:00 12/10/16 10:59 Magnesium Sulfate 1 gm/Prmx 100 ml @ 100 mls/hr TODAY@1030 ONCE IV 11/11/16 10:30 11/11/16 11:29 11/11/16 10:45 100 MLS/HR Objective Vital Signs Date Time Temp Pulse Resp B/P (MAP) Pulse Ox O2 Delivery O2 Flow Rate FiO2 11/11/16 08:00 Room Air 11/11/16 07:06 36.5 88 20 111/71 (84) 92 Room Air 11/11/16 00:00 Room Air 11/10/16 23:36 36.6 101 16 125/85 (98) 94 Room Air 11/10/16 16:22 36.6 79 18 120/77 (91) 97 Room Air 11/10/16 16:00 94 Room Air 11/10/16 11:18 92 17 94 Room Air Physical Exam General Appearance: no apparent distress Respiratory/Chest: chest non-tender, lungs clear, normal breath sounds, no respiratory distress, no accessory muscle use Cardiovascular: no murmur, + irregularly irregular Extremities: + pertinent finding (+lower extremity edema - dressed, no longer weeping wounds) Laboratory Results Last 24 Hours Test 11/10/16 11:30 11/10/16 16:34 11/10/16 20:01 11/11/16 07:15 Bedside Glucose 202 mg/dl 196 mg/dl 209 mg/dl White Blood Count 5.04 K/uL Red Blood Count 4.14 M/uL Hemoglobin 11.6 g/dL Hematocrit 35.7 % Mean Corpuscular Volume 86.2 fL Mean Corpuscular Hemoglobin 28.0 pg Mean Corpuscular Hemoglobin Concent 32.5 g/dl RDW Standard Deviation 49.4 fL RDW Coefficient of Variation 15.7 % Platelet Count 102 K/uL Mean Platelet Volume 9.6 fL Sodium Level 143 mmol/L Potassium Level 3.7 mmol/L Chloride Level 112 mmol/L Carbon Dioxide Level 24 mmol/L Anion Gap 7.0 mmol/L Blood Urea Nitrogen 17 mg/dl Creatinine 0.81 mg/dl Est Creatinine Clear Calc Drug Dose 105.0 ml/min Estimated GFR () 107.3 Estimated GFR (Non- 92.6 BUN/Creatinine Ratio 21.2 Random Glucose 125 mg/dl Calcium Level 8.1 mg/dl Magnesium Level 1.7 mg/dl Test 11/11/16 07:28 Bedside Glucose 125 mg/dl Assessment and Plan This is a 66yo male with a PMH of DM II, A fib, HTN, CAD, diastolic CHF, COPD who presents with complaints of persistent back pain that started a few days ago. Thoracolumbar back pain 11/11 will d/c home with some baclofen, gabapentin, and [place] PRN home PT 11/10 patient is doing much better continue current regimen continue PT/OT will d/c home with home health on 11/11 11/08 appreciate pain management input Baclofen stopped - patient had altered mental status with this Lidocaine patch, Toradol/Dilaudid PRN Gabapentin added PT/OT if able mild elevation in lactic acid, possibly wound ulceration related? held Lasix, added fluids, recheck lactic 11/07 stopped Valium yesterday continued Baclofen, Dilaudid and Toradol PRN Lidoderm patch appreciate ortho input will consult pain management transfer out of tele to med/surg 11/06 Valium causing lethargy, altered mental status we will d/c Valium continue baclofen PT/OT Lidoderm patch Toradol PRN consult spine ortho for further evaluation 11/05 Valium increased to 10mg BID continue Baclofen 20mg TID for muscle spasms continue PT/OT Lidocaine patch Toradol and Dilaudid PRN 11/04 pain is likely related to muscle spasms continue baclofen and Valium Dilaudid, Toradol PRN, lidocaine patch PT/OT ordered Paroxysmal Atrial Fibrillation 11/07 A. fib, rate controlled no anticoagulation, continue Atenolol 11/06 no anticoagulation due to hemoptysis Atenolol for rate control 11/05 HRs are fluctuating, mostly controlled, though pain and activity increase this rate for now, keep Atenolol at current dose, monitor in tele 11/04 no anticoagulation due to significant hemoptysis in the past continue Atenolol HRs improved to the 80s, monitor in tele continue aspirin Bilateral LE Cellulitis 11/06 will need to continue Vanco wound care consultation for further input 11/05 continue Vancomycin for now wound care for further input 11/04 significant peripheral vascular disease, venous stasis cellulitic changes with ulcerations, pus wound care consult ordered and pending Vancomycin started Acute on chronic diastolic CHF - resolved 11/05 echo - normal LVEF, no valvular pathology holding Lasix for now, can restart if there is any shortness of breath 11/04 echo pending hold Lasix, hold IVFs monitor; patient may be intravascularly depleted, though has some edema in the LE DM2, uncontrolled 11/06 appreciate glycemic control consultation sliding scale insulin for now will need a change in his outpatient regimen 11/04 Ha1c = 9.5% takes glimepiride at home BSGs on admission >300 started on sliding scale; hypoglycemic overnight and this AM loosened the sliding scale CAD 11/04 minimal bump on cardiac enzymes, likely due to tachycardia echo pending, EKG similar to previous continue current medications HTN hold Lasix continue b-selvin and Lisinopril COPD continue home inhalers DVT ppx Lovenox FULL CODE
[2016-11-11] MEDS ORDERED: LRS10 PO (11:30)
[2016-11-11] MEDS ORDERED: DXY100 PO (11:30)
[2016-11-11] MEDS ORDERED: MENTOIN EXT (11:30)
[2016-11-11] MEDS ORDERED: HYDR-5688 PO (11:30)
[2016-11-11] MEDS ORDERED: NRN300 PO (11:30)
--- NOTE | 2016-11-11 11:44 | Discharge Instructions ---
Discharge Instructions Date of Service Nov 11, 2016. Admission Reason for Admission: Back Pain, Chf Exacerbation Discharge Discharge Diagnosis / Problem: Back Muscle Strain, Fast Atrial Fibrillation, Leg Wound/Infection Discharge Goals Goal(s): Decrease discomfort, Improve function, Diagnostic testing, Therapeutic intervention Activity Recommendations Activity Limitations: resume your previous activity . Instructions / Follow-Up Instructions / Follow-Up Please follow-up with Dr. Ferreira - you will get a phone call with a date/time You will be discharged with gabapentin for neuropathic pain, baclofen as a muscle relaxer and [place] as needed for pain Your diabetes is not well controlled; your Ha1c is > 9% - recheck in 3 months; for now continue Glimepiride and improve your diet You will be discharged with doxycycline (antibiotic) for the leg wounds - please follow-up with wound care center Current Hospital Diet Patient's current hospital diet: Regular Diet, AHA Diet (Heart Healthy), Diabetes Type 2 Diet Discharge Diet Recommended Diet: Diabetes Type 2 Diet Pending Studies Studies pending at discharge: no Laboratory Results Hemoglobin A1c Test 11/04/16 03:04 Range/Units Estimated Average Glucose 226 mg/dl Hemoglobin A1c 9.5 H 4.5-5.6 % Medical Emergencies . Who to Call and When: Medical Emergencies: If at any time you feel your situation is an emergency, please call 911 immediately. . Non-Emergent Contact Non-Emergency issues call your: Primary Care Provider . . "Provider Documentation" section prepared by Martin Mccord. . VTE Core Measure Inpt VTE Proph given/why not?: Enoxaparin (Lovenox)[facility] Drug Monitoring Program Search Results: patient reviewed within database, no issues identified
--- NOTE | 2016-11-11 11:45 | Discharge Summary ---
Discharge Summary Date of Service Nov 11, 2016. Discharge Summary Admission Date: Nov 03, 2016 at 13:03 Discharge Date: Nov 11, 2016 Discharge Disposition: Home with services Principal Diagnosis: Lumbar Muscle Strain A. Fib with RVR Uncontrolled DM2 Chronic Lymphedema with Cellulitic changes Medication Reconciliation New Medications: Doxycycline Hyclate (Doxycycline Hyclate) 100 Mg Cap 100 MG PO BID for 5 Days, #10 CAP Baclofen (Baclofen) 10 Mg Tab 10 MG PO BID for 7 Days, #14 TAB Gabapentin (Gabapentin) 300 Mg Cap 300 MG PO HS for 10 Days, #10 CAP Hydrocodone/Acetaminophen 5MG/325MG ([place] 5MG/325MG) Tab 1 TAB PO Q6H PRN for Pain for 3 Days, #12 TAB PRN PAIN Menthol-Zinc Oxide (Calmoseptine) 1 Oin Oin 1 APPLN EXT BID for 30 Days, #1 TUBE Continued Medications: Albuterol Sulfate (Proair Respiclick) 108 Mcg/Act Aer 2 PUFFS PO QID PRN for Shortness of Breath, #1 Aspirin (Aspirin Chewable) 81 Mg Chew 81 MG PO QAM, TAB Atenolol (Tenormin) 100 Mg Tab 100 MG PO DAILY, TAB Furosemide (Lasix) 20 Mg Tab 20 MG PO DIRECTED, TAB LEG SWELLING Glimepiride (Amaryl *) 4 Mg Tab 4 MG PO QAM, 0 Refills Lisinopril (Zestril) 40 Mg Tab 40 MG PO QAM, TAB Prednisone (Prednisone) 20 Mg Tab 1 TAB PO DIRECTED PRN for Shortness of Breath for 5 Days, TAB Admission Information HPI (per Admitting provider): This is a 66yo male with a PMH of DM II, A fib, HTN, non-occlusive CAD, diastolic CHF, COPD who presents with complaints of persistent back pain that started a few days ago. In the past, patient has experienced muscle spasms in the lumbar spine region but they have resolved with rest. Pain started a few days ago after doing heavy lifting in the house and twisting/bending while mowing the lawn. Pain worsened last evening and by this morning, patient was unable to get up from a seated position. EMS was called and patient was brought to the ED. Currently, patient rates pain as a 9/10 in his mid-spine along the thoracic and lumbar regions. Denies ever having back pain of this severity in the past. Denies any loss of bladder/bowel control or numbness or tingling in lower extremities. Denies any lightheadedness, palpitations, CP, dyspnea, SOB, or weakness in extremities. Endorses swelling in bilateral lower extremities and "leaking sores" from both lower legs. Physical Exam (per Admitting): General Appearance: WD/WN, + moderate distress (Grunting intermittently in pain when answering questions ) Head: normocephalic, atraumatic Eyes: normal inspection, sclerae normal ENT: hearing grossly normal Neck: supple, no adenopathy, trachea midline Respiratory/Chest: chest non-tender, lungs clear, normal breath sounds, no respiratory distress, no accessory muscle use Cardiovascular: regular rate, rhythm, no murmur Abdomen/GI: normal bowel sounds, non tender, soft, no organomegaly Back: normal inspection, + muscle spasm, + pertinent finding (TTP of midspine from thoracic to lumbar region. Increased pain with lateral movement. No paraspinal tenderness. ) Extremities/Musculoskelatal: no calf tenderness, + swelling (In BLE below knees) Neurologic/Psych: no motor/sensory deficits, alert, normal mood/affect, oriented x 3 Skin: + pertinent finding (Bilateral lower legs with erythema, scaling and weeping from open wounds. Multiple wounds with macerated edges and sloughing. ) Hospital Course This is a 66yo male with a PMH of DM II, A fib, HTN, CAD, diastolic CHF, COPD who presents with complaints of persistent back pain that started a few days ago. Thoracolumbar back pain 11/11 will d/c home with some baclofen, gabapentin, and [place] PRN home PT 11/10 patient is doing much better continue current regimen continue PT/OT will d/c home with home health on 11/11 11/08 appreciate pain management input Baclofen stopped - patient had altered mental status with this Lidocaine patch, Toradol/Dilaudid PRN Gabapentin added PT/OT if able mild elevation in lactic acid, possibly wound ulceration related? held Lasix, added fluids, recheck lactic 11/07 stopped Valium yesterday continued Baclofen, Dilaudid and Toradol PRN Lidoderm patch appreciate ortho input will consult pain management transfer out of tele to med/surg 11/06 Valium causing lethargy, altered mental status we will d/c Valium continue baclofen PT/OT Lidoderm patch Toradol PRN consult spine ortho for further evaluation 11/05 Valium increased to 10mg BID continue Baclofen 20mg TID for muscle spasms continue PT/OT Lidocaine patch Toradol and Dilaudid PRN 11/04 pain is likely related to muscle spasms continue baclofen and Valium Dilaudid, Toradol PRN, lidocaine patch PT/OT ordered Paroxysmal Atrial Fibrillation 11/07 A. fib, rate controlled no anticoagulation, continue Atenolol 11/06 no anticoagulation due to hemoptysis Atenolol for rate control 11/05 HRs are fluctuating, mostly controlled, though pain and activity increase this rate for now, keep Atenolol at current dose, monitor in tele 11/04 no anticoagulation due to significant hemoptysis in the past continue Atenolol HRs improved to the 80s, monitor in tele continue aspirin Bilateral LE Cellulitis 11/06 will need to continue Vanco wound care consultation for further input 11/05 continue Vancomycin for now wound care for further input 11/04 significant peripheral vascular disease, venous stasis cellulitic changes with ulcerations, pus wound care consult ordered and pending Vancomycin started Acute on chronic diastolic CHF - resolved 11/05 echo - normal LVEF, no valvular pathology holding Lasix for now, can restart if there is any shortness of breath 11/04 echo pending hold Lasix, hold IVFs monitor; patient may be intravascularly depleted, though has some edema in the LE DM2, uncontrolled 11/06 appreciate glycemic control consultation sliding scale insulin for now will need a change in his outpatient regimen 11/04 Ha1c = 9.5% takes glimepiride at home BSGs on admission >300 started on sliding scale; hypoglycemic overnight and this AM loosened the sliding scale CAD 11/04 minimal bump on cardiac enzymes, likely due to tachycardia echo pending, EKG similar to previous continue current medications HTN hold Lasix continue b-selvin and Lisinopril COPD continue home inhalers DVT ppx Lovenox FULL CODE Total time spent on discharge = 50 minutes This includes examination of the patient, discharge planning, medication reconciliation, and communication with other providers. Discharge Instructions Please follow-up with Dr. Ferreira - you will get a phone call with a date/time You will be discharged with gabapentin for neuropathic pain, baclofen as a muscle relaxer and [place] as needed for pain Your diabetes is not well controlled; your Ha1c is > 9% - recheck in 3 months; for now continue Glimepiride and improve your diet You will be discharged with doxycycline (antibiotic) for the leg wounds - please follow-up with wound care center
[2016-12-23] MEDS ORDERED: NVLGIPEN SC (17:37)
[2016-12-23] MEDS ORDERED: FLV1 PO (17:37)
[2016-12-23] MEDS ORDERED: TPRSR50 PO (17:37)
[2016-12-23] MEDS ORDERED: NRN300 PO (17:37)
[2016-12-23] MEDS ORDERED: LCTX PO (17:37)
[2016-12-23] MEDS ORDERED: LCTL45 PO (17:37)
[2016-12-23] MEDS ORDERED: LSX40 PO (17:37)
[2016-12-23] MEDS ORDERED: LPT40 PO (17:37)
[2016-12-23] MEDS ORDERED: THM100 PO (17:37)
[2016-12-23] MEDS ORDERED: INSDGIPEN SC (17:37)
[2016-12-23] MEDS ORDERED: DXY100 PO (17:37)
[2016-12-23] MEDS ORDERED: SPRN100 PO (17:37)
[2016-12-23] MEDS ORDERED: MULT-890 PO (17:37)
== END 2016-11-11 13:20 | disposition home health service (06) | DRG 562 ==
LOC: EDBD 06:52 → C.EDA 06:55 → C.2T 13:03 → ENRESERV 13:45 → C.2T 11-05 13:20 → C.MS2W 11-07 13:30 → ENRESERV 11-07 13:52
PROVIDERS: ADMIT Family Medicine; ATTEND Family Medicine
DX: S39.012A Strain of muscle, fascia and tendon of lower back, initial encounter (principal); I50.33 Acute on chronic diastolic (congestive) heart failure; L03.115 Cellulitis of right lower limb; L03.116 Cellulitis of left lower limb; I48.91 Unspecified atrial fibrillation; W19.XXXA Unspecified fall, initial encounter; I25.10 Atherosclerotic heart disease of native coronary artery without angina pectoris; E11.9 Type 2 diabetes mellitus without complications; I10 Essential (primary) hypertension; M10.9 Gout, unspecified; R09.02 Hypoxemia; J44.9 Chronic obstructive pulmonary disease, unspecified; Z83.3 Family history of diabetes mellitus; Z82.49 Family history of ischemic heart disease and other diseases of the circulatory system

== ENCOUNTER 2016-12-17 07:57 | Inpatient (IN) | payer OTHER ==
[~2016-12-17] VITALS: Ht 175.3 cm; Wt 106.9 kg
[~2016-12-17 07:57] MED LIST changes: +ALBU18002 PO; -AMLO-114 PO; +ATEN-175 PO; +DXY100 PO; +HYDR-5688 PO; +LRS10 PO; +MENTOIN EXT; +NRN300 PO
[2016-12-17] MEDS ORDERED: SODIUM CHLORIDE 0.9% 500ML 500 ML IV STA (08:06)
--- NOTE | 2016-12-17 08:09 | EMERGENCY ROOM VISIT NOTE ---
History Report prepared by Fay: Priyanka Hartman Under the Supervision of: Dr. Mendoza Cali M.D. First contact with patient: 07:59 Stated Complaint: LETHARGY History of Present Illness The patient is a 66 year old male who presents to the Emergency Room with complaints of worsening lethargy. Nursing reports he was discharged from [facility] a few days ago after a fall. He was found to have experienced a CVA and concussion. EMS states his thought he was altered this morning, so she called an ambulance. The patient admits he has been feeling increasingly weak since he's been home. He is answering questions appropriately and is oriented to person, place and time. He does not normally wear Oxygen but was placed on O2 in the field for comfort. He takes daily Aspirin and Eliquis. He denies any abdominal pain or other complaints at today's visit. 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 A total of 10 systems reviewed and were otherwise negative. Past Medical & Surgical Medical Problems: (1) Atrial fibrillation (2) Coronary artery disease (3) Diabetes mellitus type II, uncontrolled (4) Essential hypertension (5) Gout (6) s/p cardiac cath (7) Weakness generalized Family History Diabetes mellitus Heart disease Hypertension Social History Smoking Status: Never Smoker Alcohol Use: none Drug Use: none Marital Status: Housing Status: lives with family Occupation Status: employed Current/Historical Medications Scheduled Apixaban (Eliquis), 5 MG PO BID Baclofen (Baclofen), 10 MG PO BID Furosemide (Lasix), 20 MG PO DIRECTED Gabapentin (Gabapentin), 300 MG PO HS Glimepiride (Amaryl *), 4 MG PO QAM Metoprolol Succinate (Toprol Xl), 25 MG PO DAILY Potassium Chloride (Micro-K Ext Rel), 10 MEQ PO DAILY Scheduled PRN Albuterol Sulfate (Proair Respiclick), 2 PUFFS PO QID PRN for Shortness of Breath Hydrocodone/Acetaminophen 5MG/325MG ([place] 5MG/325MG), 1 TABLET PO Q4 PRN for Pain Allergies Coded Allergies: Cefazolin (Verified Allergy, Unknown, UNKNOWN, 11/03/16) INFORMATION FROM [employer]. Cephalexin (Verified Allergy, Unknown, HIVES, 11/03/16) Influenza Virus Vaccine H5N1 (Verified Allergy, Unknown, LABELED A CHILD, UNSURE, 11/03/16) Uncoded Allergies: GUT SUTURE (Allergy, Intermediate, Swelling, 03/29/16) Physical Exam Vital Signs Date Time Temp Pulse Resp B/P (MAP) Pulse Ox O2 Delivery O2 Flow Rate FiO2 12/17/16 08:42 117 22 100 12/17/16 08:31 145/89 12/17/16 08:27 111 19 100 12/17/16 08:14 37.4 100 18 103/89 98 Room Air 12/17/16 08:12 98 Room Air 12/17/16 08:12 100 20 100 12/17/16 08:07 97 12/17/16 08:04 139/89 Physical Exam GENERAL: Patient is a healthy-appearing well-nourished 66 year old male, he is answering questions appropriately HEAD: Normocephalic atraumatic EYES: Ocular movements intact pupils equal and react to light OROPHARYNX mucous membranes are moist no exudates present no erythema or edema present NECK: Supple no nuchal rigidity CHEST: Good equal expansion LUNGS: Clear and equal to auscultation CARDIAC: Normal S1 and S2 ABDOMEN: Soft nontender no guarding BACK: No CVA tenderness EXTREMITIES: Multiple wounds to bilateral arms in various stages of healing. No pain upon palpation, normal muscle strength in all groups no clubbing cyanosis or edema NEURO: Patient is following commands is answering questions appropriately. Alert and oriented x3 Cranial Nerves 2-12 grossly intact Medical Decision & Procedures ER Provider Diagnostic Interpretation: Radiology results as stated below per my review and radiologist interpretation: CHEST ONE VIEW PORTABLE HISTORY: 66 years-old Male Pt c/o AMS acute altered mental status. COMPARISON: Chest radiograph 11/03/2016 TECHNIQUE: Portable upright AP view of the chest FINDINGS: Cardiac silhouette is again moderately enlarged. There is no pneumothorax. Small right pleural effusion is noted with persistent pulmonary vascular congestion, background interstitial coarsening, hazy perihilar and bibasilar opacities suggesting pulmonary edema with atelectasis. No significant change from prior. Bones are grossly intact. IMPRESSION: Cardiomegaly with persistent mild pulmonary edema pattern and small right pleural effusion. The above report was generated using voice recognition software. It may contain grammatical, syntax or spelling errors. Electronically signed by: Aldo Salinas M.D. 12/17/2016 8:29 AM HEAD WITHOUT CONTRAST (CT) CLINICAL HISTORY: 66 years-old Male with Pt AMS. Acute altered mental status with recent fall. TECHNIQUE: Multiple axial CT images of the head were obtained without contrast. A dose lowering technique was utilized adhering to the principles of ALARA. CT DOSE: 537.48 mGy.cm COMPARISON: CT head 11/08/2016. FINDINGS: No acute intracranial hemorrhage, midline shift, mass, large territorial ischemia or abnormal extra-axial collection. There is mild cerebral atrophy. There is mild atherosclerotic plaquing of the cerebral vasculature at the level of the skull base. Minimal low attenuation within the periventricular white matter is noted suggesting chronic microvascular ischemic changes. The calvarium is intact. The paranasal sinuses, mastoid air cells, and middle ear cavities are clear. IMPRESSION: 1. No acute intracranial abnormality. 2. Mild senescent changes as above. The above report was generated using voice recognition software. It may contain grammatical, syntax or spelling errors. Electronically signed by: Aldo Salinas M.D. 12/17/2016 9:14 AM Laboratory Results 12/17/16 08:10 Red Blood Count 4.25, Mean Corpuscular Volume 85.4, Mean Corpuscular Hemoglobin 26.6, Mean Corpuscular Hemoglobin Concent 31.1, Mean Platelet Volume 9.9, Neutrophils (%) (Auto) 76.3, Lymphocytes (%) (Auto) 13.3, Monocytes (%) (Auto) 7.8, Eosinophils (%) (Auto) 1.6, Basophils (%) (Auto) 0.5, Neutrophils # (Auto) 4.41, Lymphocytes # (Auto) 0.77, Monocytes # (Auto) 0.45, Eosinophils # (Auto) 0.09, Basophils # (Auto) 0.03 12/17/16 08:10 Test 12/17/16 08:10 12/17/16 08:36 White Blood Count 5.78 K/uL (4.8-10.8) Red Blood Count 4.25 M/uL (4.7-6.1) Hemoglobin 11.3 g/dL (14.0-18.0) Hematocrit 36.3 % (42-52) Mean Corpuscular Volume 85.4 fL (80-100) Mean Corpuscular Hemoglobin 26.6 pg (25-34) Mean Corpuscular Hemoglobin Concent 31.1 g/dl (32-36) Platelet Count 102 K/uL (130-400) Mean Platelet Volume 9.9 fL (7.4-10.4) Neutrophils (%) (Auto) 76.3 % Lymphocytes (%) (Auto) 13.3 % Monocytes (%) (Auto) 7.8 % Eosinophils (%) (Auto) 1.6 % Basophils (%) (Auto) 0.5 % Neutrophils # (Auto) 4.41 K/uL (1.4-6.5) Lymphocytes # (Auto) 0.77 K/uL (1.2-3.4) Monocytes # (Auto) 0.45 K/uL (0.11-0.59) Eosinophils # (Auto) 0.09 K/uL (0-0.5) Basophils # (Auto) 0.03 K/uL (0-0.2) RDW Standard Deviation 49.1 fL (36.4-46.3) RDW Coefficient of Variation 15.6 % (11.5-14.5) Immature Granulocyte % (Auto) 0.5 % Immature Granulocyte # (Auto) 0.03 K/uL (0.00-0.02) Anion Gap 10.0 mmol/L (3-11) Est Creatinine Clear Calc Drug Dose 103.1 ml/min Estimated GFR () 105.2 Estimated GFR (Non- 90.8 BUN/Creatinine Ratio 16.5 (10-20) Calcium Level 8.5 mg/dl (8.5-10.1) Total Bilirubin 2.1 mg/dl (0.2-1) Direct Bilirubin 0.9 mg/dl (0-0.2) Aspartate Amino Transf (AST/SGOT) 21 U/L (15-37) Alanine Aminotransferase (ALT/SGPT) 25 U/L (12-78) Alkaline Phosphatase 118 U/L (45-117) Total Creatine Kinase 30 U/L (39-308) Creatine Kinase MB 1.1 ng/ml (0.5-3.6) Creatine Kinase MB Ratio 3.7 (0-3.0) Troponin I 0.049 ng/ml (0-0.045) Total Protein 6.0 gm/dl (6.4-8.2) Albumin 2.9 gm/dl (3.4-5.0) Thyroid Stimulating Hormone (TSH) 1.420 uIu/ml (0.300-4.500) Bedside Glucose 78 mg/dl (70-99) Labs reviewed by ED physician. Medications Administered Medications (Trade) Dose Ordered Sig/Van Route Start Time Stop Time Status Last Admin Dose Admin Sodium Chloride 500 ml @ 999 mls/hr Q31M STAT IV 12/17/16 08:06 12/17/16 08:36 DC 12/17/16 08:47 999 MLS/HR ECG Indication: weakness Rate (beats per minute): 111 Rhythm: atrial fibrillation (with RVR) Findings: T-wave inversion (Anterior) ED Course 0800: Past medical records reviewed. The patient was evaluated in room B7. A complete history and physical examination was performed. 0806: NSS 500 ml @ 999 mls/hr IV. 0902: I reevaluated the patient. He is resting comfortably. I updated him and his on his results so far. 0931: I discussed the patients case with Dr. Mclaughlin, [facility] Hospitalist. The patient will be further evaluated. 0935: I reevaluated the patient. He is feeling well and resting. I discussed my recommendation he remain in the hospital for further evaluation and management and he and his verbalized complete understanding and agreement. Medical Decision Prior records/ancillary studies reviewed and summarized above. Nursing notes reviewed. Additional history obtained from EMS. The patient's history was concerning for weakness. Differential diagnosis: Etiologies such as metabolic, infection, hypo/hyperglycemia, electrolyte abnormalities, cardiac sources, intracerebral event, toxicologic, neurologic, as well as others were entertained. This is a 66-year-old male who presents emergency department complaining of altered mental status. The patient was recently discharged from [place] 2 days ago after a stroke. The patient's reports he has done nothing but lay around at home and has been extremely weak. Upon arrival to the emergency department the patient is somewhat confused. He does have slight elevation in his troponin however CAT scan of the head and chest x-ray are normal. I did discuss the case with the hospitalist service who agreed to admit the patient. Medication Reconcilliation Current Medication List: was personally reviewed by me Blood Pressure Screening Patient's blood pressure: Elevated blood pressure The patient's elevated blood pressure will be further addressed by the inpatient hospital medicine team. Consults Time Called: [phone] Consulting Physician: Елена Phillips Hospitalist Returned Call: [phone] I discussed the patients case with [facility]лена [facility]. The patient will be further evaluated. Impression Primary Impression: Altered mental status Additional Impressions: Hypoglycemia Elevated troponin Scribe Attestation The scribe's documentation has been prepared under my direction and personally reviewed by me in its entirety. I confirm that the note above accurately reflects all work, treatment, procedures, and medical decision making performed by me. Departure Information Dispostion Being Evaluated By Hospitalist Referrals Ga Ferreira M.D.(KILEY) (PCP) Problem Qualifiers Primary Impression: Altered mental status Altered mental status type: unspecified Qualified Codes: R41.82 - Altered mental status, unspecified
[2016-12-17 08:22] LABS: BASO % 0.5 %; BASO ABS # 0.03 K/uL (0-0.2); COMPLETE YES; EOS % 1.6 %; HEMATOCRIT 36.3 % (42-52); IG% 0.5 %; LYMPH % 13.3 %; LYMPH ABS # 0.77 K/uL (1.2-3.4); MEAN CELL VOLUME 85.4 fL (80-100); MEAN CORPUSCULAR HEMOGLOBIN 26.6 pg (25-34); MEAN CORPUSCULAR HGB CONC 31.1 g/dl (32-36); MEAN PLATELET VOLUME 9.9 fL (7.4-10.4); MONO % 7.8 %; NEUT % 76.3 %; PLATELET COUNT 102 K/uL (130-400); RED BLOOD COUNT 4.25 M/uL (4.7-6.1); WHITE BLOOD COUNT 5.78 K/uL (4.8-10.8)
[2016-12-17] MEDS ORDERED: APIX1TAB3 PO (08:27)
[2016-12-17] MEDS ORDERED: METO25TA3 PO (08:29)
[2016-12-17] MEDS ORDERED: POTA10CA28 PO (08:29)
[2016-12-17] MEDS ORDERED: HYDR-5688 PO (08:29)
--- NOTE | 2016-12-17 08:31 | DIAGNOSTIC IMAGING REPORT ---
CHEST ONE VIEW PORTABLE HISTORY: 66 years-old Male Pt c/o AMS acute altered mental status. COMPARISON: Chest radiograph 11/03/2016 TECHNIQUE: Portable upright AP view of the chest FINDINGS: Cardiac silhouette is again moderately enlarged. There is no pneumothorax. Small right pleural effusion is noted with persistent pulmonary vascular congestion, background interstitial coarsening, hazy perihilar and bibasilar opacities suggesting pulmonary edema with atelectasis. No significant change from prior. Bones are grossly intact. IMPRESSION: Cardiomegaly with persistent mild pulmonary edema pattern and small right pleural effusion. The above report was generated using voice recognition software. It may contain grammatical, syntax or spelling errors. Electronically signed by: Aldo Salinas M.D. 12/17/2016 8:29 AM Dictated Date/Time: 12/17/2016 8:27 AM
[2016-12-17 08:39] LABS: BUN/CREATININE RATIO 16.5 (10-20); CALCIUM 8.5 mg/dl (8.5-10.1); CREATININE 0.85 mg/dl (0.60-1.40); POTASSIUM 3.6 mmol/L (3.5-5.1)
[2016-12-17 09:02] LABS: CKMB/CK RATIO 3.7 (0-3.0); THYROID STIMULATING HORMONE 1.42 uIu/ml (0.300-4.500)
--- NOTE | 2016-12-17 09:15 | DIAGNOSTIC IMAGING REPORT ---
ADDENDUM Upon further review of the case, there is a focal area of increased attenuation involving the left parietal lobe near the vertex, nicely seen on image 26 of series 2 measuring approximately 9 mm transversely suspicious for a small cortical contusion or parenchymal hematoma. Correlate with MRI brain of same day. Electronically signed by: Aldo Salinas M.D. 12/17/2016 1:19 PM Dictated Date/Time: 12/17/2016 1:18 PM ORIGINAL REPORT HEAD WITHOUT CONTRAST (CT) CLINICAL HISTORY: 66 years-old Male with Pt AMS. Acute altered mental status with recent fall. TECHNIQUE: Multiple axial CT images of the head were obtained without contrast. A dose lowering technique was utilized adhering to the principles of ALARA. CT DOSE: 537.48 mGy.cm COMPARISON: CT head 11/08/2016. FINDINGS: No acute intracranial hemorrhage, midline shift, mass, large territorial ischemia or abnormal extra-axial collection. There is mild cerebral atrophy. There is mild atherosclerotic plaquing of the cerebral vasculature at the level of the skull base. Minimal low attenuation within the periventricular white matter is noted suggesting chronic microvascular ischemic changes. The calvarium is intact. The paranasal sinuses, mastoid air cells, and middle ear cavities are clear. IMPRESSION: 1. No acute intracranial abnormality. 2. Mild senescent changes as above. The above report was generated using voice recognition software. It may contain grammatical, syntax or spelling errors. Electronically signed by: Aldo Salinas M.D. 12/17/2016 9:14 AM Dictated Date/Time: 12/17/2016 9:11 AM
[2016-12-17] MEDS ORDERED: LABETALOL HCL IV 5 MG/ML 20ML IV ONE (10:45)
[2016-12-17] MEDS ORDERED: NITROGLYCERIN 0.4 MG SL PER TAB CHARGE SL PRN (10:45)
[2016-12-17] MEDS ORDERED: ONDANSETRON INJ 2 MG/ML 2 ML VIAL IV PRN (10:45)
[2016-12-17] MEDS ORDERED: DEXTROSE 50% 50 ML SYR IV PRN (11:00)
[2016-12-17] MEDS ORDERED: POTASSIUM CHLORIDE 10 MEQ TABCR PO ONE (11:00)
[2016-12-17] MEDS ORDERED: GLUCOSE 40% GEL 15 GM TUBE PO PRN (11:00)
[2016-12-17] MEDS ORDERED: GLUCOSE 10 TABS/TUBE PO PRN (11:00)
[2016-12-17] MEDS ORDERED: GLUCAGON FOR INJ 1 MG VIAL SQ PRN (11:00)
[2016-12-17] MEDS ORDERED: MAGNESIUM SULFATE 1GM / D5W 1 GM IV ONE (11:00)
[2016-12-17 11:10] VITALS: O2SAT 100; Ht 175.3 cm; Wt 106.9 kg
[2016-12-17] MEDS ORDERED: METOPROLOL TARTRATE 1 MG/ML VIAL IV PRN (11:15)
[2016-12-17] MEDS ORDERED: LEVALBUTEROL 0.63MG/3 ML NEB INH PRN (11:15)
--- NOTE | 2016-12-17 11:43 | History and Physical ---
History & Physical Date & Time of Service: Dec 17, 2016 at 11:15 Chief Complaint: Lethargy Primary Care Physician: Ga Ferreira M.D.(KILEY) History of Present Illness Source: patient, family Patient is a 66yr male with a PMH of DM II, A fib, HTN, non-occlusive CAD, Diastolic CHF, COPD, Chronic Venous stasis and other comorbidities who was discharged from [facility] 2 days ago after being treated for possible CVA and concussion after encountering head trauma secondary to a fall presents with history of worsening lethargy and generalized weakness. Mos of the history is obtained from patient's family. Reports that patient is currently using walker to ambulate at home and today he was having trouble even to get up from his chair. Also reports poor oral intake. Patient reports having frontal headache which started today which he describe like "tooth ache", constant. He sustained a concussion few days ago and is currently on eliquis. CT head showed no acute changes. Patient and his denies any history of confusion or change in mental status/vision, facial deformity, slurred speech, and is able to move all extremities. He is noted to be in afib with RVR in ED. Denies any history of CP/SOB/Cough/Wheezing/Abd pain/change in bowel/bladder habits/Fever/chills/ Dizziness. Past Medical/Surgical History Medical Problems: (1) Atrial fibrillation Status: Chronic (2) Coronary artery disease Permanent Comment: nonocclusive disease by cath [facility] 2008 Status: Chronic (3) Diabetes mellitus type II, uncontrolled Status: Chronic (4) Essential hypertension Status: Chronic (5) Gout Status: Chronic (6) s/p cardiac cath Permanent Comment: [facility] Nov 2010 very mild nonocclusive disease Status: Resolved Family History Diabetes mellitus Heart disease Hypertension Social History Smoking Status: Never Smoker Alcohol Use: socially Drug Use: none Marital Status: Housing status: lives with family Occupational Status: employed Immunizations History of Influenza Vaccine: No History of Tetanus Vaccine?: Yes Tetanus Immunization Date: Dec 12, 2002 History of Pneumococcal: No History of Hepatitis B Vaccine: Unknown Multi-Drug Resistant Organisms History of MDRO: No Allergies Coded Allergies: Cefazolin (Verified Allergy, Unknown, UNKNOWN, 11/03/16) INFORMATION FROM [employer]. Cephalexin (Verified Allergy, Unknown, HIVES, 11/03/16) Influenza Virus Vaccine H5N1 (Verified Allergy, Unknown, LABELED A CHILD, UNSURE, 11/03/16) Uncoded Allergies: GUT SUTURE (Allergy, Intermediate, Swelling, 03/29/16) Home Medications Scheduled Apixaban (Eliquis), 5 MG PO BID Baclofen (Baclofen), 10 MG PO BID Furosemide (Lasix), 20 MG PO DIRECTED Gabapentin (Gabapentin), 300 MG PO HS Glimepiride (Amaryl *), 4 MG PO QAM Metoprolol Succinate (Toprol Xl), 25 MG PO DAILY Potassium Chloride (Micro-K Ext Rel), 10 MEQ PO DAILY Scheduled PRN Albuterol Sulfate (Proair Respiclick), 2 PUFFS PO QID PRN for Shortness of Breath Hydrocodone/Acetaminophen 5MG/325MG ([place] 5MG/325MG), 1 TABLET PO Q4 PRN for Pain Review of Systems See HPI for pertinent positives & negatives. A total of 10 systems reviewed and were otherwise negative. Physical Exam Vital Signs Date Time Temp Pulse Resp B/P (MAP) Pulse Ox O2 Delivery O2 Flow Rate FiO2 12/17/16 08:42 117 22 100 12/17/16 08:31 145/89 12/17/16 08:27 111 19 100 12/17/16 08:14 37.4 100 18 103/89 98 Room Air 12/17/16 08:12 98 Room Air 12/17/16 08:12 100 20 100 12/17/16 08:07 97 12/17/16 08:04 139/89 General Appearance: WD/WN, no apparent distress, + pertinent finding (Lethargic ) Head: normocephalic, atraumatic Eyes: normal inspection, PERRL, EOMI ENT: normal ENT inspection, hearing grossly normal Neck: supple, no JVD Respiratory/Chest: chest non-tender, lungs clear, no accessory muscle use, + decreased breath sounds Cardiovascular: no murmur, + irregularly irregular, + pertinent finding (2+ b/ l LE Edema) Abdomen/GI: normal bowel sounds, non tender, soft Back: normal inspection Extremities/Musculoskelatal: + pedal edema, + pertinent finding (B/L LE chronic venous stasis changes) Neurologic/Psych: grading supervisor II-XII nml as tested, alert, normal mood/affect, oriented x 3, + pertinent finding (Able to move all extremitites and grossly no focal deficits) Skin: normal color, warm/dry, + pertinent finding (Multiple wounds on B/L UE) Diagnostics Laboratory Results Results Past 24 Hours Test 12/17/16 08:10 12/17/16 08:36 Range/Units White Blood Count 5.78 4.8-10.8 K/uL Red Blood Count 4.25 4.7-6.1 M/uL Hemoglobin 11.3 14.0-18.0 g/dL Hematocrit 36.3 42-52 % Mean Corpuscular Volume 85.4 80-100 fL Mean Corpuscular Hemoglobin 26.6 25-34 pg Mean Corpuscular Hemoglobin Concent 31.1 32-36 g/dl Platelet Count 102 130-400 K/uL Mean Platelet Volume 9.9 7.4-10.4 fL Neutrophils (%) (Auto) 76.3 % Lymphocytes (%) (Auto) 13.3 % Monocytes (%) (Auto) 7.8 % Eosinophils (%) (Auto) 1.6 % Basophils (%) (Auto) 0.5 % Neutrophils # (Auto) 4.41 1.4-6.5 K/uL Lymphocytes # (Auto) 0.77 1.2-3.4 K/uL Monocytes # (Auto) 0.45 0.11-0.59 K/uL Eosinophils # (Auto) 0.09 0-0.5 K/uL Basophils # (Auto) 0.03 0-0.2 K/uL RDW Standard Deviation 49.1 36.4-46.3 fL RDW Coefficient of Variation 15.6 11.5-14.5 % Immature Granulocyte % (Auto) 0.5 % Immature Granulocyte # (Auto) 0.03 0.00-0.02 K/uL Sodium Level 145 136-145 mmol/L Potassium Level 3.6 3.5-5.1 mmol/L Chloride Level 114 98-107 mmol/L Carbon Dioxide Level 21 21-32 mmol/L Anion Gap 10.0 3-11 mmol/L Blood Urea Nitrogen 14 7-18 mg/dl Creatinine 0.85 0.60-1.40 mg/dl Est Creatinine Clear Calc Drug Dose 103.1 ml/min Estimated GFR () 105.2 Estimated GFR (Non- 90.8 BUN/Creatinine Ratio 16.5 10-20 Random Glucose 74 70-99 mg/dl Calcium Level 8.5 8.5-10.1 mg/dl Total Bilirubin 2.1 0.2-1 mg/dl Direct Bilirubin 0.9 0-0.2 mg/dl Aspartate Amino Transf (AST/SGOT) 21 15-37 U/L Alanine Aminotransferase (ALT/SGPT) 25 12-78 U/L Alkaline Phosphatase 118 45-117 U/L Total Creatine Kinase 30 39-308 U/L Creatine Kinase MB 1.1 0.5-3.6 ng/ml Creatine Kinase MB Ratio 3.7 0-3.0 Troponin I 0.049 0-0.045 ng/ml Total Protein 6.0 6.4-8.2 gm/dl Albumin 2.9 3.4-5.0 gm/dl Thyroid Stimulating Hormone (TSH) 1.420 0.300-4.500 uIu/ml Bedside Glucose 78 70-99 mg/dl Diagnostic Radiology CT head: 1. No acute intracranial abnormality. 2. Mild senescent changes as above. CXR: Cardiomegaly with persistent mild pulmonary edema pattern and small right pleural effusion. EKG EKG:Afib with RVR, Non specific ST changes Impression Assessment and Plan Generalized weakness/Lethargy: Likely debility from comorbidities PT/OT May benefit from rehab placement Afib with RVR: Known H/O of afib Restart Home Metoprolol Lopressor PRN Continue Eliquis once MRI head is negative Monitor in Tele Cardiology consulted Elevated Troponin: Likely demand ischemia Trend cardiac enzymes Denies angina symptoms Headache: H/O recent concussion CT head: no acute intracranial abnormality, some chronic microvascular ischemic changes Get MRI brain Monitor DM II: hold oral diabetic meds Last A1c:9.5 in Oct ISS, lantus Accu checks, Diabetic diet HTN: stable continue home meds Non-occlusive CAD continue Aspirin, Lipitor Diastolic CHF: Continue Lasix COPD: No signs of exacerbation: Nebs PRN Chronic Venous stasis stable DVT Px: On eliquis Code Status: Full Code Disposition: Monitor In Tele VTE Prophylaxis VTE Risk Assessment Done? Y/N: Yes Risk Level: Moderate
[2016-12-17] MEDS ORDERED: METOPROLOL SUCC 25MG EXT REL TAB PO ONE (12:30)
--- NOTE | 2016-12-17 12:38 | DIAGNOSTIC IMAGING REPORT ---
BRAIN WITHOUT CONTRAST HISTORY: 66 years-old Male Severe Headache ( Recent head trauma, on Eliquis) acute severe headache with history of recent head trauma COMPARISON: CT head of same day TECHNIQUE: Multiplanar multisequence MRI the brain was obtained without contrast FINDINGS: There is a focal area of increased T1 and T2 signal involving the cortical left parietal lobe near the vertex seen on image 20 of series 5, image 20 of series 6 and image 21 of series 8 with slightly restricted diffusion measuring 6 x 10 x 9 mm. Minimal cortical expansion is noted without mass effect or midline shift. There is minimal blooming artifact within this distribution. Minimal periventricular T-2/FLAIR prolongation is noted compatible with chronic microvascular ischemic changes. Mild central atrophy. No hydrocephalus. Major flow voids at the skull base appear patent. The paranasal sinuses are clear. Small right mastoid effusion. IMPRESSION: 1. 10 mm cortically based hemorrhagic focus of the left parietal lobe near the vertex suggests acute cortical contusion in the setting of recent fall while on anticoagulant therapy. Follow-up study recommended with IV contrast to exclude enhancing lesion within this distribution which is thought to be less likely. 2. Atrophy with background of mild chronic microvascular ischemic changes. Findings were discussed with Dr. Cali on 12/17/2016 at 12:33 PM The above report was generated using voice recognition software. It may contain grammatical, syntax or spelling errors. Electronically signed by: Aldo Salinas M.D. 12/17/2016 12:37 PM Dictated Date/Time: 12/17/2016 12:17 PM
[2016-12-17 12:40] VITALS: BP 138/90; PULSE 111; TEMP 36.8; O2SAT 97
[2016-12-17] MEDS: INSULIN ASPART 100 UNITS/ML 3 ML PEN SC SCH ×3 (13:49→20:45)
[2016-12-17] MEDS: BACLOFEN 10 MG TAB PO PRN (14:27)
[2016-12-17 14:54] VITALS: BP 141/97; PULSE 114; TEMP 36.8; O2SAT 96
--- NOTE | 2016-12-17 16:24 | Progress Note ---
Progress Note Date of Service Dec 17, 2016. Progress Note Discussed with Neurology and Neurovascular surgery in Center. Based on the findings and patient's family preference, Will repeat Imaging in 6 hours and also in AM. If no increase in hemorrhage, will Watch closely for neurological changes for now. If worsens, plan to transfer to Center. Patient's son prefers update from physicians.
[2016-12-17] MEDS: HYDROCODONE/ACETAMOPHEN 5/325MG TAB PO PRN (17:09)
[2016-12-17] MEDS ORDERED: GADAVIST IV PRN (18:45)
[2016-12-17 19:27] VITALS: BP 113/72; PULSE 109; TEMP 36.8; O2SAT 94
--- NOTE | 2016-12-17 19:43 | DIAGNOSTIC IMAGING REPORT ---
BRAIN COMBO HISTORY: 66 years-old Male Brain Hemorrhage follow-up study to evaluate hemorrhagic focus of the left parietal lobe. History of recent fall while on anticoagulation therapy. COMPARISON: Brain MRI of same day TECHNIQUE: Multiplanar multisequence MRI the brain was obtained both with and without the use of 10 mL Gadavist FINDINGS: There is a focal area of increased T1 and T2 signal again seen involving the cortical left parietal lobe near the vertex demonstrating slightly restricted diffusion measuring approximately 7 x 10 x 10 mm, generally stable from comparison. Minimal cortical expansion is noted without mass effect or midline shift. There is minimal blooming artifact within this distribution. No significant change of signal intensity on the postcontrast images. No new or additional hemorrhagic foci identified. Minimal periventricular T-2/FLAIR prolongation is noted compatible with chronic microvascular ischemic changes. Mild central atrophy. No hydrocephalus. Major flow voids at the skull base appear patent. The paranasal sinuses are clear. Small right mastoid effusion. IMPRESSION: 1. 10 mm cortically-based hemorrhagic focus of the left parietal lobe near the vertex redemonstrated without significant change of signal intensity on the postcontrast images suggesting acute posttraumatic cortical contusion without enlargement from the previous study. No new or additional foci identified. Follow-up recommended. 2. Atrophy with mild background chronic microvascular ischemic changes. The above report was generated using voice recognition software. It may contain grammatical, syntax or spelling errors. Electronically signed by: Aldo Salinas M.D. 12/17/2016 7:42 PM Dictated Date/Time: 12/17/2016 7:30 PM
[2016-12-17 20:00] LABS: URINE APPEARANCE CLEAR (CLEAR); URINE COLOR DK YELLOW; URINE NITRITE NEG (NEG); URINE SPECIFIC GRAVITY 1.023 (1.000-1.030); UROBILINOGEN POS (NEG)
[2016-12-17 20:22] LABS: MANUAL MICROSCOPIC REQUIRED? NO; REVIEW REQ? NO
[2016-12-17 20:25] LABS: URINE BILIRUBIN NEG (NEG)
[2016-12-17] MEDS: GABAPENTIN 300 MG CAP PO SCH (20:44)
[2016-12-17] MEDS: METOPROLOL SUCC 25MG EXT REL TAB PO SCH (20:45)
[2016-12-17] MEDS ORDERED: APIXABAN 2.5 MG TAB PO SCH (21:00)
[2016-12-17] MEDS ORDERED: INSULIN GLARGINE SOLOSTAR 100 UNITS/ML 3 ML PEN SC SCH (21:00)
[2016-12-17 23:40] VITALS: BP 136/88; PULSE 71; TEMP 37; O2SAT 94
[2016-12-18] VITALS (9 sets, daily range): BP systolic 100–157; BP diastolic 66–101; PULSE 97–134; TEMP 36.7–38.9; O2SAT 92–96
--- NOTE | 2016-12-18 00:28 | CARDIOLOGY CONSULTATION ---
DATE OF CONSULTATION: 12/17/2016 CARDIOLOGY CONSULTATION REFERRING: Dr. Frances. PRIMARY CARE PHYSICIAN: Dr. Gordy Ferreira. HISTORY OF PRESENT ILLNESS: The patient is a 66-year-old male with past medical histories notable for chronic atrial fibrillation with poor tolerance of anticoagulation per review of records with anticoagulant stopped secondary to chronic hemoptysis, history of diabetes mellitus, hypertension, gout and prior cardiac catheterization in 2010 with very mild coronary atherosclerosis without obstructive disease. Underlying medical problems include chronic venous stasis per records, chronic lower extremity edema. The patient presents now noting having been admitted to [facility] after a fall down a flight of stairs at home. The patient has no recollection of the event. He underwent extensive evaluation, per , and patient while in hospital was concerned regarding possible areas of small stroke. Due to concerns of atrial fibrillation as the inciting cause, he was begun on anticoagulation with Eliquis and he was discharged to home. Of note, beta selvin dosage was substantially reduced on discharge, and previously been taking atenolol 100 mg per day and ____ metoprolol succinate 25 mg per day. He is referred now after presenting to the ER with ongoing complaints of weakness, fatigue, headache and lethargy. He had been taking Eliquis as anticoagulation ____ not taken Toprol on discharge. Today notes no sense of tachypalpitations, though heart rates are significantly elevated. He notes no worsening chest pain, cough, shortness of breath. Has chronic lower extremity stasis edema. Notes no melena, hematochezia, dysuria or hematuria. He has had no recent hemoptysis. ALLERGIES: CEFAZOLIN AND INFLUENZA VIRUS VACCINE. MEDICATIONS: Albuterol 2 puffs q.i.d., Eliquis 5 mg twice per day, baclofen 10 mg b.i.d., furosemide p.r.n. 20 mg, gabapentin 300 mg at bedtime, glimepiride, Amaryl 4 mg q.a.m., metoprolol succinate 25 mg daily, potassium chloride 10 mEq p.o. every day. PAST SURGICAL HISTORY: None other than surgical leg fracture. FAMILY HISTORY: Notable for heart disease in both parents. SOCIAL HISTORY: The patient is a resident of [place]. 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 He is a nonsmoker, does drink rare to moderate alcoholic beverages. PHYSICAL EXAMINATION: VITAL SIGNS: Heart rate is 100, blood pressure is 141/97. HEENT: Normocephalic, atraumatic. Nares without discharge. Throat was clear. NECK: Supple without thyromegaly, lymphadenopathy, JVD. LUNGS: Notable for diminished breath sounds diffusely. CARDIOVASCULAR: Irregular, irregular with no S3 gallop. ABDOMEN: Soft, obese, nontender. EXTREMITIES: Without cyanosis or clubbing. There are chronic stasis changes and edema in both knees. LABORATORY DATA: EKG reveals atrial fibrillation with rapid ventricular response, rate 111. On review of data since admission, MRI just performed today demonstrates evidence of a 10 mm cortically based hemorrhagic focus in the left parietal lobe area of prior contusion with the patient receiving left-sided head contusion with fall. IMPRESSION: A 66-year-old male referred for atrial fibrillation with elevated ventricular response. This appears to be in response to a reduction in dosing of patient's usual beta selvin from atenolol 100 mg per day to metoprolol succinate 25 mg per day, the patient notably not taking this as well. He was begun on anticoagulation on discharge from [facility]. MRI do, however, suggest hemorrhagic area of contusion at the area of prior fall and injury. RECOMMENDATIONS: Would discontinue Eliquis. Neurology or neurosurgical evaluation. Would restart beta selvin at higher dosing. Would begin metoprolol XL 50 mg twice per day. Data relayed to Dr. Frances.
[2016-12-18 06:03] LABS: HEMATOCRIT 35.4 % (42-52); MEAN CELL VOLUME 85.7 fL (80-100); MEAN CORPUSCULAR HEMOGLOBIN 27.4 pg (25-34); MEAN CORPUSCULAR HGB CONC 31.9 g/dl (32-36); MEAN PLATELET VOLUME 10.4 fL (7.4-10.4); PLATELET COUNT 113 K/uL (130-400); RED BLOOD COUNT 4.13 M/uL (4.7-6.1); WHITE BLOOD COUNT 5.55 K/uL (4.8-10.8)
[2016-12-18 06:37] LABS: BUN/CREATININE RATIO 18.3 (10-20); CALCIUM 8.1 mg/dl (8.5-10.1); CREATININE 0.89 mg/dl (0.60-1.40); MAGNESIUM 2.1 mg/dl (1.8-2.4); POTASSIUM 4.1 mmol/L (3.5-5.1)
--- NOTE | 2016-12-18 07:10 | DIAGNOSTIC IMAGING REPORT ---
HEAD WITHOUT CONTRAST (CT) CLINICAL HISTORY: 66 years-old Male presenting with Brain Hemorrhage . TECHNIQUE: Multidetector CT imaging of the head was performed without the use of intravenous contrast. IV contrast: None. A dose lowering technique was used consistent with the principles of ALARA (as low as reasonably achievable). COMPARISON: 12/17/2016. CT DOSE (mGy.cm): The estimated cumulative dose is 537.48 mGy.cm. FINDINGS: Geographic Analyst topogram: Unremarkable. Crowding of the foramen magnum, unchanged from prior and likely developmental, possibly indicating a Chiari malformation or normal variant. No hydrocephalus. The previously seen hyperdense contusion at the paramedian left parietal region is on a minimally apparent (series 2 image 25). Mild periventricular white matter hypoattenuation could suggest chronic small vessel ischemic change. No mass effect or midline shift. No acute territorial infarct. No new hemorrhage. No extra-axial fluid collection. Paranasal sinuses and mastoid air cells clear. Calvarium intact. Focal calcification along the outer table of the calvarium in the left frontal region, unchanged. IMPRESSION: 1. Interval evolution of left paramedian parietal lobe contusion. No acute intracranial pathology. No new hemorrhage. Electronically signed by: Rivera Villagomez M.D. 12/18/2016 7:09 AM Dictated Date/Time: 12/18/2016 7:05 AM
[2016-12-18] MEDS: METOPROLOL SUCC 25MG EXT REL TAB PO SCH (07:48)
[2016-12-18] MEDS: POTASSIUM CHLORIDE 10 MEQ TABCR PO SCH (07:48)
[2016-12-18] MEDS: GABAPENTIN 300 MG CAP PO SCH ×2 (07:48→20:28)
[2016-12-18] MEDS: ATORVASTATIN 40 MG TAB PO SCH (07:49)
[2016-12-18] MEDS: INSULIN ASPART 100 UNITS/ML 3 ML PEN SC SCH ×4 (07:49→20:29)
[2016-12-18] MEDS ORDERED: FUROSEMIDE 20 MG TAB PO SCH (09:00)
[2016-12-18] MEDS ORDERED: ASPIRIN 81 MG ECTAB PO SCH (09:00)
[2016-12-18] MEDS ORDERED: METOPROLOL SUCC 25MG EXT REL TAB PO SCH (09:00)
[2016-12-18] MEDS ORDERED: NURSING VERBAL MED ORDER ONE (09:15)
--- NOTE | 2016-12-18 10:25 | Cardiology Follow-Up ---
Subjective General Date of Service: Dec 18, 2016. Chief Complaint: Atrial fibrillation with a RVR Pt evaluation today including: conversation w/ family, physical exam, chart review, lab review, review of studies, review of inpatient medication list History of Present Illness Patient seen and examined. Sleeping. and son (visiting from [place] ) present at bedside. Son notes chronic alcohol use (last drink ~12 days ago) and recently observed issues with short term memory impairment. Data: Telemetry: Atrial fibrillation with a rapid ventricular response. No periods of sinus. No significant bradyarrhythmias or pauses. November 04, 2016 TTE Interpretation Summary ([facility], Dr. Vaughan): Ejection Fraction = 60-65%. There is moderate concentric left ventricular hypertrophy. Mild valvular aortic stenosis. There is mild mitral regurgitation. December 15, 2016 [facility] Normal systolic function. EF 55-060%. No stress induced chest pain. Negative EKG test for ischemia. No stress induced arrhythmias. Normal global LV systolic function resonse to stress. Normal stress study (at 100% age predicted maximum heart rate). Allergies Coded Allergies: Cefazolin (Verified Allergy, Unknown, UNKNOWN, 11/03/16) INFORMATION FROM [facility]. Cephalexin (Verified Allergy, Unknown, HIVES, 11/03/16) Influenza Virus Vaccine H5N1 (Verified Allergy, Unknown, LABELED A CHILD, UNSURE, 11/03/16) Uncoded Allergies: GUT SUTURE (Allergy, Intermediate, Swelling, 03/29/16) Social History Smoking Status: Never Smoker Hx Tobacco Use In Past Year?: No (quit at age 16) Hx Alcohol Use - Type And Amou: Yes (2 beers a day) Hx Substance Use - Type And Am: No Problem List Medical Problems: (1) Altered mental status Status: Acute (2) Back pain Status: Acute (3) CHF exacerbation Status: Acute (4) Elevated troponin Status: Acute (5) Hypoglycemia Status: Acute Physical Exam Vital Signs Last Vital Signs Documentation Date Time Temp Pulse Resp B/P (MAP) Pulse Ox O2 Delivery O2 Flow Rate FiO2 12/18/16 08:00 Room Air 12/18/16 06:57 36.7 102 20 120/79 (93) 94 12/17/16 12:40 2.0 Physical Exam Constitutional: General Apperance: overweight Level of Distress: acutely ill, chronically ill Neck: pertinent finding (Normal JVP) Lungs: Respiratory effort: no dyspnea Auscultation: breath sounds normal, no wheezing, no rales/crackles, no rhonchi Cardiovascular: Heart Auscultation: no rubs, no gallops, II/ JESUS, irregular rate rhythm (~ 100 bpm) Peripheral Pulses: Dorsalis Pedis Pulse: absent on the left, absent on the right Extremities: edema (2+ chronic indurated edema), pertinent finding (multiple wounds in various stages of healing on all extremities. ) Assessment and Plan Assessment and Plan 66-year-old male seen in cardiology consultation, evaluation of atrial fibrillation with a rapid ventricular response. RECOMMENDATIONS/PLAN: Increase metoprolol succinate to 50 mg twice a day for additional rate control. No anticoagulation. Patient with multiple contraindications to anticoagulation including prior hemoptysis, ambulatory dysfunction, frequent falls, and now hemorrhagic area of contusion. Laboratory Results Last 24 Hours Test 12/17/16 13:48 12/17/16 14:33 12/17/16 16:28 12/17/16 16:52 Bedside Glucose 69 mg/dl 110 mg/dl 109 mg/dl Creatine Kinase MB 1.1 ng/ml Creatine Kinase MB Ratio Troponin I 0.039 ng/ml Test 12/17/16 19:46 12/17/16 19:50 12/18/16 00:53 12/18/16 05:41 Bedside Glucose 94 mg/dl Urine Color DK YELLOW Urine Appearance CLEAR Urine pH 7.0 Urine Specific [place] 1.023 Urine Protein TRACE Urine Glucose (UA) NEG Urine Ketones NEG Urine Occult Blood NEG Urine Nitrite NEG Urine Bilirubin NEG Urine Urobilinogen POS Urine Leukocyte Esterase SMALL Urine WBC (Auto) 10-30 /hpf Urine RBC (Auto) 0-4 /hpf Urine Hyaline Casts (Auto) 1-5 /lpf Urine Epithelial Cells (Auto) 10-20 /lpf Urine Bacteria (Auto) NEG Creatine Kinase MB 1.2 ng/ml Creatine Kinase MB Ratio Troponin I 0.045 ng/ml White Blood Count 5.55 K/uL Red Blood Count 4.13 M/uL Hemoglobin 11.3 g/dL Hematocrit 35.4 % Mean Corpuscular Volume 85.7 fL Mean Corpuscular Hemoglobin 27.4 pg Mean Corpuscular Hemoglobin Concent 31.9 g/dl RDW Standard Deviation 48.7 fL RDW Coefficient of Variation 15.4 % Platelet Count 113 K/uL Mean Platelet Volume 10.4 fL Sodium Level 144 mmol/L Potassium Level 4.1 mmol/L Chloride Level 113 mmol/L Carbon Dioxide Level 23 mmol/L Anion Gap 8.0 mmol/L Blood Urea Nitrogen 16 mg/dl Creatinine 0.89 mg/dl Est Creatinine Clear Calc Drug Dose 98.5 ml/min Estimated GFR () 103.3 Estimated GFR (Non- 89.1 BUN/Creatinine Ratio 18.3 Random Glucose 65 mg/dl Calcium Level 8.1 mg/dl Magnesium Level 2.1 mg/dl Test 12/18/16 07:18 12/18/16 07:44 12/18/16 08:34 Bedside Glucose 56 mg/dl 65 mg/dl 107 mg/dl
--- NOTE | 2016-12-18 11:08 | Progress Note ---
Internal Med Progress Note Date of Service: Dec 18, 2016. Provider Documentation: SUBJECTIVE: Seen and examined at bedside States feeling tired Denies any CP/SOB/Dizziness/change in vision Headache better No new complains Family at bedside Hypoglycemic this morning OBJECTIVE: Vital Signs-as noted below General Appearance: WD/WN, no apparent distress, + pertinent finding (Lethargic ) Head: normocephalic, atraumatic Eyes: normal inspection, PERRL, EOMI ENT: normal ENT inspection, hearing grossly normal Neck: supple, no JVD Respiratory/Chest: chest non-tender, lungs clear, no accessory muscle use, + decreased breath sounds Cardiovascular: no murmur, + irregularly irregular, + pertinent finding (2+ b/ l LE Edema) Abdomen/GI: normal bowel sounds, non tender, soft Back: normal inspection Extremities/Musculoskelatal: + pedal edema, + pertinent finding (B/L LE chronic venous stasis changes) 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 ASSESSMENT & PLAN: 10 mm cortically-based hemorrhagic focus of the left parietal lobe H/O recent concussion MRI brain: as below Aspirin, Eliquis discontinued Neuro checks Neurology consulted Repeat CT head: Stable Monitor Generalized weakness/Lethargy: Likely debility from comorbidities PT/OT May benefit from rehab placement Afib with RVR: Known H/O of afib Continue Metoprolol Lopressor PRN Poor candidate for anticoagulation given H/O prior hemoptysis, frequent falls, and hemorrhagic contusion. Monitor in Tele Appreciate Cardiology Input Elevated Troponin: Likely demand ischemia cardiac enzymes trended down Denies angina symptoms DM II: hold oral diabetic meds Last A1c:9.5 in Oct ISS, Accu checks, Diabetic diet Hold Lantus as having hypoglycemic episodes HTN: stable continue home meds Non-occlusive CAD continue Lipitor Diastolic CHF: Continue Lasix COPD: No signs of exacerbation: Nebs PRN Chronic Venous stasis stable DVT Px: SCDs: Code Status: Full Code Disposition: Monitor In Tele Will need Rehab placement PROCEDURES: MRI Brain: 1. 10 mm cortically-based hemorrhagic focus of the left parietal lobe near the vertex redemonstrated without significant change of signal intensity on the postcontrast images suggesting acute posttraumatic cortical contusion without enlargement from the previous study. No new or additional foci identified. Follow-up recommended. 2. Atrophy with mild background chronic microvascular ischemic changes. Vital Signs: Date Time Temp Pulse Resp B/P (MAP) Pulse Ox O2 Delivery O2 Flow Rate FiO2 12/18/16 08:00 Room Air 12/18/16 06:57 36.7 102 20 120/79 (93) 94 Room Air 12/18/16 04:00 Room Air 12/18/16 03:46 36.8 102 20 111/66 (81) 92 Room Air 12/18/16 00:00 Room Air 12/17/16 23:40 37.0 71 20 136/88 (104) 94 Room Air 12/17/16 20:00 Room Air 12/17/16 19:27 36.8 109 20 113/72 (86) 94 Room Air 12/17/16 16:00 Room Air 12/17/16 14:54 36.8 114 18 141/97 (112) 96 Room Air 12/17/16 12:40 36.8 111 20 138/90 (106) 97 Humidified Oxygen 2.0 12/17/16 11:10 100 Room Air Lab Results: Results Past 24 Hours Test 12/17/16 13:48 12/17/16 14:33 12/17/16 16:28 12/17/16 16:52 Range/Units Bedside Glucose 69 110 109 70-99 mg/dl Creatine Kinase MB 1.1 0.5-3.6 ng/ml Creatine Kinase MB Ratio 0-3.0 Troponin I 0.039 0-0.045 ng/ml Test 12/17/16 19:46 12/17/16 19:50 12/18/16 00:53 12/18/16 05:41 Range/Units Bedside Glucose 94 70-99 mg/dl Urine Color DK YELLOW Urine Appearance CLEAR CLEAR Urine pH 7.0 4.5-7.5 Urine Specific [place] 1.023 1.000-1.030 Urine Protein TRACE NEG Urine Glucose (UA) NEG NEG Urine Ketones NEG NEG Urine Occult Blood NEG NEG Urine Nitrite NEG NEG Urine Bilirubin NEG NEG Urine Urobilinogen POS NEG Urine Leukocyte Esterase SMALL NEG Urine WBC (Auto) 10-30 0-5 /hpf Urine RBC (Auto) 0-4 0-4 /hpf Urine Hyaline Casts (Auto) 1-5 0-5 /lpf Urine Epithelial Cells (Auto) 10-20 0-5 /lpf Urine Bacteria (Auto) NEG NEG Creatine Kinase MB 1.2 0.5-3.6 ng/ml Creatine Kinase MB Ratio 0-3.0 Troponin I 0.045 0-0.045 ng/ml White Blood Count 5.55 4.8-10.8 K/uL Red Blood Count 4.13 4.7-6.1 M/uL Hemoglobin 11.3 14.0-18.0 g/dL Hematocrit 35.4 42-52 % Mean Corpuscular Volume 85.7 80-100 fL Mean Corpuscular Hemoglobin 27.4 25-34 pg Mean Corpuscular Hemoglobin Concent 31.9 32-36 g/dl RDW Standard Deviation 48.7 36.4-46.3 fL RDW Coefficient of Variation 15.4 11.5-14.5 % Platelet Count 113 130-400 K/uL Mean Platelet Volume 10.4 7.4-10.4 fL Sodium Level 144 136-145 mmol/L Potassium Level 4.1 3.5-5.1 mmol/L Chloride Level 113 98-107 mmol/L Carbon Dioxide Level 23 21-32 mmol/L Anion Gap 8.0 3-11 mmol/L Blood Urea Nitrogen 16 7-18 mg/dl Creatinine 0.89 0.60-1.40 mg/dl Est Creatinine Clear Calc Drug Dose 98.5 ml/min Estimated GFR () 103.3 Estimated GFR (Non- 89.1 BUN/Creatinine Ratio 18.3 10- Random Glucose 65 70-99 mg/dl Calcium Level 8.1 8.5-10.1 mg/dl Magnesium Level 2.1 1.8-2.4 mg/dl Test 12/18/16 07:18 12/18/16 07:44 12/18/16 08:34 12/18/16 10:25 Range/Units Bedside Glucose 56 65 107 70-99 mg/dl
--- NOTE | 2016-12-18 14:09 | Neurology Consultation ---
Neurology Consultation Date of Consultation: Dec 18, 2016. Attending Physician: Александр Kemp MD Primary Care Physician: Ga Ferreira M.D.(KILEY) Reason for Consultation: hemorrhagic focus of the L parietal lobe History of Present Illness Source: patient, family, hospital records Michael is a 66 year old male with a PMH of DM II, A fib, HTN, non-occlusive CAD , Diastolic CHF, COPD, Chronic Venous stasis. He was flown to [facility] after a fall down stairs for possible CVA and concussion after encountering head trauma. His son is in the room and states the original fall down the stairs was unwitnessed and he was found with a sandwich lying beside him at the bottom of the stairs. After being discharged from [facility] he was home 2 days. He was tired and sat down in a chair and then couldn't get up. He uses a walker to ambulate around the house. CT head showed no acute changes. He is on elquis for cardiovascular issues and was in afib with RVR in the ED. Denies CP/SOB/abdominal pain, change in bowel/bladder habits/fever, chills night sweats. + pain in leg and back with movement His son is in the room and reports he is a heavy drinker but he has not had anything to drink since the fall. 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 The son thinks his memory and overall physical health has declined over the past year. he was transported to [facility] because it was the closest to his home. Past Medical/Surgical History Medical Problems: (1) Altered mental status Status: Acute (2) Back pain Status: Acute (3) CHF exacerbation Status: Acute (4) Elevated troponin Status: Acute (5) Hypoglycemia Status: Acute Social History Smoking Status: Never smoker Alcohol Use: heavy Drug Use: none Marital Status: Housing Status: lives with family Occupation Status: employed Allergies Coded Allergies: Cefazolin (Verified Allergy, Intermediate, UNKNOWN, 12/18/16) INFORMATION FROM [facility]. Cephalexin (Verified Allergy, Intermediate, HIVES, 12/18/16) Collagen (Verified Allergy, Intermediate, Gut suture - swelling, 12/18/16) Influenza Virus Vaccine H5N1 (Verified Allergy, Unknown, LABELED A CHILD, UNSURE, 11/03/16) Current Inpatient Medications Current Inpatient Medications Medications (Trade) Dose Ordered Sig/Van Route Start Time Stop Time Status Last Admin Dose Admin Acetaminophen (Tylenol Tab) 650 mg Q4H PRN PO 12/17/16 10:45 01/16/17 10:44 Ondansetron HCl (Zofran Inj) 4 mg Q6H PRN IV 12/17/16 10:45 01/16/17 10:44 Nitroglycerin (Nitrostat Tab) 0.4 mg UD PRN SL 12/17/16 10:45 01/16/17 10:44 Insulin Glargine (Lantus Solostar Pen) 5 units Q12 SC 12/17/16 21:00 01/16/17 20:59 Future Hold 12/17/16 20:48 5 UNITS Insulin Aspart (novoLOG ASPART) SLIDING SCALE If C... ACHS SC 12/17/16 11:00 01/16/17 10:59 Glucose (Glucose 40% Gel) 15-30 GRAMS 15 GRAMS... UD PRN PO 12/17/16 11:00 01/16/17 10:59 Glucose (Glucose Chew Tab) 4-8 Tablets 4 Tabl... UD PRN PO 12/17/16 11:00 01/16/17 10:59 Dextrose (Dextrose 50% 50ML Syringe) 25-50ML OF 50% DW IV FOR... UD PRN IV 12/17/16 11:00 01/16/17 10:59 Glucagon (Glucagon Inj) 1 mg UD PRN SQ 12/17/16 11:00 01/16/17 10:59 Baclofen (Lioresal Tab) 10 mg BID PRN PO 12/17/16 11:00 01/16/17 10:59 12/17/16 14:27 10 MG Furosemide (Lasix Tab) 20 mg DAILY PO 12/18/16 09:00 01/17/17 08:59 12/18/16 07:49 20 MG Gabapentin (Neurontin Cap) 300 mg BID PO 12/17/16 21:00 01/16/17 20:59 12/18/16 07:48 300 MG Acetaminophen/ Hydrocodone Bitart (Amberson 5/325 Tab) 1 tab Q4 PRN PO 12/17/16 11:00 12/31/16 10:59 12/17/16 17:09 1 TAB Potassium Chloride (Klor-Con M10) 10 meq DAILY PO 12/18/16 09:00 01/17/17 08:59 12/18/16 07:48 10 MEQ Metoprolol Tartrate (Lopressor Iv) 2.5 mg Q6 PRN IV 12/17/16 11:15 01/16/17 11:14 Levalbuterol (Xopenex 0.63 Mg/ 3 Ml Neb) 0.63 mg Q6R PRN INH 12/17/16 11:15 01/16/17 11:14 Atorvastatin Calcium (Lipitor Tab) 40 mg QAM PO 12/18/16 09:00 01/17/17 08:59 12/18/16 07:49 40 MG Gadobutrol (Gadavist) 10 mmol UD PRN IV 12/17/16 18:45 12/21/16 18:44 Metoprolol Succinate (Toprol Xl Tab) 50 mg BID PO 12/18/16 21:00 01/17/17 08:59 Physical Exam Vital Signs (Past 24 Hrs): Date Time Temp Pulse Resp B/P (MAP) Pulse Ox O2 Delivery O2 Flow Rate FiO2 12/18/16 12:00 Room Air 12/18/16 11:32 36.8 104 20 135/88 (104) 94 Room Air 12/18/16 08:00 Room Air 12/18/16 06:57 36.7 102 20 120/79 (93) 94 Room Air 12/18/16 04:00 Room Air 12/18/16 03:46 36.8 102 20 111/66 (81) 92 Room Air 12/18/16 00:00 Room Air 12/17/16 23:40 37.0 71 20 136/88 (104) 94 Room Air 12/17/16 20:00 Room Air 12/17/16 19:27 36.8 109 20 113/72 (86) 94 Room Air 12/17/16 16:00 Room Air 12/17/16 14:54 36.8 114 18 141/97 (112) 96 Room Air Physical Exam: Constitutional: appearance nourished Ears, Nose, Mouth and Throat: mucous membranes moist, no injection and skin normal, eyes normal (eye are matted) Cardiovascular: course breath sound Respiratory: irregular Musculoskeletal: 2+ peripheral edema and unable to palpate pulses due to edema Skin: multiple scabbed areas with different degrees of healing Eyes: extraocular muscles intact (EOMI) and pupils equal, round and reactive to light (PERRL) NEUROLOGIC EXAMINATION: Mental status: Alert and interactive Oriented to full date and location, thinks he is in [facility], but does know the year 2017, Brooklynn is president, knows his son name is Arpan Oriented to person Speech fluent with no evidence of aphasia Cranial Nerves smile eye brow raise symmetric Reflexes: decreased reflexes bilaterally LE. Sensory: GT proprioception absent, vibration/cool decreased to knees Coordination: finger to nose without bi pass Gait/Stance: Posture sitting up in bed Motor: Negative for pronator drift of out stretched arms with eyes closed. Strength: biceps triceps hand fine arts chair 5/5 bilaterally, hip flex right 5/5, left 3/5 plantar flex right 5/5 left 4/5 Laboratory Results Past 24 Hours: 12/18/16 05:41 12/18/16 05:41 Test 12/17/16 19:50 12/18/16 00:53 12/18/16 05:41 12/18/16 10:57 Urine Color DK YELLOW Urine Appearance CLEAR (CLEAR) Urine pH 7.0 (4.5-7.5) Urine Specific Wilson 1.023 (1.000-1.030) Urine Protein TRACE (NEG) Urine Glucose (UA) NEG (NEG) Urine Ketones NEG (NEG) Urine Occult Blood NEG (NEG) Urine Nitrite NEG (NEG) Urine Bilirubin NEG (NEG) Urine Urobilinogen POS (NEG) Urine Leukocyte Esterase SMALL (NEG) Urine WBC (Auto) 10-30 /hpf (0-5) Urine RBC (Auto) 0-4 /hpf (0-4) Urine Hyaline Casts (Auto) 1-5 /lpf (0-5) Urine Epithelial Cells (Auto) 10-20 /lpf (0-5) Urine Bacteria (Auto) NEG (NEG) Creatine Kinase MB 1.2 ng/ml (0.5-3.6) Creatine Kinase MB Ratio (0-3.0) Troponin I 0.045 ng/ml (0-0.045) Red Blood Count 4.13 M/uL (4.7-6.1) Mean Corpuscular Volume 85.7 fL (80-100) Mean Corpuscular Hemoglobin 27.4 pg (25-34) Mean Corpuscular Hemoglobin Concent 31.9 g/dl (32-36) RDW Standard Deviation 48.7 fL (36.4-46.3) RDW Coefficient of Variation 15.4 % (11.5-14.5) Mean Platelet Volume 10.4 fL (7.4-10.4) Anion Gap 8.0 mmol/L (3-11) Est Creatinine Clear Calc Drug Dose 98.5 ml/min Estimated GFR () 103.3 Estimated GFR (Non- 89.1 BUN/Creatinine Ratio 18.3 (10-20) Calcium Level 8.1 mg/dl (8.5-10.1) Magnesium Level 2.1 mg/dl (1.8-2.4) Test 12/18/16 11:18 Bedside Glucose 90 mg/dl (70-99) Imaging CT head- , there is a focal area of increased attenuation involving the left parietal lobe near the vertex, nicely seen on image 26 of series 2 measuring approximately 9 mm transversely suspicious for a small cortical contusion or parenchymal hematoma. Correlate with MRI brain of same day. MRI brain without- 10 mm cortically based hemorrhagic focus of the left parietal lobe near the vertex suggests acute cortical contusion in the setting of recent fall while on anticoagulant therapy. Follow-up study recommended with IV contrast to exclude enhancing lesion within this distribution which is thought to be less likely. Atrophy with background of mild chronic microvascular ischemic changes. MRI brain with- 10 mm cortically-based hemorrhagic focus of the left parietal lobe near the vertex redemonstrated without significant change of signal intensity on the postcontrast images suggesting acute posttraumatic cortical contusion without enlargement from the previous study. No new or additional foci identified. Follow-up recommended. Atrophy with mild background chronic microvascular ischemic changes. CT head repeat -Interval evolution of left paramedian parietal lobe contusion. No acute intracranial pathology. No new hemorrhage. Impression 66 year old male with multiple medical issues with L parietal contusion stable- memory issues (chronic) Plan 1. cardiology increased Metoprolol for rate control is holding anticoagulation due to multiple medial issues including hemoptysis, ambulatory dysfunction, frequent falls, and now hemorrhagic area of contusion. 2. medical management to correct metabolic issues 3. drinking cessation needed- son concern the original fall was related to drinking 4. folate and RPR for causes for memory issues, TSH B1 order 5. MRI with and without - atrophy also noted 6. peripheral neuropathy would contribute to falls 7. will likely need rehab prior to return home- PT/OT for evaluation 8. DM, HTN optimize 9. Eliqus and aspirin are currently on hold I have seen and discussed above patient with Dr Jose Luo, neurology I have seen this man reviewed his images and discussed his case with dr kemp and shira Banda fall with closed head trauma 10 days ago and now declining status at home with post concussive lethargy and imaging consistent with a small bleed that in combination with hemoptysis etc had taken eliquis off his med list for the near future he is lethargic and a bit vague and evasive but oriented etc and suspect that his etoh use is at least in part responsible for the initial fall coupled with his polyneuropathy and gait instability and perhaps some of the persistent encephalopathy labs as above would check ammonia too and follow up on imaging as per the neurosurgery recommendations yesterday for now agree he needs pt ot and likely rehab eeg normal to at most skightly slow Will follow up tomorrow Rose Luo MD
[2016-12-18] MEDS: BACLOFEN 10 MG TAB PO PRN (15:49)
[2016-12-18] MEDS ORDERED: CIPROFLOXACIN HCL 0.3% OP SOLN 2.5 ML BTL OP SCH (17:15)
[2016-12-18] MEDS: CIPROFLOXACIN HCL 0.3% OP SOLN 2.5 ML BTL OP SCH ×2 (17:59→20:28)
[2016-12-18] MEDS: ACETAMINOPHEN 325 MG TAB PO PRN (18:12)
[2016-12-18] MEDS ORDERED: METOPROLOL SUCC 50MG EXT REL TAB PO ONE (19:24)
[2016-12-18] MEDS ORDERED: LORAZEPAM 2 MG/ML 1 ML VIAL IV PRN (19:30)
[2016-12-18] MEDS ORDERED: THIAMINE HCL 100 MG/ML 2 ML VIAL IV STA (19:44)
[2016-12-18 19:57] LABS: BASO % 0.8 %; BASO ABS # 0.05 K/uL (0-0.2); COMPLETE YES; EOS % 1.8 %; HEMATOCRIT 33.7 % (42-52); IG% 0.3 %; LYMPH % 14.1 %; LYMPH ABS # 0.86 K/uL (1.2-3.4); MEAN CORPUSCULAR HEMOGLOBIN 27.2 pg (25-34); MEAN CORPUSCULAR HGB CONC 32.3 g/dl (32-36); MEAN PLATELET VOLUME 10.1 fL (7.4-10.4); MONO % 7.2 %; NEUT % 75.8 %; PLATELET COUNT 116 K/uL (130-400); RED BLOOD COUNT 4.01 M/uL (4.7-6.1); WHITE BLOOD COUNT 6.08 K/uL (4.8-10.8)
[2016-12-18] MEDS ORDERED: THIAMINE HCL INJ 100 MG in SYRINGE 9 ML IV ONE (20:00)
[2016-12-18] MEDS ORDERED: MULTIVITAMIN TAB PO ONE (20:00)
--- NOTE | 2016-12-18 20:17 | DIAGNOSTIC IMAGING REPORT ---
CHEST ONE VIEW PORTABLE CLINICAL HISTORY: Fever. COMPARISON STUDY: Chest radiograph December 17, 2016. FINDINGS: No pneumothorax is present. A small right pleural effusion is unchanged. Pulmonary edema has slightly improved. There is persistent hazy right basilar opacity. Moderate cardiomegaly is unchanged. IMPRESSION: 1. Mild pulmonary edema, slightly improved since prior exam. 2. Persistent small right pleural effusion with right basilar opacity which could reflect atelectasis or consolidation. Electronically signed by: Shun Chávez M.D. 12/18/2016 8:16 PM Dictated Date/Time: 12/18/2016 8:15 PM
[2016-12-18 20:21] LABS: CALCIUM 8.3 mg/dl (8.5-10.1); CREATININE 1.1 mg/dl (0.60-1.40); POTASSIUM 4.3 mmol/L (3.5-5.1)
[2016-12-18 20:30] LABS: MANUAL MICROSCOPIC REQUIRED? NO; REVIEW REQ? NO; URINE APPEARANCE CLEAR (CLEAR); URINE BILIRUBIN NEG (NEG); URINE COLOR DK YELLOW; URINE NITRITE NEG (NEG); URINE PH 6.5 (4.5-7.5); UROBILINOGEN POS (NEG); ZZUR CULT IF INDIC CLEAN CATCH YES
[2016-12-18] MEDS ORDERED: ALBUMIN HUMAN 25% 12.5 GM/50 ML VIAL IV ONE (20:45)
[2016-12-18] MEDS ORDERED: METOPROLOL SUCC 50MG EXT REL TAB PO SCH (21:00)
--- NOTE | 2016-12-18 22:37 | Progress Note ---
Internal Med Progress Note Date of Service: Dec 18, 2016. Provider Documentation: Patient's daughter in law from [place] updated of developments regarding her father's care over the phone. Patient agreeable to disclosing info to her. She requests periodic updates from providers. Miss Ronna Ugarte RN at contact number [phone]. Vital Signs: Date Time Temp Pulse Resp B/P (MAP) Pulse Ox O2 Delivery O2 Flow Rate FiO2 12/19/16 04:00 36.7 95 20 117/80 (92) 92 Room Air 12/19/16 03:56 96 Room Air 12/19/16 00:00 96 Room Air 12/19/16 00:00 37.3 97 126/87 (100) 12/18/16 23:47 37.5 97 18 129/88 (102) 96 Room Air 12/18/16 22:19 37.1 104 18 100/67 (78) 95 12/18/16 21:32 37.1 12/18/16 20:00 Room Air 12/18/16 19:43 38.9 112 18 102/71 (81) 92 Room Air 12/18/16 17:36 134 157/101 12/18/16 17:34 38.9 134 157/101 (119) 12/18/16 16:00 Room Air 12/18/16 14:50 36.9 104 20 126/82 (97) 95 Room Air 12/18/16 12:00 Room Air 12/18/16 11:32 36.8 104 20 135/88 (104) 94 Room Air 12/18/16 08:00 Room Air Lab Results: Results Past 24 Hours Test 12/18/16 07:18 12/18/16 07:44 12/18/16 08:34 12/18/16 10:57 Range/Units Bedside Glucose 56 65 107 70-99 mg/dl Test 12/18/16 11:18 12/18/16 14:08 12/18/16 16:17 12/18/16 18:54 Range/Units Bedside Glucose 90 120 70-99 mg/dl Folate 8.65 >5.38 ng/mL Rapid Plasma Reagin NONREACTIVE NONREACT Lactic Acid Level 1.4 0.4-2.0 mmol/L Procalcitonin 0.05 0-0.5 ng/ml Test 12/18/16 19:43 12/18/16 19:58 12/18/16 20:13 12/19/16 05:47 Range/Units White Blood Count 6.08 4.53 4.8-10.8 K/uL Red Blood Count 4.01 3.98 4.7-6.1 M/uL Hemoglobin 10.9 10.8 14.0-18.0 g/dL Hematocrit 33.7 33.8 42-52 % Mean Corpuscular Volume 84.0 84.9 80-100 fL Mean Corpuscular Hemoglobin 27.2 27.1 25-34 pg Mean Corpuscular Hemoglobin Concent 32.3 32.0 32-36 g/dl Platelet Count 116 104 130-400 K/uL Mean Platelet Volume 10.1 9.6 7.4-10.4 fL Neutrophils (%) (Auto) 75.8 % Lymphocytes (%) (Auto) 14.1 % Monocytes (%) (Auto) 7.2 % Eosinophils (%) (Auto) 1.8 % Basophils (%) (Auto) 0.8 % Neutrophils # (Auto) 4.60 1.4-6.5 K/uL Lymphocytes # (Auto) 0.86 1.2-3.4 K/uL Monocytes # (Auto) 0.44 0.11-0.59 K/uL Eosinophils # (Auto) 0.11 0-0.5 K/uL Basophils # (Auto) 0.05 0-0.2 K/uL RDW Standard Deviation 47.5 47.3 36.4-46.3 fL RDW Coefficient of Variation 15.3 15.3 11.5-14.5 % Immature Granulocyte % (Auto) 0.3 % Immature Granulocyte # (Auto) 0.02 0.00-0.02 K/uL Activated Partial Thromboplast Time 27.2 21.0-31.0 SECONDS Partial Thromboplastin Ratio 1.0 Sodium Level 140 141 136-145 mmol/L Potassium Level 4.3 3.9 3.5-5.1 mmol/L Chloride Level 111 111 98-107 mmol/L Carbon Dioxide Level 20 21 21-32 mmol/L Anion Gap 9.0 9.0 3-11 mmol/L Blood Urea Nitrogen 19 17 7-18 mg/dl Creatinine 1.10 0.86 0.60-1.40 mg/dl Est Creatinine Clear Calc Drug Dose 79.7 103.0 ml/min Estimated GFR () 80.6 104.7 Estimated GFR (Non- 69.6 90.4 BUN/Creatinine Ratio 17.0 19.4 10-20 Random Glucose 165 102 70-99 mg/dl Calcium Level 8.3 8.5 8.5-10.1 mg/dl Magnesium Level 2.0 1.9 1.8-2.4 mg/dl Total Bilirubin 1.5 0.2-1 mg/dl Aspartate Amino Transf (AST/SGOT) 17 15-37 U/L Alanine Aminotransferase (ALT/SGPT) 23 12-78 U/L Alkaline Phosphatase 122 45-117 U/L Total Protein 5.5 6.4-8.2 gm/dl Albumin 2.7 3.4-5.0 gm/dl Globulin 2.8 2.5-4.0 gm/dl Albumin/Globulin Ratio 1.0 0.9-2 Urine Color DK YELLOW Urine Appearance CLEAR CLEAR Urine pH 6.5 4.5-7.5 Urine Specific [place] 1.020 1.000-1.030 Urine Protein NEG NEG Urine Glucose (UA) NEG NEG Urine Ketones NEG NEG Urine Occult Blood NEG NEG Urine Nitrite NEG NEG Urine Bilirubin NEG NEG Urine Urobilinogen POS NEG Urine Leukocyte Esterase SMALL NEG Urine WBC (Auto) 10-30 0-5 /hpf Urine RBC (Auto) 0-4 0-4 /hpf Urine Hyaline Casts (Auto) 1-5 0-5 /lpf Urine Epithelial Cells (Auto) 10-20 0-5 /lpf Urine Bacteria (Auto) NEG NEG Bedside Glucose 158 70-99 mg/dl Ammonia 47.0 11-32 umol/L Microbiology Results 12/18/16 Blood Culture, Received Pending 12/18/16 Blood Culture, Received Pending 12/18/16 MRSA DNA Surveillance Screen - Final, Complete Specimen Negative for MRSA by DNA Probe 12/18/16 Urine Culture, Received Pending
[2016-12-19] VITALS (10 sets, daily range): BP systolic 93–128; BP diastolic 56–88; PULSE 87–130; TEMP 36.5–38; O2SAT 92–97
[2016-12-19 05:54] LABS: HEMATOCRIT 33.8 % (42-52); MEAN CELL VOLUME 84.9 fL (80-100); MEAN CORPUSCULAR HEMOGLOBIN 27.1 pg (25-34); MEAN PLATELET VOLUME 9.6 fL (7.4-10.4); PLATELET COUNT 104 K/uL (130-400); RED BLOOD COUNT 3.98 M/uL (4.7-6.1); WHITE BLOOD COUNT 4.53 K/uL (4.8-10.8)
[2016-12-19 06:29] LABS: BUN/CREATININE RATIO 19.4 (10-20); CALCIUM 8.5 mg/dl (8.5-10.1); CREATININE 0.86 mg/dl (0.60-1.40); MAGNESIUM 1.9 mg/dl (1.8-2.4); POTASSIUM 3.9 mmol/L (3.5-5.1)
--- NOTE | 2016-12-19 06:56 | DIAGNOSTIC IMAGING REPORT ---
L VENOUS DOPPLER UPR EXT UNIL CLINICAL HISTORY: 66 years-old Male presenting with LUE swelling. TECHNIQUE: Real-time grayscale and color and spectral Doppler ultrasound imaging of the veins of the left upper extremity was performed. Compression and augmentation were also utilized. COMPARISON: None. FINDINGS: Left: Internal jugular vein: Patent. Subclavian vein: Patent. Axillary vein: Patent. Basilic vein: Patent. Brachial vein: Patent. Cephalic vein: Patent. Radial vein: Patent. Ulnar vein: Patent. Other: Subcutaneous edema evidenced by dilated lymphatics. IMPRESSION: No evidence of deep venous thrombosis. Electronically signed by: Rivera Villagomez M.D. 12/19/2016 6:55 AM Dictated Date/Time: 12/19/2016 6:54 AM
--- NOTE | 2016-12-19 07:04 | ELECTROENCEPHALOGRAPH REPORT ---
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 ELECTROENCEPHALOGRAM DIAGNOSIS: Essentially normal during wakefulness. DESCRIPTION OF TRACING: This EEG was done as a bedside recording and is of good technical quality. A simultaneous video analysis of patient movement and behavior is obtained. No stimulus parameters were utilized such as photic stimulation or hyperventilation and drowsiness and light sleep were not recorded. Under these conditions, there is evidence for a background rhythm in the lower alpha range, about 9 Hz of maximum frequency and 30 microvolts of maximum amplitude. This is maximum in posterior head regions and bilaterally symmetrical. Polymorphic mid frequency theta activity is seen over all head regions without focal or regional predominance. Anterior head region maximum bilaterally symmetrical low voltage fast activity in the beta range is present. At no time during the waking tracing is there evidence for potentially epileptogenic activity in the form of polyspike or spike wave bursts, focal sharp waves or focal spikes. INTERPRETATION: This EEG is essentially normal during wakefulness without evidence for focal or generalized encephalopathy and without evidence for potentially epileptogenic activity.
--- NOTE | 2016-12-19 07:12 | DIAGNOSTIC IMAGING REPORT ---
BILATERAL LOWER EXTREMITY VENOUS DOPPLER HISTORY: Bilateral leg swelling COMPARISON STUDY: Left venous Doppler 12/19/2016. FINDINGS: There is normal compressibility, flow, and augmentation within the bilateral lower extremity deep venous systems. IMPRESSION: No DVT within the right or left lower extremity. Electronically signed by: Aman Sullivan M.D. 12/19/2016 7:11 AM Dictated Date/Time: 12/19/2016 7:10 AM
[2016-12-19] MEDS: HYDROCODONE/ACETAMOPHEN 5/325MG TAB PO PRN (07:57)
[2016-12-19] MEDS: INSULIN ASPART 100 UNITS/ML 3 ML PEN SC SCH ×4 (08:35→20:35)
[2016-12-19] MEDS: CIPROFLOXACIN HCL 0.3% OP SOLN 2.5 ML BTL OP SCH ×4 (08:39→20:36)
[2016-12-19] MEDS: LACTULOSE SYRUP 30 GM/45 ML UDP PO SCH ×3 (08:40→20:34)
--- NOTE | 2016-12-19 08:40 | Progress Note ---
Medicine Progress Note Date & Time of Visit: Dec 19, 2016 at 08:29. Subjective patient seen resting in bed, in good spirits, oriented x 2 states he has a frontal headache today, moderate, reminiscent of usual sinus headaches denies rhinorrhea, fever/chills denies any new focal neuro deficit no chest pain, dizziness, palpitations denies other symptoms Objective Last 8 Hrs Date Time Temp Pulse Resp B/P (MAP) Pulse Ox O2 Delivery O2 Flow Rate FiO2 12/19/16 07:10 37.0 87 24 93/56 (68) 93 Room Air 12/19/16 04:00 36.7 95 20 117/80 (92) 92 Room Air 12/19/16 03:56 96 Room Air Physical Exam: General- oriented x 2, not in distress, speaks in sentences with no effort Head- atraumatic Eyes- PERRL, EOMI, anicteric ENT- oropharynx clear Neck- supple, no JVD, no adenopathy, no thyromegaly Lungs- clear to auscultation bilaterally Heart- regular rhythm; no murmur, normal rate Abdomen- normal bowel sounds, soft, nontender Extremities- mild pretibial edema, no calf tenderness; peripheral pulses intact Neuro- alert, oriented x 2; PERRL, EOMI; no facial palsy; no dysarthria; motor 5 /5 bilaterally; sensation 100% on all extremities Skin- warm & dry Laboratory Results: Last 24 Hours Test 12/18/16 08:34 12/18/16 10:57 12/18/16 11:18 12/18/16 14:08 Bedside Glucose 107 mg/dl 90 mg/dl Folate 8.65 ng/mL Rapid Plasma Reagin NONREACTIVE Test 12/18/16 16:17 12/18/16 18:54 12/18/16 19:43 12/18/16 19:58 Bedside Glucose 120 mg/dl Lactic Acid Level 1.4 mmol/L Procalcitonin 0.05 ng/ml White Blood Count 6.08 K/uL Red Blood Count 4.01 M/uL Hemoglobin 10.9 g/dL Hematocrit 33.7 % Mean Corpuscular Volume 84.0 fL Mean Corpuscular Hemoglobin 27.2 pg Mean Corpuscular Hemoglobin Concent 32.3 g/dl Platelet Count 116 K/uL Mean Platelet Volume 10.1 fL Neutrophils (%) (Auto) 75.8 % Lymphocytes (%) (Auto) 14.1 % Monocytes (%) (Auto) 7.2 % Eosinophils (%) (Auto) 1.8 % Basophils (%) (Auto) 0.8 % Neutrophils # (Auto) 4.60 K/uL Lymphocytes # (Auto) 0.86 K/uL Monocytes # (Auto) 0.44 K/uL Eosinophils # (Auto) 0.11 K/uL Basophils # (Auto) 0.05 K/uL RDW Standard Deviation 47.5 fL RDW Coefficient of Variation 15.3 % Immature Granulocyte % (Auto) 0.3 % Immature Granulocyte # (Auto) 0.02 K/uL Activated Partial Thromboplast Time 27.2 SECONDS Partial Thromboplastin Ratio 1.0 Sodium Level 140 mmol/L Potassium Level 4.3 mmol/L Chloride Level 111 mmol/L Carbon Dioxide Level 20 mmol/L Anion Gap 9.0 mmol/L Blood Urea Nitrogen 19 mg/dl Creatinine 1.10 mg/dl Est Creatinine Clear Calc Drug Dose 79.7 ml/min Estimated GFR () 80.6 Estimated GFR (Non- 69.6 BUN/Creatinine Ratio 17.0 Random Glucose 165 mg/dl Calcium Level 8.3 mg/dl Magnesium Level 2.0 mg/dl Total Bilirubin 1.5 mg/dl Aspartate Amino Transf (AST/SGOT) 17 U/L Alanine Aminotransferase (ALT/SGPT) 23 U/L Alkaline Phosphatase 122 U/L Total Protein 5.5 gm/dl Albumin 2.7 gm/dl Globulin 2.8 gm/dl Albumin/Globulin Ratio 1.0 Urine Color DK YELLOW Urine Appearance CLEAR Urine pH 6.5 Urine Specific [place] 1.020 Urine Protein NEG Urine Glucose (UA) NEG Urine Ketones NEG Urine Occult Blood NEG Urine Nitrite NEG Urine Bilirubin NEG Urine Urobilinogen POS Urine Leukocyte Esterase SMALL Urine WBC (Auto) 10-30 /hpf Urine RBC (Auto) 0-4 /hpf Urine Hyaline Casts (Auto) 1-5 /lpf Urine Epithelial Cells (Auto) 10-20 /lpf Urine Bacteria (Auto) NEG Test 12/18/16 20:13 12/19/16 05:47 12/19/16 07:15 Bedside Glucose 158 mg/dl 133 mg/dl White Blood Count 4.53 K/uL Red Blood Count 3.98 M/uL Hemoglobin 10.8 g/dL Hematocrit 33.8 % Mean Corpuscular Volume 84.9 fL Mean Corpuscular Hemoglobin 27.1 pg Mean Corpuscular Hemoglobin Concent 32.0 g/dl RDW Standard Deviation 47.3 fL RDW Coefficient of Variation 15.3 % Platelet Count 104 K/uL Mean Platelet Volume 9.6 fL Sodium Level 141 mmol/L Potassium Level 3.9 mmol/L Chloride Level 111 mmol/L Carbon Dioxide Level 21 mmol/L Anion Gap 9.0 mmol/L Blood Urea Nitrogen 17 mg/dl Creatinine 0.86 mg/dl Est Creatinine Clear Calc Drug Dose 103.0 ml/min Estimated GFR () 104.7 Estimated GFR (Non- 90.4 BUN/Creatinine Ratio 19.4 Random Glucose 102 mg/dl Calcium Level 8.5 mg/dl Magnesium Level 1.9 mg/dl Ammonia 47.0 umol/L Date/Time Source Procedure Growth Status 12/18/16 18:54 Blood Blood Culture Pending Received 12/18/16 18:47 Blood Blood Culture Pending Received 12/18/16 18:20 Nasal MRSA DNA Surveillance Screen - Final Specimen Negative for MRSA by DNA Probe Complete 12/18/16 19:58 Urine , Clean Catch Urine Culture Pending Received Assessment & Plan 66 year old male with history of CAD, CHF Diastolic Type, Atrial Fibrillation DM , HTN, recent fall with closed head trauma presenting with weakness and headache. LEFT PARIETAL LOBE HEMORRHAGE S/P HEAD TRAUMA SECONDARY TO FALL MRI brain: as below Repeat CT head: Stable Aspirin, Eliquis discontinued Neurology consulted, appreciate the input -- (+) moderate frontal headache today will check CT head GENERALIZED WEAKNESS/LETHARGY Likely debility from comorbidities -- Ammonia level 47 AST/ALT ok, Alk Phos slightly elevated -- check Liver US start Lactulose 30mg TID consult GI ATRIAL FIBRILLATION WITH RVR increased Metoprolol HR improving Poor candidate for anticoagulation given H/O prior hemoptysis, frequent falls, and hemorrhagic contusion. appreciate Cardiology SVC input FEVER source unclear at this time possible leg cellulitis? blood and urine cultures pending will start empiric Aztreonam and monitor Elevated Troponin: Likely demand ischemia cardiac enzymes trended down -- no cardiac symptoms DM II: hold Glimepiride Last A1c: 9.5 in Oct ISS, Accu checks, Diabetic diet Hold Lantus as having hypoglycemic episodes HTN: stable on Metoprolol Non-occlusive CAD continue Lipitor Diastolic CHF: euvolemic overall continue Lasix COPD: not in exacerbation Nebs PRN Chronic Venous stasis stable Doppler US negative DVT Px: SCDs: Code Status: Full Code Disposition: Monitor In Tele Will need Rehab placement PROCEDURES: MRI Brain: 1. 10 mm cortically-based hemorrhagic focus of the left parietal lobe near the vertex redemonstrated without significant change of signal intensity on the postcontrast images suggesting acute posttraumatic cortical contusion without enlargement from the previous study. No new or additional foci identified. Follow-up recommended. 2. Atrophy with mild background chronic microvascular ischemic changes. Current Inpatient Medications: Current Inpatient Medications Medications (Trade) Dose Ordered Sig/Van Route Start Time Stop Time Status Last Admin Dose Admin Acetaminophen (Tylenol Tab) 650 mg Q4H PRN PO 12/17/16 10:45 01/16/17 10:44 12/18/16 18:12 650 MG Ondansetron HCl (Zofran Inj) 4 mg Q6H PRN IV 12/17/16 10:45 01/16/17 10:44 Nitroglycerin (Nitrostat Tab) 0.4 mg UD PRN SL 12/17/16 10:45 01/16/17 10:44 Insulin Glargine (Lantus Solostar Pen) 5 units Q12 SC 12/17/16 21:00 01/16/17 20:59 Future Hold 12/17/16 20:48 5 UNITS Insulin Aspart (novoLOG ASPART) SLIDING SCALE If C... ACHS SC 12/17/16 11:00 01/16/17 10:59 12/18/16 17:45 2 UNITS Glucose (Glucose 40% Gel) 15-30 GRAMS 15 GRAMS... UD PRN PO 12/17/16 11:00 01/16/17 10:59 Glucose (Glucose Chew Tab) 4-8 Tablets 4 Tabl... UD PRN PO 12/17/16 11:00 01/16/17 10:59 Dextrose (Dextrose 50% 50ML Syringe) 25-50ML OF 50% DW IV FOR... UD PRN IV 12/17/16 11:00 01/16/17 10:59 Glucagon (Glucagon Inj) 1 mg UD PRN SQ 12/17/16 11:00 01/16/17 10:59 Baclofen (Lioresal Tab) 10 mg BID PRN PO 12/17/16 11:00 01/16/17 10:59 12/18/16 15:49 10 MG Gabapentin (Neurontin Cap) 300 mg BID PO 12/17/16 21:00 01/16/17 20:59 12/18/16 20:28 300 MG Acetaminophen/ Hydrocodone Bitart ([place] 5/325 Tab) 1 tab Q4 PRN PO 12/17/16 11:00 12/31/16 10:59 12/19/16 07:57 1 TAB Potassium Chloride (Klor-Con M10) 10 meq DAILY PO 12/18/16 09:00 01/17/17 08:59 12/18/16 07:48 10 MEQ Metoprolol Tartrate (Lopressor Iv) 2.5 mg Q6 PRN IV 12/17/16 11:15 01/16/17 11:14 12/18/16 17:36 2.5 MG Levalbuterol (Xopenex 0.63 Mg/ 3 Ml Neb) 0.63 mg Q6R PRN INH 12/17/16 11:15 01/16/17 11:14 Atorvastatin Calcium (Lipitor Tab) 40 mg QAM PO 12/18/16 09:00 01/17/17 08:59 12/18/16 07:49 40 MG Gadobutrol (Gadavist) 10 mmol UD PRN IV 12/17/16 18:45 12/21/16 18:44 Ciprofloxacin HCl (Ciprofloxacin 0.3% Op Soln) 2 drops Q4HWA OP 12/18/16 17:30 12/28/16 17:14 12/18/16 20:28 2 DROPS Metoprolol Succinate (Toprol Xl Tab) 50 mg BID PO 12/19/16 09:00 01/17/17 08:59 Lorazepam (Ativan Inj) PRN Dosing -Active Protocol Q1H PRN IV 12/18/16 19:30 01/17/17 19:29 Thiamine HCl (Vitamin B-1 Tab) 100 mg QAM PO 12/19/16 09:00 01/18/17 08:59 Multivitamins (Multivitamin Tab) 1 tab QAM PO 12/19/16 09:00 01/18/17 08:59 Folic Acid (Folvite Tab) 1 mg QAM PO 12/19/16 09:00 01/18/17 08:59 Furosemide (Lasix Tab) 20 mg QAM PO 12/19/16 09:00 01/18/17 08:59 Lactulose (Chronulac Syrup) 30 gm TID PO 12/19/16 09:00 01/18/17 08:59
[2016-12-19] MEDS: POTASSIUM CHLORIDE 10 MEQ TABCR PO SCH (08:43)
[2016-12-19] MEDS: ATORVASTATIN 40 MG TAB PO SCH (08:44)
[2016-12-19] MEDS: THIAMINE HCL 100 MG TAB PO SCH (08:46)
[2016-12-19] MEDS ORDERED: CONSULT PHARMACY STA (08:46)
[2016-12-19] MEDS: MULTIVITAMIN TAB PO SCH (08:46)
[2016-12-19] MEDS ORDERED: AZTREONAM CONSULT ACTIVE PRN ×2 (09:00)
[2016-12-19] MEDS ORDERED: FUROSEMIDE 20 MG TAB PO SCH (09:00)
[2016-12-19 09:21] LABS: INR 1.4 (0.9-1.1); PROTHROMBIN TIME (PATIENT) 15.1 SECONDS (9.0-12.0)
--- NOTE | 2016-12-19 09:50 | Cardiology Follow-Up ---
Subjective General Date of Service: Dec 19, 2016. Chief Complaint: Atrial fibrillation with a RVR Pt evaluation today including: conversation w/ patient, physical exam, chart review, lab review, review of studies, review of inpatient medication list History of Present Illness Patient seen and examined prior to departing for a head CT. Son and present at bedside, updated. No chest pain, palpitations, or breathing difficulty. Telemetry: Atrial fibrillation currently around 90 bpm. Heart rates have come under better control (80-100 bpm) over the last 8 hours. No periods of sinus. No significant bradyarrhythmias or pauses. November 04, 2016 TTE Interpretation Summary ([facility], Dr. Vaughan): Ejection Fraction = 60-65%. There is moderate concentric left ventricular hypertrophy. Mild valvular aortic stenosis. There is mild mitral regurgitation. December 15, 2016 DSE Interpretation Summary ([facility], Dr. Pablo): Normal systolic function. EF 55-060%. No stress induced chest pain. Negative EKG test for ischemia. No stress induced arrhythmias. Normal global LV systolic function response to stress. Normal stress study (at 100% age predicted maximum heart rate). Allergies Coded Allergies: Cefazolin (Verified Allergy, Intermediate, UNKNOWN, 12/18/16) INFORMATION FROM [employer]. Cephalexin (Verified Allergy, Intermediate, HIVES, 12/18/16) Collagen (Verified Allergy, Intermediate, Gut suture - swelling, 12/18/16) Influenza Virus Vaccine H5N1 (Verified Allergy, Unknown, LABELED A CHILD, UNSURE, 11/03/16) Social History Smoking Status: Never Smoker Hx Tobacco Use In Past Year?: No (quit at age 16) Hx Alcohol Use - Type And Amou: Yes (2 beers a day) Hx Substance Use - Type And Am: No Problem List Medical Problems: (1) Altered mental status Status: Acute (2) Back pain Status: Acute (3) CHF exacerbation Status: Acute (4) Elevated troponin Status: Acute (5) Hypoglycemia Status: Acute Physical Exam Vital Signs Last Vital Signs Documentation Date Time Temp Pulse Resp B/P (MAP) Pulse Ox O2 Delivery O2 Flow Rate FiO2 12/19/16 09:35 103 109/72 (84) 94 Room Air 12/19/16 07:10 37.0 24 12/17/16 12:40 2.0 Physical Exam Constitutional: General Apperance: overweight Level of Distress: NAD, chronically ill Psychiatric: Mental Status: active & alert Orientation: to place, to person, not oriented to time Head: normocephalic, atraumatic Eyes: Pupils: PERRLA Neck: pertinent finding (Normal JVP) Lungs: Respiratory effort: no dyspnea Auscultation: no rales/crackles, no rhonchi, deminished air movement, decreased breath sounds, expiratory wheezing Cardiovascular: Heart Auscultation: no rubs, no gallops, II/ JESUS, irregular rate rhythm (~ 90 bpm) Peripheral Pulses: Dorsalis Pedis Pulse: absent on the left, absent on the right Extremities: edema (1-2+ chronic indurated edema), pertinent finding (multiple wounds in various stages of healing on all extremities. ) Assessment and Plan Assessment and Plan 66-year-old male seen in cardiology follow-up, evaluation of atrial fibrillation with a rapid ventricular response. RECOMMENDATIONS/PLAN: Continue metoprolol succinate 50 mg twice a day for rate control. Risks of anticoagulation greater than the benefit, RE: prior hemoptysis, ambulatory dysfunction/frequent falls, hemorrhagic area of contusion, ? cirrhosis. Patient seen and examined, assessment as above Sergio Grant MD Laboratory Results Last 24 Hours Test 12/18/16 10:57 12/18/16 11:18 12/18/16 14:08 12/18/16 16:17 Bedside Glucose 90 mg/dl 120 mg/dl Folate 8.65 ng/mL Rapid Plasma Reagin NONREACTIVE Test 12/18/16 18:54 12/18/16 19:43 12/18/16 19:58 12/18/16 20:13 Lactic Acid Level 1.4 mmol/L Procalcitonin 0.05 ng/ml White Blood Count 6.08 K/uL Red Blood Count 4.01 M/uL Hemoglobin 10.9 g/dL Hematocrit 33.7 % Mean Corpuscular Volume 84.0 fL Mean Corpuscular Hemoglobin 27.2 pg Mean Corpuscular Hemoglobin Concent 32.3 g/dl Platelet Count 116 K/uL Mean Platelet Volume 10.1 fL Neutrophils (%) (Auto) 75.8 % Lymphocytes (%) (Auto) 14.1 % Monocytes (%) (Auto) 7.2 % Eosinophils (%) (Auto) 1.8 % Basophils (%) (Auto) 0.8 % Neutrophils # (Auto) 4.60 K/uL Lymphocytes # (Auto) 0.86 K/uL Monocytes # (Auto) 0.44 K/uL Eosinophils # (Auto) 0.11 K/uL Basophils # (Auto) 0.05 K/uL RDW Standard Deviation 47.5 fL RDW Coefficient of Variation 15.3 % Immature Granulocyte % (Auto) 0.3 % Immature Granulocyte # (Auto) 0.02 K/uL Activated Partial Thromboplast Time 27.2 SECONDS Partial Thromboplastin Ratio 1.0 Sodium Level 140 mmol/L Potassium Level 4.3 mmol/L Chloride Level 111 mmol/L Carbon Dioxide Level 20 mmol/L Anion Gap 9.0 mmol/L Blood Urea Nitrogen 19 mg/dl Creatinine 1.10 mg/dl Est Creatinine Clear Calc Drug Dose 79.7 ml/min Estimated GFR () 80.6 Estimated GFR (Non- 69.6 BUN/Creatinine Ratio 17.0 Random Glucose 165 mg/dl Calcium Level 8.3 mg/dl Magnesium Level 2.0 mg/dl Total Bilirubin 1.5 mg/dl Aspartate Amino Transf (AST/SGOT) 17 U/L Alanine Aminotransferase (ALT/SGPT) 23 U/L Alkaline Phosphatase 122 U/L Total Protein 5.5 gm/dl Albumin 2.7 gm/dl Globulin 2.8 gm/dl Albumin/Globulin Ratio 1.0 Urine Color DK YELLOW Urine Appearance CLEAR Urine pH 6.5 Urine Specific [place] 1.020 Urine Protein NEG Urine Glucose (UA) NEG Urine Ketones NEG Urine Occult Blood NEG Urine Nitrite NEG Urine Bilirubin NEG Urine Urobilinogen POS Urine Leukocyte Esterase SMALL Urine WBC (Auto) 10-30 /hpf Urine RBC (Auto) 0-4 /hpf Urine Hyaline Casts (Auto) 1-5 /lpf Urine Epithelial Cells (Auto) 10-20 /lpf Urine Bacteria (Auto) NEG Bedside Glucose 158 mg/dl Test 12/19/16 05:47 12/19/16 07:15 12/19/16 08:57 White Blood Count 4.53 K/uL Red Blood Count 3.98 M/uL Hemoglobin 10.8 g/dL Hematocrit 33.8 % Mean Corpuscular Volume 84.9 fL Mean Corpuscular Hemoglobin 27.1 pg Mean Corpuscular Hemoglobin Concent 32.0 g/dl RDW Standard Deviation 47.3 fL RDW Coefficient of Variation 15.3 % Platelet Count 104 K/uL Mean Platelet Volume 9.6 fL Sodium Level 141 mmol/L Potassium Level 3.9 mmol/L Chloride Level 111 mmol/L Carbon Dioxide Level 21 mmol/L Anion Gap 9.0 mmol/L Blood Urea Nitrogen 17 mg/dl Creatinine 0.86 mg/dl Est Creatinine Clear Calc Drug Dose 103.0 ml/min Estimated GFR () 104.7 Estimated GFR (Non- 90.4 BUN/Creatinine Ratio 19.4 Random Glucose 102 mg/dl Calcium Level 8.5 mg/dl Magnesium Level 1.9 mg/dl Ammonia 47.0 umol/L Bedside Glucose 133 mg/dl Prothrombin Time 15.1 SECONDS Prothromb Time International Ratio 1.4
--- NOTE | 2016-12-19 10:12 | DIAGNOSTIC IMAGING REPORT ---
HEAD CT NONCONTRAST CT DOSE: 614.27 mGy.cm HISTORY: Follow-up intracranial hemorrhage. TECHNIQUE: Multiaxial CT images of the head were performed without the use of intravenous contrast. Automated exposure control was utilized for this study. A dose lowering technique was utilized adhering to the principles of ALARA. Comparison: Head CT 12/18/2016. Findings: The paranasal sinuses and mastoid air cells are clear. The calvarium and skull base are intact. There is no mass, midline shift, acute infarct. White matter hypodensity is nonspecific but suggestive of microvascular ischemic change. The ventricles and sulci demonstrate mild age-related involutional changes. The left parietal vertex contusion has essentially resolved in the interval. There is a 2 mm punctate hyperdense focus within the right high convexity on image 26 which is stable. This favors a tiny contusion/trace subarachnoid hemorrhage. Impression: 1. The left parietal vertex contusion has essentially resolved in the interval. 2. There is a persistent 2 mm punctate hyperdense focus within the right high convexity which remains unchanged. This favors a tiny contusion/trace subarachnoid hemorrhage. Electronically signed by: Aman Sullivan M.D. 12/19/2016 10:11 AM Dictated Date/Time: 12/19/2016 9:30 AM
[2016-12-19] MEDS: GABAPENTIN 300 MG CAP PO SCH ×2 (10:15→20:38)
[2016-12-19] MEDS: METOPROLOL SUCC 50MG EXT REL TAB PO SCH ×2 (10:18→20:38)
[2016-12-19] MEDS: AZTREONAM IV 1,000 MG in DEXTROSE 5% 100ML IV SCH ×2 (10:21→18:18)
--- NOTE | 2016-12-19 11:26 | DIAGNOSTIC IMAGING REPORT ---
(LIVER) ABDOMEN LIMITED HISTORY: 66 years-old Male r/o cirrhosis history of intracranial hemorrhage and bilateral lower extremity swelling. Concern for possible cirrhotic liver disease. COMPARISON: Ultrasound of the abdomen 06/18/2013 TECHNIQUE: Multiple real-time sonographic images of the abdominal right upper quadrant were obtained assessing grayscale appearance and color flow FINDINGS: Studies mildly limited secondary to patient body habitus. Pancreas is unremarkable with distal body and tail secured by bowel gas. Liver measures up to 15.4 cm in length and appears mildly heterogeneous with mild marginal nodularity. No ascites identified. There is a hypoechoic 0.8 cm lesion of the left hepatic lobe which is nonspecific without internal vascularity which may reflect a cyst. No intrahepatic biliary ductal dilation. Common bile duct is within normal limits, 0.5 cm. The gallbladder is mildly contracted with wall measuring 0.3 cm. No shadowing cholelithiasis or pericholecystic fluid collections. The imaged right kidney is unremarkable without hydronephrosis. IMPRESSION: 1. Heterogeneous appearance of the liver with mild marginal nodularity is suspicious for cirrhotic liver disease. 2. Contracted gallbladder without cholelithiasis or sonographic evidence of acute cholecystitis. 3. No biliary ductal dilation. 4. Nonspecific 0.8 cm hypoechoic left hepatic lobe lesion. The above report was generated using voice recognition software. It may contain grammatical, syntax or spelling errors. Electronically signed by: Aldo Salinas M.D. 12/19/2016 11:25 AM Dictated Date/Time: 12/19/2016 11:20 AM
--- NOTE | 2016-12-19 12:24 | Gastrointestinal Consultation ---
Gastrointestinal Consultation Date of Consultation: Dec 19, 2016 Attending Physician: Crispin Aguilar Consulting Physician: Catalina Deshpande Reason for Consultation: Elevated ammonia level History of Present Illness Patient is a 66 year old male seen for elevated ammonia level. He has PMHx of DM II, Afib, HTN, CAD, diastolic CHF, COPD, chronic venous stasis, gout, who was DC'd 2 days ago from [facility] following possible CVA and concussion secondary to head trauma (fall). He was noted to have increasing lethargy and weakness following DC and brought here for further evaluation. Head imaging studies showed L parietal contusion, R contusion vs hematoma. Neurology service is following him. Pt only oriented to self. Confused where he's located ([place] vs [place]) , can only remember year, not month. Only limited hx can be obtained from him. Son, Arpan, provided most info. Arpan reports that pt had been a heavy drinker for years. Recently before pt's fall, Arpan noticed pt had been increasingly confused at times, asking repeated questions. Oral intake had also been poor. Since DC'd from [place], he was started on Eliquis for ? thrombotic stroke and Afib. He noticed pt's legs are chronically swollen. No jaundice noted VS, labs reviewed. Pt febrile yesterday (Tmax 38.9), urine & blood cx, RPR pending. He was started on Aztreonam. H/H 10.8/37. WBC 4.5, Plt 104. INR 1.4. CMP unremarkable. LFTs w mild Tbili elevation 2.1, AST/ALT normal, AP 112. Ammonia level 47. No recent abdominal imaging for review Past Medical/Surgical History Medical Problems: (1) Altered mental status Status: Acute (2) Back pain Status: Acute (3) CHF exacerbation Status: Acute (4) Elevated troponin Status: Acute (5) Hypoglycemia Status: Acute Past Medical History: See above Family History Diabetes mellitus Heart disease Hypertension Social History Smoking Status: Never Smoker Alcohol Use: none Drug Use: none Marital Status: Housing Status: lives with family Occupation Status: employed Allergies Coded Allergies: Cefazolin (Verified Allergy, Intermediate, UNKNOWN, 12/18/16) INFORMATION FROM [place]. Cephalexin (Verified Allergy, Intermediate, HIVES, 12/18/16) Collagen (Verified Allergy, Intermediate, Gut suture - swelling, 12/18/16) Influenza Virus Vaccine H5N1 (Verified Allergy, Unknown, LABELED A CHILD, UNSURE, 11/03/16) Baclofen (Verified Adverse Reaction, Severe, DELIRIUM, 12/19/16) Diazepam (Verified Adverse Reaction, Severe, DELIRIUM, 12/19/16) Current Medications Home Meds and Scripts Medications Dose Route/Sig Max Daily Dose Days Date Category Dose Instructions Micro-K Ext Rel (Potassium Chloride) 10 Meq Capcr 10 Meq PO DAILY 12/17/16 Reported [place] 5MG/325MG (Acetaminophen/Hydrocodone Bitart) Tab 1 Tablet PO Q4 PRN 12/17/16 Reported PRN PAIN Toprol Xl (Metoprolol Succinate) 25 Mg Tabcr 25 Mg PO DAILY 12/17/16 Reported Eliquis (Apixaban) 5 Mg Tab 5 Mg PO BID 12/17/16 Reported Gabapentin 300 Mg Cap 300 Mg PO HS 10 11/11/16 Rx Baclofen 10 Mg Tab 10 Mg PO BID 7 11/11/16 Rx Proair Respiclick (Albuterol Sulfate) 108 Mcg/Act Aer 2 Puffs PO QID PRN 11/03/16 Rx Lasix (Furosemide) 20 Mg Tab 20 Mg PO DIRECTED 12/30/13 Reported LEG SWELLING Amaryl * (Glimepiride) 4 Mg Tab 4 Mg PO QAM 12/12/10 Reported Review of Systems Constitutional: No fever, No chills Respiratory: No cough, No shortness of breath Cardiac: No chest pain Abdomen: No pain, No nausea, No vomiting, No diarrhea Skin: No jaundice Physical Exam Date Time Temp Pulse Resp B/P (MAP) Pulse Ox O2 Delivery O2 Flow Rate FiO2 12/19/16 11:26 37.3 98 24 112/78 (89) 95 Room Air 12/19/16 09:35 103 109/72 (84) 94 Room Air 12/19/16 08:00 Room Air 12/19/16 07:10 37.0 87 24 93/56 (68) 93 Room Air 12/19/16 04:00 36.7 95 20 117/80 (92) 92 Room Air 12/19/16 03:56 96 Room Air 12/19/16 00:00 96 Room Air 12/19/16 00:00 37.3 97 126/87 (100) 12/18/16 23:47 37.5 97 18 129/88 (102) 96 Room Air 12/18/16 22:19 37.1 104 18 100/67 (78) 95 12/18/16 21:32 37.1 12/18/16 20:00 Room Air 12/18/16 19:43 38.9 112 18 102/71 (81) 92 Room Air 12/18/16 17:36 134 157/101 12/18/16 17:34 38.9 134 157/101 (119) 12/18/16 16:00 Room Air 12/18/16 14:50 36.9 104 20 126/82 (97) 95 Room Air General Appearance: no apparent distress, + obese Eyes: normal inspection, PERRL, EOMI Neck: supple, no JVD, trachea midline Respiratory/Chest: normal breath sounds, no respiratory distress, no accessory muscle use Cardiovascular: regular rate, rhythm, no gallop, no murmur Abdomen: normal bowel sounds, non tender, soft Extremities: + swelling (+1 pitting edema on bilateral LE) Neurologic/Psych: alert, + disoriented Skin: normal color, no jaundice, no rash Laboratory Results Last 24 Hours Test 12/18/16 14:08 12/18/16 16:17 12/18/16 18:54 12/18/16 19:43 Folate 8.65 ng/mL Rapid Plasma Reagin NONREACTIVE Bedside Glucose 120 mg/dl Lactic Acid Level 1.4 mmol/L Procalcitonin 0.05 ng/ml White Blood Count 6.08 K/uL Red Blood Count 4.01 M/uL Hemoglobin 10.9 g/dL Hematocrit 33.7 % Mean Corpuscular Volume 84.0 fL Mean Corpuscular Hemoglobin 27.2 pg Mean Corpuscular Hemoglobin Concent 32.3 g/dl Platelet Count 116 K/uL Mean Platelet Volume 10.1 fL Neutrophils (%) (Auto) 75.8 % Lymphocytes (%) (Auto) 14.1 % Monocytes (%) (Auto) 7.2 % Eosinophils (%) (Auto) 1.8 % Basophils (%) (Auto) 0.8 % Neutrophils # (Auto) 4.60 K/uL Lymphocytes # (Auto) 0.86 K/uL Monocytes # (Auto) 0.44 K/uL Eosinophils # (Auto) 0.11 K/uL Basophils # (Auto) 0.05 K/uL RDW Standard Deviation 47.5 fL RDW Coefficient of Variation 15.3 % Immature Granulocyte % (Auto) 0.3 % Immature Granulocyte # (Auto) 0.02 K/uL Activated Partial Thromboplast Time 27.2 SECONDS Partial Thromboplastin Ratio 1.0 Sodium Level 140 mmol/L Potassium Level 4.3 mmol/L Chloride Level 111 mmol/L Carbon Dioxide Level 20 mmol/L Anion Gap 9.0 mmol/L Blood Urea Nitrogen 19 mg/dl Creatinine 1.10 mg/dl Est Creatinine Clear Calc Drug Dose 79.7 ml/min Estimated GFR () 80.6 Estimated GFR (Non- 69.6 BUN/Creatinine Ratio 17.0 Random Glucose 165 mg/dl Calcium Level 8.3 mg/dl Magnesium Level 2.0 mg/dl Total Bilirubin 1.5 mg/dl Aspartate Amino Transf (AST/SGOT) 17 U/L Alanine Aminotransferase (ALT/SGPT) 23 U/L Alkaline Phosphatase 122 U/L Total Protein 5.5 gm/dl Albumin 2.7 gm/dl Globulin 2.8 gm/dl Albumin/Globulin Ratio 1.0 Test 12/18/16 19:58 12/18/16 20:13 12/19/16 05:47 12/19/16 07:15 Urine Color DK YELLOW Urine Appearance CLEAR Urine pH 6.5 Urine Specific [place] 1.020 Urine Protein NEG Urine Glucose (UA) NEG Urine Ketones NEG Urine Occult Blood NEG Urine Nitrite NEG Urine Bilirubin NEG Urine Urobilinogen POS Urine Leukocyte Esterase SMALL Urine WBC (Auto) 10-30 /hpf Urine RBC (Auto) 0-4 /hpf Urine Hyaline Casts (Auto) 1-5 /lpf Urine Epithelial Cells (Auto) 10-20 /lpf Urine Bacteria (Auto) NEG Bedside Glucose 158 mg/dl 133 mg/dl White Blood Count 4.53 K/uL Red Blood Count 3.98 M/uL Hemoglobin 10.8 g/dL Hematocrit 33.8 % Mean Corpuscular Volume 84.9 fL Mean Corpuscular Hemoglobin 27.1 pg Mean Corpuscular Hemoglobin Concent 32.0 g/dl RDW Standard Deviation 47.3 fL RDW Coefficient of Variation 15.3 % Platelet Count 104 K/uL Mean Platelet Volume 9.6 fL Sodium Level 141 mmol/L Potassium Level 3.9 mmol/L Chloride Level 111 mmol/L Carbon Dioxide Level 21 mmol/L Anion Gap 9.0 mmol/L Blood Urea Nitrogen 17 mg/dl Creatinine 0.86 mg/dl Est Creatinine Clear Calc Drug Dose 103.0 ml/min Estimated GFR () 104.7 Estimated GFR (Non- 90.4 BUN/Creatinine Ratio 19.4 Random Glucose 102 mg/dl Calcium Level 8.5 mg/dl Magnesium Level 1.9 mg/dl Ammonia 47.0 umol/L Test 12/19/16 08:57 12/19/16 11:19 Prothrombin Time 15.1 SECONDS Prothromb Time International Ratio 1.4 Bedside Glucose 108 mg/dl Impression Patient is a 66 year old male seen for mildly elevated ammonia level: 47. He has hx of heavy ETOH use, labs showed thrombocytopenia, slightly elevated LFTs. Suspect he has cirrhosis. Plan - Continue Lactulose as dosed; may titrate for goal BM 3-5 daily. Though current confusion may be multifactorial including recent head trauma and hepatic encephalopathy. - Lasix 20mg daily for edema. - Obtain liver u/s to r/o cirrhosis. - F/U RPR, blood and urine cultures. Late entry: I have seen and examined the patient with Marilyn HIGGINBOTHAM whose note reflects our findings and plan.
--- NOTE | 2016-12-19 14:19 | Neurology Progress Notes ---
Neurology Progress Note Date of Service Dec 19, 2016. Dudley Rodriguez is a 66 year old male with a PMH of DM II, A fib, HTN, non-occlusive CAD , Diastolic CHF, COPD, Chronic Venous stasis. He was flown to [facility] after a fall down stairs for possible CVA and concussion after encountering head trauma. His son is in the room and states the original fall down the stairs was unwitnessed and he was found with a sandwich lying beside him at the bottom of the stairs. After being discharged from [facility] he was home 2 days. He was tired and sat down in a chair and then couldn't get up. He uses a walker to ambulate around the house. CT head showed no acute changes. He is on elquis for cardiovascular issues and was in afib with RVR in the ED. Denies CP/SOB/abdominal pain, change in bowel/bladder habits/fever, chills night sweats. + pain in leg and back with movement His son reports he is a heavy drinker but he has not had anything to drink since the fall. 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 The son thinks his memory and overall physical health has declined over the past year. he was transported to [facility] because it was the closest to his home. His and son are bedside today and think he looks very weak. They are questioning to repeat CT head. Patient feels he is doing ok and is up walking with PT with a walker. Denies CP/SOB/abdominal pain, change in bowel/bladder habits/fever, chills night sweats. + pain in leg and back with movement Objective Date Time Temp Pulse Resp B/P (MAP) Pulse Ox O2 Delivery O2 Flow Rate FiO2 12/19/16 12:00 Room Air 12/19/16 11:26 37.3 98 24 112/78 (89) 95 Room Air 12/19/16 09:35 103 109/72 (84) 94 Room Air 12/19/16 08:00 Room Air 12/19/16 07:10 37.0 87 24 93/56 (68) 93 Room Air 12/19/16 04:00 36.7 95 20 117/80 (92) 92 Room Air 12/19/16 03:56 96 Room Air 12/19/16 00:00 96 Room Air 12/19/16 00:00 37.3 97 126/87 (100) 12/18/16 23:47 37.5 97 18 129/88 (102) 96 Room Air 12/18/16 22:19 37.1 104 18 100/67 (78) 95 12/18/16 21:32 37.1 12/18/16 20:00 Room Air 12/18/16 19:43 38.9 112 18 102/71 (81) 92 Room Air 12/18/16 17:36 134 157/101 12/18/16 17:34 38.9 134 157/101 (119) 12/18/16 16:00 Room Air 12/18/16 14:50 36.9 104 20 126/82 (97) 95 Room Air Last 24 Hours Test 12/18/16 16:17 12/18/16 18:54 12/18/16 19:43 12/18/16 19:58 Bedside Glucose 120 mg/dl Lactic Acid Level 1.4 mmol/L Procalcitonin 0.05 ng/ml White Blood Count 6.08 K/uL Red Blood Count 4.01 M/uL Hemoglobin 10.9 g/dL Hematocrit 33.7 % Mean Corpuscular Volume 84.0 fL Mean Corpuscular Hemoglobin 27.2 pg Mean Corpuscular Hemoglobin Concent 32.3 g/dl Platelet Count 116 K/uL Mean Platelet Volume 10.1 fL Neutrophils (%) (Auto) 75.8 % Lymphocytes (%) (Auto) 14.1 % Monocytes (%) (Auto) 7.2 % Eosinophils (%) (Auto) 1.8 % Basophils (%) (Auto) 0.8 % Neutrophils # (Auto) 4.60 K/uL Lymphocytes # (Auto) 0.86 K/uL Monocytes # (Auto) 0.44 K/uL Eosinophils # (Auto) 0.11 K/uL Basophils # (Auto) 0.05 K/uL RDW Standard Deviation 47.5 fL RDW Coefficient of Variation 15.3 % Immature Granulocyte % (Auto) 0.3 % Immature Granulocyte # (Auto) 0.02 K/uL Activated Partial Thromboplast Time 27.2 SECONDS Partial Thromboplastin Ratio 1.0 Sodium Level 140 mmol/L Potassium Level 4.3 mmol/L Chloride Level 111 mmol/L Carbon Dioxide Level 20 mmol/L Anion Gap 9.0 mmol/L Blood Urea Nitrogen 19 mg/dl Creatinine 1.10 mg/dl Est Creatinine Clear Calc Drug Dose 79.7 ml/min Estimated GFR () 80.6 Estimated GFR (Non- 69.6 BUN/Creatinine Ratio 17.0 Random Glucose 165 mg/dl Calcium Level 8.3 mg/dl Magnesium Level 2.0 mg/dl Total Bilirubin 1.5 mg/dl Aspartate Amino Transf (AST/SGOT) 17 U/L Alanine Aminotransferase (ALT/SGPT) 23 U/L Alkaline Phosphatase 122 U/L Total Protein 5.5 gm/dl Albumin 2.7 gm/dl Globulin 2.8 gm/dl Albumin/Globulin Ratio 1.0 Urine Color DK YELLOW Urine Appearance CLEAR Urine pH 6.5 Urine Specific [place] 1.020 Urine Protein NEG Urine Glucose (UA) NEG Urine Ketones NEG Urine Occult Blood NEG Urine Nitrite NEG Urine Bilirubin NEG Urine Urobilinogen POS Urine Leukocyte Esterase SMALL Urine WBC (Auto) 10-30 /hpf Urine RBC (Auto) 0-4 /hpf Urine Hyaline Casts (Auto) 1-5 /lpf Urine Epithelial Cells (Auto) 10-20 /lpf Urine Bacteria (Auto) NEG Test 12/18/16 20:13 12/19/16 05:47 12/19/16 07:15 12/19/16 08:57 Bedside Glucose 158 mg/dl 133 mg/dl White Blood Count 4.53 K/uL Red Blood Count 3.98 M/uL Hemoglobin 10.8 g/dL Hematocrit 33.8 % Mean Corpuscular Volume 84.9 fL Mean Corpuscular Hemoglobin 27.1 pg Mean Corpuscular Hemoglobin Concent 32.0 g/dl RDW Standard Deviation 47.3 fL RDW Coefficient of Variation 15.3 % Platelet Count 104 K/uL Mean Platelet Volume 9.6 fL Sodium Level 141 mmol/L Potassium Level 3.9 mmol/L Chloride Level 111 mmol/L Carbon Dioxide Level 21 mmol/L Anion Gap 9.0 mmol/L Blood Urea Nitrogen 17 mg/dl Creatinine 0.86 mg/dl Est Creatinine Clear Calc Drug Dose 103.0 ml/min Estimated GFR () 104.7 Estimated GFR (Non- 90.4 BUN/Creatinine Ratio 19.4 Random Glucose 102 mg/dl Calcium Level 8.5 mg/dl Magnesium Level 1.9 mg/dl Ammonia 47.0 umol/L Prothrombin Time 15.1 SECONDS Prothromb Time International Ratio 1.4 Test 12/19/16 11:19 Bedside Glucose 108 mg/dl Imaging: liver US-. Heterogeneous appearance of the liver with mild marginal nodularity is suspicious for cirrhotic liver disease. Contracted gallbladder without cholelithiasis or sonographic evidence of acute cholecystitis. No biliary ductal dilation. Nonspecific 0.8 cm hypoechoic left hepatic lobe lesion. CT head- . The left parietal vertex contusion has essentially resolved in the interval There is a persistent 2 mm punctate hyperdense focus within the right high convexity which remains unchanged. This favors a tiny contusion/trace subarachnoid hemorrhage. Exam: Physical Exam: Constitutional: appearance nourished Ears, Nose, Mouth and Throat: mucous membranes moist, no injection and skin normal, eyes normal Cardiovascular: normal S-1 and S-2 and regular rate and rhythm Respiratory: clear to auscultation (CTA) and no rales, rhonchi or wheeze Musculoskeletal: 2+ peripheral edema venous stasis to upper [place] Skin: multiple open lesions on arms and legs Eyes: extraocular muscles intact (EOMI) and pupils equal, round and reactive to light (PERRL) NEUROLOGIC EXAMINATION: Mental status: Alert and interactive Oriented president Brooklynn, [facility], 2017 Oriented to person Speech fluent with no evidence of aphasia Cranial Nerves smile eye brow raise symmetric Sensory: absent GT proprioception, decreased sensation to vibration Coordination: finger to nose without bi pass, no reaching tremor or resting tremor Gait/Stance: Posture normal. walking with walker sensory tandem gait. 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 ACHS SC 12/17/16 11:00 01/16/17 10:59 12/19/16 08:35 2 UNITS Glucose (Glucose 40% Gel) 15-30 GRAMS 15 GRAMS... UD PRN PO 12/17/16 11:00 01/16/17 10:59 Glucose (Glucose Chew Tab) 4-8 Tablets 4 Tabl... UD PRN PO 12/17/16 11:00 01/16/17 10:59 Dextrose (Dextrose 50% 50ML Syringe) 25-50ML OF 50% DW IV FOR... UD PRN IV 12/17/16 11:00 01/16/17 10:59 Glucagon (Glucagon Inj) 1 mg UD PRN SQ 12/17/16 11:00 01/16/17 10:59 Baclofen (Lioresal Tab) 10 mg BID PRN PO 12/17/16 11:00 01/16/17 10:59 12/18/16 15:49 10 MG Gabapentin (Neurontin Cap) 300 mg BID PO 12/17/16 21:00 01/16/17 20:59 12/19/16 10:15 300 MG Acetaminophen/ Hydrocodone Bitart ([place] 5/325 Tab) 1 tab Q4 PRN PO 12/17/16 11:00 12/31/16 10:59 12/19/16 07:57 1 TAB Potassium Chloride (Klor-Con M10) 10 meq DAILY PO 12/18/16 09:00 01/17/17 08:59 12/19/16 08:43 10 MEQ Metoprolol Tartrate (Lopressor Iv) 2.5 mg Q6 PRN IV 12/17/16 11:15 01/16/17 11:14 12/18/16 17:36 2.5 MG Levalbuterol (Xopenex 0.63 Mg/ 3 Ml Neb) 0.63 mg Q6R PRN INH 12/17/16 11:15 01/16/17 11:14 Atorvastatin Calcium (Lipitor Tab) 40 mg QAM PO 12/18/16 09:00 01/17/17 08:59 12/19/16 08:44 40 MG Gadobutrol (Gadavist) 10 mmol UD PRN IV 12/17/16 18:45 12/21/16 18:44 Ciprofloxacin HCl (Ciprofloxacin 0.3% Op Soln) 2 drops Q4HWA OP 12/18/16 17:30 12/28/16 17:14 12/19/16 12:07 2 DROPS Metoprolol Succinate (Toprol Xl Tab) 50 mg BID PO 12/19/16 09:00 01/17/17 08:59 12/19/16 10:18 50 MG Lorazepam (Ativan Inj) PRN Dosing -Active Protocol Q1H PRN IV 12/18/16 19:30 01/17/17 19:29 Thiamine HCl (Vitamin B-1 Tab) 100 mg QAM PO 12/19/16 09:00 01/18/17 08:59 12/19/16 08:46 100 MG Multivitamins (Multivitamin Tab) 1 tab QAM PO 12/19/16 09:00 01/18/17 08:59 12/19/16 08:46 1 TAB Folic Acid (Folvite Tab) 1 mg QAM PO 12/19/16 09:00 01/18/17 08:59 12/19/16 08:42 1 MG Furosemide (Lasix Tab) 20 mg QAM PO 12/19/16 09:00 01/18/17 08:59 12/19/16 10:20 20 MG Lactulose (Chronulac Syrup) 30 gm TID PO 12/19/16 09:00 01/18/17 08:59 12/19/16 13:30 30 GM Aztreonam (Consult) 1 ea UD PRN N/A 12/19/16 09:00 01/18/17 08:59 Aztreonam 1000 mg/ Dextrose 110 ml @ 110 mls/hr Q8H IV 12/19/16 10:00 12/29/16 09:59 12/19/16 10:21 110 MLS/HR Impression 66 year old male with multiple medical issues with L parietal contusion stable- memory issues (chronic) Plan 1. cardiology increased Metoprolol for rate control is holding anticoagulation due to multiple medial issues including hemoptysis, ambulatory dysfunction, frequent falls, and now hemorrhagic area of contusion. 2. medical management to correct metabolic issues- ammonia high 3. drinking cessation needed- son concern the original fall was related to drinking 4. folate and RPR for causes for memory issues, TSH B1 order 5. MRI with and without - atrophy also noted 6. peripheral neuropathy would contribute to falls 7. will likely need rehab prior to return home- PT/OT for evaluation 8. DM, HTN optimize 9. Eliqus and aspirin are currently on hold- cardiology for recommendations 10. CT head stable resolving contusion I have seen and discussed above patient with Dr Jose Luo, neurology Above reviewed and case discussed with two sons who live out of town He was in the bathroom with diarrhea due to the lactulose so was not actually seen by me today bleed mahy be a transformation of an embolic cva due to eliquis or a late post traumatic event but the distinction is to some degree academic and eliquis ideally needs to be restarted relatively soon due to the chronic a fib and suspect two to three weeks would be adequate interval here There are however other factors ie the gi bleed and the high fall risk due to neuropathy and likely continued etoh use and preexisting liver disease with elevated inr at baseline so eliquis may be contraindicated This decision will therefore require mutiple inputs He will need rehab and home situation needs to be straightened out and work issues may need addressed as the history from sons suggests some emerging cognitive impairment prior to the acute events of the past ten days Jose Luo MD
[2016-12-19] MEDS: ACETAMINOPHEN 325 MG TAB PO PRN (16:35)
[2016-12-19] MEDS ORDERED: VANCOMYCIN CONSULT ACTIVE PRN (17:00)
[2016-12-19] MEDS ORDERED: VANCOMYCIN INJ 2,750 MG in SODIUM CHLORIDE 0.9% 500ML 500 ML IV ONE (18:00)
[2016-12-19] MEDS ORDERED: SODIUM CHLORIDE 0.9% 1000ML 1,000 ML IV SCH (19:15)
--- NOTE | 2016-12-19 22:25 | DIAGNOSTIC IMAGING REPORT ---
LEFT KNEE 2 VIEWS CLINICAL HISTORY: Fall with left knee pain. FINDINGS: AP and crosstable lateral views of the left knee are obtained. No prior studies are available for comparison at the time of dictation. The skeletal structures are well mineralized for age. No fracture is seen. There is mild tricompartmental degenerative joint space narrowing, greatest at the patellofemoral articulation. There are tiny medial marginal osteophytes and large patellar enthesophytes. A calcified fabella is incidentally noted. No joint effusion is identified. Bony overgrowth is seen at the anterior tibial tuberosity. Soft tissue edema is present around the knee. IMPRESSION: 1. Soft tissue edema with no radiographic evidence of left knee fracture. 2. Arthritic change as above. Electronically signed by: Hans Chaudhary M.D. 12/19/2016 10:23 PM Dictated Date/Time: 12/19/2016 10:22 PM
--- NOTE | 2016-12-19 22:27 | DIAGNOSTIC IMAGING REPORT ---
RIGHT KNEE 2 VIEWS CLINICAL HISTORY: Fall with right knee pain. FINDINGS: AP and crosstable lateral views of the right knee are obtained. No prior studies are available for comparison at the time of dictation. The skeletal structures are well mineralized for age. No fracture is seen. There is mild tricompartmental degenerative joint space narrowing, greatest at the patellofemoral articulation. There are small marginal osteophytes and large patellar enthesophytes. There is a large joint effusion. Bony overgrowth is seen at the anterior tibial tuberosity. Soft tissue edema is present around the knee. IMPRESSION: 1. Soft tissue swelling and joint effusion. No right knee fracture is identified. 2. Arthritic change as above. Electronically signed by: Hans Chaudhary M.D. 12/19/2016 10:26 PM Dictated Date/Time: 12/19/2016 10:24 PM
[2016-12-20] VITALS (8 sets, daily range): BP systolic 107–116; BP diastolic 71–75; PULSE 83–101; TEMP 36.8–38.3; O2SAT 92–99
[2016-12-20] MEDS: AZTREONAM IV 1,000 MG in DEXTROSE 5% 100ML IV SCH ×3 (02:07→18:35)
[2016-12-20] MEDS: VANCOMYCIN INJ 1,500 MG in SODIUM CHLORIDE 0.9% 500ML 500 ML IV SCH ×3 (03:29→23:43)
[2016-12-20] MEDS: ACETAMINOPHEN 325 MG TAB PO PRN (04:30)
[2016-12-20 06:55] LABS: HEMATOCRIT 31.9 % (42-52); MEAN CELL VOLUME 83.7 fL (80-100); MEAN CORPUSCULAR HEMOGLOBIN 27.3 pg (25-34); MEAN CORPUSCULAR HGB CONC 32.6 g/dl (32-36); RED BLOOD COUNT 3.81 M/uL (4.7-6.1); WHITE BLOOD COUNT 4.68 K/uL (4.8-10.8)
--- NOTE | 2016-12-20 06:59 | DIAGNOSTIC IMAGING REPORT ---
RIGHT KNEE ULTRASOUND CLINICAL HISTORY: Right knee pain. Evaluate for effusion. COMPARISON STUDY: Right knee radiographs December 19, 2016. FINDINGS: Note is made of a mildly complex suprapatellar right knee collection consistent with a joint effusion which measures 10.4 x 1.8 x 7.2 cm. There may be synovial thickening. IMPRESSION: Moderate size right knee joint effusion with possible synovial thickening, a nonspecific finding. Electronically signed by: Shun Chávez M.D. 12/20/2016 6:58 AM Dictated Date/Time: 12/20/2016 6:56 AM
[2016-12-20 07:18] LABS: CREATININE 0.82 mg/dl (0.60-1.40); POTASSIUM 3.8 mmol/L (3.5-5.1)
[2016-12-20 07:22] LABS: PLATELET COUNT 98 K/uL (130-400)
[2016-12-20 07:23] LABS: BASO % 0.9 %; BASO ABS # 0.04 K/uL (0-0.2); COMPLETE YES; EOS % 1.5 %; IG% 0.2 %; LYMPH % 14.5 %; LYMPH ABS # 0.68 K/uL (1.2-3.4); MONO % 8.1 %; NEUT % 74.8 %; PLT ESTIMATE DECREASED
[2016-12-20] MEDS: LACTULOSE SYRUP 30 GM/45 ML UDP PO SCH ×3 (08:16→20:18)
[2016-12-20] MEDS: CIPROFLOXACIN HCL 0.3% OP SOLN 2.5 ML BTL OP SCH ×4 (08:19→20:00)
[2016-12-20] MEDS: POTASSIUM CHLORIDE 10 MEQ TABCR PO SCH (08:20)
[2016-12-20] MEDS: ATORVASTATIN 40 MG TAB PO SCH (08:20)
[2016-12-20] MEDS: MULTIVITAMIN TAB PO SCH (08:20)
[2016-12-20] MEDS: GABAPENTIN 300 MG CAP PO SCH ×2 (08:20→20:16)
[2016-12-20] MEDS: METOPROLOL SUCC 50MG EXT REL TAB PO SCH ×2 (08:21→20:16)
[2016-12-20] MEDS: THIAMINE HCL 100 MG TAB PO SCH (08:21)
[2016-12-20] MEDS: INSULIN ASPART 100 UNITS/ML 3 ML PEN SC SCH ×4 (08:34→20:36)
--- NOTE | 2016-12-20 10:09 | Progress Note ---
Medicine Progress Note Date & Time of Visit: Dec 20, 2016 at 09:51. Subjective patient seen sitting at the edge of the bed states he feels much improved compared to yesterday no chills so far, still has moderate right knee pain, denies leg pain oriented x 3 this AM, answering questions appropriately, denies abdominal pain, nausea/vomiting had 1 BM today so far no chest pain, dizziness, palpitations denies headache, or focal neuro deficits no other symptoms Objective Last 8 Hrs Date Time Temp Pulse Resp B/P (MAP) Pulse Ox O2 Delivery O2 Flow Rate FiO2 12/20/16 07:05 37.5 101 18 107/71 (83) 92 Room Air 12/20/16 04:44 37.9 17 111/75 (87) 92 Room Air 12/20/16 04:00 Room Air Physical Exam: General- oriented x 2, not in distress, speaks in sentences with no effort Head- atraumatic Eyes EOMI, anicteric Neck- supple, no JVD Lungs- clear breath sounds bilaterally, no rales/wheezes Heart- irregularly irregular rhythm; no murmur, normal rate Abdomen- normal bowel sounds, soft, nontender Extremities- Lower extremities: Right Knee: (+) moderate edema, mild warmth, no tenderness, limited ROM due to pain Right Lower Leg: (+) mild erythema, warmth, no tenderness, healing small wound on the anterolateral aspect- scant serous drainage Left Lower Leg: (+) mild erythema, warmth, no tenderness, healing small wound on the lower lateral aspect- scant serous drainage Upper extremities: Right: (+) scabbing wounds on the forearm, small skin tears with dressing on - no signs of infection Left: (+) scabbing wounds on the upper arm, small skin tears with dressing on - no signs of infection Neuro- alert, oriented x 3; PERRL, EOMI; no facial palsy; no dysarthria; motor 5 /5 bilaterally; sensation 100% on all extremities Skin- warm & dry Laboratory Results: Last 24 Hours Test 12/19/16 11:19 12/19/16 16:32 12/19/16 19:29 12/19/16 20:01 Bedside Glucose 108 mg/dl 95 mg/dl 148 mg/dl Lactic Acid Level 1.3 mmol/L Test 12/20/16 06:37 12/20/16 07:14 White Blood Count 4.68 K/uL Red Blood Count 3.81 M/uL Hemoglobin 10.4 g/dL Hematocrit 31.9 % Mean Corpuscular Volume 83.7 fL Mean Corpuscular Hemoglobin 27.3 pg Mean Corpuscular Hemoglobin Concent 32.6 g/dl Platelet Count 98 K/uL Mean Platelet Volume 10.0 fL Neutrophils (%) (Auto) 74.8 % Lymphocytes (%) (Auto) 14.5 % Monocytes (%) (Auto) 8.1 % Eosinophils (%) (Auto) 1.5 % Basophils (%) (Auto) 0.9 % Neutrophils # (Auto) 3.50 K/uL Lymphocytes # (Auto) 0.68 K/uL Monocytes # (Auto) 0.38 K/uL Eosinophils # (Auto) 0.07 K/uL Basophils # (Auto) 0.04 K/uL RDW Standard Deviation 47.6 fL RDW Coefficient of Variation 15.3 % Immature Granulocyte % (Auto) 0.2 % Immature Granulocyte # (Auto) 0.01 K/uL Platelet Estimate DECREASED Sodium Level 142 mmol/L Potassium Level 3.8 mmol/L Chloride Level 113 mmol/L Carbon Dioxide Level 18 mmol/L Anion Gap 11.0 mmol/L Blood Urea Nitrogen 16 mg/dl Creatinine 0.82 mg/dl Est Creatinine Clear Calc Drug Dose 106.7 ml/min Estimated GFR () 106.8 Estimated GFR (Non- 92.1 BUN/Creatinine Ratio 20.0 Random Glucose 104 mg/dl Calcium Level 8.0 mg/dl Ammonia 39.0 umol/L Bedside Glucose 93 mg/dl Assessment & Plan 66 year old male with history of CAD, CHF Diastolic Type, Atrial Fibrillation DM , HTN, recent fall with closed head trauma presenting with weakness and headache. LEFT PARIETAL LOBE HEMORRHAGE S/P HEAD TRAUMA SECONDARY TO FALL MRI brain: as below Repeat CT head: Stable Aspirin, Eliquis discontinued Neurology consulted, appreciate the input -- 12/19/16 (+) moderate frontal headache 3rd CT head: Impression: 1. The left parietal vertex contusion has essentially resolved in the interval. 2. There is a persistent 2 mm punctate hyperdense focus within the right high convexity which remains unchanged. This favors a tiny contusion/trace -- no headache today will discuss with Neurology when next CT head would be and when coumadin can be restarted GENERALIZED WEAKNESS/LETHARGY Likely debility from comorbidities, Elevated Ammonia -- Ammonia level 47 AST/ALT ok, Alk Phos slightly elevated -- Liver US: IMPRESSION: Moderate size right knee joint effusion with possible synovial thickening, a nonspecific finding. -- started Lactulose 30mg TID consulted GI, appreciate the input -- mental status improving continue Lactulose for now continue PT /OT LIVER CIRRHOSIS - history of alcoholism - -- Ammonia level 47 AST/ALT ok, Alk Phos slightly elevated -- Liver US: IMPRESSION: Moderate size right knee joint effusion with possible synovial thickening, a nonspecific finding. -- started Lactulose 30mg TID Lasix on hold for ongoing infection consulted GI, appreciate the input additional serologies to r/o other etiologies of Cirrhosis pending ATRIAL FIBRILLATION WITH RVR increased Metoprolol HR increased yesterday due to fever -- HR better today Poor candidate for anticoagulation given H/O prior hemoptysis, frequent falls , and hemorrhagic contusion. appreciate Cardiology SVC input will discuss with Cardiology re: continuation of anticoagulation once cleared by Neuro FEVER LIKELY SECONDARY TO BILATERAL LEG CELLULITIS, R/O RIGHT KNEE SEPTIC ARTHRITIS + GOUT FLARE UP - Blood cultures negative so far Urine cultures negative so far - Right knee US: Moderate effusion - continue Vanco and Aztreonam IV Day 2 Ortho consulted for possible arthrocentesis with cultures and crystal analysis (patient reports history of gout) Elevated Troponin: Likely demand ischemia cardiac enzymes trended down -- no cardiac symptoms DM II: hold Glimepiride Last A1c: 9.5 in Oct ISS, Accu checks, Diabetic diet Hold Lantus as having hypoglycemic episodes HTN: BP on the lower side on Metoprolol hold Lasix Non-occlusive CAD continue Lipitor Diastolic CHF: hold Lasix for ongoing infection COPD: not in exacerbation Nebs PRN Chronic Venous stasis stable Doppler US negative for DVT DVT Px: SCDs: ambulation encouraged Code Status: Full Code Disposition: Monitor In Tele Will need Rehab placement Case discussed at length and in detail with patient, son Arpan, Margarita all questions answered, they are agreeable and comfortable with plan of care spent at least 45 mins with them PROCEDURES: MRI Brain: 1. 10 mm cortically-based hemorrhagic focus of the left parietal lobe near the vertex redemonstrated without significant change of signal intensity on the postcontrast images suggesting acute posttraumatic cortical contusion without enlargement from the previous study. No new or additional foci identified. Follow-up recommended. 2. Atrophy with mild background chronic microvascular ischemic changes. Current Inpatient Medications: Current Inpatient Medications Medications (Trade) Dose Ordered Sig/Van Route Start Time Stop Time Status Last Admin Dose Admin Ondansetron HCl (Zofran Inj) 4 mg Q6H PRN IV 12/17/16 10:45 01/16/17 10:44 Nitroglycerin (Nitrostat Tab) 0.4 mg UD PRN SL 12/17/16 10:45 01/16/17 10:44 Insulin Glargine (Lantus Solostar Pen) 5 units Q12 SC 12/17/16 21:00 01/16/17 20:59 Future Hold 12/17/16 20:48 5 UNITS Insulin Aspart (novoLOG ASPART) SLIDING SCALE If C... ACHS SC 12/17/16 11:00 01/16/17 10:59 12/20/16 08:34 1 UNITS Glucose (Glucose 40% Gel) 15-30 GRAMS 15 GRAMS... UD PRN PO 12/17/16 11:00 01/16/17 10:59 Glucose (Glucose Chew Tab) 4-8 Tablets 4 Tabl... UD PRN PO 12/17/16 11:00 01/16/17 10:59 Dextrose (Dextrose 50% 50ML Syringe) 25-50ML OF 50% DW IV FOR... UD PRN IV 12/17/16 11:00 01/16/17 10:59 Glucagon (Glucagon Inj) 1 mg UD PRN SQ 12/17/16 11:00 01/16/17 10:59 Gabapentin (Neurontin Cap) 300 mg BID PO 12/17/16 21:00 01/16/17 20:59 12/20/16 08:20 300 MG Acetaminophen/ Hydrocodone Bitart ([place] 5/325 Tab) 1 tab Q4 PRN PO 12/17/16 11:00 12/31/16 10:59 12/19/16 07:57 1 TAB Potassium Chloride (Klor-Con M10) 10 meq DAILY PO 12/18/16 09:00 01/17/17 08:59 12/20/16 08:20 10 MEQ Metoprolol Tartrate (Lopressor Iv) 2.5 mg Q6 PRN IV 12/17/16 11:15 01/16/17 11:14 12/18/16 17:36 2.5 MG Levalbuterol (Xopenex 0.63 Mg/ 3 Ml Neb) 0.63 mg Q6R PRN INH 12/17/16 11:15 01/16/17 11:14 Atorvastatin Calcium (Lipitor Tab) 40 mg QAM PO 12/18/16 09:00 01/17/17 08:59 12/20/16 08:20 40 MG Gadobutrol (Gadavist) 10 mmol UD PRN IV 12/17/16 18:45 12/21/16 18:44 Ciprofloxacin HCl (Ciprofloxacin 0.3% Op Soln) 2 drops Q4HWA OP 12/18/16 17:30 12/28/16 17:14 12/20/16 08:19 2 DROPS Metoprolol Succinate (Toprol Xl Tab) 50 mg BID PO 12/19/16 09:00 01/17/17 08:59 12/20/16 08:21 50 MG Lorazepam (Ativan Inj) PRN Dosing -Active Protocol Q1H PRN IV 12/18/16 19:30 01/17/17 19:29 Thiamine HCl (Vitamin B-1 Tab) 100 mg QAM PO 12/19/16 09:00 01/18/17 08:59 12/20/16 08:21 100 MG Multivitamins (Multivitamin Tab) 1 tab QAM PO 12/19/16 09:00 01/18/17 08:59 12/20/16 08:20 1 TAB Folic Acid (Folvite Tab) 1 mg QAM PO 12/19/16 09:00 01/18/17 08:59 12/20/16 08:19 1 MG Lactulose (Chronulac Syrup) 30 gm TID PO 12/19/16 09:00 01/18/17 08:59 12/19/16 13:30 30 GM Aztreonam (Consult) 1 ea UD PRN N/A 12/19/16 09:00 01/18/17 08:59 Aztreonam 1000 mg/ Dextrose 110 ml @ 110 mls/hr Q8H IV 12/19/16 10:00 12/29/16 09:59 12/20/16 02:07 110 MLS/HR Vancomycin HCl (Consult) 1 ea UD PRN N/A 12/19/16 17:00 01/18/17 16:59 Vancomycin HCl 1500 mg/Sodium Chloride 530 ml @ 200 mls/hr Q10H IV 12/20/16 04:00 12/29/16 03:59 12/20/16 03:29 200 MLS/HR Acetaminophen (Tylenol Tab) 325 mg Q6H PRN PO 12/19/16 17:00 01/16/17 10:44 12/20/16 04:30 325 MG
--- NOTE | 2016-12-20 10:46 | Cardiology Follow-Up ---
Subjective General Date of Service: Dec 20, 2016. Chief Complaint: Atrial fibrillation with a RVR Pt evaluation today including: conversation w/ patient, conversation w/ family , physical exam, chart review, lab review, review of studies, review of inpatient medication list History of Present Illness Patient seen and examined. Family present at bedside. No chest pain, palpitations, or breathing difficulty. Telemetry: Atrial fibrillation currently around 100 bpm. Heart rates have trended upward over the last 24 hours. No periods of sinus. No significant bradyarrhythmias or pauses. November 04, 2016 TTE Interpretation Summary ([facility], Dr. Vaughan): Ejection Fraction = 60-65%. There is moderate concentric left ventricular hypertrophy. Mild valvular aortic stenosis. There is mild mitral regurgitation. December 15, 2016 [facility] Normal systolic function. EF 55-060%. No stress induced chest pain. Negative EKG test for ischemia. No stress induced arrhythmias. Normal global LV systolic function response to stress. Normal stress study (at 100% age predicted maximum heart rate). Allergies Coded Allergies: Cefazolin (Verified Allergy, Intermediate, UNKNOWN, 12/18/16) INFORMATION FROM [facility]. Cephalexin (Verified Allergy, Intermediate, HIVES, 12/18/16) Collagen (Verified Allergy, Intermediate, Gut suture - swelling, 12/18/16) Influenza Virus Vaccine H5N1 (Verified Allergy, Unknown, LABELED A CHILD, UNSURE, 11/03/16) Baclofen (Verified Adverse Reaction, Severe, DELIRIUM, 12/19/16) Diazepam (Verified Adverse Reaction, Severe, DELIRIUM, 12/19/16) Social History Smoking Status: Never Smoker Hx Tobacco Use In Past Year?: No (quit at age 16) Hx Alcohol Use - Type And Amou: Yes (2 beers a day) Hx Substance Use - Type And Am: No Problem List Medical Problems: (1) Altered mental status Status: Acute (2) Back pain Status: Acute (3) CHF exacerbation Status: Acute (4) Elevated troponin Status: Acute (5) Hypoglycemia Status: Acute Physical Exam Vital Signs Last Vital Signs Documentation Date Time Temp Pulse Resp B/P (MAP) Pulse Ox O2 Delivery O2 Flow Rate FiO2 12/20/16 07:05 37.5 101 18 107/71 (83) 92 Room Air 12/17/16 12:40 2.0 Physical Exam Constitutional: General Apperance: overweight Level of Distress: NAD, chronically ill Psychiatric: Mental Status: active & alert Orientation: to place, to person, not oriented to time Head: normocephalic, atraumatic Eyes: Pupils: PERRLA Neck: pertinent finding (Normal JVP) Lungs: Respiratory effort: no dyspnea Auscultation: no rales/crackles, no rhonchi, deminished air movement, decreased breath sounds Cardiovascular: Heart Auscultation: no rubs, no gallops, II/ JESUS, irregular rate rhythm ( 100 bpm) Peripheral Pulses: Dorsalis Pedis Pulse: absent on the left, absent on the right Extremities: edema (1-2+ chronic indurated edema), pertinent finding (multiple wounds in various stages of healing on all extremities. ) Assessment and Plan Assessment and Plan 66-year-old male seen in cardiology follow-up, evaluation of atrial fibrillation with a rapid ventricular response. RECOMMENDATIONS/PLAN: Increase metoprolol succinate to 75 mg twice a day for additional rate control. Risks and benefits of anticoagulation discussed with the patient, his , and two sons. At this time, the risks appear to be greater than the benefit (prior hemoptysis, ambulatory dysfunction/frequent falls, hemorrhagic area of contusion , cirrhosis, etc); revisit anticoagulation if/when status improves. Patient would likely benefit from resuming furosemide; consider utilization of spironolactone. Laboratory Results Last 24 Hours Test 12/19/16 11:19 12/19/16 16:32 12/19/16 19:29 12/19/16 20:01 Bedside Glucose 108 mg/dl 95 mg/dl 148 mg/dl Lactic Acid Level 1.3 mmol/L Test 12/20/16 06:37 12/20/16 07:14 12/20/16 09:48 12/20/16 10:11 White Blood Count 4.68 K/uL Red Blood Count 3.81 M/uL Hemoglobin 10.4 g/dL Hematocrit 31.9 % Mean Corpuscular Volume 83.7 fL Mean Corpuscular Hemoglobin 27.3 pg Mean Corpuscular Hemoglobin Concent 32.6 g/dl Platelet Count 98 K/uL Mean Platelet Volume 10.0 fL Neutrophils (%) (Auto) 74.8 % Lymphocytes (%) (Auto) 14.5 % Monocytes (%) (Auto) 8.1 % Eosinophils (%) (Auto) 1.5 % Basophils (%) (Auto) 0.9 % Neutrophils # (Auto) 3.50 K/uL Lymphocytes # (Auto) 0.68 K/uL Monocytes # (Auto) 0.38 K/uL Eosinophils # (Auto) 0.07 K/uL Basophils # (Auto) 0.04 K/uL RDW Standard Deviation 47.6 fL RDW Coefficient of Variation 15.3 % Immature Granulocyte % (Auto) 0.2 % Immature Granulocyte # (Auto) 0.01 K/uL Platelet Estimate DECREASED Sodium Level 142 mmol/L Potassium Level 3.8 mmol/L Chloride Level 113 mmol/L Carbon Dioxide Level 18 mmol/L Anion Gap 11.0 mmol/L Blood Urea Nitrogen 16 mg/dl Creatinine 0.82 mg/dl Est Creatinine Clear Calc Drug Dose 106.7 ml/min Estimated GFR () 106.8 Estimated GFR (Non- 92.1 BUN/Creatinine Ratio 20.0 Random Glucose 104 mg/dl Calcium Level 8.0 mg/dl Ammonia 39.0 umol/L Bedside Glucose 93 mg/dl Transferrin % Saturation %
--- NOTE | 2016-12-20 10:56 | Gastroenterology Progress Note ---
Progress Note Date of Service: Dec 20, 2016 Subjective Pt evaluation today including: conversation w/ patient, conversation w/ family , physical exam, chart review, lab review, review of inpatient medication list Pt is more alert, oriented now, family in room. His ammonia level is 39. c/o R knee swelling and pain. Febrile yesterday. Review of Systems Constitutional: + fever, No chills Respiratory: No cough, No shortness of breath Abdomen: + diarrhea, No pain, No nausea, No vomiting, No GI bleeding Skin: No jaundice Medications Current Inpatient Medications Medications (Trade) Dose Ordered Sig/Van Route Start Time Stop Time Status Last Admin Dose Admin Ondansetron HCl (Zofran Inj) 4 mg Q6H PRN IV 12/17/16 10:45 01/16/17 10:44 Nitroglycerin (Nitrostat Tab) 0.4 mg UD PRN SL 12/17/16 10:45 01/16/17 10:44 Insulin Glargine (Lantus Solostar Pen) 5 units Q12 SC 12/17/16 21:00 01/16/17 20:59 Future Hold 12/17/16 20:48 5 UNITS Insulin Aspart (novoLOG ASPART) SLIDING SCALE If C... ACHS SC 12/17/16 11:00 01/16/17 10:59 12/20/16 08:34 1 UNITS Glucose (Glucose 40% Gel) 15-30 GRAMS 15 GRAMS... UD PRN PO 12/17/16 11:00 01/16/17 10:59 Glucose (Glucose Chew Tab) 4-8 Tablets 4 Tabl... UD PRN PO 12/17/16 11:00 01/16/17 10:59 Dextrose (Dextrose 50% 50ML Syringe) 25-50ML OF 50% DW IV FOR... UD PRN IV 12/17/16 11:00 01/16/17 10:59 Glucagon (Glucagon Inj) 1 mg UD PRN SQ 12/17/16 11:00 01/16/17 10:59 Gabapentin (Neurontin Cap) 300 mg BID PO 12/17/16 21:00 01/16/17 20:59 12/20/16 08:20 300 MG Acetaminophen/ Hydrocodone Bitart ([place] 5/325 Tab) 1 tab Q4 PRN PO 12/17/16 11:00 10/15/17 10:59 12/19/16 07:57 1 TAB Potassium Chloride (Klor-Con M10) 10 meq DAILY PO 12/18/16 09:00 01/17/17 08:59 12/20/16 08:20 10 MEQ Metoprolol Tartrate (Lopressor Iv) 2.5 mg Q6 PRN IV 12/17/16 11:15 01/16/17 11:14 12/18/16 17:36 2.5 MG Levalbuterol (Xopenex 0.63 Mg/ 3 Ml Neb) 0.63 mg Q6R PRN INH 12/17/16 11:15 01/16/17 11:14 Atorvastatin Calcium (Lipitor Tab) 40 mg QAM PO 12/18/16 09:00 01/17/17 08:59 12/20/16 08:20 40 MG Gadobutrol (Gadavist) 10 mmol UD PRN IV 12/17/16 18:45 12/21/16 18:44 Ciprofloxacin HCl (Ciprofloxacin 0.3% Op Soln) 2 drops Q4HWA OP 12/18/16 17:30 12/28/16 17:14 12/20/16 08:19 2 DROPS Metoprolol Succinate (Toprol Xl Tab) 50 mg BID PO 12/19/16 09:00 01/17/17 08:59 12/20/16 08:21 50 MG Lorazepam (Ativan Inj) PRN Dosing -Active Protocol Q1H PRN IV 12/18/16 19:30 01/17/17 19:29 Thiamine HCl (Vitamin B-1 Tab) 100 mg QAM PO 12/19/16 09:00 01/18/17 08:59 12/20/16 08:21 100 MG Multivitamins (Multivitamin Tab) 1 tab QAM PO 12/19/16 09:00 01/18/17 08:59 12/20/16 08:20 1 TAB Folic Acid (Folvite Tab) 1 mg QAM PO 12/19/16 09:00 01/18/17 08:59 12/20/16 08:19 1 MG Lactulose (Chronulac Syrup) 30 gm TID PO 12/19/16 09:00 01/18/17 08:59 12/19/16 13:30 30 GM Aztreonam (Consult) 1 ea UD PRN N/A 12/19/16 09:00 01/18/17 08:59 Aztreonam 1000 mg/ Dextrose 110 ml @ 110 mls/hr Q8H IV 12/19/16 10:00 12/29/16 09:59 12/20/16 10:08 110 MLS/HR Vancomycin HCl (Consult) 1 ea UD PRN N/A 12/19/16 17:00 01/18/17 16:59 Vancomycin HCl 1500 mg/Sodium Chloride 530 ml @ 200 mls/hr Q10H IV 12/20/16 04:00 12/29/16 03:59 12/20/16 03:29 200 MLS/HR Acetaminophen (Tylenol Tab) 325 mg Q6H PRN PO 12/19/16 17:00 01/16/17 10:44 12/20/16 04:30 325 MG Objective Vital Signs Date Time Temp Pulse Resp B/P (MAP) Pulse Ox O2 Delivery O2 Flow Rate FiO2 12/20/16 07:05 37.5 101 18 107/71 (83) 92 Room Air 12/20/16 04:44 37.9 17 111/75 (87) 92 Room Air 12/20/16 04:00 Room Air 12/20/16 00:00 Room Air 12/19/16 23:47 37.1 104 18 106/71 (83) 97 Room Air 12/19/16 20:00 Room Air 12/19/16 19:10 37.6 113 18 111/70 (84) 92 Room Air 12/19/16 16:26 38.0 130 18 128/77 (94) 12/19/16 14:54 36.5 101 20 119/88 (98) 95 Room Air 12/19/16 12:00 Room Air 12/19/16 11:26 37.3 98 24 112/78 (89) 95 Room Air Physical Exam General Appearance: WD/WN, no apparent distress, + obese Eyes: normal inspection, PERRL, EOMI Neck: supple, no JVD, trachea midline Respiratory/Chest: no respiratory distress, no accessory muscle use, + decreased breath sounds Cardiovascular: no gallop, no murmur, + irregularly irregular Abdomen: normal bowel sounds, non tender, soft Extremities: + swelling (bilateral upper and lower extremities w edema) Neurologic/Psych: alert, normal mood/affect, oriented x 3 Skin: normal color, no jaundice, no rash Laboratory Results Last 24 Hours Test 12/19/16 11:19 12/19/16 16:32 12/19/16 19:29 12/19/16 20:01 Bedside Glucose 108 mg/dl 95 mg/dl 148 mg/dl Lactic Acid Level 1.3 mmol/L Test 12/20/16 06:37 12/20/16 07:14 12/20/16 09:48 12/20/16 10:11 White Blood Count 4.68 K/uL Red Blood Count 3.81 M/uL Hemoglobin 10.4 g/dL Hematocrit 31.9 % Mean Corpuscular Volume 83.7 fL Mean Corpuscular Hemoglobin 27.3 pg Mean Corpuscular Hemoglobin Concent 32.6 g/dl Platelet Count 98 K/uL Mean Platelet Volume 10.0 fL Neutrophils (%) (Auto) 74.8 % Lymphocytes (%) (Auto) 14.5 % Monocytes (%) (Auto) 8.1 % Eosinophils (%) (Auto) 1.5 % Basophils (%) (Auto) 0.9 % Neutrophils # (Auto) 3.50 K/uL Lymphocytes # (Auto) 0.68 K/uL Monocytes # (Auto) 0.38 K/uL Eosinophils # (Auto) 0.07 K/uL Basophils # (Auto) 0.04 K/uL RDW Standard Deviation 47.6 fL RDW Coefficient of Variation 15.3 % Immature Granulocyte % (Auto) 0.2 % Immature Granulocyte # (Auto) 0.01 K/uL Platelet Estimate DECREASED Sodium Level 142 mmol/L Potassium Level 3.8 mmol/L Chloride Level 113 mmol/L Carbon Dioxide Level 18 mmol/L Anion Gap 11.0 mmol/L Blood Urea Nitrogen 16 mg/dl Creatinine 0.82 mg/dl Est Creatinine Clear Calc Drug Dose 106.7 ml/min Estimated GFR () 106.8 Estimated GFR (Non- 92.1 BUN/Creatinine Ratio 20.0 Random Glucose 104 mg/dl Calcium Level 8.0 mg/dl Ammonia 39.0 umol/L Bedside Glucose 93 mg/dl Transferrin % Saturation % Assessment and Plan Patient is a 66 year old male seen for mildly elevated ammonia level: 47. He has hx of heavy ETOH use, labs showed thrombocytopenia, slightly elevated LFTs. Suspect he has cirrhosis. Liver u/s on 12/19/16: 1. Heterogeneous appearance of the liver with mild marginal nodularity is suspicious for cirrhotic liver disease. 2. Contracted gallbladder without cholelithiasis or sonographic evidence of acute cholecystitis. 3. No biliary ductal dilation. 4. Nonspecific 0.8 cm hypoechoic left hepatic lobe lesion. Plans - Continue Lactulose as dosed; may titrate for goal BM 3-5 daily. Though current confusion may be multifactorial including recent head trauma and hepatic encephalopathy. - Lasix DC'd yesterday for suspected sepsis given knee effusion and fever. I discussed w Dr. Aguilar that as soon as this is ruled out, may resume diuretics Lasix 40mg daily, Spironolactone daily to help w edema. - Obtain serologies to r/o acute hepatitis, autoimmune/hereditary liver diseases. - F/U RPR, blood and urine cultures -> negative. - ETOH cessation advised. Recommended case management involvement for ETOH cessation/counseling programs vs inpt rehab eval. - Upon DC would help arrange for GI f/u to manage cirrhosis and to consider obtaining liver CT and Fibrosure to confirm cirrhosis, EGD to r/o varices, HCC screens [id number], Hep A and B immunizations if needed.
[2016-12-20 11:18] LABS: FERRITIN 156.2 ng/ml (8.0-388.0)
--- NOTE | 2016-12-20 14:53 | Pharmacy Progress Note ---
Pharmacy Antibiotic Prog Note Date of Service Dec 20, 2016. Subjective The patient is currently receiving 1500 mg IV every 10 hours after a 2750mg load. Objective Height (Feet): 5 Height (Inches): 9.00 Weight (Kilograms): 106.700 Lab Results (24hrs): Test 12/19/16 19:29 12/20/16 06:37 12/20/16 07:14 12/20/16 10:11 Lactic Acid Level 1.3 mmol/L (0.4-2.0) White Blood Count 4.68 K/uL (4.8-10.8) Red Blood Count 3.81 M/uL (4.7-6.1) Hemoglobin 10.4 g/dL (14.0-18.0) Hematocrit 31.9 % (42-52) Mean Corpuscular Volume 83.7 fL (80-100) Mean Corpuscular Hemoglobin 27.3 pg (25-34) Mean Corpuscular Hemoglobin Concent 32.6 g/dl (32-36) Platelet Count 98 K/uL (130-400) Mean Platelet Volume 10.0 fL (7.4-10.4) Neutrophils (%) (Auto) 74.8 % Lymphocytes (%) (Auto) 14.5 % Monocytes (%) (Auto) 8.1 % Eosinophils (%) (Auto) 1.5 % Basophils (%) (Auto) 0.9 % Neutrophils # (Auto) 3.50 K/uL (1.4-6.5) Lymphocytes # (Auto) 0.68 K/uL (1.2-3.4) Monocytes # (Auto) 0.38 K/uL (0.11-0.59) Eosinophils # (Auto) 0.07 K/uL (0-0.5) Basophils # (Auto) 0.04 K/uL (0-0.2) RDW Standard Deviation 47.6 fL (36.4-46.3) RDW Coefficient of Variation 15.3 % (11.5-14.5) Immature Granulocyte % (Auto) 0.2 % Immature Granulocyte # (Auto) 0.01 K/uL (0.00-0.02) Platelet Estimate DECREASED Sodium Level 142 mmol/L (136-145) Potassium Level 3.8 mmol/L (3.5-5.1) Chloride Level 113 mmol/L (98-107) Carbon Dioxide Level 18 mmol/L (21-32) Anion Gap 11.0 mmol/L (3-11) Blood Urea Nitrogen 16 mg/dl (7-18) Creatinine 0.82 mg/dl (0.60-1.40) Est Creatinine Clear Calc Drug Dose 106.7 ml/min Estimated GFR () 106.8 Estimated GFR (Non- 92.1 BUN/Creatinine Ratio 20.0 (10-20) Random Glucose 104 mg/dl (70-99) Calcium Level 8.0 mg/dl (8.5-10.1) Iron Level 20 mcg/dl (35-175) Total Iron Binding Capacity 284 mcg/dl (250-450) Transferrin 208 mg/dl (200-360) Transferrin % Saturation 7 % (20-50) Ferritin 156.2 ng/ml (8.0-388.0) Ammonia 39.0 umol/L (11-32) Bedside Glucose 93 mg/dl (70-99) Hepatitis B Surface Antigen NEG (NEG) Hepatitis C Antibody NEG (NEG) Test 12/20/16 11:18 Bedside Glucose 105 mg/dl (70-99) Assessment & Plan Continue dosing as per entered by previous pharmacist. Peak and trough or random level has been ordered for: @ 2411. Pharmacy will continue to follow and will adjust dose/frequency as necessary. Thank you
--- NOTE | 2016-12-20 15:25 | Neurology Progress Notes ---
Neurology Progress Note Date of Service Dec 20, 2016. Dudley Rodriguez is a 66 year old male with a PMH of DM II, A fib, HTN, non-occlusive CAD , Diastolic CHF, COPD, Chronic Venous stasis. He was flown to [facility] after a fall down stairs for possible CVA and concussion after encountering head trauma. His son is in the room and states the original fall down the stairs was unwitnessed and he was found with a sandwich lying beside him at the bottom of the stairs. After being discharged from [facility] he was home 2 days. He was tired and sat down in a chair and then couldn't get up. He uses a walker to ambulate around the house. CT head showed no acute changes. He is on elquis for cardiovascular issues and was in afib with RVR in the ED. His son reports he is a heavy drinker but he has not had anything to drink since the fall. 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 The son thinks his memory and overall physical health has declined over the past year. he was transported to [facility] because it was the closest to his home. His sons are in the room and are anxious to get him to rehab. Orthopedics was suppose to see him to drain the fluid off his knee to see if it is infection or gout. Denies CP/SOB/abdominal pain, change in bowel/bladder habits/fever, chills night sweats. + pain in leg and back with movement Objective Date Time Temp Pulse Resp B/P (MAP) Pulse Ox O2 Delivery O2 Flow Rate FiO2 12/20/16 14:57 38.3 101 20 107/75 (86) 95 Room Air 12/20/16 12:00 92 Room Air 12/20/16 11:12 36.8 95 20 116/74 (88) 99 Room Air 12/20/16 08:00 92 Room Air 12/20/16 07:05 37.5 101 18 107/71 (83) 92 Room Air 12/20/16 04:44 37.9 17 111/75 (87) 92 Room Air 12/20/16 04:00 Room Air 12/20/16 00:00 Room Air 12/19/16 23:47 37.1 104 18 106/71 (83) 97 Room Air 12/19/16 20:00 Room Air 12/19/16 19:10 37.6 113 18 111/70 (84) 92 Room Air 12/19/16 16:26 38.0 130 18 128/77 (94) Last 24 Hours Test 12/19/16 16:32 12/19/16 19:29 12/19/16 20:01 12/20/16 06:37 Bedside Glucose 95 mg/dl 148 mg/dl Lactic Acid Level 1.3 mmol/L White Blood Count 4.68 K/uL Red Blood Count 3.81 M/uL Hemoglobin 10.4 g/dL Hematocrit 31.9 % Mean Corpuscular Volume 83.7 fL Mean Corpuscular Hemoglobin 27.3 pg Mean Corpuscular Hemoglobin Concent 32.6 g/dl Platelet Count 98 K/uL Mean Platelet Volume 10.0 fL Neutrophils (%) (Auto) 74.8 % Lymphocytes (%) (Auto) 14.5 % Monocytes (%) (Auto) 8.1 % Eosinophils (%) (Auto) 1.5 % Basophils (%) (Auto) 0.9 % Neutrophils # (Auto) 3.50 K/uL Lymphocytes # (Auto) 0.68 K/uL Monocytes # (Auto) 0.38 K/uL Eosinophils # (Auto) 0.07 K/uL Basophils # (Auto) 0.04 K/uL RDW Standard Deviation 47.6 fL RDW Coefficient of Variation 15.3 % Immature Granulocyte % (Auto) 0.2 % Immature Granulocyte # (Auto) 0.01 K/uL Platelet Estimate DECREASED Sodium Level 142 mmol/L Potassium Level 3.8 mmol/L Chloride Level 113 mmol/L Carbon Dioxide Level 18 mmol/L Anion Gap 11.0 mmol/L Blood Urea Nitrogen 16 mg/dl Creatinine 0.82 mg/dl Est Creatinine Clear Calc Drug Dose 106.7 ml/min Estimated GFR () 106.8 Estimated GFR (Non- 92.1 BUN/Creatinine Ratio 20.0 Random Glucose 104 mg/dl Calcium Level 8.0 mg/dl Iron Level 20 mcg/dl Total Iron Binding Capacity 284 mcg/dl Transferrin 208 mg/dl Transferrin % Saturation 7 % Ferritin 156.2 ng/ml Ammonia 39.0 umol/L Test 12/20/16 07:14 12/20/16 10:11 12/20/16 11:18 Bedside Glucose 93 mg/dl 105 mg/dl Hepatitis B Surface Antigen NEG Hepatitis C Antibody NEG Imaging: US knee- : Moderate size right knee joint effusion with possible synovial thickening, a nonspecific finding. Exam: Physical Exam: Constitutional: appearance nourished Ears, Nose, Mouth and Throat: mucous membranes moist, no injection and skin normal, eyes normal Cardiovascular: irregular Respiratory: coarse breath sound Musculoskeletal: pitting edema bilaterally with venous stasis and skin integrity compromised Skin numerous scabbing areas Eyes: extraocular muscles intact (EOMI) and pupils equal, round and reactive to light (PERRL) NEUROLOGIC EXAMINATION: Mental status: Alert and interactive Oriented to [facility], [facility] Oriented to person Speech fluent with no evidence of aphasia Cranial Nerves smile eye brow raise symmetric Sensory: decreased knee to toes cool and vibration bilaterally Coordination: finger to nose no bipass reaching tremor R>L Gait/Stance: Posture normal. sitting in wheelchair Strength: hand credit assistant biceps triceps 5/5 bilaterally, hip flex against gravity and resistance, plantar flex ext 5/5 bilaterally Current Inpatient Medications Medications (Trade) Dose Ordered Sig/Van Route Start Time Stop Time Status Last Admin Dose Admin Ondansetron HCl (Zofran Inj) 4 mg Q6H PRN IV 12/17/16 10:45 01/16/17 10:44 Nitroglycerin (Nitrostat Tab) 0.4 mg UD PRN SL 12/17/16 10:45 01/16/17 10:44 Insulin Glargine (Lantus Solostar Pen) 5 units Q12 SC 12/17/16 21:00 01/16/17 20:59 Future Hold 12/17/16 20:48 5 UNITS Insulin Aspart (novoLOG ASPART) SLIDING SCALE If C... ACHS SC 12/17/16 11:00 01/16/17 10:59 12/20/16 08:34 1 UNITS Glucose (Glucose 40% Gel) 15-30 GRAMS 15 GRAMS... UD PRN PO 12/17/16 11:00 01/16/17 10:59 Glucose (Glucose Chew Tab) 4-8 Tablets 4 Tabl... UD PRN PO 12/17/16 11:00 01/16/17 10:59 Dextrose (Dextrose 50% 50ML Syringe) 25-50ML OF 50% DW IV FOR... UD PRN IV 12/17/16 11:00 01/16/17 10:59 Glucagon (Glucagon Inj) 1 mg UD PRN SQ 12/17/16 11:00 01/16/17 10:59 Gabapentin (Neurontin Cap) 300 mg BID PO 12/17/16 21:00 01/16/17 20:59 12/20/16 08:20 300 MG Acetaminophen/ Hydrocodone Bitart ([place] 5/325 Tab) 1 tab Q4 PRN PO 12/17/16 11:00 12/31/16 10:59 12/19/16 07:57 1 TAB Potassium Chloride (Klor-Con M10) 10 meq DAILY PO 12/18/16 09:00 01/17/17 08:59 12/20/16 08:20 10 MEQ Metoprolol Tartrate (Lopressor Iv) 2.5 mg Q6 PRN IV 12/17/16 11:15 01/16/17 11:14 12/18/16 17:36 2.5 MG Levalbuterol (Xopenex 0.63 Mg/ 3 Ml Neb) 0.63 mg Q6R PRN INH 12/17/16 11:15 01/16/17 11:14 Atorvastatin Calcium (Lipitor Tab) 40 mg QAM PO 12/18/16 09:00 01/17/17 08:59 12/20/16 08:20 40 MG Gadobutrol (Gadavist) 10 mmol UD PRN IV 12/17/16 18:45 12/21/16 18:44 Ciprofloxacin HCl (Ciprofloxacin 0.3% Op Soln) 2 drops Q4HWA OP 12/18/16 17:30 12/28/16 17:14 12/20/16 12:31 2 DROPS Lorazepam (Ativan Inj) PRN Dosing -Active Protocol Q1H PRN IV 12/18/16 19:30 01/17/17 19:29 Thiamine HCl (Vitamin B-1 Tab) 100 mg QAM PO 12/19/16 09:00 01/18/17 08:59 12/20/16 08:21 100 MG Multivitamins (Multivitamin Tab) 1 tab QAM PO 12/19/16 09:00 01/18/17 08:59 12/20/16 08:20 1 TAB Folic Acid (Folvite Tab) 1 mg QAM PO 12/19/16 09:00 01/18/17 08:59 12/20/16 08:19 1 MG Lactulose (Chronulac Syrup) 30 gm TID PO 12/19/16 09:00 01/18/17 08:59 12/19/16 13:30 30 GM Aztreonam (Consult) 1 ea UD PRN N/A 12/19/16 09:00 01/18/17 08:59 Aztreonam 1000 mg/ Dextrose 110 ml @ 110 mls/hr Q8H IV 12/19/16 10:00 12/29/16 09:59 12/20/16 10:08 110 MLS/HR Vancomycin HCl (Consult) 1 ea UD PRN N/A 12/19/16 17:00 01/18/17 16:59 Vancomycin HCl 1500 mg/Sodium Chloride 530 ml @ 200 mls/hr Q10H IV 12/20/16 04:00 12/29/16 03:59 12/20/16 14:08 200 MLS/HR Acetaminophen (Tylenol Tab) 325 mg Q6H PRN PO 12/19/16 17:00 01/16/17 10:44 12/20/16 04:30 325 MG Metoprolol Succinate (Toprol Xl Tab) 75 mg BID PO 12/20/16 21:00 01/17/17 08:59 Impression 66 year old male with multiple medical issues with L parietal contusion stable- memory issues (chronic) Plan 1. cardiology increased Metoprolol for rate control is holding anticoagulation due to multiple medial issues including hemoptysis, ambulatory dysfunction, frequent falls, and now hemorrhagic area of contusion. 2. medical management to correct metabolic issues- ammonia high 3. drinking cessation needed- son concern the original fall was related to drinking 4. folate and RPR for causes for memory issues, TSH B1 normal 5. MRI with and without - atrophy also noted 6. peripheral neuropathy would contribute to falls 7. will likely need rehab prior to return home- PT/OT for evaluation 8. DM, HTN optimize 9. Eliqus and aspirin are currently on hold- cardiology for recommendations due to multiple medial issues 10. CT head stable resolving contusion 11. once discharged from rehab will see in our office 3-4 weeks, Nanette Clinton PAC schedule I have seen and discussed above patient with Dr Jose Luo, neurology seen and examined and case reviewed major issue now is status of right knee and ortho is going to address this he currently is felt to be too high a risk for anticoagulation and I agree he need rehab for a few weeks get his gait evaluated and treated and any home modifications and assistive device need to be made we can see in two to three weeks post discharge from rehab and check repeat ct then to finally evaluate the small and now resolving bleed We are currently going to sign off and see if there are any changes in status Jose Luo MD
[2016-12-20] MEDS ORDERED: ETHYL CHLORIDE AER SPR 100 ML CAN EXT SCH (16:30)
--- NOTE | 2016-12-20 16:33 | CONSULTATION REPORT ---
DATE OF CONSULTATION: 12/20/2016 HISTORY OF PRESENT ILLNESS: The patient presents as a 66-year-old male, asked to see the patient regarding right knee pain. He is currently being worked up for multiple other medical issues. He is also having an acute gouty attack of his great toe. He had a fall last , relates he landed directly on the anterior aspect of his knee, he has pain in his knee is involving his anterior extensor mechanism. Clinically, his knee examination, he has a moderate to large effusion of his right knee. He has no evidence of a ligament instability to varus or valgus stress. He is able to straight leg raise, relates he is ambulating and able to put weight on his leg, but he has had swelling anterior knee that occurred immediately after his fall last . X-rays revealed there to be evidence of some early and mild degenerative joint disease, no evidence of fracture is noted. No evidence of disruption of his extensor mechanism is noted. He does appear to have a posttraumatic hemarthrosis in light of increased temperature will aspirate his knee to rule out any type of infectious etiology, although clinically it does not appear to be infected. We will also check a cell count, crystals and will follow with you. Pending findings of aspiration, make arrangements for an MRI scan, either in or outpatient. JAK
--- NOTE | 2016-12-20 17:43 | Orthopedic Progress Note ---
Orthopedic Progress Note Date of Service Dec 20, 2016. Subjective Additional Notes: Pt seen by Dr Sukumar fung. Pt without complaints presently. Minimal discomfort in the right great toe currently. Objective dressing removed. Right great toe with mild erythema and open wound at the distal medial aspect. Macerated skin noted. No foul odor. purulent looking drainage noted on dressing. Erythema noted of the foot going up the leg. Moderate edema. Date Time Temp Pulse Resp B/P (MAP) Pulse Ox O2 Delivery O2 Flow Rate FiO2 12/20/16 14:57 38.3 101 20 107/75 (86) 95 Room Air 12/20/16 12:00 92 Room Air 12/20/16 11:12 36.8 95 20 116/74 (88) 99 Room Air 12/20/16 08:00 92 Room Air 12/20/16 07:05 37.5 101 18 107/71 (83) 92 Room Air 12/20/16 04:44 37.9 17 111/75 (87) 92 Room Air 12/20/16 04:00 Room Air 12/20/16 00:00 Room Air 12/19/16 23:47 37.1 104 18 106/71 (83) 97 Room Air 12/19/16 20:00 Room Air 12/19/16 19:10 37.6 113 18 111/70 (84) 92 Room Air Laboratory Results 24 Hours: Test 12/20/16 06:37 White Blood Count 4.68 K/uL Red Blood Count 3.81 M/uL Hemoglobin 10.4 g/dL Hematocrit 31.9 % Mean Corpuscular Volume 83.7 fL Mean Corpuscular Hemoglobin 27.3 pg Mean Corpuscular Hemoglobin Concent 32.6 g/dl Platelet Count 98 K/uL Mean Platelet Volume 10.0 fL Neutrophils (%) (Auto) 74.8 % Lymphocytes (%) (Auto) 14.5 % Monocytes (%) (Auto) 8.1 % Eosinophils (%) (Auto) 1.5 % Basophils (%) (Auto) 0.9 % Neutrophils # (Auto) 3.50 K/uL Lymphocytes # (Auto) 0.68 K/uL Monocytes # (Auto) 0.38 K/uL Eosinophils # (Auto) 0.07 K/uL Basophils # (Auto) 0.04 K/uL Assessment & Plan Assessment: Infection Right Great Toe. Osteomyelitis noted on CT Scan of the distal phalanx of Right Great Toe Plan: Discussed case with Dr Patino and Dr Hammond. Will plan for I&D of Right Great Toe with possible amputation of the distal phalanx tomorrow. Will make patient npo after midnight.
[2016-12-20 18:37] LABS: SYNOVIAL FLUID APPEARANCE CLOUDY; SYNOVIAL FLUID COLOR YELLOW; SYNOVIAL FLUID MONONUC RELAT 3.9 %; SYNOVIAL FLUID POLYNUC RELAT 96.1 %
--- NOTE | 2016-12-20 19:41 | ORTHOPEDIC PROGRESS NOTE ---
DATE: 12/20/2016 SUBJECTIVE: The patient is a 66-year-old white male who has been admitted to the hospital on 12/17/2016. Dr. Aguilar consulted [facility] to see him for a right knee effusion. The patient had been having an increasing knee effusion after a fall on the knee and it is to the point where he is having difficulty ambulating and having difficulty putting weight on the right lower extremity because of moderate to severe right knee pain. Dr. Patino saw the patient today and felt that he would need an aspiration of the knee at this time to rule out infection versus gout versus pseudogout of the knee joint. Currently, the patient is lying in bed. He was sleeping but easily awoken. He states that he has been having his knee pain for last several days and it was gradually getting worse. The patient agrees to have me do an aspiration of the knee at this point in time. OBJECTIVE: The patient is lying in bed and is left in this position. Looking at the right knee, he does have a moderate effusion that is not excruciatingly tense but is tender on palpation and aspiration point was chosen at the superior lateral aspect of the knee and marked at that point. Two alcohol swabs and 3 Betadine swabs were used to clean the site and left to dry. An 18-gauge needle was then inserted into the suprapatellar pouch and a total of 50 mL of initially straw-yellow fluid was returned. The initial fluid of 35 mL was straw-yellow, the second syringe of 15 mL was slightly blood tinged. The needle was then removed and gentle pressure was applied to the aspiration site. A Band-Aid was then placed over the aspiration site. ASSESSMENT: Right knee effusion, rule out infection versus gout or pseudogout. PLAN: The fluid will be sent for cell count with diff and also crystal analysis. Also gram stain, aerobic and anaerobic cultures will be also ordered. We will continue to follow the patient while he is here for his right knee pain.
[2016-12-21] VITALS (13 sets, daily range): BP systolic 96–116; BP diastolic 68–81; PULSE 91–112; TEMP 36.5–37.5; O2SAT 91–97
[2016-12-21] MEDS: AZTREONAM IV 1,000 MG in DEXTROSE 5% 100ML IV SCH ×3 (02:29→17:52)
[2016-12-21] MEDS: ACETAMINOPHEN 325 MG TAB PO PRN ×2 (03:24→16:51)
[2016-12-21] MEDS: CIPROFLOXACIN HCL 0.3% OP SOLN 2.5 ML BTL OP SCH ×4 (08:27→20:01)
[2016-12-21] MEDS: LACTULOSE SYRUP 30 GM/45 ML UDP PO SCH ×3 (08:28→19:59)
[2016-12-21] MEDS: POTASSIUM CHLORIDE 10 MEQ TABCR PO SCH (08:30)
[2016-12-21] MEDS: ATORVASTATIN 40 MG TAB PO SCH (08:30)
[2016-12-21] MEDS: MULTIVITAMIN TAB PO SCH (08:31)
[2016-12-21] MEDS: GABAPENTIN 300 MG CAP PO SCH ×2 (08:31→20:01)
[2016-12-21] MEDS: METOPROLOL SUCC 50MG EXT REL TAB PO SCH ×3 (08:34→20:01)
[2016-12-21] MEDS: THIAMINE HCL 100 MG TAB PO SCH (08:35)
[2016-12-21] MEDS: INSULIN ASPART 100 UNITS/ML 3 ML PEN SC SCH ×4 (08:56→20:06)
[2016-12-21] MEDS ORDERED: VANCOMYCIN TROUGH SCH (09:30)
[2016-12-21 09:55] LABS: BASO % 0.7 %; BASO ABS # 0.03 K/uL (0-0.2); COMPLETE YES; EOS % 2.4 %; HEMATOCRIT 34.4 % (42-52); IG% 0.2 %; LYMPH % 13.9 %; LYMPH ABS # 0.64 K/uL (1.2-3.4); MEAN CELL VOLUME 84.3 fL (80-100); MEAN PLATELET VOLUME 10.3 fL (7.4-10.4); MONO % 6.8 %; PLATELET COUNT 121 K/uL (130-400); RED BLOOD COUNT 4.08 M/uL (4.7-6.1); WHITE BLOOD COUNT 4.59 K/uL (4.8-10.8)
[2016-12-21] MEDS: VANCOMYCIN INJ 1,500 MG in SODIUM CHLORIDE 0.9% 500ML 500 ML IV SCH (10:01)
[2016-12-21] MEDS ORDERED: FUROSEMIDE 40 MG TAB PO ONE (10:15)
--- NOTE | 2016-12-21 10:15 | Progress Note ---
Medicine Progress Note Date & Time of Visit: Dec 21, 2016 at 09:57. Subjective patient seen sitting up in bed, alert, bright, oriented x 3, answers questions appropriately, comfortable states he feels improved compared to yesterday right knee pain is now much better, almost resolved denies leg pain no headache, dizziness, nausea, focal neuro deficits denies chest pain, palpitations ambulates with walker, no problems would like to go to the [facility] today Objective Last 8 Hrs Date Time Temp Pulse Resp B/P (MAP) Pulse Ox O2 Delivery O2 Flow Rate FiO2 12/21/16 09:49 94 Room Air 12/21/16 09:15 106 20 99/68 (78) 94 Room Air 12/21/16 08:00 94 Room Air 12/21/16 07:01 36.5 94 20 96/74 (81) 94 Room Air 12/21/16 04:00 Room Air 12/21/16 04:00 36.9 98 20 108/71 (83) 94 Room Air Physical Exam: General- oriented x 2, not in distress, speaks in sentences with no effor Eyes- anicteric Neck- no JVD Lungs- clear BS bilaterally, no rales, no wheezes Heart- irregularly irregular rhythm; no murmur, normal rate Abdomen- normal bowel sounds, soft, nontender, non distended Extremities- Lower extremities: Right Knee: (+) mild edema, mild warmth, no tenderness, improved ROM Right Lower Leg: (+) mild erythema, warmth, no tenderness, healing small wound on the anterolateral aspect- scant serous drainage: improving Left Lower Leg: (+) mild erythema, warmth, no tenderness, healing small wound on the lower lateral aspect- scant serous drainage: improving Upper extremities: Right: (+) scabbing wounds on the forearm, small skin tears with dressing on - no signs of infection Left: (+) scabbing wounds on the upper arm, small skin tears with dressing on - no signs of infection Neuro- alert, oriented x 3;no gross focal neuro deficits Skin- warm & dry Laboratory Results: Last 24 Hours Test 12/20/16 10:11 12/20/16 11:18 12/20/16 16:02 12/20/16 17:33 Hepatitis B Surface Antigen NEG Hepatitis C Antibody NEG Bedside Glucose 105 mg/dl 103 mg/dl Synovial Fluid Source KNEE Synovial Fluid Color YELLOW Synovial Fluid Appearance CLOUDY Synovial Fluid WBC 69178 /uL Synovial Fluid RBC 5000 /uL Synovial Fluid Polynuclear WBCs % 96.1 % Synovial Fluid Mononuclear WBCs % 3.9 % Synovial Fluid Crystals Test 12/20/16 20:34 12/21/16 07:19 12/21/16 09:40 Bedside Glucose 111 mg/dl 87 mg/dl White Blood Count 4.59 K/uL Red Blood Count 4.08 M/uL Hemoglobin 11.0 g/dL Hematocrit 34.4 % Mean Corpuscular Volume 84.3 fL Mean Corpuscular Hemoglobin 27.0 pg Mean Corpuscular Hemoglobin Concent 32.0 g/dl Platelet Count 121 K/uL Mean Platelet Volume 10.3 fL Neutrophils (%) (Auto) 76.0 % Lymphocytes (%) (Auto) 13.9 % Monocytes (%) (Auto) 6.8 % Eosinophils (%) (Auto) 2.4 % Basophils (%) (Auto) 0.7 % Neutrophils # (Auto) 3.49 K/uL Lymphocytes # (Auto) 0.64 K/uL Monocytes # (Auto) 0.31 K/uL Eosinophils # (Auto) 0.11 K/uL Basophils # (Auto) 0.03 K/uL RDW Standard Deviation 46.8 fL RDW Coefficient of Variation 15.1 % Immature Granulocyte % (Auto) 0.2 % Immature Granulocyte # (Auto) 0.01 K/uL Date/Time Source Procedure Growth Status 12/20/16 17:33 Joint Fluid/Space (Synovial) Knee Right Gram Stain - Final Resulted 12/20/16 17:33 Joint Fluid/Space (Synovial) Knee Right Bacterial Culture Pending Resulted Assessment & Plan 66 year old male with history of CAD, CHF Diastolic Type, Atrial Fibrillation DM , HTN, recent fall with closed head trauma presenting with weakness and headache. LEFT PARIETAL LOBE HEMORRHAGE S/P HEAD TRAUMA SECONDARY TO FALL MRI brain: as below Repeat CT head: Stable Aspirin, Eliquis discontinued Neurology consulted, appreciate the input -- 12/19/16 (+) moderate frontal headache 3rd CT head: Impression: 1. The left parietal vertex contusion has essentially resolved in the interval. 2. There is a persistent 2 mm punctate hyperdense focus within the right high convexity which remains unchanged. This favors a tiny contusion/trace -- no headaches since yesterday per Neurology, ff up with them in 2-[address] head, still not a good candidate for anticoagulation GENERALIZED WEAKNESS/LETHARGY, Resolving Likely debility from comorbidities, Elevated Ammonia -- Ammonia level 47 AST/ALT ok, Alk Phos slightly elevated -- Liver US: IMPRESSION: Moderate size right knee joint effusion with possible synovial thickening, a nonspecific finding. -- started Lactulose 30mg TID consulted GI, appreciate the input -- mental status improving daily continue Lactulose for now continue PT /OT LIVER CIRRHOSIS - history of alcoholism - -- Ammonia level 47 AST/ALT ok, Alk Phos slightly elevated -- Liver US: IMPRESSION: Moderate size right knee joint effusion with possible synovial thickening, a nonspecific finding. -- started Lactulose 30mg TID , mental status improving resume Lasix today at 40mg po daily serologies pending consulted GI, appreciate the input ATRIAL FIBRILLATION WITH RVR increased Metoprolol -- HR improving Poor candidate for anticoagulation given H/O prior hemoptysis, frequent falls , and hemorrhagic contusion. appreciate Cardiology SVC input will discuss with Cardiology re: continuation of anticoagulation once cleared by Neuro FEVER LIKELY SECONDARY TO BILATERAL LEG CELLULITIS, GOUT FLARE UP, R/O RIGHT KNEE SEPTIC ARTHRITIS - fever on hospital day 2 - Blood cultures negative so far Urine cultures negative so far - Right knee US: Moderate effusion s/p Arthrocentesis 12/20/16 by Ortho Synovial fluid: WBC 16k with >90% PMNs cultures pending - continue Vanco and Aztreonam IV Day 3 ff up cultures - will consult ID Elevated Troponin: Likely demand ischemia cardiac enzymes trended down -- no cardiac symptoms DM II: hold Glimepiride Last A1c: 9.5 in Oct ISS, Accu checks, Diabetic diet Hold Lantus as having hypoglycemic episodes HTN: BP on the lower side on Metoprolol monitor BP now that Lasix has been resumed Non-occlusive CAD continue Lipitor Diastolic CHF: -- Lasix 40mg po restarted monitor COPD: not in exacerbation Nebs PRN Chronic Venous stasis Doppler US negative for DVT DVT Px: SCDs: ambulation encouraged Code Status: Full Code Disposition: anticipate d/c to Rehab in a few days will consult case management Case discussed at length and in detail with patient, son Arpan, Margarita all questions answered, they are agreeable and comfortable with plan of care PROCEDURES: MRI Brain: 1. 10 mm cortically-based hemorrhagic focus of the left parietal lobe near the vertex redemonstrated without significant change of signal intensity on the postcontrast images suggesting acute posttraumatic cortical contusion without enlargement from the previous study. No new or additional foci identified. Follow-up recommended. 2. Atrophy with mild background chronic microvascular ischemic changes. Current Inpatient Medications: Current Inpatient Medications Medications (Trade) Dose Ordered Sig/Van Route Start Time Stop Time Status Last Admin Dose Admin Ondansetron HCl (Zofran Inj) 4 mg Q6H PRN IV 12/17/16 10:45 01/16/17 10:44 Nitroglycerin (Nitrostat Tab) 0.4 mg UD PRN SL 12/17/16 10:45 01/16/17 10:44 Insulin Glargine (Lantus Solostar Pen) 5 units Q12 SC 12/17/16 21:00 01/16/17 20:59 Future Hold 12/17/16 20:48 5 UNITS Insulin Aspart (novoLOG ASPART) SLIDING SCALE If C... ACHS SC 12/17/16 11:00 01/16/17 10:59 12/21/16 08:56 1 UNITS Glucose (Glucose 40% Gel) 15-30 GRAMS 15 GRAMS... UD PRN PO 12/17/16 11:00 01/16/17 10:59 Glucose (Glucose Chew Tab) 4-8 Tablets 4 Tabl... UD PRN PO 12/17/16 11:00 01/16/17 10:59 Dextrose (Dextrose 50% 50ML Syringe) 25-50ML OF 50% DW IV FOR... UD PRN IV 12/17/16 11:00 01/16/17 10:59 Glucagon (Glucagon Inj) 1 mg UD PRN SQ 12/17/16 11:00 01/16/17 10:59 Gabapentin (Neurontin Cap) 300 mg BID PO 12/17/16 21:00 01/16/17 20:59 12/21/16 08:31 300 MG Acetaminophen/ Hydrocodone Bitart ([place] 5/325 Tab) 1 tab Q4 PRN PO 12/17/16 11:00 12/31/16 10:59 12/19/16 07:57 1 TAB Potassium Chloride (Klor-Con M10) 10 meq DAILY PO 12/18/16 09:00 01/17/17 08:59 12/21/16 08:30 10 MEQ Metoprolol Tartrate (Lopressor Iv) 2.5 mg Q6 PRN IV 12/17/16 11:15 01/16/17 11:14 12/18/16 17:36 2.5 MG Levalbuterol (Xopenex 0.63 Mg/ 3 Ml Neb) 0.63 mg Q6R PRN INH 12/17/16 11:15 01/16/17 11:14 Atorvastatin Calcium (Lipitor Tab) 40 mg QAM PO 12/18/16 09:00 01/17/17 08:59 12/21/16 08:30 40 MG Gadobutrol (Gadavist) 10 mmol UD PRN IV 12/17/16 18:45 12/21/16 18:44 Ciprofloxacin HCl (Ciprofloxacin 0.3% Op Soln) 2 drops Q4HWA OP 12/18/16 17:30 12/28/16 17:14 12/21/16 08:27 2 DROPS Lorazepam (Ativan Inj) PRN Dosing -Active Protocol Q1H PRN IV 12/18/16 19:30 01/17/17 19:29 Thiamine HCl (Vitamin B-1 Tab) 100 mg QAM PO 12/19/16 09:00 01/18/17 08:59 12/21/16 08:35 100 MG Multivitamins (Multivitamin Tab) 1 tab QAM PO 12/19/16 09:00 01/18/17 08:59 12/21/16 08:31 1 TAB Folic Acid (Folvite Tab) 1 mg QAM PO 12/19/16 09:00 01/18/17 08:59 12/21/16 08:29 1 MG Lactulose (Chronulac Syrup) 30 gm TID PO 12/19/16 09:00 01/18/17 08:59 12/21/16 08:28 30 GM Aztreonam (Consult) 1 ea UD PRN N/A 12/19/16 09:00 01/18/17 08:59 Aztreonam 1000 mg/ Dextrose 110 ml @ 110 mls/hr Q8H IV 12/19/16 10:00 12/29/16 09:59 12/21/16 02:29 110 MLS/HR Vancomycin HCl (Consult) 1 ea UD PRN N/A 12/19/16 17:00 01/18/17 16:59 Vancomycin HCl 1500 mg/Sodium Chloride 530 ml @ 200 mls/hr Q10H IV 12/20/16 04:00 12/29/16 03:59 12/20/16 23:43 200 MLS/HR Acetaminophen (Tylenol Tab) 325 mg Q6H PRN PO 12/19/16 17:00 01/16/17 10:44 12/21/16 03:24 325 MG Metoprolol Succinate (Toprol Xl Tab) 75 mg BID PO 12/20/16 21:00 01/17/17 08:59 12/21/16 09:18 75 MG
[2016-12-21 10:16] LABS: BUN/CREATININE RATIO 18.7 (10-20); CALCIUM 8.3 mg/dl (8.5-10.1); CREATININE 0.86 mg/dl (0.60-1.40); POTASSIUM 3.8 mmol/L (3.5-5.1)
--- NOTE | 2016-12-21 10:27 | Medical Consult ---
Consultation Date of Consultation: Dec 21, 2016. Attending Physician: Crispin Aguilar MD Reason for Consultation: Leg cellulitis, possible septic arthritis History of Present Illness 66-year-old male with history of atrial fibrillation, diabetes mellitus, hypertension, gout, chronic lower extremity edema recently suffered a fall down the stairs. Was admitted for 2 days [facility], and patient was started on anticoagulation for atrial fibrillation. He was readmitted to this hospital on December 17 with 1-2 day history of increasing weakness and lethargy. He was found to have left parietal contusion with hemorrhage. Anticoagulation was stopped. Has subsequently developed swelling of his right foot and knee. he has also developed some increasing redness of his lower legs. he was started empirically on vancomycin and aztreonam for worry of possible septic arthritis. Right knee has been aspirated, with finding elevated white count, along with presence uric acid crystals. States pain and knee has improved over last day. Currently afebrile, tolerating antibiotics without apparent difficulty. Past Medical/Surgical History Medical Problems: (1) Altered mental status Status: Acute (2) Back pain Status: Acute (3) CHF exacerbation Status: Acute (4) Elevated troponin Status: Acute (5) Hypoglycemia Status: Acute Medical Problems: (1) Atrial fibrillation (2) Coronary artery disease (3) Diabetes mellitus type II, uncontrolled (4) Essential hypertension (5) Gout (6) s/p cardiac cath (7) Weakness generalized Family History Diabetes mellitus Heart disease Hypertension Social History Smoking Status: Never Smoker Alcohol Use: heavy Drug Use: none Marital Status: Housing Status: lives with family Occupation Status: employed Allergies Coded Allergies: Cefazolin (Verified Allergy, Intermediate, UNKNOWN, 12/18/16) INFORMATION FROM [employer]. Cephalexin (Verified Allergy, Intermediate, HIVES, 12/18/16) Collagen (Verified Allergy, Intermediate, Gut suture - swelling, 12/18/16) Influenza Virus Vaccine H5N1 (Verified Allergy, Unknown, LABELED A CHILD, UNSURE, 11/03/16) Baclofen (Verified Adverse Reaction, Severe, DELIRIUM, 12/19/16) Diazepam (Verified Adverse Reaction, Severe, DELIRIUM, 12/19/16) Current Inpatient Medications Current Inpatient Medications Medications (Trade) Dose Ordered Sig/Van Route Start Time Stop Time Status Last Admin Dose Admin Ondansetron HCl (Zofran Inj) 4 mg Q6H PRN IV 12/17/16 10:45 01/16/17 10:44 Nitroglycerin (Nitrostat Tab) 0.4 mg UD PRN SL 12/17/16 10:45 01/16/17 10:44 Insulin Glargine (Lantus Solostar Pen) 5 units Q12 SC 12/17/16 21:00 01/16/17 20:59 Future Hold 12/17/16 20:48 5 UNITS Insulin Aspart (novoLOG ASPART) SLIDING SCALE If C... ACHS SC 12/17/16 11:00 01/16/17 10:59 12/21/16 08:56 1 UNITS Glucose (Glucose 40% Gel) 15-30 GRAMS 15 GRAMS... UD PRN PO 12/17/16 11:00 01/16/17 10:59 Glucose (Glucose Chew Tab) 4-8 Tablets 4 Tabl... UD PRN PO 12/17/16 11:00 01/16/17 10:59 Dextrose (Dextrose 50% 50ML Syringe) 25-50ML OF 50% DW IV FOR... UD PRN IV 12/17/16 11:00 01/16/17 10:59 Glucagon (Glucagon Inj) 1 mg UD PRN SQ 12/17/16 11:00 01/16/17 10:59 Gabapentin (Neurontin Cap) 300 mg BID PO 12/17/16 21:00 01/16/17 20:59 12/21/16 08:31 300 MG Acetaminophen/ Hydrocodone Bitart ([place] 5/325 Tab) 1 tab Q4 PRN PO 12/17/16 11:00 12/31/16 10:59 12/19/16 07:57 1 TAB Potassium Chloride (Klor-Con M10) 10 meq DAILY PO 12/18/16 09:00 01/17/17 08:59 12/21/16 08:30 10 MEQ Metoprolol Tartrate (Lopressor Iv) 2.5 mg Q6 PRN IV 12/17/16 11:15 01/16/17 11:14 12/18/16 17:36 2.5 MG Levalbuterol (Xopenex 0.63 Mg/ 3 Ml Neb) 0.63 mg Q6R PRN INH 12/17/16 11:15 01/16/17 11:14 Atorvastatin Calcium (Lipitor Tab) 40 mg QAM PO 12/18/16 09:00 01/17/17 08:59 12/21/16 08:30 40 MG Gadobutrol (Gadavist) 10 mmol UD PRN IV 12/17/16 18:45 12/21/16 18:44 Ciprofloxacin HCl (Ciprofloxacin 0.3% Op Soln) 2 drops Q4HWA OP 12/18/16 17:30 12/28/16 17:14 12/21/16 08:27 2 DROPS Lorazepam (Ativan Inj) PRN Dosing -Active Protocol Q1H PRN IV 12/18/16 19:30 01/17/17 19:29 Thiamine HCl (Vitamin B-1 Tab) 100 mg QAM PO 12/19/16 09:00 01/18/17 08:59 12/21/16 08:35 100 MG Multivitamins (Multivitamin Tab) 1 tab QAM PO 12/19/16 09:00 01/18/17 08:59 12/21/16 08:31 1 TAB Folic Acid (Folvite Tab) 1 mg QAM PO 12/19/16 09:00 01/18/17 08:59 12/21/16 08:29 1 MG Lactulose (Chronulac Syrup) 30 gm TID PO 12/19/16 09:00 01/18/17 08:59 12/21/16 08:28 30 GM Aztreonam (Consult) 1 ea UD PRN N/A 12/19/16 09:00 01/18/17 08:59 Aztreonam 1000 mg/ Dextrose 110 ml @ 110 mls/hr Q8H IV 12/19/16 10:00 12/29/16 09:59 12/21/16 10:01 110 MLS/HR Vancomycin HCl (Consult) 1 ea UD PRN N/A 12/19/16 17:00 01/18/17 16:59 Vancomycin HCl 1500 mg/Sodium Chloride 530 ml @ 200 mls/hr Q10H IV 12/20/16 04:00 12/29/16 03:59 12/21/16 10:01 200 MLS/HR Acetaminophen (Tylenol Tab) 325 mg Q6H PRN PO 12/19/16 17:00 01/16/17 10:44 12/21/16 03:24 325 MG Metoprolol Succinate (Toprol Xl Tab) 75 mg BID PO 12/20/16 21:00 01/17/17 08:59 12/21/16 09:18 75 MG Furosemide (Lasix Tab) 40 mg QAM PO 12/22/16 09:00 01/21/17 08:59 Review of Systems Constitutional: + weakness, No fever Eyes: No problem reported ENT: No trouble swallowing Respiratory: No problem reported Cardiovascular: No problem reported Abdomen: No problem reported Musculoskeletal: + joint pain, + swelling Genitourinary - Male: No problem reported Neurologic: + weakness Psychiatric: No problem reported Endocrine: No problem reported Hematologic / Lymphatic: No problem reported Integumentary: No problem reported Allergic / Immunologic: No problem reported Physical Exam Date Time Temp Pulse Resp B/P (MAP) Pulse Ox O2 Delivery O2 Flow Rate FiO2 12/21/16 09:49 94 Room Air 12/21/16 09:15 106 20 99/68 (78) 94 Room Air 12/21/16 08:00 94 Room Air 12/21/16 07:01 36.5 94 20 96/74 (81) 94 Room Air 12/21/16 04:00 Room Air 12/21/16 04:00 36.9 98 20 108/71 (83) 94 Room Air 12/21/16 00:00 Room Air 12/21/16 00:00 37.0 110 20 99/68 (78) 93 Room Air 12/20/16 20:49 37.6 83 20 108/74 (85) 95 Room Air 12/20/16 20:00 Room Air 12/20/16 16:00 92 Room Air 12/20/16 14:57 38.3 101 20 107/75 (86) 95 Room Air 12/20/16 12:00 92 Room Air 12/20/16 11:12 36.8 95 20 116/74 (88) 99 Room Air General Appearance: WD/WN, no apparent distress Head: normocephalic, atraumatic Eyes: normal inspection, EOMI, sclerae normal ENT: normal ENT inspection, hearing grossly normal, pharynx normal Neck: supple, no adenopathy, thyroid normal, trachea midline Respiratory/Chest: chest non-tender, lungs clear, normal breath sounds, no respiratory distress Cardiovascular: no gallop, no murmur, + irregularly irregular Abdomen/GI: normal bowel sounds, non tender, soft, no organomegaly Back: normal inspection, no CVA tenderness Extremities/Musculoskelatal: no calf tenderness, + inflammation, + swelling, + pertinent finding ( Right knee swelling) Neurologic/Psych: alert, oriented x 3 Skin: normal color, no rash, + pertinent finding ( mild erythema of both lower extremities) Lymphatic: no adenopathy Laboratory Results Date/Time Source Procedure Growth Status 12/20/16 17:33 Joint Fluid/Space (Synovial) Knee Right Gram Stain - Final Resulted 12/20/16 17:33 Joint Fluid/Space (Synovial) Knee Right Bacterial Culture Pending Resulted Last 24 Hours Test 12/20/16 11:18 12/20/16 16:02 12/20/16 17:33 12/20/16 20:34 Bedside Glucose 105 mg/dl 103 mg/dl 111 mg/dl Synovial Fluid Source KNEE Synovial Fluid Color YELLOW Synovial Fluid Appearance CLOUDY Synovial Fluid WBC 89778 /uL Synovial Fluid RBC 5000 /uL Synovial Fluid Polynuclear WBCs % 96.1 % Synovial Fluid Mononuclear WBCs % 3.9 % Synovial Fluid Crystals Test 12/21/16 07:19 12/21/16 09:40 Bedside Glucose 87 mg/dl White Blood Count 4.59 K/uL Red Blood Count 4.08 M/uL Hemoglobin 11.0 g/dL Hematocrit 34.4 % Mean Corpuscular Volume 84.3 fL Mean Corpuscular Hemoglobin 27.0 pg Mean Corpuscular Hemoglobin Concent 32.0 g/dl Platelet Count 121 K/uL Mean Platelet Volume 10.3 fL Neutrophils (%) (Auto) 76.0 % Lymphocytes (%) (Auto) 13.9 % Monocytes (%) (Auto) 6.8 % Eosinophils (%) (Auto) 2.4 % Basophils (%) (Auto) 0.7 % Neutrophils # (Auto) 3.49 K/uL Lymphocytes # (Auto) 0.64 K/uL Monocytes # (Auto) 0.31 K/uL Eosinophils # (Auto) 0.11 K/uL Basophils # (Auto) 0.03 K/uL RDW Standard Deviation 46.8 fL RDW Coefficient of Variation 15.1 % Immature Granulocyte % (Auto) 0.2 % Immature Granulocyte # (Auto) 0.01 K/uL Sodium Level 142 mmol/L Potassium Level 3.8 mmol/L Chloride Level 113 mmol/L Carbon Dioxide Level 20 mmol/L Anion Gap 9.0 mmol/L Blood Urea Nitrogen 16 mg/dl Creatinine 0.86 mg/dl Est Creatinine Clear Calc Drug Dose 101.9 ml/min Estimated GFR () 104.7 Estimated GFR (Non- 90.4 BUN/Creatinine Ratio 18.7 Random Glucose 111 mg/dl Calcium Level 8.3 mg/dl Assessment & Plan Patient with probable acute gouty arthritis of right knee, and this likely probable cause of fever. Will continue patient for now until final culture results are available. Hopefully can discontinue in the near future. Will follow.
--- NOTE | 2016-12-21 11:06 | Pharmacy Progress Note ---
Pharmacy Abx Dose Short Note Date of Service Dec 21, 2016. Assessment & Plan Assessment 66 year old male receiving vancomycin/aztreonam for treatment of cellulitis/ possible septic arthritis Day # 3 of antimicrobial therapy. Per ID note waiting for final cultures to deescalate- synovial fluid pending Plan Vancomycin * Trough level of 22.7 mcg/mL is supratherapeutic. * Change to 1250 mg q12H * Goal trough level for septic arthritis : 15-20 mcg/mL * Trough level ordered for 12/23 @ 1130 Aztreonam * 1 gm q8H Pharmacy will continue to follow and will adjust dose/frequency as necessary. Thank you.
--- NOTE | 2016-12-21 11:09 | Cardiology Follow-Up ---
Subjective General Date of Service: Dec 21, 2016. Chief Complaint: Atrial fibrillation with a RVR Pt evaluation today including: conversation w/ patient, conversation w/ family , physical exam, chart review, lab review, review of studies, review of inpatient medication list History of Present Illness Patient seen and examined. Family (two sons) present at bedside. No chest pain, palpitations, or breathing difficulty. Telemetry: Atrial fibrillation currently around 100 bpm. No periods of sinus. No significant bradyarrhythmias or pauses. November 04, 2016 TTE Interpretation Summary ([facility], Dr. Vaughan): Ejection Fraction = 60-65%. There is moderate concentric left ventricular hypertrophy. Mild valvular aortic stenosis. There is mild mitral regurgitation. December 15, 2016 [facility] Normal systolic function. EF 55-060%. No stress induced chest pain. Negative EKG test for ischemia. No stress induced arrhythmias. Normal global LV systolic function response to stress. Normal stress study (at 100% age predicted maximum heart rate). Allergies Coded Allergies: Cefazolin (Verified Allergy, Intermediate, UNKNOWN, 12/18/16) INFORMATION FROM [employer]. Cephalexin (Verified Allergy, Intermediate, HIVES, 12/18/16) Collagen (Verified Allergy, Intermediate, Gut suture - swelling, 12/18/16) Influenza Virus Vaccine H5N1 (Verified Allergy, Unknown, LABELED A CHILD, UNSURE, 11/03/16) Baclofen (Verified Adverse Reaction, Severe, DELIRIUM, 12/19/16) Diazepam (Verified Adverse Reaction, Severe, DELIRIUM, 12/19/16) Social History Smoking Status: Never Smoker Hx Tobacco Use In Past Year?: No (quit at age 16) Hx Alcohol Use - Type And Amou: Yes (2 beers a day) Hx Substance Use - Type And Am: No Problem List Medical Problems: (1) Altered mental status Status: Acute (2) Back pain Status: Acute (3) CHF exacerbation Status: Acute (4) Elevated troponin Status: Acute (5) Hypoglycemia Status: Acute Physical Exam Vital Signs Last Vital Signs Documentation Date Time Temp Pulse Resp B/P (MAP) Pulse Ox O2 Delivery O2 Flow Rate FiO2 12/21/16 09:49 94 Room Air 12/21/16 09:15 106 20 99/68 (78) 12/21/16 07:01 36.5 12/17/16 12:40 2.0 Physical Exam Constitutional: General Apperance: overweight Level of Distress: NAD, chronically ill Psychiatric: Mental Status: active & alert Orientation: to place, to person, not oriented to time Head: normocephalic, atraumatic Eyes: Pupils: PERRLA Neck: pertinent finding (Normal JVP) Lungs: Respiratory effort: no dyspnea Auscultation: no rales/crackles, no rhonchi, deminished air movement, decreased breath sounds Cardiovascular: Heart Auscultation: no rubs, no gallops, II/ JESUS, irregular rate rhythm ( 100 bpm) Peripheral Pulses: Dorsalis Pedis Pulse: absent on the left, absent on the right Extremities: edema (1-2+ chronic indurated edema), pertinent finding (multiple wounds in various stages of healing on all extremities. ) Assessment and Plan Assessment and Plan 66-year-old male seen in cardiology follow-up, evaluation of atrial fibrillation with a rapid ventricular response. RECOMMENDATIONS/PLAN: Continue metoprolol succinate to 75 mg twice a day. May warrant titration to 100 mg twice a day if heart rates remain after correction of the hypervolemia. Risks and benefits of anticoagulation discussed with the patient and family last on 12/20/2016; risks are greater than the benefit at this time (history of hemoptysis, ambulatory dysfunction/frequent falls, hemorrhagic area of contusion , cirrhosis, etc); revisit anticoagulation if/when status improves. Signing off. Please call with any questions or concerns. Laboratory Results Last 24 Hours Test 12/20/16 11:18 12/20/16 16:02 12/20/16 17:33 12/20/16 20:34 Bedside Glucose 105 mg/dl 103 mg/dl 111 mg/dl Synovial Fluid Source KNEE Synovial Fluid Color YELLOW Synovial Fluid Appearance CLOUDY Synovial Fluid WBC 33398 /uL Synovial Fluid RBC 5000 /uL Synovial Fluid Polynuclear WBCs % 96.1 % Synovial Fluid Mononuclear WBCs % 3.9 % Synovial Fluid Crystals Test 12/21/16 07:19 12/21/16 09:40 Bedside Glucose 87 mg/dl White Blood Count 4.59 K/uL Red Blood Count 4.08 M/uL Hemoglobin 11.0 g/dL Hematocrit 34.4 % Mean Corpuscular Volume 84.3 fL Mean Corpuscular Hemoglobin 27.0 pg Mean Corpuscular Hemoglobin Concent 32.0 g/dl Platelet Count 121 K/uL Mean Platelet Volume 10.3 fL Neutrophils (%) (Auto) 76.0 % Lymphocytes (%) (Auto) 13.9 % Monocytes (%) (Auto) 6.8 % Eosinophils (%) (Auto) 2.4 % Basophils (%) (Auto) 0.7 % Neutrophils # (Auto) 3.49 K/uL Lymphocytes # (Auto) 0.64 K/uL Monocytes # (Auto) 0.31 K/uL Eosinophils # (Auto) 0.11 K/uL Basophils # (Auto) 0.03 K/uL RDW Standard Deviation 46.8 fL RDW Coefficient of Variation 15.1 % Immature Granulocyte % (Auto) 0.2 % Immature Granulocyte # (Auto) 0.01 K/uL Sodium Level 142 mmol/L Potassium Level 3.8 mmol/L Chloride Level 113 mmol/L Carbon Dioxide Level 20 mmol/L Anion Gap 9.0 mmol/L Blood Urea Nitrogen 16 mg/dl Creatinine 0.86 mg/dl Est Creatinine Clear Calc Drug Dose 101.9 ml/min Estimated GFR () 104.7 Estimated GFR (Non- 90.4 BUN/Creatinine Ratio 18.7 Random Glucose 111 mg/dl Calcium Level 8.3 mg/dl Vancomycin Level Trough 22.7 mcg/ml
--- NOTE | 2016-12-21 11:32 | Gastroenterology Progress Note ---
Progress Note Date of Service: Dec 21, 2016 Subjective Pt evaluation today including: conversation w/ patient, physical exam, chart review, lab review, review of inpatient medication list Pt worked w physical therapy to ambulate hallways this AM. Is feeling quite tired. No issues w abd pain, n/v. Arms and legs edematous. Febrile yesterday, knee joint fluid aspirated, cell ct w increased WBC, cx pending. Review of Systems Constitutional: + fever, No chills Respiratory: No cough Cardiac: No chest pain Abdomen: No pain, No nausea, No vomiting Musculoskeletal: + joint pain (R knee) Medications Current Inpatient Medications Medications (Trade) Dose Ordered Sig/Van Route Start Time Stop Time Status Last Admin Dose Admin Ondansetron HCl (Zofran Inj) 4 mg Q6H PRN IV 12/17/16 10:45 01/16/17 10:44 Nitroglycerin (Nitrostat Tab) 0.4 mg UD PRN SL 12/17/16 10:45 01/16/17 10:44 Insulin Glargine (Lantus Solostar Pen) 5 units Q12 SC 12/17/16 21:00 01/16/17 20:59 Future Hold 12/17/16 20:48 5 UNITS Insulin Aspart (novoLOG ASPART) SLIDING SCALE If C... ACHS SC 12/17/16 11:00 01/16/17 10:59 12/21/16 08:56 1 UNITS Glucose (Glucose 40% Gel) 15-30 GRAMS 15 GRAMS... UD PRN PO 12/17/16 11:00 01/16/17 10:59 Glucose (Glucose Chew Tab) 4-8 Tablets 4 Tabl... UD PRN PO 12/17/16 11:00 01/16/17 10:59 Dextrose (Dextrose 50% 50ML Syringe) 25-50ML OF 50% DW IV FOR... UD PRN IV 12/17/16 11:00 01/16/17 10:59 Glucagon (Glucagon Inj) 1 mg UD PRN SQ 12/17/16 11:00 01/16/17 10:59 Gabapentin (Neurontin Cap) 300 mg BID PO 12/17/16 21:00 01/16/17 20:59 12/21/16 08:31 300 MG Acetaminophen/ Hydrocodone Bitart ([place] 5/325 Tab) 1 tab Q4 PRN PO 12/17/16 11:00 12/31/16 10:59 12/19/16 07:57 1 TAB Potassium Chloride (Klor-Con M10) 10 meq DAILY PO 12/18/16 09:00 01/17/17 08:59 12/21/16 08:30 10 MEQ Metoprolol Tartrate (Lopressor Iv) 2.5 mg Q6 PRN IV 12/17/16 11:15 01/16/17 11:14 12/18/16 17:36 2.5 MG Levalbuterol (Xopenex 0.63 Mg/ 3 Ml Neb) 0.63 mg Q6R PRN INH 12/17/16 11:15 01/16/17 11:14 Atorvastatin Calcium (Lipitor Tab) 40 mg QAM PO 12/18/16 09:00 01/17/17 08:59 12/21/16 08:30 40 MG Gadobutrol (Gadavist) 10 mmol UD PRN IV 12/17/16 18:45 12/21/16 18:44 Ciprofloxacin HCl (Ciprofloxacin 0.3% Op Soln) 2 drops Q4HWA OP 12/18/16 17:30 12/28/16 17:14 12/21/16 08:27 2 DROPS Lorazepam (Ativan Inj) PRN Dosing -Active Protocol Q1H PRN IV 12/18/16 19:30 01/17/17 19:29 Thiamine HCl (Vitamin B-1 Tab) 100 mg QAM PO 12/19/16 09:00 01/18/17 08:59 12/21/16 08:35 100 MG Multivitamins (Multivitamin Tab) 1 tab QAM PO 12/19/16 09:00 01/18/17 08:59 12/21/16 08:31 1 TAB Folic Acid (Folvite Tab) 1 mg QAM PO 12/19/16 09:00 01/18/17 08:59 12/21/16 08:29 1 MG Lactulose (Chronulac Syrup) 30 gm TID PO 12/19/16 09:00 01/18/17 08:59 12/21/16 08:28 30 GM Aztreonam (Consult) 1 ea UD PRN N/A 12/19/16 09:00 01/18/17 08:59 Aztreonam 1000 mg/ Dextrose 110 ml @ 110 mls/hr Q8H IV 12/19/16 10:00 12/29/16 09:59 12/21/16 10:01 110 MLS/HR Vancomycin HCl (Consult) 1 ea UD PRN N/A 12/19/16 17:00 01/18/17 16:59 Vancomycin HCl 1500 mg/Sodium Chloride 530 ml @ 200 mls/hr Q10H IV 12/20/16 04:00 12/21/16 12:00 12/21/16 10:01 200 MLS/HR Acetaminophen (Tylenol Tab) 325 mg Q6H PRN PO 12/19/16 17:00 01/16/17 10:44 12/21/16 03:24 325 MG Metoprolol Succinate (Toprol Xl Tab) 75 mg BID PO 12/20/16 21:00 01/17/17 08:59 12/21/16 09:18 75 MG Furosemide (Lasix Tab) 40 mg QAM PO 12/22/16 09:00 01/21/17 08:59 Vancomycin HCl 1250 mg/Sodium Chloride 275 ml @ 125 mls/hr Q12@0000,1200 IV 12/22/16 00:00 01/01/17 00:00 Objective Vital Signs Date Time Temp Pulse Resp B/P (MAP) Pulse Ox O2 Delivery O2 Flow Rate FiO2 12/21/16 11:21 37.0 91 20 115/78 (90) 97 Room Air 12/21/16 09:49 94 Room Air 12/21/16 09:15 106 20 99/68 (78) 94 Room Air 12/21/16 08:00 94 Room Air 12/21/16 07:01 36.5 94 20 96/74 (81) 94 Room Air 12/21/16 04:00 Room Air 12/21/16 04:00 36.9 98 20 108/71 (83) 94 Room Air 12/21/16 00:00 Room Air 12/21/16 00:00 37.0 110 20 99/68 (78) 93 Room Air 12/20/16 20:49 37.6 83 20 108/74 (85) 95 Room Air 12/20/16 20:00 Room Air 12/20/16 16:00 92 Room Air 12/20/16 14:57 38.3 101 20 107/75 (86) 95 Room Air 12/20/16 12:00 92 Room Air Physical Exam General Appearance: WD/WN, no apparent distress Eyes: normal inspection, PERRL, EOMI Neck: supple, no JVD, trachea midline Respiratory/Chest: no respiratory distress, no accessory muscle use, + decreased breath sounds Cardiovascular: regular rate, rhythm, no gallop, no murmur Abdomen: normal bowel sounds, non tender, soft Extremities: + swelling (all 4 extremities ) Neurologic/Psych: alert, normal mood/affect, oriented x 3 Skin: normal color, no jaundice, no rash Laboratory Results Last 24 Hours Test 12/20/16 16:02 12/20/16 17:33 12/20/16 20:34 12/21/16 07:19 Bedside Glucose 103 mg/dl 111 mg/dl 87 mg/dl Synovial Fluid Source KNEE Synovial Fluid Color YELLOW Synovial Fluid Appearance CLOUDY Synovial Fluid WBC 29776 /uL Synovial Fluid RBC 5000 /uL Synovial Fluid Polynuclear WBCs % 96.1 % Synovial Fluid Mononuclear WBCs % 3.9 % Synovial Fluid Crystals Test 12/21/16 09:40 White Blood Count 4.59 K/uL Red Blood Count 4.08 M/uL Hemoglobin 11.0 g/dL Hematocrit 34.4 % Mean Corpuscular Volume 84.3 fL Mean Corpuscular Hemoglobin 27.0 pg Mean Corpuscular Hemoglobin Concent 32.0 g/dl Platelet Count 121 K/uL Mean Platelet Volume 10.3 fL Neutrophils (%) (Auto) 76.0 % Lymphocytes (%) (Auto) 13.9 % Monocytes (%) (Auto) 6.8 % Eosinophils (%) (Auto) 2.4 % Basophils (%) (Auto) 0.7 % Neutrophils # (Auto) 3.49 K/uL Lymphocytes # (Auto) 0.64 K/uL Monocytes # (Auto) 0.31 K/uL Eosinophils # (Auto) 0.11 K/uL Basophils # (Auto) 0.03 K/uL RDW Standard Deviation 46.8 fL RDW Coefficient of Variation 15.1 % Immature Granulocyte % (Auto) 0.2 % Immature Granulocyte # (Auto) 0.01 K/uL Sodium Level 142 mmol/L Potassium Level 3.8 mmol/L Chloride Level 113 mmol/L Carbon Dioxide Level 20 mmol/L Anion Gap 9.0 mmol/L Blood Urea Nitrogen 16 mg/dl Creatinine 0.86 mg/dl Est Creatinine Clear Calc Drug Dose 101.9 ml/min Estimated GFR () 104.7 Estimated GFR (Non- 90.4 BUN/Creatinine Ratio 18.7 Random Glucose 111 mg/dl Calcium Level 8.3 mg/dl Vancomycin Level Trough 22.7 mcg/ml Assessment and Plan Patient is a 66 year old male seen for mildly elevated ammonia level: 47. He has hx of heavy ETOH use, labs showed thrombocytopenia, slightly elevated LFTs. Suspect he has cirrhosis. Liver u/s on 12/19/16: 1. Heterogeneous appearance of the liver with mild marginal nodularity is suspicious for cirrhotic liver disease. 2. Contracted gallbladder without cholelithiasis or sonographic evidence of acute cholecystitis. 3. No biliary ductal dilation. 4. Nonspecific 0.8 cm hypoechoic left hepatic lobe lesion. Plans - Continue Lactulose as dosed; may titrate for goal BM 3-5 daily. Though current confusion may be multifactorial including recent head trauma and hepatic encephalopathy. - Lasix 40mg daily, Spironolactone 100mg daily. Monitor renal function and electrolytes. - Obtain serologies to r/o acute hepatitis, autoimmune/hereditary liver diseases. - F/U RPR, blood and urine cultures -> negative. - ETOH cessation advised. Recommended case management involvement for ETOH cessation/counseling programs vs inpt rehab eval. - GI will watch peripherally, call if new questions/concerns arise. Upon DC would help arrange for GI f/u to manage cirrhosis and to consider obtaining liver CT and Fibrosure to confirm cirrhosis, EGD to r/o varices, HCC screens [id number], Hep A and B immunizations if needed.
--- NOTE | 2016-12-21 17:38 | Orthopedic Progress Note ---
Orthopedic Progress Note Date of Service Dec 21, 2016. Subjective Reports: feeling well Additional Notes: Pt awake, alert. Looks much better today. Has been up ambulating today. States that his knee feels much better today. Almost no discomfort. Objective Continues with cellulitis. Knee with much less pain. Date Time Temp Pulse Resp B/P (MAP) Pulse Ox O2 Delivery O2 Flow Rate FiO2 12/21/16 16:00 Room Air 12/21/16 15:38 36.7 99 18 116/81 (93) 97 Room Air 12/21/16 13:54 97 12/21/16 12:00 97 Room Air 12/21/16 11:21 37.0 91 20 115/78 (90) 97 Room Air 12/21/16 09:49 94 Room Air 12/21/16 09:15 106 20 99/68 (78) 94 Room Air 12/21/16 08:00 94 Room Air 12/21/16 07:01 36.5 94 20 96/74 (81) 94 Room Air 12/21/16 04:00 Room Air 12/21/16 04:00 36.9 98 20 108/71 (83) 94 Room Air 12/21/16 00:00 Room Air 12/21/16 00:00 37.0 110 20 99/68 (78) 93 Room Air 12/20/16 20:49 37.6 83 20 108/74 (85) 95 Room Air 12/20/16 20:00 Room Air Laboratory Results 24 Hours: Test 12/21/16 09:40 White Blood Count 4.59 K/uL Red Blood Count 4.08 M/uL Hemoglobin 11.0 g/dL Hematocrit 34.4 % Mean Corpuscular Volume 84.3 fL Mean Corpuscular Hemoglobin 27.0 pg Mean Corpuscular Hemoglobin Concent 32.0 g/dl Platelet Count 121 K/uL Mean Platelet Volume 10.3 fL Neutrophils (%) (Auto) 76.0 % Lymphocytes (%) (Auto) 13.9 % Monocytes (%) (Auto) 6.8 % Eosinophils (%) (Auto) 2.4 % Basophils (%) (Auto) 0.7 % Neutrophils # (Auto) 3.49 K/uL Lymphocytes # (Auto) 0.64 K/uL Monocytes # (Auto) 0.31 K/uL Eosinophils # (Auto) 0.11 K/uL Basophils # (Auto) 0.03 K/uL Assessment & Plan Assessment: Cellulitis lower extremities. Knee pain - almost resolved - Cell count noted wbc [id number] with crystal analysis showing gouty crystals Plan: No surgery needed. Likely Gouty flare Continue PT / OT as able Will follow cultures for now which are NGTD / No organisms
[2016-12-21] MEDS: VANCOMYCIN INJ 1,250 MG in SODIUM CHLORIDE 0.9% 250ML 250 ML IV SCH (23:51)
[2016-12-22] VITALS (9 sets, daily range): BP systolic 94–117; BP diastolic 63–80; PULSE 80–119; TEMP 36.7–37.4; O2SAT 91–96
[2016-12-22] MEDS: AZTREONAM IV 1,000 MG in DEXTROSE 5% 100ML IV SCH ×3 (02:14→17:26)
[2016-12-22 06:04] LABS: BASO ABS # 0.04 K/uL (0-0.2); COMPLETE YES; EOS % 3.7 %; IG% 0.5 %; LYMPH % 15.2 %; LYMPH ABS # 0.58 K/uL (1.2-3.4); MEAN CORPUSCULAR HEMOGLOBIN 27.3 pg (25-34); MEAN CORPUSCULAR HGB CONC 32.5 g/dl (32-36); MEAN PLATELET VOLUME 10.6 fL (7.4-10.4); MONO % 10.5 %; NEUT % 69.1 %; PLATELET COUNT 114 K/uL (130-400); RED BLOOD COUNT 3.81 M/uL (4.7-6.1); WHITE BLOOD COUNT 3.81 K/uL (4.8-10.8)
[2016-12-22 06:45] LABS: BUN/CREATININE RATIO 17.4 (10-20); CREATININE 0.74 mg/dl (0.60-1.40); POTASSIUM 3.7 mmol/L (3.5-5.1)
[2016-12-22] MEDS: METOPROLOL SUCC 50MG EXT REL TAB PO SCH ×2 (08:20→20:49)
[2016-12-22] MEDS: ATORVASTATIN 40 MG TAB PO SCH (08:20)
[2016-12-22] MEDS: MULTIVITAMIN TAB PO SCH (08:20)
[2016-12-22] MEDS: THIAMINE HCL 100 MG TAB PO SCH (08:20)
[2016-12-22] MEDS: GABAPENTIN 300 MG CAP PO SCH ×2 (08:20→20:48)
[2016-12-22] MEDS: POTASSIUM CHLORIDE 10 MEQ TABCR PO SCH (08:20)
[2016-12-22] MEDS: CIPROFLOXACIN HCL 0.3% OP SOLN 2.5 ML BTL OP SCH ×4 (08:21→20:48)
[2016-12-22] MEDS: FUROSEMIDE 40 MG TAB PO SCH (08:21)
[2016-12-22] MEDS: LACTULOSE SYRUP 30 GM/45 ML UDP PO SCH ×3 (08:21→20:50)
[2016-12-22] MEDS: INSULIN ASPART 100 UNITS/ML 3 ML PEN SC SCH ×4 (08:22→20:50)
[2016-12-22] MEDS ORDERED: SPIRONOLACTONE 100 MG TAB PO ONE (09:37)
--- NOTE | 2016-12-22 10:31 | Progress Note ---
Medicine Progress Note Date & Time of Visit: Dec 22, 2016 at 10:31. Subjective seen with sons at the bedside states he feels improved again denies right knee or leg pain oriented x 3, answers all questions appropriately denies headache, or any focal neuro deficits no chest pain, dyspnea, palpitations, dizziness eating fine, no problems with ambulating with a walker denies other symptoms eager for discharge no other symptoms per family Objective Last 8 Hrs Date Time Temp Pulse Resp B/P (MAP) Pulse Ox O2 Delivery O2 Flow Rate FiO2 12/22/16 08:30 Room Air 12/22/16 07:15 36.8 102 18 114/79 (91) 96 Room Air 12/22/16 04:51 36.7 104 18 117/80 (92) 92 Room Air 12/22/16 04:00 Room Air Physical Exam: General- oriented x 2, not in distress, speaks in sentences with no effort Eyes- anicteric Neck- no JVD Lungs- clear BS bilaterally, no rales/ wheezes Heart- irregularly irregular rhythm; no murmur, normal rate Abdomen- normal bowel sounds, soft, nontender, non distended Extremities- Lower extremities: Right Knee: (+) mild edema, no warmth, no tenderness, improved ROM Right Lower Leg: (+) mild erythema, no warmth, no tenderness, healing small wound on the anterolateral aspect no discharge Left Lower Leg: (+) mild erythema, no warmth, no tenderness, healing small wound on the lower lateral aspect: no discharge Upper extremities: Right: (+) scabbing wounds on the forearm, small skin tears with dressing on - no signs of infection Left: (+) scabbing wounds on the upper arm, small skin tears with dressing on - no signs of infection Neuro- alert, oriented x 3;no gross focal neuro deficits Skin- warm & dry Laboratory Results: Last 24 Hours Test 12/21/16 13:18 12/21/16 15:59 12/21/16 20:03 12/22/16 05:47 Bedside Glucose 115 mg/dl 121 mg/dl 194 mg/dl White Blood Count 3.81 K/uL Red Blood Count 3.81 M/uL Hemoglobin 10.4 g/dL Hematocrit 32.0 % Mean Corpuscular Volume 84.0 fL Mean Corpuscular Hemoglobin 27.3 pg Mean Corpuscular Hemoglobin Concent 32.5 g/dl Platelet Count 114 K/uL Mean Platelet Volume 10.6 fL Neutrophils (%) (Auto) 69.1 % Lymphocytes (%) (Auto) 15.2 % Monocytes (%) (Auto) 10.5 % Eosinophils (%) (Auto) 3.7 % Basophils (%) (Auto) 1.0 % Neutrophils # (Auto) 2.63 K/uL Lymphocytes # (Auto) 0.58 K/uL Monocytes # (Auto) 0.40 K/uL Eosinophils # (Auto) 0.14 K/uL Basophils # (Auto) 0.04 K/uL RDW Standard Deviation 46.3 fL RDW Coefficient of Variation 15.0 % Immature Granulocyte % (Auto) 0.5 % Immature Granulocyte # (Auto) 0.02 K/uL Sodium Level 142 mmol/L Potassium Level 3.7 mmol/L Chloride Level 112 mmol/L Carbon Dioxide Level 20 mmol/L Anion Gap 10.0 mmol/L Blood Urea Nitrogen 13 mg/dl Creatinine 0.74 mg/dl Est Creatinine Clear Calc Drug Dose 118.7 ml/min Estimated GFR () 111.4 Estimated GFR (Non- 96.1 BUN/Creatinine Ratio 17.4 Random Glucose 101 mg/dl Calcium Level 8.0 mg/dl Test 12/22/16 07:32 Bedside Glucose 94 mg/dl Date/Time Source Procedure Growth Status 12/21/16 11:10 Ulcer Leg Right Lower Gram Stain - Final Resulted 12/21/16 11:10 Ulcer Leg Right Lower Wound Culture Pending Resulted Assessment & Plan 66 year old male with history of CAD, CHF Diastolic Type, Atrial Fibrillation DM , HTN, recent fall with closed head trauma presenting with weakness and headache. LEFT PARIETAL LOBE HEMORRHAGE S/P HEAD TRAUMA SECONDARY TO FALL MRI brain: as below Repeat CT head: Stable Aspirin, Eliquis discontinued Neurology consulted, appreciate the input -- 12/19/16 (+) moderate frontal headache 3rd CT head: Impression: 1. The left parietal vertex contusion has essentially resolved in the interval. 2. There is a persistent 2 mm punctate hyperdense focus within the right high convexity which remains unchanged. This favors a tiny contusion/trace -- remains without headache or any other neurological deficits per Neurology, ff up with them in 2-[address] head, still not a good candidate for anticoagulation GENERALIZED WEAKNESS,/LETHARGY, Resolved Likely debility from comorbidities, Elevated Ammonia -- Ammonia level 47 AST/ALT ok, Alk Phos slightly elevated -- Liver US: IMPRESSION: Moderate size right knee joint effusion with possible synovial thickening, a nonspecific finding. -- started Lactulose 30mg TID consulted GI, appreciate the input -- mental status improved further continue Lactulose for now continue PT /OT d/c to [facility] LIVER CIRRHOSIS - history of alcoholism - -- Ammonia level 47 AST/ALT ok, Alk Phos slightly elevated -- Liver US: IMPRESSION: Moderate size right knee joint effusion with possible synovial thickening, a nonspecific finding. -- started Lactulose 30mg TID , mental status improving daily restarted Lasix today at 40mg po daily, added Spironolactone 100mg po daily serologies pending consulted GI, appreciate the input ATRIAL FIBRILLATION WITH RVR increased Metoprolol -- HR improving Poor candidate for anticoagulation given H/O prior hemoptysis, frequent falls , and hemorrhagic contusion. appreciate Cardiology SVC input will discuss with Cardiology re: continuation of anticoagulation once cleared by Neuro FEVER LIKELY SECONDARY TO BILATERAL LEG CELLULITIS, GOUT FLARE UP, R/O RIGHT KNEE SEPTIC ARTHRITIS - fever on hospital day 2 - Blood cultures negative so far Urine cultures negative so far - Right knee US: Moderate effusion s/p Arthrocentesis 12/20/16 by Ortho Synovial fluid: WBC 16k with >90% PMNs cultures: negative so far - continue Vanco and Aztreonam IV Day 4 ff up cultures - anticipate transition to PO antibiotics tomorrow Elevated Troponin: Likely demand ischemia cardiac enzymes trended down -- no cardiac symptoms DM II: hold Glimepiride Last A1c: 9.5 in Oct ISS, Accu checks, Diabetic diet Hold Lantus as having hypoglycemic episodes HTN: BP on the lower side on Metoprolol monitor BP now that Lasix has been resumed Non-occlusive CAD continue Lipitor Diastolic CHF: -- Lasix 40mg po restarted monitor COPD: not in exacerbation Nebs PRN Chronic Venous stasis Doppler US negative for DVT DVT Px: SCDs: ambulation encouraged Code Status: Full Code Disposition: anticipate d/c to [facility] when accepted will consult case management Case discussed at length and in detail with patient, sons Arpan and Elfego all questions answered, they are agreeable and comfortable with plan of care PROCEDURES: MRI Brain: 1. 10 mm cortically-based hemorrhagic focus of the left parietal lobe near the vertex redemonstrated without significant change of signal intensity on the postcontrast images suggesting acute posttraumatic cortical contusion without enlargement from the previous study. No new or additional foci identified. Follow-up recommended. 2. Atrophy with mild background chronic microvascular ischemic changes. Current Inpatient Medications: Current Inpatient Medications Medications (Trade) Dose Ordered Sig/Van Route Start Time Stop Time Status Last Admin Dose Admin Ondansetron HCl (Zofran Inj) 4 mg Q6H PRN IV 12/17/16 10:45 01/16/17 10:44 Nitroglycerin (Nitrostat Tab) 0.4 mg UD PRN SL 12/17/16 10:45 01/16/17 10:44 Insulin Glargine (Lantus Solostar Pen) 5 units Q12 SC 12/17/16 21:00 01/16/17 20:59 Future Hold 12/17/16 20:48 5 UNITS Insulin Aspart (novoLOG ASPART) SLIDING SCALE If C... ACHS SC 12/17/16 11:00 01/16/17 10:59 12/21/16 20:06 1 UNITS Glucose (Glucose 40% Gel) 15-30 GRAMS 15 GRAMS... UD PRN PO 12/17/16 11:00 01/16/17 10:59 Glucose (Glucose Chew Tab) 4-8 Tablets 4 Tabl... UD PRN PO 12/17/16 11:00 01/16/17 10:59 Dextrose (Dextrose 50% 50ML Syringe) 25-50ML OF 50% DW IV FOR... UD PRN IV 12/17/16 11:00 01/16/17 10:59 Glucagon (Glucagon Inj) 1 mg UD PRN SQ 12/17/16 11:00 01/16/17 10:59 Gabapentin (Neurontin Cap) 300 mg BID PO 12/17/16 21:00 01/16/17 20:59 12/22/16 08:20 300 MG Acetaminophen/ Hydrocodone Bitart ([place] 5/325 Tab) 1 tab Q4 PRN PO 12/17/16 11:00 12/31/16 10:59 12/19/16 07:57 1 TAB Potassium Chloride (Klor-Con M10) 10 meq DAILY PO 12/18/16 09:00 01/17/17 08:59 12/22/16 08:20 10 MEQ Metoprolol Tartrate (Lopressor Iv) 2.5 mg Q6 PRN IV 12/17/16 11:15 01/16/17 11:14 12/18/16 17:36 2.5 MG Levalbuterol (Xopenex 0.63 Mg/ 3 Ml Neb) 0.63 mg Q6R PRN INH 12/17/16 11:15 01/16/17 11:14 Atorvastatin Calcium (Lipitor Tab) 40 mg QAM PO 12/18/16 09:00 01/17/17 08:59 12/22/16 08:20 40 MG Ciprofloxacin HCl (Ciprofloxacin 0.3% Op Soln) 2 drops Q4HWA OP 12/18/16 17:30 12/28/16 17:14 12/22/16 08:21 2 DROPS Lorazepam (Ativan Inj) PRN Dosing -Active Protocol Q1H PRN IV 12/18/16 19:30 01/17/17 19:29 Thiamine HCl (Vitamin B-1 Tab) 100 mg QAM PO 12/19/16 09:00 01/18/17 08:59 12/22/16 08:20 100 MG Multivitamins (Multivitamin Tab) 1 tab QAM PO 12/19/16 09:00 01/18/17 08:59 12/22/16 08:20 1 TAB Folic Acid (Folvite Tab) 1 mg QAM PO 12/19/16 09:00 01/18/17 08:59 12/22/16 08:20 1 MG Lactulose (Chronulac Syrup) 30 gm TID PO 12/19/16 09:00 01/18/17 08:59 12/22/16 08:21 30 GM Aztreonam (Consult) 1 ea UD PRN N/A 12/19/16 09:00 01/18/17 08:59 Aztreonam 1000 mg/ Dextrose 110 ml @ 110 mls/hr Q8H IV 12/19/16 10:00 12/29/16 09:59 12/22/16 02:14 110 MLS/HR Vancomycin HCl (Consult) 1 ea UD PRN N/A 12/19/16 17:00 01/18/17 16:59 Acetaminophen (Tylenol Tab) 325 mg Q6H PRN PO 12/19/16 17:00 01/16/17 10:44 12/21/16 16:51 325 MG Metoprolol Succinate (Toprol Xl Tab) 75 mg BID PO 12/20/16 21:00 01/17/17 08:59 12/22/16 08:20 75 MG Furosemide (Lasix Tab) 40 mg QAM PO 12/22/16 09:00 01/21/17 08:59 12/22/16 08:21 40 MG Vancomycin HCl 1250 mg/Sodium Chloride 275 ml @ 125 mls/hr Q12@0000,1200 IV 12/22/16 00:00 01/01/17 00:00 12/21/16 23:51 125 MLS/HR Spironolactone (Aldactone Tab) 100 mg QAM PO 12/23/16 09:00 01/22/17 08:59
[2016-12-22] MEDS: VANCOMYCIN INJ 1,250 MG in SODIUM CHLORIDE 0.9% 250ML 250 ML IV SCH ×2 (13:06→23:37)
[2016-12-22] MEDS: GUAIFENESIN 200 MG TAB PO PRN ×2 (15:59→20:47)
--- NOTE | 2016-12-22 17:19 | Infectious Disease Progress Nt ---
Progress Note Date of Service Dec 22, 2016. Subjective Pt evaluation today including: conversation w/ patient, physical exam, chart review, lab review, review of studies, conversation w/ trial consultant, review of inpatient medication list Patient states pain in right knee much improved, remains afebrile. Cultures of aspiration remain negative. Erythema of the legs improving. No other new complaints. All Other Systems: Reviewed and Negative Medications Current Inpatient Medications Medications (Trade) Dose Ordered Sig/Van Route Start Time Stop Time Status Last Admin Dose Admin Ondansetron HCl (Zofran Inj) 4 mg Q6H PRN IV 12/17/16 10:45 01/16/17 10:44 Nitroglycerin (Nitrostat Tab) 0.4 mg UD PRN SL 12/17/16 10:45 01/16/17 10:44 Insulin Glargine (Lantus Solostar Pen) 5 units Q12 SC 12/17/16 21:00 01/16/17 20:59 Future Hold 12/17/16 20:48 5 UNITS Insulin Aspart (novoLOG ASPART) SLIDING SCALE If C... ACHS SC 12/17/16 11:00 01/16/17 10:59 12/22/16 13:11 4 UNITS Glucose (Glucose 40% Gel) 15-30 GRAMS 15 GRAMS... UD PRN PO 12/17/16 11:00 01/16/17 10:59 Glucose (Glucose Chew Tab) 4-8 Tablets 4 Tabl... UD PRN PO 12/17/16 11:00 01/16/17 10:59 Dextrose (Dextrose 50% 50ML Syringe) 25-50ML OF 50% DW IV FOR... UD PRN IV 12/17/16 11:00 01/16/17 10:59 Glucagon (Glucagon Inj) 1 mg UD PRN SQ 12/17/16 11:00 01/16/17 10:59 Gabapentin (Neurontin Cap) 300 mg BID PO 12/17/16 21:00 01/16/17 20:59 12/22/16 08:20 300 MG Acetaminophen/ Hydrocodone Bitart ([place] 5/325 Tab) 1 tab Q4 PRN PO 12/17/16 11:00 12/31/16 10:59 12/19/16 07:57 1 TAB Potassium Chloride (Klor-Con M10) 10 meq DAILY PO 12/18/16 09:00 01/17/17 08:59 12/22/16 08:20 10 MEQ Metoprolol Tartrate (Lopressor Iv) 2.5 mg Q6 PRN IV 12/17/16 11:15 01/16/17 11:14 12/18/16 17:36 2.5 MG Levalbuterol (Xopenex 0.63 Mg/ 3 Ml Neb) 0.63 mg Q6R PRN INH 12/17/16 11:15 01/16/17 11:14 Atorvastatin Calcium (Lipitor Tab) 40 mg QAM PO 12/18/16 09:00 01/17/17 08:59 12/22/16 08:20 40 MG Ciprofloxacin HCl (Ciprofloxacin 0.3% Op Soln) 2 drops Q4HWA OP 12/18/16 17:30 12/28/16 17:14 12/22/16 15:43 2 DROPS Lorazepam (Ativan Inj) PRN Dosing -Active Protocol Q1H PRN IV 12/18/16 19:30 01/17/17 19:29 Thiamine HCl (Vitamin B-1 Tab) 100 mg QAM PO 12/19/16 09:00 01/18/17 08:59 12/22/16 08:20 100 MG Multivitamins (Multivitamin Tab) 1 tab QAM PO 12/19/16 09:00 01/18/17 08:59 12/22/16 08:20 1 TAB Folic Acid (Folvite Tab) 1 mg QAM PO 12/19/16 09:00 01/18/17 08:59 12/22/16 08:20 1 MG Lactulose (Chronulac Syrup) 30 gm TID PO 12/19/16 09:00 01/18/17 08:59 12/22/16 08:21 30 GM Aztreonam (Consult) 1 ea UD PRN N/A 12/19/16 09:00 01/18/17 08:59 Aztreonam 1000 mg/ Dextrose 110 ml @ 110 mls/hr Q8H IV 12/19/16 10:00 12/29/16 09:59 12/22/16 02:14 110 MLS/HR Vancomycin HCl (Consult) 1 ea UD PRN N/A 12/19/16 17:00 01/18/17 16:59 Acetaminophen (Tylenol Tab) 325 mg Q6H PRN PO 12/19/16 17:00 01/16/17 10:44 12/21/16 16:51 325 MG Metoprolol Succinate (Toprol Xl Tab) 75 mg BID PO 12/20/16 21:00 01/17/17 08:59 12/22/16 08:20 75 MG Furosemide (Lasix Tab) 40 mg QAM PO 12/22/16 09:00 01/21/17 08:59 12/22/16 08:21 40 MG Vancomycin HCl 1250 mg/Sodium Chloride 275 ml @ 125 mls/hr Q12@0000,1200 IV 12/22/16 00:00 01/01/17 00:00 12/21/16 23:51 125 MLS/HR Spironolactone (Aldactone Tab) 100 mg QAM PO 12/23/16 09:00 01/22/17 08:59 Guaifenesin (Organidin Nr Tab) 200 mg Q4H PRN PO 12/22/16 14:15 01/21/17 14:14 12/22/16 15:59 200 MG Objective Vital Signs Date Time Temp Pulse Resp B/P (MAP) Pulse Ox O2 Delivery O2 Flow Rate FiO2 12/22/16 16:00 96 Room Air 12/22/16 14:49 36.8 115 20 114/75 (88) 96 Room Air 12/22/16 12:15 Room Air 12/22/16 11:05 36.9 80 20 115/75 (88) 96 Room Air 12/22/16 08:30 Room Air 12/22/16 07:15 36.8 102 18 114/79 (91) 96 Room Air 12/22/16 04:51 36.7 104 18 117/80 (92) 92 Room Air 12/22/16 04:00 Room Air 12/22/16 00:00 Room Air 12/21/16 23:26 36.8 98 16 114/75 (88) 95 Room Air 12/21/16 21:21 36.8 12/21/16 20:00 Room Air 12/21/16 19:45 37.5 112 18 111/70 (84) 91 Room Air Physical Exam General Appearance: WD/WN, no apparent distress Eyes: normal inspection, sclerae normal ENT: normal ENT inspection, pharynx normal Neck: supple, no adenopathy, trachea midline Respiratory/Chest: chest non-tender, lungs clear, normal breath sounds, no respiratory distress Cardiovascular: regular rate, rhythm, no gallop, no murmur Abdomen: normal bowel sounds, non tender, soft, no organomegaly Extremities: no calf tenderness, normal capillary refill, + pertinent finding ( Improving right knee swelling) Neurologic/Psychiatric: alert, oriented x 3 Skin: normal color, no rash, + pertinent finding ( slightly decreased erythema of both legs) Lymphatic: no adenopathy Laboratory Results RUN DATE: 12/22/16 [facility] LAB PAGE 1 RUN TIME: 1212 Specimen Inquiry PATIENT: TINY SHAH LOC: [facility] # : [id number] AGE/SX: 66/M ROOM: N277 REG : 12/17/[address]: Crispin Aguilar MD : [id number] BED: 2 DIS : STATUS: ADM IN TLOC: SPEC #: [id number] BENITA: 12/21/16 STATUS: RES REQ #: [id number] RECD: 12/21/[address]: Crispin Aguilar MD SOURCE: [facility]LCER ENTR: 12/21/16 [facility] DR: Gil Hammond D.ORosa Maria [facility]: LEG RL Sergio Grant M.D. Mateer, John, M.D. ( MEDICINE) Mario Mclaughlin MD Patterson, Jennifer., Bubba.Catalina Potts, Ga Jennings M.D.([facility]) Александр Kemp MD ORDERED: SURF SHIVAM CORDERO/BLANCA COMMENTS: Has Specimen Been Obtained/Collected? Y Procedure Result Verified Site GRAM STAIN Final 12/21/164 RESULT NO WBCs SEEN NO ORGANISMS SEEN SURFACE WOUND CULTURE Preliminary 12/22/16-121 NO GROWTH TO DATE. Last 24 Hours Test 12/21/16 20:03 12/22/16 05:47 12/22/16 07:32 12/22/16 11:38 Bedside Glucose 194 mg/dl 94 mg/dl 102 mg/dl White Blood Count 3.81 K/uL Red Blood Count 3.81 M/uL Hemoglobin 10.4 g/dL Hematocrit 32.0 % Mean Corpuscular Volume 84.0 fL Mean Corpuscular Hemoglobin 27.3 pg Mean Corpuscular Hemoglobin Concent 32.5 g/dl Platelet Count 114 K/uL Mean Platelet Volume 10.6 fL Neutrophils (%) (Auto) 69.1 % Lymphocytes (%) (Auto) 15.2 % Monocytes (%) (Auto) 10.5 % Eosinophils (%) (Auto) 3.7 % Basophils (%) (Auto) 1.0 % Neutrophils # (Auto) 2.63 K/uL Lymphocytes # (Auto) 0.58 K/uL Monocytes # (Auto) 0.40 K/uL Eosinophils # (Auto) 0.14 K/uL Basophils # (Auto) 0.04 K/uL RDW Standard Deviation 46.3 fL RDW Coefficient of Variation 15.0 % Immature Granulocyte % (Auto) 0.5 % Immature Granulocyte # (Auto) 0.02 K/uL Sodium Level 142 mmol/L Potassium Level 3.7 mmol/L Chloride Level 112 mmol/L Carbon Dioxide Level 20 mmol/L Anion Gap 10.0 mmol/L Blood Urea Nitrogen 13 mg/dl Creatinine 0.74 mg/dl Est Creatinine Clear Calc Drug Dose 118.7 ml/min Estimated GFR () 111.4 Estimated GFR (Non- 96.1 BUN/Creatinine Ratio 17.4 Random Glucose 101 mg/dl Calcium Level 8.0 mg/dl Test 12/22/16 16:19 Bedside Glucose 109 mg/dl Assessment and Plan Patient with probable acute gouty arthritis of right knee, and this likely probable cause of fever. May also have component of cellulitis. Hopefully can transition to oral antibiotics in next 24-48 hours. Will follow.
[2016-12-22] MEDS: ACETAMINOPHEN 325 MG TAB PO PRN (20:56)
[2016-12-23] VITALS: O2SAT 96
[2016-12-23] MEDS: AZTREONAM IV 1,000 MG in DEXTROSE 5% 100ML IV SCH ×2 (02:33→10:48)
[2016-12-23 04:00] VITALS: BP 104/68; PULSE 104; TEMP 36.8; O2SAT 93; O2SAT 96
[2016-12-23] MEDS: GUAIFENESIN 200 MG TAB PO PRN ×2 (04:36→10:42)
[2016-12-23 07:31] VITALS: BP 113/76; PULSE 91; TEMP 37.3; O2SAT 95
[2016-12-23 07:40] LABS: BASO % 1.5 %; BASO ABS # 0.06 K/uL (0-0.2); COMPLETE YES; HEMATOCRIT 33.2 % (42-52); IG% 0.3 %; LYMPH % 19.7 %; LYMPH ABS # 0.78 K/uL (1.2-3.4); MEAN CELL VOLUME 82.8 fL (80-100); MEAN CORPUSCULAR HEMOGLOBIN 26.7 pg (25-34); MEAN CORPUSCULAR HGB CONC 32.2 g/dl (32-36); MEAN PLATELET VOLUME 10.4 fL (7.4-10.4); MONO % 9.8 %; NEUT % 65.7 %; PLATELET COUNT 136 K/uL (130-400); RED BLOOD COUNT 4.01 M/uL (4.7-6.1); WHITE BLOOD COUNT 3.96 K/uL (4.8-10.8)
[2016-12-23 08:10] LABS: BUN/CREATININE RATIO 13.6 (10-20); CALCIUM 8.4 mg/dl (8.5-10.1); CREATININE 0.75 mg/dl (0.60-1.40); POTASSIUM 3.5 mmol/L (3.5-5.1)
[2016-12-23] MEDS: THIAMINE HCL 100 MG TAB PO SCH (08:37)
[2016-12-23] MEDS: METOPROLOL SUCC 50MG EXT REL TAB PO SCH (08:37)
[2016-12-23] MEDS: MULTIVITAMIN TAB PO SCH (08:37)
[2016-12-23] MEDS: POTASSIUM CHLORIDE 10 MEQ TABCR PO SCH (08:38)
[2016-12-23] MEDS: GABAPENTIN 300 MG CAP PO SCH (08:38)
[2016-12-23] MEDS: ATORVASTATIN 40 MG TAB PO SCH (08:38)
[2016-12-23] MEDS: FUROSEMIDE 40 MG TAB PO SCH (08:38)
[2016-12-23] MEDS: INSULIN ASPART 100 UNITS/ML 3 ML PEN SC SCH ×2 (08:39→12:31)
[2016-12-23] MEDS: CIPROFLOXACIN HCL 0.3% OP SOLN 2.5 ML BTL OP SCH ×3 (08:39→16:35)
[2016-12-23] MEDS: LACTULOSE SYRUP 30 GM/45 ML UDP PO SCH ×2 (08:42→13:18)
[2016-12-23] MEDS ORDERED: SPIRONOLACTONE 100 MG TAB PO SCH (09:00)
--- NOTE | 2016-12-23 09:20 | Progress Note ---
Medicine Progress Note Date & Time of Visit: Dec 23, 2016 at 09:15. Subjective seen resting in bed, alert, pleasant, oriented x 3 states he feels ok overall except for left proximal forearm swelling/pain and some left elbow pain denies confusion, headache, new focal neuro deficits denies chest pain, dyspnea, palpitations dizziness no abdominal pain, (+) BMs no leg or knee pain denies other symptoms Objective Last 8 Hrs Date Time Temp Pulse Resp B/P (MAP) Pulse Ox O2 Delivery O2 Flow Rate FiO2 12/23/16 07:31 37.3 91 16 113/76 (88) 95 Room Air 12/23/16 04:00 96 Room Air 12/23/16 04:00 36.8 104 20 104/68 (80) 93 Physical Exam: General- oriented x 2, not in distress, speaks in sentences with no effort Eyes- anicteric Neck- no JVD Lungs- clear breath sounds bilaterally Heart- irregularly irregular rhythm; no murmur, normal rate Abdomen- normal bowel sounds, soft, nontender, non distended Extremities- Lower extremities: Right Knee: (+) no edema, no warmth, no tenderness, good ROM Right Lower Leg: (+) mild erythema, no warmth, no tenderness, healing small wound on the anterolateral aspect no discharge Left Lower Leg: (+) mild erythema, no warmth, no tenderness, healing small wound on the lower lateral aspect: no discharge Upper extremities: Right: (+) scabbing wounds on the forearm, small skin tears with dressing on - no signs of infection Left: (+) scabbing wounds on the upper arm, small skin tears with dressing on - no signs of infection (+) elbow- small soft mass, moderate tenderness and mild warmth, limited ROM due to pain (+) forearm- proximal, moderate edema, no warmth, mild tenderness Neuro- alert, oriented x 3;no gross focal neuro deficits Skin- warm & dry Laboratory Results: Last 24 Hours Test 12/22/16 11:38 12/22/16 16:19 12/22/16 20:13 12/23/16 06:52 Bedside Glucose 102 mg/dl 109 mg/dl 104 mg/dl White Blood Count 3.96 K/uL Red Blood Count 4.01 M/uL Hemoglobin 10.7 g/dL Hematocrit 33.2 % Mean Corpuscular Volume 82.8 fL Mean Corpuscular Hemoglobin 26.7 pg Mean Corpuscular Hemoglobin Concent 32.2 g/dl Platelet Count 136 K/uL Mean Platelet Volume 10.4 fL Neutrophils (%) (Auto) 65.7 % Lymphocytes (%) (Auto) 19.7 % Monocytes (%) (Auto) 9.8 % Eosinophils (%) (Auto) 3.0 % Basophils (%) (Auto) 1.5 % Neutrophils # (Auto) 2.60 K/uL Lymphocytes # (Auto) 0.78 K/uL Monocytes # (Auto) 0.39 K/uL Eosinophils # (Auto) 0.12 K/uL Basophils # (Auto) 0.06 K/uL RDW Standard Deviation 46.3 fL RDW Coefficient of Variation 15.1 % Immature Granulocyte % (Auto) 0.3 % Immature Granulocyte # (Auto) 0.01 K/uL Sodium Level 143 mmol/L Potassium Level 3.5 mmol/L Chloride Level 113 mmol/L Carbon Dioxide Level 20 mmol/L Anion Gap 11.0 mmol/L Blood Urea Nitrogen 10 mg/dl Creatinine 0.75 mg/dl Est Creatinine Clear Calc Drug Dose 116.7 ml/min Estimated GFR () 110.8 Estimated GFR (Non- 95.6 BUN/Creatinine Ratio 13.6 Random Glucose 89 mg/dl Calcium Level 8.4 mg/dl Test 12/23/16 07:18 Bedside Glucose 81 mg/dl Assessment & Plan 66 year old male with history of CAD, CHF Diastolic Type, Atrial Fibrillation DM , HTN, recent fall with closed head trauma presenting with weakness and headache. LEFT PARIETAL LOBE HEMORRHAGE S/P HEAD TRAUMA SECONDARY TO FALL MRI brain: as below Repeat CT head: Stable Aspirin, Eliquis discontinued Neurology consulted, appreciate the input -- 12/19/16 (+) moderate frontal headache 3rd CT head: Impression: 1. The left parietal vertex contusion has essentially resolved in the interval. 2. There is a persistent 2 mm punctate hyperdense focus within the right high convexity which remains unchanged. This favors a tiny contusion/trace -- remains without headache or any other neurological deficits per Neurology, ff up with them in 2-[address] head, still not a good candidate for anticoagulation GENERALIZED WEAKNESS,/LETHARGY, Resolved Likely debility from comorbidities, Elevated Ammonia -- Ammonia level 47 AST/ALT ok, Alk Phos slightly elevated -- Liver US: IMPRESSION: Moderate size right knee joint effusion with possible synovial thickening, a nonspecific finding. -- started Lactulose 30mg TID consulted GI, appreciate the input -- mental status improved further continue Lactulose for now continue PT /OT d/c to [facility] LIVER CIRRHOSIS - history of alcoholism - -- Ammonia level 47 AST/ALT ok, Alk Phos slightly elevated -- Liver US: IMPRESSION: Moderate size right knee joint effusion with possible synovial thickening, a nonspecific finding. -- started Lactulose 30mg TID , mental status improving daily restarted Lasix at 40mg po daily, added Spironolactone 100mg po daily serologies pending consulted GI, appreciate the input ATRIAL FIBRILLATION WITH RVR increased Metoprolol -- HR improving Poor candidate for anticoagulation given H/O prior hemoptysis, frequent falls , and hemorrhagic contusion. appreciate Cardiology SVC input will discuss with Cardiology re: continuation of anticoagulation once cleared by Neuro FEVER LIKELY SECONDARY TO BILATERAL LEG CELLULITIS, GOUT FLARE UP, R/O RIGHT KNEE SEPTIC ARTHRITIS - fever on hospital day 2 - Blood cultures negative so far Urine cultures negative so far - Right knee US: Moderate effusion s/p Arthrocentesis 12/20/16 by Ortho Synovial fluid: WBC 16k with >90% PMNs cultures: negative so far - continue Vanco and Aztreonam IV Day 5 ff up cultures - anticipate transition to PO antibiotics on transfer to [facility] today Left Elbow Pain - possible gout attack - will give one dose of Prednisone 20mg po monitor elevate arm, warm compress Elevated Troponin: Likely demand ischemia cardiac enzymes trended down -- no cardiac symptoms DM II: hold Glimepiride Last A1c: 9.5 in Oct ISS, Accu checks, Diabetic diet Hold Lantus as having hypoglycemic episodes HTN: BP on the lower side on Metoprolol monitor BP now that Lasix has been resumed Non-occlusive CAD continue Lipitor Diastolic CHF: -- Lasix 40mg po restarted monitor COPD: not in exacerbation Nebs PRN Chronic Venous stasis Doppler US negative for DVT DVT Px: SCDs: ambulation encouraged Code Status: Full Code Disposition: awaiting for a bed in HS Case discussed at length and in detail with patient, sons Arpan and Elfego all questions answered, they are agreeable and comfortable with plan of care PROCEDURES: MRI Brain: 1. 10 mm cortically-based hemorrhagic focus of the left parietal lobe near the vertex redemonstrated without significant change of signal intensity on the postcontrast images suggesting acute posttraumatic cortical contusion without enlargement from the previous study. No new or additional foci identified. Follow-up recommended. 2. Atrophy with mild background chronic microvascular ischemic changes. Current Inpatient Medications: Current Inpatient Medications Medications (Trade) Dose Ordered Sig/Van Route Start Time Stop Time Status Last Admin Dose Admin Ondansetron HCl (Zofran Inj) 4 mg Q6H PRN IV 12/17/16 10:45 01/16/17 10:44 Nitroglycerin (Nitrostat Tab) 0.4 mg UD PRN SL 12/17/16 10:45 01/16/17 10:44 Insulin Glargine (Lantus Solostar Pen) 5 units Q12 SC 12/17/16 21:00 01/16/17 20:59 Future Hold 12/17/16 20:48 5 UNITS Insulin Aspart (novoLOG ASPART) SLIDING SCALE If C... ACHS SC 12/17/16 11:00 01/16/17 10:59 12/22/16 17:28 1 UNITS Glucose (Glucose 40% Gel) 15-30 GRAMS 15 GRAMS... UD PRN PO 12/17/16 11:00 01/16/17 10:59 Glucose (Glucose Chew Tab) 4-8 Tablets 4 Tabl... UD PRN PO 12/17/16 11:00 01/16/17 10:59 Dextrose (Dextrose 50% 50ML Syringe) 25-50ML OF 50% DW IV FOR... UD PRN IV 12/17/16 11:00 01/16/17 10:59 Glucagon (Glucagon Inj) 1 mg UD PRN SQ 12/17/16 11:00 01/16/17 10:59 Gabapentin (Neurontin Cap) 300 mg BID PO 12/17/16 21:00 01/16/17 20:59 12/23/16 08:38 300 MG Acetaminophen/ Hydrocodone Bitart (Macon 5/325 Tab) 1 tab Q4 PRN PO 12/17/16 11:00 12/31/16 10:59 12/19/16 07:57 1 TAB Potassium Chloride (Klor-Con M10) 10 meq DAILY PO 12/18/16 09:00 01/17/17 08:59 12/23/16 08:38 10 MEQ Metoprolol Tartrate (Lopressor Iv) 2.5 mg Q6 PRN IV 12/17/16 11:15 01/16/17 11:14 12/18/16 17:36 2.5 MG Levalbuterol (Xopenex 0.63 Mg/ 3 Ml Neb) 0.63 mg Q6R PRN INH 12/17/16 11:15 01/16/17 11:14 Atorvastatin Calcium (Lipitor Tab) 40 mg QAM PO 12/18/16 09:00 01/17/17 08:59 12/23/16 08:38 40 MG Ciprofloxacin HCl (Ciprofloxacin 0.3% Op Soln) 2 drops Q4HWA OP 12/18/16 17:30 12/28/16 17:14 12/23/16 08:39 2 DROPS Lorazepam (Ativan Inj) PRN Dosing -Active Protocol Q1H PRN IV 12/18/16 19:30 01/17/17 19:29 Thiamine HCl (Vitamin B-1 Tab) 100 mg QAM PO 12/19/16 09:00 01/18/17 08:59 12/23/16 08:37 100 MG Multivitamins (Multivitamin Tab) 1 tab QAM PO 12/19/16 09:00 01/18/17 08:59 12/23/16 08:37 1 TAB Folic Acid (Folvite Tab) 1 mg QAM PO 12/19/16 09:00 01/18/17 08:59 12/23/16 08:36 1 MG Lactulose (Chronulac Syrup) 30 gm TID PO 12/19/16 09:00 01/18/17 08:59 12/22/16 08:21 30 GM Aztreonam (Consult) 1 ea UD PRN N/A 12/19/16 09:00 01/18/17 08:59 Aztreonam 1000 mg/ Dextrose 110 ml @ 110 mls/hr Q8H IV 12/19/16 10:00 12/29/16 09:59 12/23/16 02:33 110 MLS/HR Vancomycin HCl (Consult) 1 ea UD PRN N/A 12/19/16 17:00 01/18/17 16:59 Acetaminophen (Tylenol Tab) 325 mg Q6H PRN PO 12/19/16 17:00 01/16/17 10:44 12/22/16 20:56 325 MG Metoprolol Succinate (Toprol Xl Tab) 75 mg BID PO 12/20/16 21:00 01/17/17 08:59 12/23/16 08:37 75 MG Furosemide (Lasix Tab) 40 mg QAM PO 12/22/16 09:00 01/21/17 08:59 12/23/16 08:38 40 MG Vancomycin HCl 1250 mg/Sodium Chloride 275 ml @ 125 mls/hr Q12@0000,1200 IV 12/22/16 00:00 01/01/17 00:00 12/22/16 23:37 125 MLS/HR Spironolactone (Aldactone Tab) 100 mg QAM PO 12/23/16 09:00 01/22/17 08:59 12/23/16 08:38 100 MG Guaifenesin (Organidin Nr Tab) 200 mg Q4H PRN PO 12/22/16 14:15 01/21/17 14:14 12/23/16 04:36 200 MG
[2016-12-23] MEDS: LACTOBACILLUS ACIDOPHILUS (FLORANEX) TAB PO SCH ×2 (10:44→17:15)
[2016-12-23] MEDS ORDERED: VANCOMYCIN TROUGH ONE (11:30)
[2016-12-23 11:47] VITALS: BP 107/72; PULSE 100; TEMP 36.7; O2SAT 92
[2016-12-23] MEDS: VANCOMYCIN INJ 1,250 MG in SODIUM CHLORIDE 0.9% 250ML 250 ML IV SCH (12:00)
--- NOTE | 2016-12-23 14:45 | Pharmacy Progress Note ---
Pharmacy Abx Dose Short Note Date of Service Dec 23, 2016. Assessment & Plan Assessment 66 year old male receiving Vancomycin 1250mg IV q 12h and Aztreonam 1gm q 8h for treatment of cellulitis, septic arthritis. Day # 5/10 of antimicrobial therapy. Plan Vancomycin * Trough level of 18.7 mcg/mL is therapeutic. * Continue dose of 1250 mg IV every 12 hours. Pt is a planned discharge to [facility] tomorrow. * Goal trough level : 15 to 20 mcg/mL * Trough or random level: will only be ordered if pt remains here after tomorrow and vanc is continued. Pharmacy will continue to follow and will adjust dose/frequency as necessary. Thank you.
[2016-12-23 16:10] VITALS: BP 107/72; PULSE 100; TEMP 36.7; O2SAT 92
[2016-12-23 16:15] VITALS: BP 121/82; PULSE 104; TEMP 36.5; O2SAT 90
[2016-12-23] MEDS ORDERED: DXY100 PO (17:37)
[2016-12-23] MEDS ORDERED: INSDGIPEN SC (17:37)
[2016-12-23] MEDS ORDERED: SPRN100 PO (17:37)
[2016-12-23] MEDS ORDERED: TPRSR50 PO (17:37)
[2016-12-23] MEDS ORDERED: LSX40 PO (17:37)
[2016-12-23] MEDS ORDERED: MULT-890 PO (17:37)
[2016-12-23] MEDS ORDERED: LCTL45 PO (17:37)
[2016-12-23] MEDS ORDERED: THM100 PO (17:37)
[2016-12-23] MEDS ORDERED: NRN300 PO (17:37)
[2016-12-23] MEDS ORDERED: LPT40 PO (17:37)
[2016-12-23] MEDS ORDERED: FLV1 PO (17:37)
[2016-12-23] MEDS ORDERED: LCTX PO (17:37)
[2016-12-23] MEDS ORDERED: NVLGIPEN SC (17:37)
--- NOTE | 2016-12-23 17:45 | Discharge Instructions ---
Discharge Instructions Date of Service Dec 23, 2016. Admission Reason for Admission: Weakness Generalized Discharge Discharge Diagnosis / Problem: INTRACRANIAL BLEED, NEW ONSET ATRIAL FIBRILLATION, LEG CELLULITIS Discharge Goals Goal(s): Diagnostic testing, Therapeutic intervention Activity Recommendations Activity Level: Assistance Required Therapies: Physical Therapy, Occupational Therapy . Additional Information Patient informed of condition: Yes Advance Directives: No (UNKNOWN) DNR: No (PATIENT IS FULL CODE) Level of Care: Acute Rehab Communicable Disease: No Prognosis: Improving Instructions / Follow-Up Instructions / Follow-Up PLEASE REFER TO ACCOMPANYING HOSPITAL DISCHARGE SUMMARY FOR FURTHER DETAILS. DUE TO RECENT INTRACRANIAL BLEED, NO ANTIPLATELETS, ANTICOAGULANTS, NSAIDS UNTIL CLEARED BY NEUROLOGIST. MONITOR MENTAL STATUS, VOLUME STATUS, HEART RATE CLOSELY. MONITOR FOR RESOLUTION OF BILATERAL LEG CELLULITIS. DAILY WOUND CARE. MONITOR LEFT ELBOW AND FOREARM FOR RESOLUTION OF PAIN AND SWELLING. PREDNISONE GIVEN FOR POSSIBLE GOUT ATTACK. MONITOR BSGS. ON INSULIN LANTUS AND ISS. USUALLY ON GLIMEPIRIDE AT HOME. DO NOT EXCEED MORE THAN 2G OF TYLENOL /DAY PATIENT HAS LIVER CIRRHOSIS. FOLLOW UP WITH PCP DR. CLARK WITHIN 3-5 DAYS AFTER DISCHARGE FROM REHAB. FOLLOW UP WITH [facility] PR[facility]ER DR. CROSS IN 1-2 WEEKS. FOLLOW UP WITH NEUROLOGIST DR ESQUIVEL IN [address] HEAD AT THAT TIME. FOLLOW UP WITH EMERGENCY MANAGEMENT SPECIALIST DR. AZAEL GLEZ/ANAHY CARPENTER IN [facility] IN 2 WEEKS. Current Hospital Diet Patient's current hospital diet: Diabetes Type 2 Diet, Low Sodium Diet (2gm Na) Discharge Diet Recommended Diet: AHA Diet (Heart Healthy), Diabetes Type 2 Diet Procedures Procedures Performed: BRAIN MRI, EXTREMITY US, ARTHROCENTESIS RIGHT KNEE Pending Studies Studies pending at discharge: yes List of pending studies: PLEASE REFER TO HOSPITAL DISCHARGE SUMMARY. Physician Orders On Transfer Special Precautions: PLEASE REFER TO ACCOMPANYING HOSPITAL DISCHARGE SUMMARY FOR FURTHER DETAILS. DUE TO RECENT INTRACRANIAL BLEED, NO ANTIPLATELETS, ANTICOAGULANTS, NSAIDS UNTIL CLEARED BY NEUROLOGIST. MONITOR MENTAL STATUS, VOLUME STATUS, HEART RATE CLOSELY. MONITOR FOR RESOLUTION OF BILATERAL LEG CELLULITIS. DAILY WOUND CARE. MONITOR LEFT ELBOW AND FOREARM FOR RESOLUTION OF PAIN AND SWELLING. PREDNISONE GIVEN FOR POSSIBLE GOUT ATTACK. MONITOR BSGS. ON INSULIN LANTUS AND ISS. USUALLY ON GLIMEPIRIDE AT HOME. DO NOT EXCEED MORE THAN 2G OF TYLENOL /DAY PATIENT HAS LIVER CIRRHOSIS. FOLLOW UP WITH PCP DR. CLARK WITHIN 3-5 DAYS AFTER DISCHARGE FROM REHAB. FOLLOW UP WITH [facility] PR[facility] DR. CROSS IN 1-2 WEEKS. FOLLOW UP WITH NEUROLOGIST DR ESQUIVEL IN [address] HEAD AT THAT TIME. FOLLOW UP WITH EMERGENCY MANAGEMENT SPECIALIST DR. AZAEL GLEZ/ANAHY CARPENTER IN [facility] IN 2 WEEKS. Laboratory Results Hemoglobin A1c Test 11/04/16 03:04 Range/Units Estimated Average Glucose 226 mg/dl Hemoglobin A1c 9.5 H 4.5-5.6 % Medical Emergencies . Who to Call and When: Medical Emergencies: If at any time you feel your situation is an emergency, please call 911 immediately. . Non-Emergent Contact Non-Emergency issues call your: Primary Care Provider Call Non-Emergent contact if: you have a fever, your pain is not controlled, your pain is worsening, wound has increased drainage, wound has increased redness, wound has increased pain, you have any medication questions . Past History Medical & Surgical History: (1) Hypoglycemia (2) Altered mental status (3) Elevated troponin (4) Weakness generalized (5) Hypoxia (6) SOB (shortness of breath) (7) s/p cardiac cath (8) Coronary artery disease (9) Gout (10) Essential hypertension (11) Atrial fibrillation (12) Diabetes mellitus type II, uncontrolled . "Provider Documentation" section prepared by Crispin Aguilar. . Core Measure Problem Core Measures: None
--- NOTE | 2016-12-23 18:06 | Discharge Summary ---
Discharge Summary Date of Service Dec 23, 2016. Discharge Summary Admission Date: Dec 17, 2016 at 10:48 Discharge Date: Dec 23, 2016 Discharge Disposition: Rehab Principal Diagnosis: LEFT PARIETAL LOBE HEMORRHAGE S/P HEAD TRAUMA SECONDARY TO FALL Secondary Diagnoses/Problems: PLEASE REFER TO HOSPITAL COURSE BELOW. Procedures: BRAIN WITHOUT CONTRAST 12/17/2016 12:37 PM HISTORY: 66 years-old Male Severe Headache ( Recent head trauma, on Eliquis) acute severe headache with history of recent head trauma COMPARISON: CT head of same day TECHNIQUE: Multiplanar multisequence MRI the brain was obtained without contrast FINDINGS: There is a focal area of increased T1 and T2 signal involving the cortical left parietal lobe near the vertex seen on image 20 of series 5, image 20 of series 6 and image 21 of series 8 with slightly restricted diffusion measuring 6 x 10 x 9 mm. Minimal cortical expansion is noted without mass effect or midline shift. There is minimal blooming artifact within this distribution. Minimal periventricular T-2/FLAIR prolongation is noted compatible with chronic microvascular ischemic changes. Mild central atrophy. No hydrocephalus. Major flow voids at the skull base appear patent. The paranasal sinuses are clear. Small right mastoid effusion. IMPRESSION: 1. 10 mm cortically based hemorrhagic focus of the left parietal lobe near the vertex suggests acute cortical contusion in the setting of recent fall while on anticoagulant therapy. Follow-up study recommended with IV contrast to exclude enhancing lesion within this distribution which is thought to be less likely. 2. Atrophy with background of mild chronic microvascular ischemic changes. HEAD WITHOUT CONTRAST (CT) 12/18/2016 7:09 AM CLINICAL HISTORY: 66 years-old Male presenting with Brain Hemorrhage . TECHNIQUE: Multidetector CT imaging of the head was performed without the use of intravenous contrast. IV contrast: None. A dose lowering technique was used consistent with the principles of ALARA (as low as reasonably achievable). COMPARISON: 12/17/2016. CT DOSE (mGy.cm): The estimated cumulative dose is 537.48 mGy.cm. FINDINGS: Soap Boiler topogram: Unremarkable. Crowding of the foramen magnum, unchanged from prior and likely developmental, possibly indicating a Chiari malformation or normal variant. No hydrocephalus. The previously seen hyperdense contusion at the paramedian left parietal region is on a minimally apparent (series 2 image 25). Mild periventricular white matter hypoattenuation could suggest chronic small vessel ischemic change. No mass effect or midline shift. No acute territorial infarct. No new hemorrhage. No extra-axial fluid collection. Paranasal sinuses and mastoid air cells clear. Calvarium intact. Focal calcification along the outer table of the calvarium in the left frontal region, unchanged. IMPRESSION: 1. Interval evolution of left paramedian parietal lobe contusion. No acute intracranial pathology. No new hemorrhage. HEAD CT NONCONTRAST 12/19/2016 10:[address] DOSE: 614.27 mGy.cm HISTORY: Follow-up intracranial hemorrhage. TECHNIQUE: Multiaxial CT images of the head were performed without the use of intravenous contrast. Automated exposure control was utilized for this study. A dose lowering technique was utilized adhering to the principles of ALARA. Comparison: Head CT 12/18/2016. Findings: The paranasal sinuses and mastoid air cells are clear. The calvarium and skull base are intact. There is no mass, midline shift, acute infarct. White matter hypodensity is nonspecific but suggestive of microvascular ischemic change. The ventricles and sulci demonstrate mild age-related involutional changes. The left parietal vertex contusion has essentially resolved in the interval. There is a 2 mm punctate hyperdense focus within the right high convexity on image 26 which is stable. This favors a tiny contusion/trace subarachnoid hemorrhage. Impression: 1. The left parietal vertex contusion has essentially resolved in the interval. 2. There is a persistent 2 mm punctate hyperdense focus within the right high convexity which remains unchanged. This favors a tiny contusion/trace subarachnoid hemorrhage. Dictated Date/Time: 12/19/2016 9:30 AM (LIVER) ABDOMEN LIMITED HISTORY: 66 years-old Male r/o cirrhosis history of intracranial hemorrhage and bilateral lower extremity swelling. Concern for possible cirrhotic liver disease. COMPARISON: Ultrasound of the abdomen 06/18/2013 TECHNIQUE: Multiple real-time sonographic images of the abdominal right upper quadrant were obtained assessing grayscale appearance and color flow FINDINGS: Studies mildly limited secondary to patient body habitus. Pancreas is unremarkable with distal body and tail secured by bowel gas. Liver measures up to 15.4 cm in length and appears mildly heterogeneous with mild marginal nodularity. No ascites identified. There is a hypoechoic 0.8 cm lesion of the left hepatic lobe which is nonspecific without internal vascularity which may reflect a cyst. No intrahepatic biliary ductal dilation. Common bile duct is within normal limits, 0.5 cm. The gallbladder is mildly contracted with wall measuring 0.3 cm. No shadowing cholelithiasis or pericholecystic fluid collections. The imaged right kidney is unremarkable without hydronephrosis. IMPRESSION: 1. Heterogeneous appearance of the liver with mild marginal nodularity is suspicious for cirrhotic liver disease. 2. Contracted gallbladder without cholelithiasis or sonographic evidence of acute cholecystitis. 3. No biliary ductal dilation. 4. Nonspecific 0.8 cm hypoechoic left hepatic lobe lesion. RIGHT KNEE 2 VIEWS CLINICAL HISTORY: Fall with right knee pain. FINDINGS: AP and crosstable lateral views of the right knee are obtained. No prior studies are available for comparison at the time of dictation. The skeletal structures are well mineralized for age. No fracture is seen. There is mild tricompartmental degenerative joint space narrowing, greatest at the patellofemoral articulation. There are small marginal osteophytes and large patellar enthesophytes. There is a large joint effusion. Bony overgrowth is seen at the anterior tibial tuberosity. Soft tissue edema is present around the knee. IMPRESSION: 1. Soft tissue swelling and joint effusion. No right knee fracture is identified. 2. Arthritic change as above. RIGHT KNEE ULTRASOUND CLINICAL HISTORY: Right knee pain. Evaluate for effusion. COMPARISON STUDY: Right knee radiographs December 19, 2016. FINDINGS: Note is made of a mildly complex suprapatellar right knee collection consistent with a joint effusion which measures 10.4 x 1.8 x 7.2 cm. There may be synovial thickening. IMPRESSION: Moderate size right knee joint effusion with possible synovial thickening, a nonspecific finding. RIGHT KNEE ARTHROCENTESIS 12/18/16 Consultations: RIVER CAPTAIN, NEUROLOGIST, ORTHOPEDICS, INFECTIOUS DISEASE, MATERIAL CARRIER Pending Studies/Follow-Up: PLEASE REFER TO HOSPITAL COURSE BELOW FOR FURTHER DETAILS. DUE TO RECENT INTRACRANIAL BLEED, NO ANTIPLATELETS, ANTICOAGULANTS, NSAIDS UNTIL CLEARED BY NEUROLOGIST. MONITOR MENTAL STATUS, VOLUME STATUS, BP AND HEART RATE CLOSELY. MONITOR FOR RESOLUTION OF BILATERAL LEG CELLULITIS. DAILY WOUND CARE. MONITOR LEFT ELBOW AND FOREARM FOR RESOLUTION OF PAIN AND SWELLING. PREDNISONE GIVEN FOR POSSIBLE GOUT ATTACK. MONITOR BSGS. ON INSULIN LANTUS AND ISS. USUALLY ON GLIMEPIRIDE AT HOME. DO NOT EXCEED MORE THAN 2G OF TYLENOL /DAY PATIENT HAS LIVER CIRRHOSIS. FOLLOW UP WITH PCP DR. CLARK WITHIN 3-5 DAYS AFTER DISCHARGE FROM REHAB. FOLLOW UP WITH RIVER CAPTAIN DR. GRANT IN 1-2 WEEKS. FOLLOW UP WITH NEUROLOGIST DR ESQUIVEL IN [address] HEAD AT THAT TIME. FOLLOW UP WITH MATERIAL CARRIER DR. AZAEL GLEZ/ANAHY CARPENTER IN [facility] IN 2 WEEKS. Medication Reconciliation New Medications: Doxycycline Hyclate (Doxycycline Hyclate) 100 Mg Cap 1 CAP PO BID for 2 Days, #4 CAP 0 Refills Atorvastatin (Atorvastatin Calcium) 40 Mg Tab 40 MG PO QAM for 30 Days, #30 TAB Folic Acid (Folic Acid) 1 Mg Tab 1 MG PO QAM for 30 Days, #30 TAB Furosemide (Furosemide) 40 Mg Tab 40 MG PO QAM for 30 Days, #30 TAB Gabapentin (Gabapentin) 300 Mg Cap 300 MG PO BID for 30 Days, #60 CAP Insulin Aspart (Novolog Flexpen) 100 Units/Ml Inj 0 UNITS SC ACHS for 30 Days Lactobacillus Acidophilus (Floranex) 1 Tab Tab 4 TAB PO TIDM for 15 Days Lactulose (Lactulose) 30 Gm/45 Ml Syrp 30 GM PO TID for 30 Days Metoprolol Succinate (Metoprolol Succinate ER) 50 Mg Tabcr 75 MG PO BID for 30 Days, #90 TABS Multiple Vitamin (Daily-[place]) 1 Tab Tab 1 TAB PO QAM for 30 Days, #30 TAB Spironolactone (Spironolactone) 100 Mg Tab 100 MG PO QAM for 30 Days, #30 TAB Thiamine HCl (Vitamin B-1) 100 Mg Tab 100 MG PO QAM for 30 Days, #30 TAB Continued Medications: Albuterol Sulfate (Proair Respiclick) 108 Mcg/Act Aer 2 PUFFS PO QID PRN for Shortness of Breath, #1 Potassium Chloride (Micro-K Ext Rel) 10 Meq Capcr 10 MEQ PO DAILY, CAP Discontinued Medications: Apixaban (Eliquis) 5 Mg Tab 5 MG PO BID, TAB Baclofen (Baclofen) 10 Mg Tab 10 MG PO BID for 7 Days, #14 TAB Furosemide (Lasix) 20 Mg Tab 20 MG PO DIRECTED, TAB LEG SWELLING Gabapentin (Gabapentin) 300 Mg Cap 300 MG PO HS for 10 Days, #10 CAP Glimepiride (Amaryl *) 4 Mg Tab 4 MG PO QAM, 0 Refills Hydrocodone/Acetaminophen 5MG/325MG ([place] 5MG/325MG) Tab 1 TABLET PO Q4 PRN for Pain, TAB PRN PAIN Metoprolol Succinate (Toprol Xl) 25 Mg Tabcr 25 MG PO DAILY, #30 TAB Admission Information HPI (per Admitting provider): Patient is a 66yr male with a PMH of DM II, A fib, HTN, non-occlusive CAD, Diastolic CHF, COPD, Chronic Venous stasis and other comorbidities who was discharged from [facility] days ago after being treated for possible CVA and concussion after encountering head trauma secondary to a fall presents with history of worsening lethargy and generalized weakness. Mos of the history is obtained from patient's family. Reports that patient is currently using walker to ambulate at home and today he was having trouble even to get up from his chair. Also reports poor oral intake. Patient reports having frontal headache which started today which he describe like "tooth ache", constant. He sustained a concussion few days ago and is currently on eliquis. CT head showed no acute changes. Patient and his denies any history of confusion or change in mental status/vision, facial deformity, slurred speech, and is able to move all extremities. He is noted to be in afib with RVR in ED. Denies any history of CP/SOB/Cough/Wheezing/Abd pain/change in bowel/bladder habits/Fever/chills/ Dizziness. Physical Exam (per Admitting): General Appearance: WD/WN, no apparent distress, + pertinent finding ( Lethargic) Head: normocephalic, atraumatic Eyes: normal inspection, PERRL, EOMI ENT: normal ENT inspection, hearing grossly normal Neck: supple, no JVD Respiratory/Chest: chest non-tender, lungs clear, no accessory muscle use, + decreased breath sounds Cardiovascular: no murmur, + irregularly irregular, + pertinent finding (2+ b/l LE Edema) Abdomen/GI: normal bowel sounds, non tender, soft Back: normal inspection Extremities/Musculoskelatal: + pedal edema, + pertinent finding (B/L LE chronic venous stasis changes) Neurologic/Psych: quality assurance representative II-XII nml as tested, alert, normal mood/affect, oriented x 3, + pertinent finding (Able to move all extremitites and grossly no focal deficits) Skin: normal color, warm/dry, + pertinent finding (Multiple wounds on B/L UE ) Hospital Course 66 year old male with history of CAD, CHF Diastolic Type, Atrial Fibrillation DM , HTN, recent fall with closed head trauma presenting with weakness and headache. LEFT PARIETAL LOBE HEMORRHAGE S/P HEAD TRAUMA SECONDARY TO FALL MRI brain: 12/17/16 1. 10 mm cortically based hemorrhagic focus of the left parietal lobe near the vertex suggests acute cortical contusion in the setting of recent fall while on anticoagulant therapy. Follow-up study recommended with IV contrast to exclude enhancing lesion within this distribution which is thought to be less likely. 2. Atrophy with background of mild chronic microvascular ischemic changes. Repeat CT head: 12/19/16 1. The left parietal vertex contusion has essentially resolved in the interval. 2. There is a persistent 2 mm punctate hyperdense focus within the right high convexity which remains unchanged. This favors a tiny contusion/trace subarachnoid hemorrhage. -- Aspirin, Eliquis discontinued Neurology consulted Dr. Esquivel -- remains without headache or any other neurological deficits per Neurology Dr. Esquivel ff up with them in [address] head no NSAIDs, antiplatelets, anticoagulation until cleared by Neurology GENERALIZED WEAKNESS,/LETHARGY, Resolved Likely debility from comorbidities, Elevated Ammonia -- Ammonia level 47 AST/ALT ok, Alk Phos slightly elevated -- Liver US: IMPRESSION: Moderate size right knee joint effusion with possible synovial thickening, a nonspecific finding. -- started Lactulose 30mg TID consulted GI ANAHY Carpenter/. Dr Glez -- mental status improved further continue Lactulose for now continue PT /OT d/c to [facility] LIVER CIRRHOSIS - history of alcoholism -- Ammonia level 47 AST/ALT ok, Alk Phos slightly elevated -- Liver US: IMPRESSION: Moderate size right knee joint effusion with possible synovial thickening, a nonspecific finding. -- started Lactulose 30mg TID , mental status improving daily restarted Lasix at 40mg po daily, added Spironolactone 100mg po daily serologies pending consulted GI ANAHY Carpenter/. Dr Glez ff up with GI in 2 weeks ATRIAL FIBRILLATION WITH RVR - Kiosk Sales Representative consulted- Dr. Grant/BRIAN Brown - Metoprolol started, increased for better HR control -- HR improving monitor BP and JR Poor candidate for anticoagulation given H/O prior hemoptysis, frequent falls , and hemorrhagic contusion. -- ff up with Kiosk Sales Representative in 2 weeks FEVER LIKELY SECONDARY TO BILATERAL LEG CELLULITIS, GOUT FLARE UP- RIGHT KNEE - fever on hospital day 2 - Blood cultures negative so far Urine cultures negative so far Wound culture gram positive cocci - Right knee US: Moderate effusion s/p Arthrocentesis 12/20/[address] Patino Synovial fluid: WBC 16k with >90% PMNs cultures: negative so far -- ID consulted- Dr. Lizarraga -- given Vanco and Aztreonam IV x 5 days, continue Doxycycline 100mg BID x 2 more days, monitor for resolution, extend antibiotics if necessary, Floranex started Left Elbow Pain - possible gout attack - giveb one dose of Prednisone 20mg po monitor elevate arm, warm compress Elevated Troponin: Likely demand ischemia cardiac enzymes trended down -- no cardiac symptoms DM II: Last A1c: 9.5 in Oct held Glimepiride Insulin Sliding Scale only Lantus discontinued as patient having hypoglycemia Accu checks, Diabetic diet -- transition to PO oral DM meds accordingly HTN: BP on the lower side on Metoprolol monitor BP Non-occlusive CAD continue Lipitor, Metoprolol Diastolic CHF: -- Lasix 40mg and Aldactone monitor volume status COPD: not in exacerbation Nebs PRN Chronic Venous stasis Doppler US negative for DVT DVT Px: SCDs: ambulation encouraged Code Status: Full Code Disposition: d/c to [facility] FOLLOW UP WITH PCP DR. CLARK WITHIN 3-5 DAYS AFTER DISCHARGE FROM REHAB. FOLLOW UP WITH RIVER CAPTAIN DR. GRANT IN 1-2 WEEKS. FOLLOW UP WITH NEUROLOGIST DR ESQUIVEL IN [address] HEAD AT THAT TIME. FOLLOW UP WITH MATERIAL CARRIER DR. AZAEL GLEZ/ANAHY CARPENTER IN [facility] IN 2 WEEKS. Total time spent on discharge = 60 minutes This includes examination of the patient, discharge planning, medication reconciliation, and communication with other providers. Discharge Instructions Discharge Instructions Date of Service Dec 23, 2016. Admission Reason for Admission: Weakness Generalized Discharge Discharge Diagnosis / Problem: INTRACRANIAL BLEED, NEW ONSET ATRIAL FIBRILLATION, LEG CELLULITIS Discharge Goals Goal(s): Diagnostic testing, Therapeutic intervention Activity Recommendations Activity Level: Assistance Required Therapies: Physical Therapy, Occupational Therapy . Additional Information Patient informed of condition: Yes Advance Directives: No (UNKNOWN) DNR: No (PATIENT IS FULL CODE) Level of Care: Acute Rehab Communicable Disease: No Prognosis: Improving Instructions / Follow-Up Instructions / Follow-Up PLEASE REFER TO ACCOMPANYING HOSPITAL DISCHARGE SUMMARY FOR FURTHER DETAILS. DUE TO RECENT INTRACRANIAL BLEED, NO ANTIPLATELETS, ANTICOAGULANTS, NSAIDS UNTIL CLEARED BY NEUROLOGIST. MONITOR MENTAL STATUS, VOLUME STATUS, HEART RATE CLOSELY. MONITOR FOR RESOLUTION OF BILATERAL LEG CELLULITIS. DAILY WOUND CARE. MONITOR LEFT ELBOW AND FOREARM FOR RESOLUTION OF PAIN AND SWELLING. PREDNISONE GIVEN FOR POSSIBLE GOUT ATTACK. MONITOR BSGS. ON INSULIN LANTUS AND ISS. USUALLY ON GLIMEPIRIDE AT HOME. DO NOT EXCEED MORE THAN 2G OF TYLENOL /DAY PATIENT HAS LIVER CIRRHOSIS. FOLLOW UP WITH PCP DR. CLARK WITHIN 3-5 DAYS AFTER DISCHARGE FROM REHAB. FOLLOW UP WITH RIVER CAPTAIN DR. GRANT IN 1-2 WEEKS. FOLLOW UP WITH NEUROLOGIST DR ESQUIVEL IN [address] HEAD AT THAT TIME. FOLLOW UP WITH MATERIAL CARRIER DR. AZAEL GLEZ/ANAHY CARPENTER IN [facility] IN 2 WEEKS. Current Hospital Diet Patient's current hospital diet: Diabetes Type 2 Diet, Low Sodium Diet (2gm Na) Discharge Diet Recommended Diet: AHA Diet (Heart Healthy), Diabetes Type 2 Diet Procedures Procedures Performed: BRAIN MRI, EXTREMITY US, ARTHROCENTESIS RIGHT KNEE Pending Studies Studies pending at discharge: yes List of pending studies: PLEASE REFER TO HOSPITAL DISCHARGE SUMMARY. Physician Orders On Transfer Special Precautions: PLEASE REFER TO ACCOMPANYING HOSPITAL DISCHARGE SUMMARY FOR FURTHER DETAILS. DUE TO RECENT INTRACRANIAL BLEED, NO ANTIPLATELETS, ANTICOAGULANTS, NSAIDS UNTIL CLEARED BY NEUROLOGIST. MONITOR MENTAL STATUS, VOLUME STATUS, HEART RATE CLOSELY. MONITOR FOR RESOLUTION OF BILATERAL LEG CELLULITIS. DAILY WOUND CARE. MONITOR LEFT ELBOW AND FOREARM FOR RESOLUTION OF PAIN AND SWELLING. PREDNISONE GIVEN FOR POSSIBLE GOUT ATTACK. MONITOR BSGS. ON INSULIN LANTUS AND ISS. USUALLY ON GLIMEPIRIDE AT HOME. DO NOT EXCEED MORE THAN 2G OF TYLENOL /DAY PATIENT HAS LIVER CIRRHOSIS. FOLLOW UP WITH PCP DR. CLARK WITHIN 3-5 DAYS AFTER DISCHARGE FROM REHAB. FOLLOW UP WITH RIVER CAPTAIN DR. GRANT IN 1-2 WEEKS. FOLLOW UP WITH NEUROLOGIST DR ESQUIVEL IN [address] HEAD AT THAT TIME. FOLLOW UP WITH MATERIAL CARRIER DR. AZAEL GLEZ/ANAHY CARPENTER IN [facility] IN 2 WEEKS.
[2016-12-24 06:42] LABS: ALPHA-1-ANTITRYPSIN TC 67710E 249 MG/DL (83-199); GAMMA GLOBULIN 0.6 G/DL (0.8-1.7); IGA SERUM 148 mg/dL (81-463); TIS TRANS IGA 1 U/mL (<4); TOTAL PROTEIN 5.4 G/DL (6.2-8.3)
[2016-12-25 11:33] LABS: ANA TITER 1:40 TITER (<1:40)
== END 2016-12-23 18:00 | DRG 83 ==
LOC: EDBD 07:57 → C.EDB 07:58 → C.MED 10:48 → ENRESERV 11:12
PROVIDERS: ADMIT Internal Medicine; ATTEND Internal Medicine
PROC: 0S9C3ZX Drainage of Right Knee Joint, Percutaneous Approach, Diagnostic (ICD-10-PCS; principal; 2016-12-18)
DX: S06.359A Traumatic hemorrhage of left cerebrum with loss of consciousness of unspecified duration, initial encounter (principal); I50.30 Unspecified diastolic (congestive) heart failure; I24.8 Other forms of acute ischemic heart disease; L03.116 Cellulitis of left lower limb; L03.115 Cellulitis of right lower limb; M10.061 Idiopathic gout, right knee; I48.91 Unspecified atrial fibrillation; I25.10 Atherosclerotic heart disease of native coronary artery without angina pectoris; E11.9 Type 2 diabetes mellitus without complications; M1A.9XX0 Chronic gout, unspecified, without tophus (tophi); I87.8 Other specified disorders of veins; J44.9 Chronic obstructive pulmonary disease, unspecified; W10.9XXA Fall (on) (from) unspecified stairs and steps, initial encounter; Y92.019 Unspecified place in single-family (private) house as the place of occurrence of the external cause; I12.9 Hypertensive chronic kidney disease with stage 1 through stage 4 chronic kidney disease, or unspecified chronic kidney disease; M10.071 Idiopathic gout, right ankle and foot; K70.30 Alcoholic cirrhosis of liver without ascites; D69.59 Other secondary thrombocytopenia; F10.20 Alcohol dependence, uncomplicated; Z79.01 Long term (current) use of anticoagulants

== ENCOUNTER → 2017-01-08 | Outpatient (CLI) | payer OTHER ==
[2016-12-17 11:10] VITALS: BMI 34.9
[2016-12-23 04:00] VITALS: O2SAT 96
[2016-12-23 16:15] VITALS: BP 121/82; PULSE 104; TEMP 36.5; O2SAT 90
[~2017-01-08] MED LIST changes: -AMR2 PO; -ASPCH81X PO; -ATEN-175 PO; +FLV1 PO; -FURO-85 PO; -HYDR-5688 PO; +LCTL45 PO; +LCTX PO; -LISI40TA PO; +LPT40 PO; -LRS10 PO; +LSX40 PO; -MENTOIN EXT; +MULT-890 PO; +NVLGIPEN SC; +OPTIRAY 320 IV PRN; +POTA10CA28 PO; -PRED20TA PO; +SPRN100 PO; +THM100 PO; +TPRSR50 PO
--- NOTE | 2017-01-08 09:45 | DIAGNOSTIC IMAGING REPORT ---
HEAD COMBO HISTORY: 66 years-old Male S06.9X9A follow-up study to assess left parietal lobe hemorrhage COMPARISON: Head CT 12/19/2016, 12/18/2016 and 12/17/2016. TECHNIQUE: Multiple axial CT images of the head were obtained both with and without the use of 93 mL Optiray 320. A dose lowering technique was used consistent with the principals of VARUN. FINDINGS: The previously noted punctate area of increased attenuation within the right parietal lobe near the vertex is not clearly identified. Left parietal lobe appears normal without hemorrhage. No acute intracranial hemorrhage, midline shift, abnormal extra-axial collections, hydrocephalus, intracranial mass or territorial ischemia. Mild atrophy with persistent mild chronic microvascular ischemic changes. No abnormal intra-axial or extra-axial enhancement. Mastoid air cells and middle ear cavities are clear. Degenerative changes involve the temporal mandibular joints bilaterally. Mild mucosal thickening of the ethmoid air cells and maxillary sinuses. Soft tissues are unremarkable. There is thinning of the optic lenses bilaterally. IMPRESSION: 1. No acute intracranial abnormality identified, specifically no intracranial hemorrhage or abnormal enhancement. 2. Mild atrophy with chronic microvascular ischemic changes. The above report was generated using voice recognition software. It may contain grammatical, syntax or spelling errors. Electronically signed by: Aldo Salinas M.D. 01/08/2017 9:43 AM Dictated Date/Time: 01/08/2017 9:36 AM
== END | disposition home or self-care (01) ==
LOC: C.CTS 08:53 → EDSTATUS 09:40
PROVIDERS: ATTEND Psychiatry & Neurology Neurology
DX: S06.9X9A Unspecified intracranial injury with loss of consciousness of unspecified duration, initial encounter (principal); X58.XXXA Exposure to other specified factors, initial encounter